=== PATIENT | female | born 1960 | race African-American/Black ===

== ENCOUNTER 2016-04-27 21:01 | Emergency (ER) | payer OTHER ==
--- NOTE | 2016-04-27 21:10 | PDOC ---
History of Present Illness - General History Source: Patient Exam Limitations: No Limitations - History of Present Illness Initial Comments: 04/27/16 21:41 The patient is a 55 year old female, with a significant past medical history of asthma and acid reflux, who presents to the emergency department with abdominal pain and nausea since yesterday. She describes her abdominal pain as moderate, localized in the epigastric region, without radiation or modifying factors. She reports that she has been taking Advil with minimal relief of her symptoms. She notes that she had these same symptoms on 10/2015, was diagnosed with gastritis and discharged after a 3 day stay. She also notes that she had multiple endoscopies at the time. The patient denies chest pain, shortness of breath, headache and dizziness. Denies fever, chills, vomit, diarrhea and constipation. Denies dysuria, frequency, urgency and hematuria. Allergies: Past surgical history: Gastric Sleeve and cholecystectomy Social history: No alcohol, tobacco or drug use reported <Richi Paredes - Last Filed: 04/28/16 00:02> <Marion Esparza - Last Filed: 04/28/16 02:40> - General Chief Complaint: Pain, Acute Stated Complaint: ABDOMINAL PAIN Time Seen by Provider: 04/27/16 21:04 Past History <Richi Paredes - Last Filed: 04/28/16 00:02> - Past Medical History Anemia: No Asthma: Yes Cancer: No Cardiac Disorders: No CVA: No COPD: No CHF: No Dementia: No Diabetes: No GI Disorders: Yes (gerd) Disorders: No HTN: Yes Hypercholesterolemia: No Liver Disease: No Suicide Attempt (Hx): No Seizures: No Thyroid Disease: No - Surgical History Abdominal Surgery: Yes (LAP BANDING IN 2003 & REMOVED,hernia, gastric sleeve 2014) Appendectomy: No Cardiac Surgery: No Cholecystectomy: Yes (04/2010) Lung Surgery: No Neurologic Surgery: No Orthopedic Surgery: No - Psycho/Social/Smoking Cessation Hx Anxiety: No Suicidal Ideation: No Smoking Status: No Smoking History: Former smoker Have you smoked in the past 12 months: No Number of Cigarettes Smoked Daily: 0 If you are a former smoker, when did you quit?: 1991 Hx Alcohol Use: No Drug/Substance Use Hx: No Substance Use Type: None Hx Substance Use Treatment: No <Marion Esparza - Last Filed: 04/28/16 02:40> - Past Medical History Allergies/Adverse Reactions: Allergies Allergy/AdvReac Type Severity Reaction Status Date / Time spironolactone Allergy Mild Rash Verified 04/27/16 21:09 [From Aldactone] Home Medications: Ambulatory Orders Albuterol 0.083% Nebulizer Mary [Ventolin 0.083% Nebulizer Soln -] 1 neb NEB Q6H 09/01/14 Albuterol Sulfate Inhaler - [Ventolin Hfa Inhaler -] 1 - 2 inh PO QID 10/16/15 Fluticasone Propionate [Flovent Diskus] 100 mcg IH DAILY 10/16/15 Esomeprazole Magnesium [Nexium 24Hr] 20 mg PO DAILY #14 capsule. 04/28/16 Abd/GI Specific PMHX - Complaint Specific PMHX GERD: Yes <Marion Esparza - Last Filed: 04/28/16 02:40> Review of Systems - Review of Systems Able to Perform ROS?: Yes Comments:: 04/27/16 21:41 GENERAL/CONSTITUTIONAL: No fever or chills. No weakness. HEAD, EYES, EARS, NOSE AND THROAT: No change in vision. No ear pain or discharge. No sore throat. CARDIOVASCULAR: No chest pain or shortness of breath RESPIRATORY: No cough, wheezing, or hemoptysis. GASTROINTESTINAL: +Epigastric pain and nausea. No vomiting, diarrhea or constipation. GENITOURINARY: No dysuria, frequency, or change in urination. MUSCULOSKELETAL: No joint or muscle swelling or pain. No neck or back pain. SKIN: No rash NEUROLOGIC: No headache, vertigo, loss of consciousness, or change in strength/ sensation. ENDOCRINE: No increased thirst. No abnormal weight change HEMATOLOGIC/LYMPHATIC: No anemia, easy bleeding, or history of blood clots. ALLERGIC/IMMUNOLOGIC: No hives or skin allergy. <Richi Paredes - Last Filed: 04/28/16 00:02> *Physical Exam - Vital Signs Last Vital Signs Temp Pulse Resp BP Pulse Ox 97.5 F L 96 H 18 172/113 100 04/27/16 21:09 04/27/16 21:09 04/27/16 21:09 04/27/16 21:09 04/27/16 21:09 - Physical Exam Comments: 04/27/16 21:41 GENERAL: Awake, alert, and fully oriented, in no acute distress HEAD: No signs of trauma, normocephalic, atraumatic EYES: PERRLA, EOMI, sclera anicteric, conjunctiva clear ENT: Auricles normal inspection, hearing grossly normal, nares patent, oropharynx clear without exudates. Moist mucosa NECK: Normal ROM, supple, no lymphadenopathy, JVD, or masses LUNGS: No distress, speaks full sentences, clear to auscultation bilaterally HEART: Regular rate and rhythm, normal S1 and S2, no murmurs, rubs or gallops, peripheral pulses normal and equal bilaterally. ABDOMEN: +Epigastric tenderness and rebound. Soft, normoactive bowel sounds. No guarding, No masses EXTREMITIES: Normal inspection, Normal range of motion, no edema. No clubbing or cyanosis. NEUROLOGICAL: Cranial nerves II through XII grossly intact. Normal speech, normal gait, no focal sensorimotor deficits SKIN: Warm, Dry, normal turgor, no rashes or lesions noted. <Richi Paredes - Last Filed: 04/28/16 00:02> ED Treatment Course - LABORATORY CBC & Chemistry Diagram: 04/27/16 21:30 04/27/16 21:30 <Richi Paredes - Last Filed: 04/28/16 00:02> - LABORATORY CBC & Chemistry Diagram: 04/27/16 21:30 04/27/16 21:30 <Marion Esparza - Last Filed: 04/28/16 02:40> Medical Decision Making - Medical Decision Making 04/27/16 23:19 Dr. Maya was called regarding the patient at 11:17pm Dr. Maya was consulted regarding the patient at 11:18pm [phone] Dr. Marques was called regarding the patient at 11:23pm. Dr. Patel covering. Dr. Patel was consulted regarding the patient at 11:40pm [phone] <Richi Paredes - Last Filed: 04/28/16 00:02> - Medical Decision Making 04/28/16 02:39 ekg is NSR with no signs of ischemia <Marion Esparza - Last Filed: 04/28/16 02:40> *DC/Admit/Observation/Transfer - Attestations Scribe Attestion: 04/27/16 21:42 Documentation prepared by Richi Paredes, acting as medical dir for Marion Esparza MD <Richi Paredes - Last Filed: 04/28/16 00:02> <Marion Esparza - Last Filed: 04/28/16 02:40> Diagnosis at time of Disposition: Abdominal pain Qualifiers: Abdominal location: epigastric Qualified Code(s): R10.13 - Epigastric pain - Prescriptions Prescriptions: Esomeprazole Magnesium [Nexium 24Hr] 20 mg PO DAILY #14 capsule.dr - Referrals Referrals: Mansoor Marques MD [Primary Care Provider] -
[2016-04-27 21:11] VITALS: TEMP 97.5; BMI 40.7
[2016-04-27] MEDS ORDERED: ONDANSETRON 4 MG/2 ML VIAL IVPB ONE (21:11)
[2016-04-27] MEDS ORDERED: PANTOPRAZOLE SODIUM 40 MG in SODIUM CHLORIDE 100 ML IVPB ONE (21:11)
[2016-04-27] MEDS ORDERED: HYDROmorphone HCL CARPU-JECT 1 MG/1 ML DISP.SYRIN IVPUSH ONE ×2 (21:11→22:54)
[2016-04-27] MEDS ORDERED: SODIUM CHLORIDE 1,000 ML IV SCH (21:15)
[2016-04-27] MEDS ORDERED: ONDANSETRON 4 MG/2 ML VIAL ONE (21:22)
[2016-04-27] MEDS ORDERED: HYDROmorphone HCL CARPU-JECT 1 MG/1 ML DISP.SYRIN ONE ×2 (21:22→23:02)
[2016-04-27] MEDS ORDERED: PANTOPRAZOLE SODIUM 100 ML IVPB ONE (21:22)
[2016-04-27 21:58] LABS: BASOPHIL 0.7 % (0-2.0); EOSINOPHIL 2.5 % (0-4.5); MCH 25.7 pg (25.7-33.7); MCHC 32.4 g/dl (32.0-36.0); MEAN CELL VOLUME 79.2 fl (80-96); MEAN PLT VOLUME 9.7 fl (7.5-11.1); PLATELET COUNT 282 K/MM3 (134-434); RDW 15.1 % (11.6-15.6); WHITE BLOOD COUNT 8.8 K/mm3 (4.0-10.0)
[2016-04-27 22:24] LABS: ALBUMIN 3.4 g/dl (3.4-5.0); ANION GAP 7 (8-16); CALCIUM 8.9 mg/dL (8.5-10.1); CO2 30 mmol/L (21-32); CREATININE 0.8 mg/dL (0.55-1.02); GLUCOSE,RANDOM 92 mg/dL (74-106); SGOT/AST 9 U/L (15-37); SGPT/ALT 13 U/L (12-78)
[2016-04-27 22:26] LABS: ALK PHOS 101 U/L (45-117); BILIRUBIN,TOTAL 0.4 mg/dL (0.2-1.0); TOT PROT 7.4 g/dl (6.4-8.2)
[2016-04-27] MEDS ORDERED: MAG HYDROX/AL HYDROX/SIMETH 30 ML UNIT-DOSE CUP PO ONE (23:23)
[2016-04-27] MEDS ORDERED: OXYCODONE/APAP 5/325MG COMBO TABLET PO ONE (23:34)
[2016-04-28] MEDS ORDERED: OXYCODONE/APAP 5/325MG COMBO TABLET ONE (00:52)
[2016-04-28] MEDS ORDERED: MAG HYDROX/AL HYDROX/SIMETH 30 ML UNIT-DOSE CUP ONE (00:52)
[2016-04-28 07:27] VITALS: BP 144/85; PULSE 67
[2016-04-28] MEDS ORDERED: ACETAMINOPHEN 500 MG TABLET (FP) PO ONE (07:31)
[2016-04-28] MEDS ORDERED: ACETAMINOPHEN 325 MG TABLET (FP) ONE (07:35)
--- NOTE | 2016-04-28 09:17 | PDOC ---
*Physical Exam - Vital Signs Last Vital Signs Temp Pulse Resp BP Pulse Ox 97.5 F L 67 18 144/85 98 04/27/16 21:09 04/28/16 07:27 04/28/16 05:55 04/28/16 07:27 04/28/16 05:55 ED Treatment Course - LABORATORY CBC & Chemistry Diagram: 04/27/16 21:30 04/27/16 21:30 - ADDITIONAL ORDERS Additional order review: Laboratory Results 04/27/16 21:30 Sodium 141 Potassium 3.9 Chloride 104 Carbon Dioxide 30 Anion Gap 7 L BUN 9 D Creatinine 0.8 D Creat Clearance w eGFR > 60 Random Glucose 92 Calcium 8.9 Total Bilirubin 0.4 AST 9 L D ALT 13 Alkaline Phosphatase 101 Total Protein 7.4 Albumin 3.4 Lipase 137 04/27/16 21:30 RBC 5.23 H MCV 79.2 L MCHC 32.4 RDW 15.1 MPV 9.7 Neutrophils % 64.0 D Lymphocytes % 23.6 D Monocytes % 9.2 Eosinophils % 2.5 Basophils % 0.7 - Medications Given in the ED: ED Medications Discontinued Medications Generic Name Dose Route Start Last Admin Trade Name Markq PRN Reason Stop Dose Admin Acetaminophen 1,000 mg 04/28/16 07:31 04/28/16 07:39 Tylenol - PO 04/28/16 07:32 1,000 mg ONCE ONE Administration Al Hydroxide/Mg Hydroxide 30 ml 04/27/16 23:23 04/28/16 00:54 Mylanta Oral Suspension - PO 04/27/16 23:24 30 ml ONCE ONE Administration Hydromorphone HCl 1 mg 04/27/16 21:11 04/27/16 21:43 Dilaudid Injection - IVPUSH 04/27/16 21:12 1 mg ONCE ONE Administration Hydromorphone HCl 1 mg 04/27/16 22:54 04/27/16 23:06 Dilaudid Injection - IVPUSH 04/27/16 22:55 1 mg ONCE ONE Administration Pantoprazole Sodium 40 mg/ 100 mls @ 200 mls/hr 04/27/16 21:11 04/27/16 21:43 Sodium Chloride IVPB 04/27/16 21:40 200 mls/hr ONCE ONE Administration Sodium Chloride 1,000 mls @ 125 mls/hr 04/27/16 21:15 04/27/16 21:43 Normal Saline - IV 125 mls/hr ASDIR NANCY Administration Ondansetron HCl 4 mg 04/27/16 21:11 04/27/16 21:43 Zofran Injection IVPB 04/27/16 21:12 4 mg ONCE ONE Administration Oxycodone/Acetaminophen 1 combo 04/27/16 23:34 04/28/16 00:54 Percocet 5/325 - PO 04/27/16 23:35 1 combo ONCE ONE Administration Progress Note - Progress Note Progress Note: This patient was endorsed to me at [address] Henry. The patient initially presented with abdominal pain and was discharged but later returned stating that she had a headache and felt lightheaded. Her abdominal pain is completely resolved and she received Tylenol for the headache which has also resolved. We' ll discharge home, follow-up with primary care physician within one week, return to the emergency department if symptoms persist, worsen, or new symptoms arise. *DC/Admit/Observation/Transfer Diagnosis at time of Disposition: Abdominal pain Qualifiers: Abdominal location: epigastric Qualified Code(s): R10.13 - Epigastric pain - Discharge Dispostion Disposition: HOME Condition at time of disposition: Stable Admit: No - Prescriptions Prescriptions: Esomeprazole Magnesium [Nexium 24Hr] 20 mg PO DAILY #14 capsule. Oxycodone HCl/Acetaminophen [Percocet 5-325 mg Tablet] 1 tab PO Q6H PRN #4 tablet MDD 4 PRN Reason: Severe Pain - Referrals Referrals: Mansoor Marques MD [Primary Care Provider] - - Patient Instructions Printed Discharge Instructions: DI for Abdominal Pain-Adult - Post Discharge Activity Work/School Note: Back to Work
--- NOTE | 2016-04-29 17:11 | EKG ---
Test Reason : Blood Pressure : / mmHG Vent. Rate : 071 BPM Atrial Rate : 071 BPM P-R Int : 138 ms QRS Dur : 082 ms QT Int : 404 ms P-R-T Axes : 045 042 050 degrees QTc Int : 439 ms NORMAL SINUS RHYTHM POSSIBLE LEFT ATRIAL ENLARGEMENT BORDERLINE ECG WHEN COMPARED WITH ECG OF 16-OCT-2015 15:05, NO SIGNIFICANT CHANGE WAS FOUND Confirmed by DONG KELLOGG MD ([id number]) on 04/29/2016 5:10:55 PM Referred By: Confirmed By:DONG KELLOGG MD
== END 2016-04-28 05:56 | disposition home or self-care (01) ==
LOC: JER 21:01
PROC: 3E033GC Introduction of Other Therapeutic Substance into Peripheral Vein, Percutaneous Approach (ICD-10-PCS; principal; 2016-04-27)
PROC: 3E033NZ Introduction of Analgesics, Hypnotics, Sedatives into Peripheral Vein, Percutaneous Approach (ICD-10-PCS; 2016-04-27)
DX: R10.13 Epigastric pain (principal); K21.9 Gastro-esophageal reflux disease without esophagitis
CPT/HCPCS: 36415; 80053; 83690; 85025; 93005; 93010; 99283-25

== ENCOUNTER 2016-05-01 08:21 | Emergency (ER) | payer OTHER ==
[2016-05-01 08:34] VITALS: BP 164/100; PULSE 87; TEMP 98.6; BMI 38.9
--- NOTE | 2016-05-01 08:47 | PDOC ---
History of Present Illness - General Chief Complaint: Sore Throat Stated Complaint: SORE THROAT/UNABLE TO SPEAK Time Seen by Provider: 05/01/16 08:41 History Source: Patient - History of Present Illness Timing/Duration: reports: other Severity: reports: mild Associated Symptoms: reports: sore throat. denies: cough, earache, facial pain , fever/chills, nasal congestion, nasal drainage, wheezing Past History - Past Medical History Allergies/Adverse Reactions: Allergies Allergy/AdvReac Type Severity Reaction Status Date / Time spironolactone Allergy Mild Rash Verified 05/01/16 08:34 [From Aldactone] Home Medications: Ambulatory Orders Albuterol 0.083% Nebulizer Mary [Ventolin 0.083% Nebulizer Soln -] 1 neb NEB Q6H 09/01/14 Albuterol Sulfate Inhaler - [Ventolin Hfa Inhaler -] 1 - 2 inh PO QID 10/16/15 Fluticasone Propionate [Flovent Diskus] 100 mcg IH DAILY 10/16/15 Esomeprazole Magnesium [Nexium 24Hr] 20 mg PO DAILY #14 capsule. 04/28/16 Esomeprazole Magnesium [Nexium] 5 mg PO DAILY 04/28/16 Oxycodone HCl/Acetaminophen [Percocet 5-325 mg Tablet] 1 tab PO Q6H PRN #4 tablet MDD 4 04/28/16 Anemia: No Asthma: Yes Cancer: No Cardiac Disorders: No CVA: No COPD: No CHF: No Dementia: No Diabetes: No GI Disorders: Yes (gerd) Disorders: No HTN: Yes Hypercholesterolemia: No Liver Disease: No Suicide Attempt (Hx): No Seizures: No Thyroid Disease: No - Surgical History Abdominal Surgery: Yes (LAP BANDING IN 2003 & REMOVED,hernia, gastric sleeve 2014) Appendectomy: No Cardiac Surgery: No Cholecystectomy: Yes (04/2010) Lung Surgery: No Neurologic Surgery: No Orthopedic Surgery: No - Psycho/Social/Smoking Cessation Hx Anxiety: No Suicidal Ideation: No Smoking Status: No Smoking History: Never smoked Have you smoked in the past 12 months: No Number of Cigarettes Smoked Daily: 0 If you are a former smoker, when did you quit?: 1991 Information on smoking cessation initiated: No Hx Alcohol Use: No Drug/Substance Use Hx: No Substance Use Type: None Hx Substance Use Treatment: No Review of Systems - Review of Systems Constitutional: No: Chills, Fever HEENTM: Yes: Throat Pain. No: Ear Pain, Nose Congestion Respiratory: No: Cough, Shortness of Breath, Wheezing *Physical Exam - Vital Signs Last Vital Signs Temp Pulse Resp BP Pulse Ox 98.6 F 87 18 164/100 98 05/01/16 08:27 05/01/16 08:27 05/01/16 08:27 05/01/16 08:27 05/01/16 08:27 - Physical Exam General Appearance: Yes: Appropriately Dressed. No: Apparent Distress HEENT: positive: Normal Voice, TMs Normal, Pharynx Normal, Muffled/Hoarse voice. negative: Scleral Icterus (R), Scleral Icterus (L) Neck: positive: Supple Integumentary: positive: Dry, Warm Neurologic: positive: Fully Oriented, Alert, Normal Mood/Affect Medical Decision Making - Medical Decision Making 05/01/16 08:47 55-year-old female history of asthma presents with hoarseness 3 days with mild sore throat this a.m. Denies any ear pain, cough, fever or chills. Non- smoker. Patient well-appearing and stable with hoarse voice in ED, otherwise unremarkable exam. Most likely acute laryngitis 2/2 URI. DC with supportive treatment including adequate hydration and voice rest. *DC/Admit/Observation/Transfer Diagnosis at time of Disposition: Hoarseness URI (upper respiratory infection) Qualifiers: URI type: unspecified viral URI Qualified Code(s): J06.9 - Acute upper respiratory infection, unspecified; B97.89 - Other viral agents as the cause of diseases classified elsewhere - Discharge Dispostion Disposition: HOME Condition at time of disposition: Stable - Patient Instructions Printed Discharge Instructions: DI for Laryngitis Additional Instructions: Rest your voice and maintain adequate hydration - Post Discharge Activity Work/School Note: Back to Work
== END 2016-05-01 09:03 | disposition home or self-care (01) ==
LOC: JERFT 08:21
DX: J06.9 Acute upper respiratory infection, unspecified (principal); B97.89 Other viral agents as the cause of diseases classified elsewhere; I10 Essential (primary) hypertension; J45.909 Unspecified asthma, uncomplicated; K21.9 Gastro-esophageal reflux disease without esophagitis
CPT/HCPCS: 99281-25

== ENCOUNTER 2016-06-05 18:35 | Inpatient (IN) | payer OTHER ==
--- NOTE | 2016-06-05 18:57 | PDOC ---
History of Present Illness - General History Source: Patient Exam Limitations: No Limitations - History of Present Illness Initial Comments: 06/06/16 01:24 55-year-old female with history of asthma, GERD, status post gastric sleeve complains of severe epigastric and periumbilical pain that is increased in severity over the past several days. Pain is constant, radiating posteriorly, associated with nausea and anorexia, 9 of 10 in severity, without alleviating or exacerbating factors. Pain is worse postprandially. Patient was seen and evaluated by her primary care physician and referred to the ER further evaluation and treatment. REVIEW OF SYSTEMS CONSTITUTIONAL: No fever, no chills, no fatigue EYES: No visual changes ENT: No ear pain, no sore throat CARDIOVASCULAR: No chest pain, no palpitations RESPIRATORY: No cough, no SOB GI:+ abdominal pain, no nausea, + vomiting, no constipation, no diarrhea GENITOURINARY: No dysuria, no frequency, no hematuria MUSKULOSKELETAL: No backpain, no joint pain, no myalgias SKIN: No rash NEURO: No headache EXAMINATION CONSTITUTIONAL:awake and alert; well nourished; in no apparent distress HEAD: Normocephalic; atraumatic EYES: PERRL; EOM intact, no scleral icterus ENMT: External appears normal; mm-dry NECK: Supple; non-tender; CARD: Normal S1, S2; no murmurs, rubs, or gallops RESP: Normal chest excursion with respiration; breath sounds clear and equal bilaterally; no wheezes, rhonchi, or rales ABD: Soft, +distended; tympanitic; significant epigastric and periumbilical ttp ; no palpable organomegaly, no palpable hernias EXT: Normal ROM in all four extremities; non-tender to palpation; distal pulses intact SKIN: Warm, dry, no rash NEURO: No focal neurological deficiencies. <Xu Santizo - Last Filed: 06/06/16 01:24> <Margaux Suh - Last Filed: 06/06/16 02:01> - General Chief Complaint: Pain Stated Complaint: ABD PAIN Past History - Past Medical History Anemia: No Asthma: Yes Cancer: No Cardiac Disorders: No CVA: No COPD: No CHF: No Dementia: No Diabetes: No GI Disorders: Yes (gerd) Disorders: No HTN: Yes (hx) Hypercholesterolemia: No Liver Disease: No Suicide Attempt (Hx): No Seizures: No Thyroid Disease: No - Surgical History Abdominal Surgery: Yes (sleeve 10/2014) Appendectomy: No Cardiac Surgery: No Cholecystectomy: Yes (04/2010) Lung Surgery: No Neurologic Surgery: No Orthopedic Surgery: No - Psycho/Social/Smoking Cessation Hx Anxiety: No Suicidal Ideation: No Smoking Status: No Smoking History: Never smoked Have you smoked in the past 12 months: No Number of Cigarettes Smoked Daily: 0 If you are a former smoker, when did you quit?: 1991 Information on smoking cessation initiated: No Hx Alcohol Use: No Drug/Substance Use Hx: No Substance Use Type: None Hx Substance Use Treatment: No <Xu Santizo - Last Filed: 06/06/16 01:24> <Margaux Suh - Last Filed: 06/06/16 02:01> - Past Medical History Allergies/Adverse Reactions: Allergies Allergy/AdvReac Type Severity Reaction Status Date / Time spironolactone Allergy Mild Rash Verified 06/05/16 18:39 [From Aldactone] Home Medications: Ambulatory Orders Albuterol Sulfate Inhaler - [Ventolin Hfa Inhaler -] 1 - 2 inh PO QID PRN Esomeprazole Magnesium [Nexium 24Hr] 20 mg PO DAILY #14 capsule. 04/28/16 Abd/GI Specific PMHX - Complaint Specific PMHX GERD: Yes <Xu Santizo - Last Filed: 06/06/16 01:24> *Physical Exam - Vital Signs Last Vital Signs Temp Pulse Resp BP Pulse Ox 97.6 F 85 18 189/91 97 06/05/16 18:39 06/05/16 18:39 06/05/16 18:39 06/05/16 18:39 06/05/16 18:39 <Xu Santizo - Last Filed: 06/06/16 01:24> - Vital Signs Last Vital Signs Temp Pulse Resp BP Pulse Ox 97.6 F 83 18 136/92 100 06/05/16 18:39 06/06/16 01:58 06/06/16 01:58 06/06/16 01:58 06/06/16 01:58 <Margaux Suh - Last Filed: 06/06/16 02:01> Heart Score/ECG Review #1 ECG reviewed & interpreted by me at: 01:48 (Vent Rate: 68 bpm. Normal sinus rhythm.) <Margaux Suh - Last Filed: 06/06/16 02:01> ED Treatment Course - LABORATORY CBC & Chemistry Diagram: 06/05/16 19:50 06/05/16 19:50 <Xu Santizo - Last Filed: 06/06/16 01:24> - LABORATORY CBC & Chemistry Diagram: 06/05/16 19:50 06/05/16 19:50 - ADDITIONAL ORDERS Additional order review: Laboratory Results 06/05/16 06/05/16 19:50 19:50 Sodium 142 Potassium 3.8 Chloride 102 Carbon Dioxide 30 Anion Gap 10 BUN 7 D Creatinine 0.6 D Creat Clearance w eGFR > 60 Random Glucose 79 Calcium 8.7 Magnesium 1.9 Total Bilirubin 0.5 D AST 25 D ALT 15 Alkaline Phosphatase 94 Total Protein 7.2 Albumin 3.4 Lipase 162 Urine Color Yellow Urine Appearance Clear Urine pH 6.0 D Ur Specific [place] 1.021 Urine Protein Negative Urine Glucose (UA) Negative Urine Ketones Negative Urine Blood Negative Urine Nitrite Negative Urine Bilirubin Negative Urine Urobilinogen 2.0 e.u/dl H Ur Leukocyte Esterase 2+ H Urine RBC 1 Urine WBC 2 Ur Epithelial Cells Rare Urine Bacteria Rare Urine Mucus Many 06/05/16 19:50 RBC 4.78 MCV 78.8 L MCHC 31.5 L RDW 15.0 MPV 9.6 Neutrophils % 59.7 Lymphocytes % 29.2 D Monocytes % 9.0 Eosinophils % 1.5 Basophils % 0.6 - Medications Given in the ED: ED Medications Discontinued Medications Generic Name Dose Route Start Last Admin Trade Name Freq PRN Reason Stop Dose Admin Hydromorphone HCl 2 mg 06/05/16 21:41 06/05/16 21:50 Dilaudid Injection - IVPB 06/05/16 21:42 2 mg ONCE ONE Administration Sodium Chloride 500 mls @ 500 mls/hr 06/05/16 19:13 06/05/16 19:40 Normal Saline - IV 06/05/16 20:12 500 mls/hr ASDIR STA Administration Sodium Chloride 500 mls @ 500 mls/hr 06/06/16 00:50 06/06/16 01:20 Normal Saline - IV 06/06/16 01:49 500 mls/hr ASDIR STA Administration Morphine Sulfate 4 mg 06/05/16 19:13 06/05/16 19:40 Morphine Injection - IVPUSH 06/05/16 19:14 4 mg ONCE ONE Administration Morphine Sulfate 2 mg 06/05/16 21:01 06/05/16 21:34 Morphine Injection - IVPUSH 06/05/16 21:02 2 mg ONCE ONE Administration Ondansetron HCl 4 mg 06/06/16 00:50 06/06/16 01:20 Zofran Injection IVPUSH 06/06/16 00:51 4 mg ONCE ONE Administration <Margaux Suh - Last Filed: 06/06/16 02:01> Medical Decision Making - Medical Decision Making 06/06/16 01:30 Patient is a 55-year-old female with history of asthma, GERD and gastric sleeve who presents with worsening epigastric and periumbilical pain. In the ER, patient is requiring narcotic parenteral pain medication for pain control. Patient is afebrile and hemodynamically stable. Serial exams reveal persistent epigastric and supraumbilical tenderness to palpation. There is no right lower quadrant tenderness. CBC/CMP/lipase/UA within normal limit. CT that and pelvis reveals no evidence of pancreatitis, small and large bowel within normal limit. Questionable dilated appendix is noted. I do not suspect acute appendicitis in this case. Patient has had several episodes of bilious vomiting in the ED. She will require admission for continuous IV hydration, antiemetic therapy and parenteral pain control with GI evaluation. <Xu Santizo - Last Filed: 06/06/16 01:24> *DC/Admit/Observation/Transfer - Discharge Dispostion Admit: Yes <Xu Santizo - Last Filed: 06/06/16 01:24> - Attestations Scribe Attestion: 06/06/16 02:01 Documentation prepared by Margaux Suh, acting as biomedical field service engineer for Xu Santizo MD. <Margaux Suh - Last Filed: 06/06/16 02:01> Diagnosis at time of Disposition: Intractable epigastric abdominal pain Vomiting bile Qualifiers: Nausea presence: with nausea Qualified Code(s): R11.14 - Bilious vomiting
[2016-06-05] MEDS ORDERED: morphine CARPU-JECT 4 MG/1 ML DISP.SYRIN IVPUSH ONE (19:13)
[2016-06-05] MEDS ORDERED: SODIUM CHLORIDE 500 ML IV STA (19:13)
[2016-06-05] MEDS ORDERED: morphine CARPU-JECT 4 MG/1 ML DISP.SYRIN ONE (19:27)
[2016-06-05 20:06] LABS: BASOPHIL 0.6 % (0-2.0); EOSINOPHIL 1.5 % (0-4.5); MCH 24.8 pg (25.7-33.7); MCHC 31.5 g/dl (32.0-36.0); MEAN CELL VOLUME 78.8 fl (80-96); MEAN PLT VOLUME 9.6 fl (7.5-11.1); NEUTROPHILS 59.7 % (42.8-82.8); PLATELET COUNT 265 K/MM3 (134-434); WHITE BLOOD COUNT 6.9 K/mm3 (4.0-10.0)
[2016-06-05 20:25] LABS: URINE APPEARANCE CLEAR; URINE BILIRUBIN NEGATIVE (NEGATIVE); URINE BLOOD NEGATIVE (NEGATIVE); URINE COLOR YELLOW; URINE GLUCOSE (UA) NEGATIVE (NEGATIVE); URINE KETONE NEGATIVE (NEGATIVE); URINE NITRITE NEGATIVE (NEGATIVE); URINE PROTEIN NEGATIVE (NEGATIVE); URINE UROBILINOGEN 2.0 E.U/dl E.U./dl (0.2-1.0)
[2016-06-05 20:32] LABS: ALBUMIN 3.4 g/dl (3.4-5.0); ALK PHOS 94 U/L (45-117); ANION GAP 10 (8-16); BILIRUBIN,TOTAL 0.5 mg/dL (0.2-1.0); CALCIUM 8.7 mg/dL (8.5-10.1); CO2 30 mmol/L (21-32); COCKROFT - GAULT 162.945; CREATININE 0.6 mg/dL (0.55-1.02); GLUCOSE,RANDOM 79 mg/dL (74-106); SGPT/ALT 15 U/L (12-78); TOT PROT 7.2 g/dl (6.4-8.2)
[2016-06-05 20:37] LABS: MAGNESIUM 1.9 mg/dL (1.8-2.4)
[2016-06-05 20:38] LABS: SGOT/AST 25 U/L (15-37)
[2016-06-05] MEDS ORDERED: morphine CARPU-JECT 2 MG/1 ML DISP.SYRIN IVPUSH ONE (21:01)
[2016-06-05 21:19] LABS: URINE LEUK ESTERASE 2+ (NEGATIVE)
[2016-06-05] MEDS ORDERED: morphine CARPU-JECT 2 MG/1 ML DISP.SYRIN ONE (21:25)
[2016-06-05] MEDS ORDERED: HYDROmorphone HCL CARPU-JECT 2 MG/1 ML DISP.SYRIN IVPB ONE (21:41)
[2016-06-05] MEDS ORDERED: HYDROmorphone HCL CARPU-JECT 2 MG/1 ML DISP.SYRIN ONE (21:43)
[2016-06-05 22:50] LABS: URINE BACTERIA RARE /hpf (NONE SEEN); URINE MUCUS MANY; URINE RBC 1 /hpf (0-3); URINE WBC 2 /hpf (3-5)
[2016-06-06] MEDS ORDERED: ONDANSETRON 4 MG/2 ML VIAL ONE (00:49)
[2016-06-06] MEDS ORDERED: SODIUM CHLORIDE 500 ML IV STA (00:50)
[2016-06-06] MEDS ORDERED: ONDANSETRON 4 MG/2 ML VIAL IVPUSH ONE (00:50)
[2016-06-06] MEDS ORDERED: HYDROmorphone HCL CARPU-JECT 1 MG/1 ML DISP.SYRIN IVPUSH PRN (01:39)
[2016-06-06] MEDS ORDERED: ONDANSETRON 4 MG/2 ML VIAL IVPB PRN (01:44)
[2016-06-06 02:55] VITALS: BMI 41.5
[2016-06-06] MEDS: D5-1/2NS+20 MEQ KCL - 1,000 ML IV SCH ×2 (03:11→03:27)
[2016-06-06] MEDS: PANTOPRAZOLE SODIUM 100 ML IVPB SCH ×4 (03:17→21:46)
--- NOTE | 2016-06-06 07:42 | CONSULT ---
Addendum entered and electronically signed by Kofi Gant PA 06/06/16 09:16: CT Scan: Slightly thickened & hyperemic appendix. Possibility of early appendicitis can't be excluded. No incisional hernias identified. Dr. Napier made aware Original Note: - Consultation REQUESTING PROVIDER: Prieto Napier MD CONSULT REQUEST: We have been asked to surgically evaluate this patient for abdominal pain, n/v. PCP: Mitchel Patel HPI: Called to eval 55 yo female with PMHx noted below. Significant h/o obesity with multiple bariatric surgeries (lap band 2010, removed due to continuous electrolyte abnormalities. lap sleeve 2014 Dr. Enrique). C/o severe abd pain to her epigastric & periumbilical regions with increasing intensity over the past few days. According to patient this has been an on going issue since having the surgeries listed above. Pain is constant, radiates posteriorly, associated with nausea, 1 episode of bilious vomiting. Admits to loss of appetite. She rates the pain as 9/10 in severity. Pain is prevalent postprandial. Patient is followed by Dr. Maya (GI) as out-patient. She is passing flatus. Her last bm was yesterday (formed, non-bloody). Denies cough, CP, palpitations, SOB, hematuria, melena, hematochazia PMHx: Morbid Obesity, Asthma, GERD PSHx: Lap band 2010 (Dr. Acevedo @ [facility]), Cholecystectomy 04/2010, Lap sleeve gastrectomy 10/16/14 (Dr. Enrique) Home Meds Albuterol Sulfate Inhaler 1 - 2 inh PO QID PRN Esomeprazole Magnesium 20 mg PO DAILY #14 capsule. Allergies: Spiraonalactone --> causes rash ROS: All systems reviewed and are unremarkable except for what's contained in HPI. PE: GENERAL: Awake, alert, oriented, nad HEAD: NC. AT. EYES: PERRL, sclera anicteric, conjunctiva clear. NECK: Normal ROM, supple without lymphadenopathy, JVD, or masses. LUNGS: CTA b/l anteriorly HEART: RRR ABDOMEN: Obese body habitus. Multiple scars from previous bariatric surgical ports. Normoactive bowel sounds in all quads. Epigastric & umbilical ttp (over surgical scars). No erythema or warmth around each of the port scars. Unable to assess for incisional hernia due to pain. Negative McBurney point tenderness. Negative Psoas or obturator signs. MUSCULOSKEL: Neg CVAT UE: 2+ pulses, warm, well-perfused. No cyanosis. Cap refill <2 seconds. No peripheral edema. LE: 2+ pulses, warm, well-perfused. No calf tenderness. No peripheral edema. Last Vital Signs Temp Pulse Resp BP Pulse Ox 98.2 F 63 20 115/77 97 06/06/16 02:48 06/06/16 02:48 06/06/16 02:48 06/06/16 02:48 06/06/16 02:58 CBC, BMP 06/06/16 06:20 06/06/16 06:20 Hepatic Panel Total Bilirubin 0.5 mg/dL (0.2-1.0) D 06/05/16 19:50 AST 25 U/L (15-37) D 06/05/16 19:50 ALT 15 U/L (12-78) 06/05/16 19:50 Alkaline Phosphatase 94 U/L (45-117) 06/05/16 19:50 Albumin 3.4 g/dl (3.4-5.0) 06/05/16 19:50 Problem List - Problems (1) Epigastric abdominal pain Assessment/Plan: NPO/IVF GI Consult f/u CT abd/pelvis (r/o incisional hernia vs. appendicitis given location however low probability) Pain management PRN Antiemetics OOB and ambulate Above plan discussed with Dr. Napier and agrees Code(s): R10.13 - EPIGASTRIC PAIN (2) GERD (gastroesophageal reflux disease) Code(s): K21.9 - GASTRO-ESOPHAGEAL REFLUX DISEASE WITHOUT ESOPHAGITIS Visit type - Case Type Case Type: ED Admission - Emergency Emergency Visit: Yes ED Registration Date: 06/06/16 Care time: The patient presented to the Emergency Department on the above date and was hospitalized for further evaluation of their emergent condition. - New patient This patient is new to me today: Yes Date on this admission: 06/06/16
[2016-06-06 07:52] LABS: ALBUMIN 3.1 g/dl (3.4-5.0); ANION GAP 7 (8-16); BASOPHIL 0.3 % (0-2.0); CALCIUM 8.8 mg/dL (8.5-10.1); CO2 33 mmol/L (21-32); CREATININE 0.5 mg/dL (0.55-1.02); EOSINOPHIL 0.2 % (0-4.5); GLUCOSE,RANDOM 91 mg/dL (74-106); MCH 25.6 pg (25.7-33.7); MCHC 32.1 g/dl (32.0-36.0); MEAN CELL VOLUME 79.6 fl (80-96); MEAN PLT VOLUME 9.5 fl (7.5-11.1); NEUTROPHILS 77.4 % (42.8-82.8); PLATELET COUNT 233 K/MM3 (134-434); RDW 15.6 % (11.6-15.6); SGOT/AST 168 U/L (15-37); SGPT/ALT 97 U/L (12-78); WHITE BLOOD COUNT 6.3 K/mm3 (4.0-10.0)
[2016-06-06 07:56] LABS: ALK PHOS 130 U/L (45-117); BILIRUBIN,TOTAL 0.7 mg/dL (0.2-1.0); TOT PROT 6.6 g/dl (6.4-8.2); TROPONIN I < 0.02 ng/ml (0.00-0.05)
[2016-06-06] MEDS: METOCLOPRAMIDE HCL INJECTION 10 MG/2 ML VIAL IVPB SCH ×2 (09:05→17:12)
--- NOTE | 2016-06-06 10:12 | HP ---
Admitting History and Physical - Primary Care Physician PCP: Mansoor Marques - Admission Chief Complaint: ACUTE ABD PAIN/NAUSEA AND VOMITING History of Present Illness: SENT FROM MY OFFICE FOR ACUTE GENERALIZED ABD PAIN WITH NAUSEA AND VOMITING. HISTORY OF GERD, S/P GASTRIC SLEEVE, AND OBESITY. 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 History SYSTEMS REQUIREMENTS PLANNER: No: Alzheimer's, CVA, Dementia, Migraine, Multiple Sclerosis, Parkinson's, Seizure, Syncope, TIA, Vertigo Cardiovascular: Yes: HTN Pulmonary: Yes: Asthma, Pneumonia Gastrointestinal: Yes: Gastritis, GERD, Hiatal Hernia Hepatobiliary: Yes: Cholelithiasis (post cholecystectomy) ...LMP: 07/27/99 Musculoskeletal: Yes: Other (fx ankle june 2012- fell in ditch) Endocrine: Yes: Other (had dexa in past and told ok) - Past Surgical History Past Surgical History: Yes: Cholecystectomy (,s/p lap band) - Smoking History Smoking history: Never smoked Have you smoked in the past 12 months: No Aproximately how many cigarettes per day: 0 If you are a former smoker, when did you quit?: 30 yrs ago - Alcohol/Substance Use Hx Alcohol Use: No Number of Drinks Daily: 0 (had 2 vodkas on 01/06/13) History of Substance Use: reports: None - Social History ADL: Independent 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 04/28/16 Family Disease History - Family Disease History Family Disease History: Diabetes: Mother (Hypertension), CA: Father (), Mother, Other: Mother, Sister (Hypertension) Review of Systems - Review of Systems Constitutional: reports: Loss of Appetite, Weakness Eyes: reports: No Symptoms HENT: reports: No Symptoms Neck: reports: No Symptoms Cardiovascular: reports: No Symptoms Respiratory: reports: No Symptoms Gastrointestinal: reports: Abdominal Pain, Dysphagia, Nausea, Vomiting Genitourinary: reports: Frequency Musculoskeletal: reports: Muscle Weakness Integumentary: reports: No Symptoms Neurological: reports: No Symptoms Endocrine: reports: No Symptoms Hematology/Lymphatic: reports: No Symptoms Psychiatric: reports: No Symptoms Physical Examination Vital Signs: Vital Signs Temperature 97.6 F 06/06/16 06:00 Pulse Rate 66 06/06/16 06:00 Respiratory Rate 12 06/06/16 06:00 Blood Pressure 125/79 06/06/16 06:00 O2 Sat by Pulse Oximetry (%) 97 06/06/16 02:58 Constitutional: Yes: Moderate Distress Eyes: Yes: WNL HENT: Yes: WNL Neck: Yes: WNL Cardiovascular: Yes: WNL Respiratory: Yes: WNL Gastrointestinal: Yes: Tenderness Musculoskeletal: Yes: WNL Extremities: Yes: WNL Edema: No Peripheral Pulses WNL: Yes Integumentary: Yes: WNL Wound/Incision: Yes: Clean/Dry Neurological: Yes: WNL ...Motor Strength: WNL Psychiatric: Yes: WNL Labs: CBC, BMP 06/06/16 06:20 06/06/16 06:20 Imaging - Results Cat Scan: Report Reviewed Problem List - Problems (1) Epigastric abdominal pain Code(s): R10.13 - EPIGASTRIC PAIN (2) Intractable epigastric abdominal pain Code(s): R10.13 - EPIGASTRIC PAIN (3) Vomiting bile Code(s): R11.14 - BILIOUS VOMITING Qualifiers: Nausea presence: with nausea Qualified Code(s): R11.14 - Bilious vomiting (4) Abdominal pain Code(s): R10.9 - UNSPECIFIED ABDOMINAL PAIN Qualifiers: Abdominal location: epigastric Qualified Code(s): R10.13 - Epigastric pain (5) Abnormal liver enzymes Code(s): R74.8 - ABNORMAL LEVELS OF OTHER SERUM ENZYMES Assessment/Plan SURGERY AND GI EVAL LFT ELEVATION IVF ANTIEMETICS HIDA SCAN? OR MRCP? WILL DISCUSS WITH GI
[2016-06-06] MEDS: HEPARIN NA (PORCINE) 5,000 UNITS/ML 1ML VIAL SQ SCH ×2 (10:27→21:46)
--- NOTE | 2016-06-06 11:22 | EKG ---
Test Reason : Blood Pressure : / mmHG Vent. Rate : 068 BPM Atrial Rate : 068 BPM P-R Int : 142 ms QRS Dur : 084 ms QT Int : 436 ms P-R-T Axes : 043 056 056 degrees QTc Int : 463 ms POOR DATA QUALITY, INTERPRETATION MAY BE ADVERSELY AFFECTED NORMAL SINUS RHYTHM WHEN COMPARED WITH ECG OF 28-APR-2016 02:11, NO SIGNIFICANT CHANGE WAS FOUND Confirmed by MERCEDES MIRAMONTES MD ([id number]) on 06/06/2016 11:22:26 AM Referred By: Confirmed By:MERCEDES MIRAMONTES MD
--- NOTE | 2016-06-06 15:26 | CONSULT ---
Consult - text type - Consultation Consultation Note: 55 y.o woman admitted 06/05/16 with 12 hour history of severe epigastric abdominal pain. Pt is 18 months S/P Laparoscopic Sleeve Gastrectomy. Pt had previous Lap-Band , which was removed prior to the sleeve gastrectomy Pt states pain less severe now, but still persists. No N/V, c/o being hungry PMHx- Hypertension, asthma, gastritis, Ge Reflux Disease PSHx- Lap-cholecystectomy, Lap-Band, Sleeve Gastrectomy Meds- Metformin, Albuterol inhaler P/E- General- awake, alert, NAD but c/o epigastric discomfort Abd- well- healed incisions, non-distended, tender on palpation in epigastrium near xiphoid no rebound tenderness no hernias palpated Ext- lower extremities: non-edematous, non-tender on palpation, - Collin's sign WBC_ 6.3 H/H- 11.6/36.1 Na-142 Ast-168 (increased) k-3.8 ALT- 97 (increased) Cl-102 AP-130 (increased) CO2-33 Lipase- 85 (decreased) BUN-5 GLU-91 Cr- 0.5 CT Scan- no hernias, no abscess noted CBD, intra-hepatic ducts not dilated Portal Vein patent Stool throughout colon appendix mildly thickened and hyperemic I- Epigastric Pain of unknown etiology Elevated LFT (in last 24 hours) Stool throughout colon R/O Gastritis, Gastric ulcer, GERD R/O Pancreatitis ( not present on labs, but epigastic tenderness mimics pancreatitis) Rec- GI consult Stop Suxendra (weight-loss medication with slight incidence of pancreatitis) PO clear liquids when ok with GI ( See how patient tolerates)
--- NOTE | 2016-06-06 17:17 | CON.GI ---
Consult Consult Specialty:: GI Referred by:: Dr Patel Reason for Consultation:: abdominal pain - History of Present Illness Chief Complaint: Abdominal pain History of Present Illness: 55 F well known to myself, s/p lap band removed by Dr Moreland, with subsequent gastric sleeve done by Dr Enrique, s/p cholecystectomy, now with epigastric/RUQ pain for the past few days. She has been having pain issues for some time and I have done EGD which was negative for pathology but revealed a surprising amount of retained stomach. She is now admitted with recurrent abdominal pain with initially normal LFTs which have now gone up to [address] shows normal ducts. 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 mild L ear pain with chewing. h/o hosp with low K+ and MG++ o diuretic at that time. 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 04/28/16 Family Disease History - Family Disease History Family Disease History: Diabetes: Mother (Hypertension), CA: Father (), Mother, Other: Mother, Sister (Hypertension) Physical Exam-GI Vital Signs: Vital Signs Temperature 97.9 F 06/06/16 14:00 Pulse Rate 78 06/06/16 16:28 Respiratory Rate 20 06/06/16 16:28 Blood Pressure 141/70 06/06/16 16:28 O2 Sat by Pulse Oximetry (%) 97 06/06/16 09:00 Constitutional: Yes: Obese Neck: Yes: Supple Cardiovascular: Yes: Regular Rate and Rhythm Respiratory: Yes: CTA Bilaterally Gastrointestinal Inspection: Yes: WNL ...Auscultate: Yes: Normoactive Bowel Sounds ...Palpate: Yes: Tenderness (epigastric and RUQ) Labs: CBC, BMP 06/06/16 06:20 06/06/16 06:20 Imaging - Results Cat Scan: Report Reviewed Assessment/Plan Elevated LFT's with abdominal pain suggest biliary pathology. Will get MRCP to better evaluate Follow LFTs May require HIDA scan to better assess for biliary patency Clear liquids only for now
[2016-06-06] MEDS: HYDROmorphone HCL CARPU-JECT 1 MG/1 ML DISP.SYRIN IVPB PRN (23:56)
[2016-06-07] MEDS: METOCLOPRAMIDE HCL INJECTION 10 MG/2 ML VIAL IVPB SCH ×3 (00:41→22:56)
[2016-06-07] MEDS: HYDROmorphone HCL CARPU-JECT 1 MG/1 ML DISP.SYRIN IVPB PRN (06:05)
[2016-06-07] MEDS: D5-1/2NS+20 MEQ KCL - 1,000 ML IV SCH (08:14)
[2016-06-07 08:59] LABS: ALBUMIN 2.7 g/dl (3.4-5.0); ANION GAP 9 (8-16); CALCIUM 8.7 mg/dL (8.5-10.1); CO2 30 mmol/L (21-32); CREATININE 0.5 mg/dL (0.55-1.02); GLUCOSE,RANDOM 82 mg/dL (74-106); SGOT/AST 44 U/L (15-37); SGPT/ALT 56 U/L (12-78)
[2016-06-07 09:00] LABS: ALK PHOS 112 U/L (45-117); BILIRUBIN,TOTAL 0.5 mg/dL (0.2-1.0); TOT PROT 6.1 g/dl (6.4-8.2)
[2016-06-07] MEDS: PANTOPRAZOLE SODIUM 100 ML IVPB SCH (10:37)
[2016-06-07] MEDS: HEPARIN NA (PORCINE) 5,000 UNITS/ML 1ML VIAL SQ SCH ×2 (10:37→22:56)
--- NOTE | 2016-06-07 14:00 | PN ---
Progress Note (short form) - Note Progress Note: Afebrile, VSS Patient states abdominal pain imroving No nausea/vomiting Hungry and would like to eat Presently on clear liquids and tolerating well P/E- Abd- non-distended soft, tender on palpation in epigastric area (unchanged) non-tender in other areas of abdomen no rebound tenderness, slight guarding upon palpation LFT's all improving: AST-44 (was 168) ALT-56 (was 97) AP-112 (was 130) Lipase-68 (was 85) I- Patient improving from previously, both physically and lab values Rec- Agree with MRCP per GI. Patient can be advanced slowly to soft, bland diet ( spoke to patient about avoiding fried, fatty foods, dairy, etc)
--- NOTE | 2016-06-07 14:31 | DS ---
Physical Examination Vital Signs: Vital Signs Temperature 97.4 F L 06/07/16 09:00 Pulse Rate 67 06/07/16 09:00 Respiratory Rate 20 06/07/16 09:00 Blood Pressure 141/86 06/07/16 09:00 O2 Sat by Pulse Oximetry (%) 96 06/06/16 21:00 Constitutional: Yes: No Distress Eyes: Yes: WNL HENT: Yes: WNL Neck: Yes: WNL Cardiovascular: Yes: WNL Respiratory: Yes: WNL Gastrointestinal: Yes: WNL Renal/: Yes: WNL Musculoskeletal: Yes: WNL Extremities: Yes: WNL Edema: No Peripheral Pulses WNL: Yes Integumentary: Yes: WNL Wound/Incision: Yes: Clean/Dry Neurological: Yes: WNL ...Motor Strength: WNL Psychiatric: Yes: WNL Labs: CBC, BMP 06/06/16 06:20 06/07/16 08:15 Discharge Summary Reason For Visit: INTRACTABLE EPIGASTRIC ABDOMINAL PAIN Current Active Problems Abnormal liver enzymes (Acute) Epigastric abdominal pain (Acute) Intractable epigastric abdominal pain (Acute) Vomiting bile (Acute) Procedures: Principal: ct scan abd Other Procedures: labs/xrays Hospital Course: acute transaminitis, with acute abd pain, vomiting, treated with pain meds, antiemetics, ivf, will need outpatient mrcp and hida scan, f/u gi in 1 week liquid diet Condition: Improved - Instructions Diet, Activity, Other Instructions: liquid Referrals: Mansoor Marques MD [Primary Care Provider] - Disposition: HOME - Home Medications Comprehensive Discharge Medication List: Ambulatory Orders Albuterol Sulfate Inhaler - [Ventolin HFA Inhaler -] 1 - 2 inh PO QID PRN Esomeprazole Magnesium [Nexium 24Hr] 20 mg PO DAILY #14 capsule. 04/28/16
[2016-06-07] MEDS ORDERED: ALPRAZolam 2 MG TABLET PO ONE (19:30)
[2016-06-07] MEDS: D5-NS + 20 MEQ KCL - 1,000 ML IV SCH (22:56)
[2016-06-07] MEDS: PANTOPRAZOLE SODIUM 40 MG/100 ML PRE-DOCKED IVPB SCH (22:56)
[2016-06-08] MEDS: HYDROmorphone HCL CARPU-JECT 1 MG/1 ML DISP.SYRIN IVPB PRN ×3 (00:29→22:04)
[2016-06-08] MEDS: D5-NS + 20 MEQ KCL - 1,000 ML IV SCH ×2 (05:26→22:08)
[2016-06-08] MEDS: METOCLOPRAMIDE HCL INJECTION 10 MG/2 ML VIAL IVPB SCH ×3 (05:49→22:01)
[2016-06-08] MEDS: HEPARIN NA (PORCINE) 5,000 UNITS/ML 1ML VIAL SQ SCH ×2 (09:47→22:00)
[2016-06-08] MEDS: PANTOPRAZOLE SODIUM 40 MG/100 ML PRE-DOCKED IVPB SCH ×2 (09:47→22:01)
[2016-06-08 09:56] LABS: ALBUMIN 2.7 g/dl (3.4-5.0); ANION GAP 8 (8-16); CALCIUM 8.4 mg/dL (8.5-10.1); CO2 30 mmol/L (21-32); GLUCOSE,RANDOM 92 mg/dL (74-106)
[2016-06-08 09:58] LABS: ALK PHOS 114 U/L (45-117); BILIRUBIN,TOTAL 0.3 mg/dL (0.2-1.0); CREATININE 0.7 mg/dL (0.55-1.02); SGOT/AST 20 U/L (15-37); SGPT/ALT 39 U/L (12-78); TOT PROT 6.1 g/dl (6.4-8.2)
--- NOTE | 2016-06-08 15:42 | PN ---
GI Progress Note Subjective: Patient still c/o intermittent abd pain - Objective Vital Signs: Vital Signs Temperature 97.5 F L 06/08/16 09:41 Pulse Rate 76 06/08/16 09:41 Respiratory Rate 20 06/08/16 09:41 Blood Pressure 146/90 06/08/16 09:41 O2 Sat by Pulse Oximetry (%) 96 06/06/16 21:00 Constitutional: Well Nourished, Obese HENT: Yes: Normocephalic Cardiovascular: Yes: Regular Rate and Rhythm Respiratory: Yes: CTA Bilaterally Gastrointestinal Inspection: Yes: WNL ...Auscultate: Yes: Normoactive Bowel Sounds ...Palpate: Yes: Soft, Tenderness, Epigastium Labs: CBC, BMP 06/06/16 06:20 06/08/16 09:10 Hepatic Panel Total Bilirubin 0.3 mg/dL (0.2-1.0) D 06/08/16 09:10 AST 20 U/L (15-37) D 06/08/16 09:10 ALT 39 U/L (12-78) D 06/08/16 09:10 Alkaline Phosphatase 114 U/L (45-117) 06/08/16 09:10 Albumin 2.7 g/dl (3.4-5.0) L 06/08/16 09:10 Assessment/Plan Patient discharged-however still having some degree of pain and MR reading is pending Await reading. Once reviewed can d/c
--- NOTE | 2016-06-08 19:03 | PN ---
Progress Note, Physician History of Present Illness: abd pain but better - Current Medication List Current Medications: Active Medications Heparin Sodium (Porcine) (Heparin -) 5,000 unit SQ BID [facility] Last Admin: 06/08/16 09:47 Dose: 5,000 unit Hydromorphone HCl (Dilaudid Injection -) 1 mg IVPB Q4H PRN Last Admin: 06/08/16 09:46 Dose: 1 mg Dextrose/Sodium Chloride (Dextrose 5%-Normal Saline+20 Meq Kcl -) 1,000 mls @ 100 mls/hr IV ASDIR [facility] Last Admin: 06/08/16 05:26 Dose: 100 mls/hr Metoclopramide HCl (Reglan Injection -) 10 mg IVPB TID [facility] Last Admin: 06/08/16 13:45 Dose: 10 mg Pantoprazole Sodium (Protonix 40mg Ivpb (Pre-Docked)) 40 mg IVPB BID [facility] Last Admin: 06/08/16 09:47 Dose: 40 mg - Objective Vital Signs: Vital Signs Temperature 97.7 F 06/08/16 15:47 Pulse Rate 71 06/08/16 15:47 Respiratory Rate 20 06/08/16 15:47 Blood Pressure 130/79 06/08/16 15:47 O2 Sat by Pulse Oximetry (%) 99 06/08/16 09:00 Constitutional: Yes: No Distress HENT: Yes: Atraumatic Neck: Yes: Supple Cardiovascular: Yes: Regular Rate and Rhythm Respiratory: Yes: CTA Bilaterally Gastrointestinal: Yes: Normal Bowel Sounds Extremities: Yes: WNL Neurological: Yes: Alert, Oriented Labs: CBC, BMP 06/06/16 06:20 06/08/16 09:10 Problem List - Problems (1) Abdominal pain Assessment/Plan: awaiting mri results Code(s): R10.9 - UNSPECIFIED ABDOMINAL PAIN Qualifiers: Abdominal location: epigastric Qualified Code(s): R10.13 - Epigastric pain (2) Asthma Assessment/Plan: stable Code(s): J45.909 - UNSPECIFIED ASTHMA, UNCOMPLICATED (3) GERD (gastroesophageal reflux disease) Assessment/Plan: on protonix Code(s): K21.9 - GASTRO-ESOPHAGEAL REFLUX DISEASE WITHOUT ESOPHAGITIS (4) History of cholecystectomy Code(s): Z90.49 - ACQUIRED ABSENCE OF OTHER SPECIFIED PARTS OF DIGESTIVE TRACT Assessment/Plan covering dr gentile
[2016-06-09] MEDS: METOCLOPRAMIDE HCL INJECTION 10 MG/2 ML VIAL IVPB SCH (05:47)
[2016-06-09] MEDS: PANTOPRAZOLE SODIUM 40 MG/100 ML PRE-DOCKED IVPB SCH (11:49)
[2016-06-09] MEDS: HEPARIN NA (PORCINE) 5,000 UNITS/ML 1ML VIAL SQ SCH (11:49)
[2016-06-09 15:29] VITALS: BP 155/98; PULSE 78; TEMP 97.9
== END 2016-06-09 16:42 | disposition home or self-care (01) | DRG 392 ==
LOC: JER 18:35 → JERBED 06-06 01:33 → J6S 06-06 02:41
PROVIDERS: ADMIT Family Medicine; ATTEND Family Medicine
DX: R10.13 Epigastric pain (principal); Z68.41 Body mass index [BMI] 40.0-44.9, adult; K21.9 Gastro-esophageal reflux disease without esophagitis; R11.14 Bilious vomiting; J45.909 Unspecified asthma, uncomplicated; Z98.84 Bariatric surgery status; I10 Essential (primary) hypertension; E66.9 Obesity, unspecified; Z71.3 Dietary counseling and surveillance; R74.0 Nonspecific elevation of levels of transaminase and lactic acid dehydrogenase [LDH]
CPT/HCPCS: 36415; 71010-TC; 74177-TC; 74181-TC; 80053; 81003; 81015; 83690; 83735; 84484; 85025; 87086; 93005; 93010; 99284-25; J1644; Q9967

== ENCOUNTER 2016-10-09 05:12 | Inpatient (IN) | payer OTHER ==
[2016-10-08 13:11] VITALS: BMI 37.2
[~2016-10-09 05:12] MED LIST: BUPIVACAINE HCL/PF 0.5% (5MG/ML) 10 ML VIAL IJ ONE
[2016-10-09] MEDS ORDERED: methylPREDNISolone NA SUCC 40 MG/1 ML VIAL ONE (12:25)
[2016-10-09] MEDS ORDERED: methylPREDNISolone NA SUCC 40 MG/1 ML VIAL IVPB ONE (13:00)
[2016-10-09] MEDS ORDERED: ALBUTEROL SO4 0.5 % INH SOLN 2.5 MG/0.5 ML VIAL.NEB. NEB PRN ×2 (13:02→20:16)
[2016-10-09] MEDS ORDERED: ALBUTEROL SO4 0.5 % INH SOLN 2.5 MG/0.5 ML VIAL.NEB. NEB ONE (13:15)
[2016-10-09] MEDS ORDERED: BUPIVACAINE HCL/PF 0.5% (5MG/ML) 10 ML VIAL ONE (16:55)
[2016-10-09] MEDS ORDERED: ROCURONIUM BROMIDE 50 MG/5 ML VIAL ONE ×2 (17:25→18:52)
[2016-10-09] MEDS ORDERED: MIDAZOLAM HCL 2 MG/2 ML SINGLE DOSE VIAL ONE (17:25)
[2016-10-09] MEDS ORDERED: PROPOFOL 20 ML ONE ×2 (17:25→17:40)
[2016-10-09] MEDS ORDERED: ALBUTEROL SO4 18 GM HFA INHALER IH ONE (17:30)
[2016-10-09] MEDS ORDERED: LIDOCAINE HCL 2% 100 MG/5 ML DISP.SYRIN ONE ×3 (17:35→18:27)
[2016-10-09] MEDS ORDERED: ceFAZolin SODIUM 1 GM VIAL IVPB ONE (17:45)
[2016-10-09] MEDS ORDERED: DEXAMETHASONE SOD PHOSPHATE 4 MG/1 ML VIAL ONE (17:55)
[2016-10-09] MEDS ORDERED: CLINDAMYCIN PHOSPHATE 600 MG/4 ML VIAL ONE (17:55)
[2016-10-09] MEDS ORDERED: GLYCOPYRROLATE 0.2 MG/1 ML VIAL ONE (18:28)
[2016-10-09] MEDS ORDERED: LIDOCAINE HCL/PF 2% SDV 5ML VIAL ONE (18:28)
[2016-10-09] MEDS ORDERED: NEOSTIGMINE METHYLSULFATE 0.5 MG/ML - 10 ML MDV ONE (19:57)
[2016-10-09] MEDS ORDERED: PHENYLEPHRINE HCL 10 MG/1 ML SINGLE DOSE VIAL ONE (19:57)
[2016-10-09] MEDS ORDERED: ONDANSETRON 4 MG/2 ML VIAL IVPB PRN (20:12)
[2016-10-09] MEDS ORDERED: SODIUM CHLORIDE 1,000 ML IV SCH (20:15)
[2016-10-09] MEDS ORDERED: PROMETHAZINE HCL 25 MG/1 ML VIAL ONE (20:29)
--- NOTE | 2016-10-09 20:29 | OP ---
Operative Note - Note: Operative Date: 10/09/16 Pre-Operative Diagnosis: Morbid obesity Operation: Laparoscopic revision of vertical sleeve gastrectomy, lysis of adhesions Post-Operative Diagnosis: Same as Pre-op Surgeon: Chepe Enrique Marine Resource Economist: Kofi Gant Anesthesiologist/SLASHER TENDER: Danny Locke Anesthesia: General Specimens Removed: greater curvature of stomach (revision) Estimated Blood Loss (mls): 30 Fluid Volume Replaced (mls): 1,000 Operative Report Dictated: Yes
[2016-10-09] MEDS ORDERED: HYDROmorphone HCL CARPU-JECT 2 MG/1 ML DISP.SYRIN ONE (20:30)
--- NOTE | 2016-10-09 20:30 | SURG ---
Surgery Clock Repairer Note Clock Repairer: Kofi Gant PA-C Date of Service: 10/09/16 Diagnosis: Morbid obesity Procedure: Laparoscopic revision of vertical sleeve agastrectomy, lysis of adhesions I was present for the entirety of the operative procedure. For further detail, please refer to operative report. Visit type - Case Type Case Type: Scheduled Admission - New patient This patient is new to me today: Yes Date on this admission: 10/09/16
[2016-10-09] MEDS ORDERED: HYDROmorphone HCL CARPU-JECT 1 MG/1 ML DISP.SYRIN IVPUSH PRN (20:35)
[2016-10-09] MEDS ORDERED: ONDANSETRON 4 MG/2 ML VIAL IVPUSH PRN (20:35)
[2016-10-09] MEDS ORDERED: PROMETHAZINE HCL 25 MG/1 ML VIAL IVPUSH PRN (20:35)
[2016-10-09] MEDS ORDERED: METOCLOPRAMIDE HCL INJECTION 10 MG/2 ML VIAL ONE (20:51)
[2016-10-09] MEDS ORDERED: FAMOTIDINE 20 MG/50 ML IVPB 50 ML IVPB ONE (20:52)
[2016-10-09] MEDS: METOCLOPRAMIDE HCL INJECTION 10 MG/2 ML VIAL IVPB SCH (21:15)
[2016-10-09 21:30] LABS: MCH 25.5 pg (25.7-33.7); MCHC 31.9 g/dl (32.0-36.0); MEAN PLT VOLUME 9.9 fl (7.5-11.1); PLATELET COUNT 266 K/MM3 (134-434); RDW 17.4 % (11.6-15.6); WHITE BLOOD COUNT 15.3 K/mm3 (4.0-10.0)
[2016-10-09] MEDS ORDERED: FAMOTIDINE 20 MG PREMIXED IVPB IVPB ONE (21:45)
[2016-10-09 21:59] LABS: ALBUMIN 3.7 g/dl (3.4-5.0); ANION GAP 10 (8-16); BILIRUBIN,TOTAL 0.3 mg/dL (0.2-1.0); CALCIUM 9.3 mg/dL (8.5-10.1); CO2 27 mmol/L (21-32); CREATININE 0.8 mg/dL (0.55-1.02); GLUCOSE,RANDOM 127 mg/dL (74-106); SGPT/ALT 27 U/L (12-78); TOT PROT 8.2 g/dl (6.4-8.2)
[2016-10-09 22:00] LABS: ALK PHOS 108 U/L (45-117); SGOT/AST 32 U/L (15-37)
[2016-10-09 22:07] LABS: PLATELET ESTIMATE ADEQUATE (NORMAL)
[2016-10-09] MEDS: HYDROmorphone HCL CARPU-JECT 1 MG/1 ML DISP.SYRIN IVPB PRN (22:10)
[2016-10-10] MEDS: METOCLOPRAMIDE HCL INJECTION 10 MG/2 ML VIAL IVPB SCH ×5 (00:01→20:58)
[2016-10-10] MEDS: FAMOTIDINE 20 MG/50 ML IVPB 50 ML IVPB SCH ×3 (00:01→22:15)
[2016-10-10] MEDS: ENOXAPARIN NA (PORCINE) 40 MG/0.4 ML DISP.SYRIN SQ SCH ×3 (00:11→22:15)
--- NOTE | 2016-10-10 01:01 | HOSP ---
Subjective - Review of Symptoms Events since last encounter: MD was called to evaluate the patient for chest pain. Chart Reviewed. Patient has hx of asthma, GERD, obesity, POD#0 from laparoscopic revision of vertical sleeve gastrectomy, and lysis of adhesions. RN states that patient was recently brought up from PACU, and has been complaining of chest pain even in the PACU. Patient was seen and examined. She states that she has had left sided chest/ epigastric/LUQ pain, mildly pleuritic, elicited w/ palpation of L chest. She has never felt this type of pain before, even after her previous bariatric procedures. No assoc SOB, no palpitations. Home Medication List Medication Instructions Recorded Confirmed Type Albuterol Sulfate Inhaler - 1 - 2 inh PO QID PRN 10/16/15 10/08/16 History [Ventolin HFA Inhaler -] Fluticasone Propionate [Flovent 250 mcg IH PRN 10/08/16 10/08/16 History Diskus] Active Medications Generic Name Dose Route Start Last Admin Trade Name Freq PRN Reason Stop Dose Admin Albuterol Sulfate 1 amp 10/09/16 20:16 Ventolin 0.5% - NEB Q4H PRN SHORT OF BREATH/WHEEZING Enoxaparin Sodium 40 mg 10/09/16 22:00 10/10/16 00:11 Lovenox - SQ 40 mg BID NANCY Administration Hydromorphone HCl 0.5 mg 10/09/16 20:14 10/09/16 22:10 Dilaudid Injection - IVPB 0.5 mg Q4H PRN Administration PAIN Hydromorphone HCl 0.5 mg 10/09/16 20:35 10/09/16 21:00 Dilaudid Injection - IVPUSH 10/12/16 20:36 0.5 mg [id number] PRN Administration PAIN Famotidine/Sodium Chloride 50 mls @ 100 mls/hr 10/09/16 22:00 10/10/16 00:01 Pepcid 20 Mg Premixed Ivpb - IVPB Not Given BID NANCY Sodium Chloride 1,000 mls @ 150 mls/hr 10/09/16 20:15 10/09/16 21:45 Normal Saline - IV 150 mls/hr ASDIR NANCY Administration Metoclopramide HCl 10 mg 10/09/16 21:00 10/10/16 00:01 Reglan Injection - IVPB Not Given Q6H-IV NANCY Ondansetron HCl 4 mg 10/09/16 20:12 Zofran Injection IVPB Q4H PRN NAUSEA AND/OR VOMITING Ondansetron HCl 4 mg 10/09/16 20:35 Zofran Injection IVPUSH 10/10/16 02:36 Q6H PRN NAUSEA AND/OR VOMITING Promethazine HCl 12.5 mg 10/09/16 20:35 10/09/16 20:40 Phenergan Injection - IVPUSH 10/10/16 02:36 6.25 mg Q6H PRN Administration NAUSEA-FOR RESCUE AFTER 15 MIN Physical Examination Vital Signs: Vital Signs Temperature 98.7 F 10/09/16 23:50 Pulse Rate 106 H 10/09/16 23:50 Respiratory Rate 18 10/09/16 23:50 Blood Pressure 155/89 10/09/16 23:50 O2 Sat by Pulse Oximetry (%) 100 10/09/16 23:30 GEN: Awake, alert, generally NAD HEENT: PERRLA, EOMi CV: S1, S2, RRR, no murmurs, TTP over L chest eliciting same subjective CP LUNG: mild bibasilar crackles ABD: Soft, TTP in epigastric and LUQ MSK: No edema, no erythema Labs: CBC, BMP 10/09/16 20:55 10/09/16 20:55 Hospitalist Encounter Assessment: Patient's L sided Chest pain is atypical, likely noncardiac in nature. RN placed call to Dr. Enrique, who ordered stat EKG and troponin. EKG reviewed shows normal sinus rhythm w/ tachycardic rate in 100s. No T wave inversions, no ST changes. Stat troponins were drawn, sent to lab. Stat portable CXR ordered to r/o lung pathology or free air or bony abnormalities. Update: Trops negative x2. CXR stat reads early congestion, subcutaneous emphysema, possibly small pneumothorax and would need follow up imagine. RN called Dr. Enrique and notified. Visit type - Emergency Visit Emergency Visit: No - New Patient This patient is new to me today: Yes Date on this admission: 10/10/16 - Critical Care Critical Care patient: No
--- NOTE | 2016-10-10 06:49 | OP ---
DATE OF OPERATION: 10/09/2016 PREOPERATIVE DIAGNOSIS: 1. Morbid obesity. 2. Gastroesophageal reflux disease. 3. Asthma. POSTOPERATIVE DIAGNOSIS: 1. Morbid obesity. 2. Gastroesophageal reflux disease. 3. Asthma. 4. Abdominal adhesions. PROCEDURE PERFORMED: 1. Laparoscopic vertical sleeve gastrectomy. 2. Laparoscopic lysis of adhesions. 3. Diagnostic laparoscopy. OPERATING SURGEON: Coleman Enrique MD SEWER PIPE PRESS OPERATOR: KATH Kowalski ANESTHESIA: General. ESTIMATED BLOOD LOSS: 50 mL. DESCRIPTION OF PROCEDURE: The patient was brought into the operating room and placed on the OR table in the supine position. All precautions were taken initially, including padding for the back and the feet, and Venodyne boots were placed on both lower extremities. At that point the abdomen was prepped and draped in the usual manner. A Veress needle was placed in the left upper quadrant and a pneumoperitoneum was established. First a number 5 bladeless trocar was placed in the left upper quadrant. Through that trocar, the laparoscopic camera was placed. Immediately upon placing the trocar, there was noted to be a massive amount of adhesions in the upper abdomen, both right and left sides. It was difficult on the right side to find an opening to place another port, so an area was found in the left upper quadrant below the costal margin, where a number 5 trocar was placed. The camera was now placed through this trocar. Also, there was difficulty in seeing where to place further trocars. A number 5 trocar was then placed in the right upper quadrant laterally, below the right costal margin. This was followed by a number 15 bladeless trocar in the midline above the umbilicus. Using that as the camera port and the other ports as working ports, the adhesions were lysed, which were mainly in the right upper quadrant laterally, and also in the left upper quadrant. Once all of these adhesions were lysed, there was now clearing. Attention was directed now to the stomach and liver. There was a mass of adhesions between the omentum, the liver and the stomach wall. These were lysed with a combination of blunt dissection and also sharp dissection with a laparoscopic scissor and also the LigaSure device. The dissection was begun on the lower portion of the stomach, about 6 cm from the pylorus, and continued all the way up to the final adhesions that were lysed between the omentum and the greater curvature of the stomach by the superior pole of the spleen. There were also adhesions between the anterior stomach wall and the undersurface of the left lobe of the liver from previous surgeries. These were lysed also with a combination of sharp dissection with the laparoscopic scissor and also blunt dissection. Once this was done, the anterior stomach wall was now in view. Anesthesia then passed a number 36 bougie. The bougie was then held along the lesser curvature, as it went easily into the stomach lesser curvature. With the bougie held along the lesser curve, a series of jose was performed, with the first two being black jose, 6 cm in length, along the nu 36 bougie. This was followed by a series of purple load jose, which were also 6 cm in length, and continued until the final staple was fired in the left upper quadrant and the greater curve was now completely detached from the lesser curve. It should be noted that prior to firing each staple, both the anterior and posterior jordan of the remaining lesser curvature were checked that they were equal, and in the area of the esophagogastric junction, approximately 1 to 1.5 cm of serosa remained on the anterior and posterior surfaces. At this point saline was placed around the staple line. Anesthesia inserted air into the bougie, which showed the entire stomach distended down to the pylorus. No obstruction and no leaks were noted. At this point the resected greater curve was removed through the number 15 trocar site under direct vision. Under direct vision, all trocars were removed. Anesthesia removed from the bougie from the stomach easily, and the pneumoperitoneum was released. The number 15 trocar site in the midline was closed with the Endo closure device for an internal hernia to prevent bleeding. All trocar sites then received 0.25% Marcaine and were closed with 4-0 Biosyn in subcuticular fashion, except for the number 12 and 15 trocar sites, which were first closed with 3-0 Vicryl in the subcutaneous tissue, followed by 4-0 Vicryl and 4-0 Biosyn in subcuticular fashion. Dressings were applied. The patient was awoken from anesthesia and transferred out of the operating room to the recovery room in stable condition. Nimco [id number]
[2016-10-10 07:17] LABS: MCHC 31.6 g/dl (32.0-36.0); MEAN CELL VOLUME 78.9 fl (80-96); PLATELET COUNT 226 K/MM3 (134-434); RDW 17.3 % (11.6-15.6); WHITE BLOOD COUNT 11.9 K/mm3 (4.0-10.0)
[2016-10-10 07:41] LABS: ALBUMIN 2.9 g/dl (3.4-5.0); ANION GAP 7 (8-16); BILIRUBIN,TOTAL 0.4 mg/dL (0.2-1.0); CALCIUM 8.2 mg/dL (8.5-10.1); CO2 28 mmol/L (21-32); CREATININE 0.5 mg/dL (0.55-1.02); GLUCOSE,RANDOM 106 mg/dL (74-106); SGOT/AST 17 U/L (15-37); SGPT/ALT 22 U/L (12-78); TOT PROT 6.4 g/dl (6.4-8.2)
[2016-10-10 07:42] LABS: ALK PHOS 84 U/L (45-117)
[2016-10-10 09:18] LABS: TROPONIN I < 0.02 ng/ml (0.00-0.05)
[2016-10-10] MEDS: HYDROmorphone HCL CARPU-JECT 1 MG/1 ML DISP.SYRIN IVPB PRN (10:19)
--- NOTE | 2016-10-10 12:44 | PN ---
Progress Note (short form) - Note Progress Note: POD#1 Afebrile, VSS P-77-90 (100-106 when ambulating) BP-118/66 Pt ambulating, doing well Nausea from last night much improved Tolerating PO clear liquids-3 oz po tid Had chest pain last evening, now resolved Troponin levels- WNL P/E- all trocar sites clean,dry no sub-Q air clinically on palpation of Left side Ext- no swelling, no edema UGI- no leak, no obstruction CXR- + sub-Q air on left side no pneumothorax WBC-11.9 (decreased from 15.3 post-surgery) H/H- 11.2/35.4 P- PO clear liquids- 3 oz po tid D/C baron Encourage OOB- ambulate(discussed with patient) Continue Incentive Spirometer (discussed with patient) Continue SCD, DVT prophylaxis
[2016-10-10] MEDS ORDERED: SODIUM CHLORIDE 1,000 ML IV SCH (12:45)
[2016-10-10] MEDS: oxyCODONE HCL 5 MG TABLET PO PRN ×2 (15:11→22:16)
[2016-10-10] MEDS: ACETAMINOPHEN 325 MG TABLET (FP) PO PRN ×2 (15:12→22:19)
--- NOTE | 2016-10-10 17:32 | PN ---
Progress Note (short form) - Note Progress Note: Anesthesia postop note 56 y/o F s/p GA for redo gastric sleeve POD#1, vss, aaox3, pain well controlled, no complaints No anesthesia complications.
[2016-10-11] MEDS: METOCLOPRAMIDE HCL INJECTION 10 MG/2 ML VIAL IVPB SCH ×2 (02:46→08:58)
[2016-10-11] MEDS: oxyCODONE HCL 5 MG TABLET PO PRN ×2 (04:33→09:17)
[2016-10-11] MEDS: ACETAMINOPHEN 325 MG TABLET (FP) PO PRN ×2 (04:40→09:17)
[2016-10-11] MEDS: ENOXAPARIN NA (PORCINE) 40 MG/0.4 ML DISP.SYRIN SQ SCH (09:01)
[2016-10-11] MEDS: FAMOTIDINE 20 MG/50 ML IVPB 50 ML IVPB SCH (10:33)
--- NOTE | 2016-10-11 13:59 | EKG ---
Test Reason : Blood Pressure : / mmHG Vent. Rate : 100 BPM Atrial Rate : 100 BPM P-R Int : 144 ms QRS Dur : 076 ms QT Int : 338 ms P-R-T Axes : 038 035 052 degrees QTc Int : 436 ms NORMAL SINUS RHYTHM ATRIAL ABNORMALITY WHEN COMPARED WITH ECG OF 19-JUN-2016 09:45, NO SIGNIFICANT CHANGE WAS FOUND Confirmed by STORM RODRIGUEZ MD ([id number]) on 10/11/2016 1:59:11 PM Referred By: MD KERNS Confirmed By:STORM RODRIGUEZ MD
[2016-10-11 14:48] VITALS: BP 148/92; PULSE 86; TEMP 98
--- NOTE | 2016-10-14 12:45 | PATH ---
Surgical Pathology Report Patient Name: ANALILIA VENEGAS [facility]. Rec. #: [id number] /Age/Gender: 1960 (Age: 56) / F Account: [id number] Location: 4 PEDS/ADOL Taken: 10/09/2016 Received: 10/10/2016 Reported: 10/14/2016 Physicians: Chepe Enrique M.D. Specimen(s) Received GREATER CURVATURE OF STOMACH Clinical History Morbid obesity Final Diagnosis STOMACH, GREATER CURVATURE, LAPAROSCOPIC VERTICAL SLEEVE GASTRECTOMY: PORTION OF STOMACH WITH PATCHY MINIMAL CHRONIC GASTRITIS. IMMUNOSTAIN FOR H. PYLORI IS NEGATIVE FOR ORGANISMS. Electronically Signed Osiel Pearl M.D. Gross Description Received in formalin, labeled "greater curvature of stomach" is a 38 gram, 13.5 x 4.0 x 2.0 cm portion of stomach with a stapled margin of resection. The serosa is slater-mcgraw with minimal attached fat. The mucosa is slater-pink with flattened folds. No mucosal masses are identified. Drapery Rod Assembler sections are submitted in one cassette. /10/10/2016 saudi10/10/2016
== END 2016-10-11 16:00 | disposition home or self-care (01) | DRG 621 ==
LOC: JSAMEDAYSX 05:12 → EDSTATUS 12:30 → J4S 10-10 00:03
PROVIDERS: ADMIT Surgery; ATTEND Surgery
PROC: 0DNW4ZZ Release Peritoneum, Percutaneous Endoscopic Approach (ICD-10-PCS; 2016-10-09)
PROC: 0DB64Z3 Excision of Stomach, Percutaneous Endoscopic Approach, Vertical (ICD-10-PCS; principal; 2016-10-09 13:30)
DX: E66.01 Morbid (severe) obesity due to excess calories (principal); Z68.41 Body mass index [BMI] 40.0-44.9, adult; Z71.3 Dietary counseling and surveillance; K21.9 Gastro-esophageal reflux disease without esophagitis; I10 Essential (primary) hypertension; J45.909 Unspecified asthma, uncomplicated; K66.0 Peritoneal adhesions (postprocedural) (postinfection)
CPT/HCPCS: 36415; 71010-TC; 71020-TC; 74241-TC; 80053; 84484; 85027; 88305-TC; 93005; 93010; 94640; 94760

== ENCOUNTER 2017-01-21 08:05 | Inpatient (IN) | payer OTHER ==
[2017-01-21 08:24] VITALS: BMI 35.4
[2017-01-21] MEDS ORDERED: ALBUTEROL SO4 2.5/IPRATROPIUM 0.5 INH SOL 3 ML VIAL.NEB. NEB ONE ×5 (08:31→20:23)
[2017-01-21] MEDS ORDERED: methylPREDNISolone NA SUCC 125 MG/2 ML VIAL IVPB ONE (08:48)
[2017-01-21] MEDS: ALBUTEROL SO4 2.5/IPRATROPIUM 0.5 INH SOL 3 ML VIAL.NEB. NEB SCH ×4 (09:00→10:00)
[2017-01-21] MEDS ORDERED: methylPREDNISolone NA SUCC 125 MG/2 ML VIAL ONE (09:26)
--- NOTE | 2017-01-21 09:39 | PDOC ---
*Physical Exam - Vital Signs Last Vital Signs Temp Pulse Resp BP Pulse Ox 98.2 F 93 H 18 177/111 100 01/21/17 08:12 01/21/17 08:12 01/21/17 08:12 01/21/17 08:12 01/21/17 08:12 ED Treatment Course - LABORATORY CBC & Chemistry Diagram: 01/21/17 13:45 01/21/17 13:45 - Medications Given in the ED: ED Medications Discontinued Medications Generic Name Dose Route Start Last Admin Trade Name Gurmeet PRN Reason Stop Dose Admin Methylprednisolone Sodium Succinate 125 mg 01/21/17 08:48 01/21/17 09:38 Solu-Medrol - IVPB 01/21/17 08:49 125 mg ONCE ONE Administration Medical Decision Making - Medical Decision Making 01/21/17 19:17 Pt seen by the Advanced Practice Provider under my direct supervision Ancillary studies reviewed I agree with plan as outlined by the Advanced Practice Provider *DC/Admit/Observation/Transfer Diagnosis at time of Disposition: Asthma - Referrals - Patient Instructions - Post Discharge Activity
--- NOTE | 2017-01-21 09:54 | PDOC ---
History of Present Illness - General Chief Complaint: Asthma Stated Complaint: ASTHMA Time Seen by Provider: 01/21/17 08:15 History Source: Patient Exam Limitations: No Limitations - History of Present Illness Initial Comments: 01/21/17 10:07 56-year-old female with history of asthma followed by Dr. Logan and Dr. Cantrell presents with worsening asthma despite being on prednisone for the past 2 days. Patient states was seen by her PCP who recommended the above medication and patient states he still continued with wheezing, shortness of breath and coughing. Patient denies chest pain, fever, chills, vomiting, lower extremity edema, or back pain. Timing/Duration: reports: getting worse, week Severity: reports: moderate, severe Possible Cause: Yes: occasional episodes Modifying Factors: improves with: activity, albuterol inhaler, albuterol nebulizer, coughing Associated Symptoms: reports: cough, shortness of breath, wheezing Past History - Past Medical History Allergies/Adverse Reactions: Allergies Allergy/AdvReac Type Severity Reaction Status Date / Time spironolactone Allergy Mild Rash Verified 01/21/17 08:24 [From Aldactone] Home Medications: Ambulatory Orders Albuterol Sulfate Inhaler - [Ventolin Hfa Inhaler -] 1 puff IH PRN PRN 01/21/17 Famotidine [Pepcid -] 40 mg PO DAILY 01/21/17 Fluticasone Propionate [Flovent Diskus] 250 mcg IH DAILY 01/21/17 Prednisone [Deltasone -] 0 mg PO DAILY 01/21/17 Anemia: No Asthma: Yes Cancer: No Cardiac Disorders: No CVA: No COPD: No CHF: No Dementia: No Diabetes: No GI Disorders: Yes (gerd) Disorders: No HTN: Yes (hx (resolved post gastric bypass sx)) Hypercholesterolemia: No Liver Disease: No Seizures: No Thyroid Disease: No - Surgical History Abdominal Surgery: Yes (sleeve 10/2014;hernia sx) Appendectomy: No Cardiac Surgery: No Cholecystectomy: Yes (04/2010) Lung Surgery: No Neurologic Surgery: No Orthopedic Surgery: No - Suicide/Smoking/Psychosocial Hx Smoking Status: No Smoking History: Never smoked Have you smoked in the past 12 months: No Number of Cigarettes Smoked Daily: 0 If you are a former smoker, when did you quit?: 30 yrs ago Information on smoking cessation initiated: No Hx Alcohol Use: No Drug/Substance Use Hx: No Substance Use Type: None Hx Substance Use Treatment: No Patient Lives Alone: Yes Lives with/in: lives alone Review of Systems - Review of Systems Able to Perform ROS?: Yes Constitutional: No: Symptoms Reported HEENTM: No: Symptoms Reported Respiratory: Yes: Cough, Shortness of Breath, Wheezing Cardiac (ROS): No: Symptoms Reported ABD/GI: No: Symptoms Reported Musculoskeletal: No: Symptoms Reported Integumentary: No: Symptoms Reported Neurological: No: Symptoms reported *Physical Exam - Vital Signs Last Vital Signs Temp Pulse Resp BP Pulse Ox 98.2 F 93 H 18 177/111 100 01/21/17 08:12 01/21/17 08:12 01/21/17 08:12 01/21/17 08:12 01/21/17 08:12 - Physical Exam General Appearance: Yes: Nourished, Appropriately Dressed. No: Apparent Distress HEENT: positive: Pharynx Normal Neck: positive: Supple. negative: Normal Thyroid, Lymphadenopathy (R), Lymphadenopathy (L) Respiratory/Chest: positive: Accessory Muscle Use (intracostal), Decreased Breath Sounds (at bases), Wheezing (expiratory inspiratory and expiratory bilateral). negative: Rhonchi ED Treatment Course - Medications Given in the ED: ED Medications Discontinued Medications Generic Name Dose Route Start Last Admin Trade Name Freq PRN Reason Stop Dose Admin Albuterol/Ipratropium 1 amp 01/21/17 09:00 01/21/17 09:36 Duoneb - NEB 01/21/17 09:46 1 amp Q15M NANCY Administration Methylprednisolone Sodium Succinate 125 mg 01/21/17 08:48 01/21/17 09:38 Solu-Medrol - IVPB 01/21/17 08:49 125 mg ONCE ONE Administration Medical Decision Making - Critical Care Time Total Critical Care Time (minutes): 45 Critical Care Statement: The care of this patient involved high complexity decision making to prevent further life threatening deterioration of the patient 's condition and/or to evaluate & treat vital organ system(s) failure or risk of failure. - Medical Decision Making 01/21/17 08:56 Pt here for asthma exacerbation unresolved with nebs, inhalers, and prednisone which was prescribed by her PMD , Dr. Cantrell on Thursday. Pt arrives in mild respiratory distress with accessory muscle usage. Pt immediately given duoneb and ordered x 4 along with iv solumedrol. Pt will remain on pulse oximetry and will reevaluate shortly 01/21/17 09:58 pt completed 4 nebulizer treatment. Breath auscultated at bases but wth noted expiratory wheezing bilateral. Pt able to speak more than 7 words without a pause which is an improvement from arrival (< 5 words). pt ordered for repeat bp, continous pulse oximetry and 2 additional dounebs Pt would benefit from admission and will consult her computer science intern, Dr. Logan. Gil placed to Dr. cantrell. 01/21/17 12:00 Patient with continual coughing. Patient ordered for Robitussin-AC. Patient's breath sounds improved with scattered expiratory wheeze with minimal accessory muscle usage. 01/21/17 13:[address] Chau and will consult on patient. Case also discussed with Dr. Cantrell who states admitted to [facility] inpatient. He also recommended to order chest x-ray and influenza swab. *DC/Admit/Observation/Transfer Diagnosis at time of Disposition: Asthma Qualifiers: Asthma severity: moderate Asthma persistence: persistent Asthma complication type: with acute exacerbation Qualified Code(s): J45.41 - Moderate persistent asthma with (acute) exacerbation - Discharge Dispostion Admit: Yes - Referrals Referrals: Mansoor Cantrell MD [Primary Care Provider] - - Patient Instructions - Post Discharge Activity
[2017-01-21] MEDS ORDERED: guaiFENesin/CODEINE 10 ML UNIT-DOSE CUPS PO ONE (12:57)
[2017-01-21] MEDS ORDERED: guaiFENesin/CODEINE 5 ML UNIT-DOSE CUPS PO ONE ×2 (12:59→18:55)
[2017-01-21 14:17] LABS: BASO % 0.4 % (0-2.0); MCH 25.5 pg (25.7-33.7); MCHC 31.7 g/dl (32.0-36.0); MEAN CELL VOLUME 80.4 fl (80-96); MEAN PLT VOLUME 9.6 fl (7.5-11.1); NEUT % 86.5 % (42.8-82.8); PLATELET COUNT 229 K/MM3 (134-434); RDW 15.5 % (11.6-15.6); WHITE BLOOD COUNT 4.2 K/mm3 (4.0-10.0)
[2017-01-21 14:45] LABS: ALBUMIN 3.7 g/dl (3.4-5.0); ANION GAP 11 (8-16); CALCIUM 9.4 mg/dL (8.5-10.1); CO2 25 mmol/L (21-32); GLUCOSE,RANDOM 99 mg/dL (74-106); SGPT/ALT 14 U/L (12-78)
[2017-01-21 14:48] LABS: ALK PHOS 85 U/L (45-117); BILIRUBIN,TOTAL 0.2 mg/dL (0.2-1.0); CREATININE 0.6 mg/dL (0.55-1.02); TOT PROT 8.2 g/dl (6.4-8.2)
[2017-01-21 14:50] LABS: SGOT/AST 11 U/L (15-37)
[2017-01-21] MEDS ORDERED: ALBUTEROL SO4 2.5/IPRATROPIUM 0.5 INH SOL 3 ML VIAL.NEB. NEB PRN (15:47)
[2017-01-21] MEDS ORDERED: methylPREDNISolone NA SUCC 40 MG/1 ML VIAL IVPUSH SCH (16:00)
--- NOTE | 2017-01-21 16:34 | PN ---
Progress Note (short form) - Note Progress Note: PULMONARY CONSULTATION DICTATED 01/21/17 IMP ACUTE ASTHMA EXACERBATION S/P LAP SLEEVE TEOFILO ON CPAP 10 PLAN IV STEROIDS INHALED BRONCHODILATORS O2 MONITOR PEAK FLOW CPAP 19inH67 AT NIGHT YESSY FARAH Problem List - Problems (1) Sleep apnea Code(s): G47.30 - SLEEP APNEA, UNSPECIFIED (2) Asthma Code(s): J45.909 - UNSPECIFIED ASTHMA, UNCOMPLICATED Qualifiers: Asthma severity: moderate Asthma persistence: persistent Asthma complication type: with acute exacerbation Qualified Code(s): J45.41 - Moderate persistent asthma with (acute) exacerbation (3) Asthma exacerbation Code(s): J45.901 - UNSPECIFIED ASTHMA WITH (ACUTE) EXACERBATION (4) GERD (gastroesophageal reflux disease) Code(s): K21.9 - GASTRO-ESOPHAGEAL REFLUX DISEASE WITHOUT ESOPHAGITIS (5) H/O bariatric surgery Code(s): Z98.84 - BARIATRIC SURGERY STATUS
[2017-01-21] MEDS ORDERED: CEFTRIAXONE 1 GM/50 ML BAG ONE (16:54)
[2017-01-21] MEDS ORDERED: methylPREDNISolone NA SUCC 40 MG/1 ML VIAL ONE ×2 (16:54→20:56)
[2017-01-21] MEDS ORDERED: AZITHROMYCIN 250 MG TABLET ONE (16:54)
[2017-01-21] MEDS ORDERED: PANTOPRAZOLE SODIUM 40 MG/100 ML BAG IVPB ONE (16:54)
[2017-01-21] MEDS ORDERED: amLODIPine BESYLATE 5 MG TABLET (FP) ONE (16:54)
[2017-01-21] MEDS: AZITHROMYCIN 500 MG TABLET PO SCH (16:55)
[2017-01-21] MEDS: amLODIPine BESYLATE 5 MG TABLET (FP) PO SCH (16:55)
[2017-01-21] MEDS: CEFTRIAXONE 1 GM/50 ML BAG IVPB SCH (16:56)
[2017-01-21] MEDS: ALBUTEROL SO4 0.5 % INH SOLN 2.5 MG/0.5 ML VIAL.NEB. NEB PRN ×2 (17:00→23:57)
[2017-01-21] MEDS: TIOTROPIUM BROMIDE 18 MCG/INH (DEVICE W/ 5 CAPSULES) IH SCH (17:04)
[2017-01-21] MEDS ORDERED: PANTOPRAZOLE 40 MG TABLET (FP) ONE (17:38)
[2017-01-21] MEDS: PANTOPRAZOLE 40 MG TABLET (FP) PO SCH (17:44)
[2017-01-21] MEDS: guaiFENesin/CODEINE 10 ML UNIT-DOSE CUPS PO PRN (18:59)
[2017-01-21] MEDS ORDERED: MAGNESIUM SULF 50% (8.12 MEQ/2 ML-1 GM VIAL) IVPB ONE (20:18)
[2017-01-21] MEDS ORDERED: MAGNESIUM SULF 50% (8.12 MEQ/2 ML-1 GM VIAL) ONE (20:23)
--- NOTE | 2017-01-21 20:53 | CONS ---
DATE OF CONSULTATION: 01/21/2017 REFERRING PHYSICIAN: Mansoor Marques MD This is a 56-year-old Black female, known to me from previous hospitalizations, with a past medical history of chronic asthma, recent laparoscopic sleeve, obstructive sleep apnea, nonsmoker, admitted to [facility] with complaints of increase in shortness of breath, cough, and bronchospasm. The patient states that she started developing the above symptoms on , prior to this admission. At the time, she started using an inhaler without any improvement. She went to the ER and was treated with steroids and discharged home. She went to Dr. Marques 2 days ago and was started on prednisone 50 mg. Despite these measures, she has had increasing shortness of breath, cough, and wheezing, at which time she presented back to the emergency room. In the ER, she was noted to have moderate respiratory distress. She was started on IV steroids and inhaled bronchodilators with good clinical response. She denies any fevers, chills, nausea, vomiting, diaphoresis. Denies any recent URI symptoms. There is no history of recent travel. She denies a history of DVT or PE in the past. PAST MEDICAL HISTORY: Again includes chronic asthma, status post laparoscopic sleeve as well as obstructive sleep apnea. SOCIAL HISTORY: Smoker, but quit greater than 30 years ago. No occupational exposures. REVIEW OF SYSTEMS: Positive orthopnea, positive dyspnea, positive cough, positive wheezing. No chest pain, no palpitations. No abdominal pain. No lower extremity edema. CURRENT MEDICATIONS: Zithromax, Solu-Medrol, Rocephin, heparin, DuoNeb, Pneumovax. PHYSICAL EXAMINATION: General: The patient is a well-developed, well-nourished female, awake, and alert, dyspneic. Vital signs: She is currently afebrile. Respiratory rate is 20, O2 saturation is 98% on room air. HEENT: Normocephalic, atraumatic. Neck: Supple. Heart: Regular S1, S2. Chest: Diffuse bilateral expiratory and inspiratory wheezes. Abdomen: Soft. Bowel sounds are positive. Extremities: No cyanosis or edema. LABORATORY: BUN 10, creatinine 0.6, WBC is 4.2, hemoglobin 13.2, hematocrit 41.7, platelet count of 229,000. Chest x-ray reveals no infiltrates and no effusions. IMPRESSION: 1. Acute asthma exacerbation. 2. Status post recent laparoscopic gastric sleeve. 3. Obstructive sleep apnea, on CPAP. 4. Gastroesophageal reflux disease. PLAN: IV steroids, inhaled bronchodilators, supplemental O2. Monitor peak flow. Inhaled steroids. RIVER FARAH M.D. [id number] MTDD
[2017-01-21] MEDS ORDERED: HEPARIN NA (PORCINE) 5,000 UNITS/ML 1ML VIAL ONE (20:56)
[2017-01-21] MEDS: methylPREDNISolone NA SUCC 125 MG/2 ML VIAL IVPUSH SCH (21:04)
[2017-01-21] MEDS: HEPARIN NA (PORCINE) 5,000 UNITS/ML 1ML VIAL SQ SCH (21:04)
[2017-01-22] MEDS: guaiFENesin/CODEINE 10 ML UNIT-DOSE CUPS PO PRN ×3 (01:34→23:08)
[2017-01-22] MEDS: methylPREDNISolone NA SUCC 125 MG/2 ML VIAL IVPUSH SCH ×4 (02:30→23:26)
[2017-01-22] MEDS ORDERED: PT OWN MED DRAWER 7, Y5N ONE (09:07)
[2017-01-22] MEDS: amLODIPine BESYLATE 5 MG TABLET (FP) PO SCH (09:16)
[2017-01-22] MEDS: TIOTROPIUM BROMIDE 18 MCG/INH (DEVICE W/ 5 CAPSULES) IH SCH (09:16)
[2017-01-22] MEDS: HEPARIN NA (PORCINE) 5,000 UNITS/ML 1ML VIAL SQ SCH ×2 (09:16→23:08)
[2017-01-22] MEDS: PANTOPRAZOLE 40 MG TABLET (FP) PO SCH (09:16)
[2017-01-22] MEDS: ALBUTEROL SO4 0.5 % INH SOLN 2.5 MG/0.5 ML VIAL.NEB. NEB PRN (09:35)
--- NOTE | 2017-01-22 09:39 | PN ---
Progress Note (short form) - Note Progress Note: PULMONARY Breathing slightly improved but still significant shortness of breath, nonproductive cough and wheezing. Last Vital Signs Temp Pulse Resp BP Pulse Ox 97.6 F 81 20 149/86 97 01/22/17 06:00 01/22/17 06:00 01/22/17 06:00 01/22/17 06:00 01/21/17 21:00 Gen: tachypneic at rest Heart: RRR Lung: diffuse wheezing, rhonchi Abd: soft, nontender Ext: no edema CBC, BMP 01/21/17 13:45 01/21/17 13:45 Active Medications Albuterol Sulfate (Ventolin 0.5% -) 1 amp NEB Q4H PRN PRN Reason: SHORT OF BREATH/WHEEZING Last Admin: 01/22/17 09:35 Dose: 1 amp Amlodipine Besylate (Norvasc -) 5 mg PO DAILY [facility] Last Admin: 01/22/17 09:16 Dose: 5 mg Azithromycin (Azithromycin) 500 mg PO DAILY [facility] Stop: 01/23/17 10:01 Last Admin: 01/21/17 16:55 Dose: 500 mg Guaifenesin/Codeine Phosphate (Robitussin Ac -) 10 ml PO Q6H PRN PRN Reason: COUGH Last Admin: 01/22/17 01:34 Dose: 10 ml Heparin Sodium (Porcine) (Heparin -) 5,000 unit SQ BID [facility] Last Admin: 01/22/17 09:16 Dose: 5,000 unit Ceftriaxone Sodium (Rocephin 1gm Ivpb (Pre-Docked)) 1 gm in 50 mls @ 100 mls/ hr IVPB DAILY [facility] Last Admin: 01/21/17 16:56 Dose: 100 mls/hr Methylprednisolone Sodium Succinate (Solu-Medrol -) 80 mg IVPUSH Q6H-IV NANCY Last Admin: 01/22/17 09:14 Dose: 80 mg Pantoprazole Sodium (Protonix -) 40 mg PO DAILY [facility] Last Admin: 01/22/17 09:16 Dose: 40 mg Tiotropium Cherry (Spiriva -) 1 puff IH DAILY [facility] Last Admin: 01/22/17 09:16 Dose: 1 puff A/P Acute Asthma Exacerbation s/p Gastric Sleeve Obstructive Sleep Apnea - continue medrol at current dose - inhaled bronchodilators standing and PRN - monitor peak flow - singulair - instructed her to bring CPAP from home or can order here too - DVT prophylaxis
--- NOTE | 2017-01-22 10:16 | PN ---
Progress Note, Physician - Current Medication List Current Medications: Active Medications Albuterol Sulfate (Ventolin 0.5% -) 1 amp NEB Q4H PRN PRN Reason: SHORT OF BREATH/WHEEZING Last Admin: 01/22/17 09:35 Dose: 1 amp Albuterol Sulfate (Ventolin 0.083% Nebulizer Soln -) 1 amp NEB QIDR NANCY Amlodipine Besylate (Norvasc -) 5 mg PO DAILY [facility] Last Admin: 01/22/17 09:16 Dose: 5 mg Azithromycin (Azithromycin) 500 mg PO DAILY NANCY Stop: 01/23/17 10:01 Last Admin: 01/21/17 16:55 Dose: 500 mg Guaifenesin/Codeine Phosphate (Robitussin Ac -) 10 ml PO Q6H PRN PRN Reason: COUGH Last Admin: 01/22/17 01:34 Dose: 10 ml Heparin Sodium (Porcine) (Heparin -) 5,000 unit SQ BID [facility] Last Admin: 01/22/17 09:16 Dose: 5,000 unit Ceftriaxone Sodium (Rocephin 1gm Ivpb (Pre-Docked)) 1 gm in 50 mls @ 100 mls/ hr IVPB DAILY [facility] Last Admin: 01/21/17 16:56 Dose: 100 mls/hr Methylprednisolone Sodium Succinate (Solu-Medrol -) 80 mg IVPUSH Q6H-IV NANCY Last Admin: 01/22/17 09:14 Dose: 80 mg Montelukast Sodium (Singulair -) 10 mg PO HS NANCY Pantoprazole Sodium (Protonix -) 40 mg PO DAILY [facility] Last Admin: 01/22/17 09:16 Dose: 40 mg Tiotropium Trevett (Spiriva -) 1 puff IH DAILY [facility] Last Admin: 01/22/17 09:16 Dose: 1 puff - Objective Vital Signs: Vital Signs Temperature 97.6 F 01/22/17 06:00 Pulse Rate 81 01/22/17 06:00 Respiratory Rate 20 01/22/17 06:00 Blood Pressure 149/86 01/22/17 06:00 O2 Sat by Pulse Oximetry (%) 97 01/21/17 21:00 Labs: CBC, BMP 01/21/17 13:45 01/21/17 13:45
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
[2017-01-22] MEDS: AZITHROMYCIN 500 MG TABLET PO SCH (11:01)
[2017-01-22 11:05] LABS: URINE APPEARANCE SLCLOUDY; URINE BILIRUBIN NEGATIVE (NEGATIVE); URINE BLOOD NEGATIVE (NEGATIVE); URINE COLOR YELLOW; URINE GLUCOSE (UA) NEGATIVE (NEGATIVE); URINE KETONE NEGATIVE (NEGATIVE); URINE NITRITE NEGATIVE (NEGATIVE); URINE PROTEIN NEGATIVE (NEGATIVE); URINE UROBILINOGEN NEGATIVE mg/dL (0.2-1.0)
[2017-01-22 11:13] LABS: URINE LEUK ESTERASE 2+ (NEGATIVE)
[2017-01-22 11:16] LABS: URINE MUCUS RARE; URINE RBC 4 /hpf (0-3); URINE WBC 19 /hpf (3-5)
[2017-01-22] MEDS: CEFTRIAXONE 1 G/50 ML PREMIX 50 ML IVPB SCH (13:18)
[2017-01-22 14:03] LABS: URINE LEUK ESTERASE 1+ (NEGATIVE)
[2017-01-22] MEDS: ALBUTEROL SO4 0.083% IH SOL 2.5 MG/3 ML VIAL.NEB. NEB SCH ×2 (17:03→23:38)
[2017-01-22] MEDS ORDERED: ACETAMINOPHEN 325 MG TABLET (FP) ONE (18:48)
[2017-01-22] MEDS ORDERED: ACETAMINOPHEN 325 MG TABLET (FP) PO PRN (18:49)
[2017-01-22] MEDS: MONTELUKAST NA 10 MG TABLET PO SCH (23:08)
[2017-01-23] MEDS: methylPREDNISolone NA SUCC 40 MG/1 ML VIAL IVPUSH SCH ×4 (03:52→22:56)
[2017-01-23] MEDS: ALBUTEROL SO4 0.083% IH SOL 2.5 MG/3 ML VIAL.NEB. NEB SCH ×4 (06:26→22:00)
[2017-01-23] MEDS ORDERED: PT OWN MED DRAWER 7, Y5N ONE (09:28)
[2017-01-23] MEDS: AZITHROMYCIN 500 MG TABLET PO SCH (09:30)
[2017-01-23] MEDS: CEFTRIAXONE 1 G/50 ML PREMIX 50 ML IVPB SCH (09:32)
[2017-01-23] MEDS: TIOTROPIUM BROMIDE 18 MCG/INH (DEVICE W/ 5 CAPSULES) IH SCH (09:32)
[2017-01-23] MEDS: amLODIPine BESYLATE 5 MG TABLET (FP) PO SCH (09:32)
[2017-01-23] MEDS: HEPARIN NA (PORCINE) 5,000 UNITS/ML 1ML VIAL SQ SCH ×2 (09:32→22:57)
[2017-01-23] MEDS: PANTOPRAZOLE 40 MG TABLET (FP) PO SCH (09:32)
--- NOTE | 2017-01-23 11:34 | PN ---
Progress Note, Physician Chief Complaint: AWAKE ALERT IN DISTRESS WITH SOB - Current Medication List Current Medications: Active Medications Acetaminophen (Tylenol -) 650 mg PO Q6H PRN PRN Reason: FEVER OR PAIN Last Admin: 01/22/17 18:51 Dose: 650 mg Albuterol Sulfate (Ventolin 0.5% -) 1 amp NEB Q4H PRN PRN Reason: SHORT OF BREATH/WHEEZING Last Admin: 01/22/17 09:35 Dose: 1 amp Albuterol Sulfate (Ventolin 0.083% Nebulizer Soln -) 1 amp NEB QIDR NANCY Last Admin: 01/23/17 10:45 Dose: 1 amp Amlodipine Besylate (Norvasc -) 5 mg PO DAILY [facility] Last Admin: 01/23/17 09:32 Dose: 5 mg Guaifenesin/Codeine Phosphate (Robitussin Ac -) 10 ml PO Q6H PRN PRN Reason: COUGH Last Admin: 01/22/17 23:08 Dose: 10 ml Heparin Sodium (Porcine) (Heparin -) 5,000 unit SQ BID [facility] Last Admin: 01/23/17 09:32 Dose: 5,000 unit Methylprednisolone Sodium Succinate (Solu-Medrol -) 80 mg IVPUSH Q6H-IV [facility] Last Admin: 01/23/17 09:30 Dose: 80 mg Montelukast Sodium (Singulair -) 10 mg PO HS [facility] Last Admin: 01/22/17 23:08 Dose: 10 mg Pantoprazole Sodium (Protonix -) 40 mg PO DAILY [facility] Last Admin: 01/23/17 09:32 Dose: 40 mg Tiotropium [place] (Spiriva -) 1 puff IH DAILY [facility] Last Admin: 01/23/17 09:32 Dose: 1 puff - Objective Vital Signs: Vital Signs Temperature 97.4 F L 01/23/17 08:20 Pulse Rate 91 H 01/23/17 08:20 Respiratory Rate 18 01/23/17 08:20 Blood Pressure 145/63 01/23/17 08:20 O2 Sat by Pulse Oximetry (%) 98 01/23/17 09:00 Constitutional: Yes: Mild Distress, Moderate Distress Eyes: Yes: WNL HENT: Yes: WNL Neck: Yes: WNL Cardiovascular: Yes: WNL Respiratory: Yes: On Nasal O2, Rhonchi, SOB, Wheezes Gastrointestinal: Yes: WNL Genitourinary: Yes: WNL Musculoskeletal: Yes: WNL Extremities: Yes: WNL Edema: No Peripheral Pulses WNL: Yes Integumentary: Yes: WNL Wound/Incision: Yes: Clean/Dry Neurological: Yes: WNL ...Motor Strength: WNL Psychiatric: Yes: WNL Labs: CBC, BMP 01/21/17 13:45 01/21/17 13:45 Problem List - Problems (1) Asthma Code(s): J45.909 - UNSPECIFIED ASTHMA, UNCOMPLICATED Qualifiers: Asthma severity: moderate Asthma persistence: persistent Asthma complication type: with acute exacerbation Qualified Code(s): J45.41 - Moderate persistent asthma with (acute) exacerbation (2) Sleep apnea Code(s): G47.30 - SLEEP APNEA, UNSPECIFIED (3) Asthma exacerbation Code(s): J45.901 - UNSPECIFIED ASTHMA WITH (ACUTE) EXACERBATION (4) GERD (gastroesophageal reflux disease) Code(s): K21.9 - GASTRO-ESOPHAGEAL REFLUX DISEASE WITHOUT ESOPHAGITIS (5) H/O bariatric surgery Code(s): Z98.84 - BARIATRIC SURGERY STATUS (6) Acute bronchitis Code(s): J20.9 - ACUTE BRONCHITIS, UNSPECIFIED Qualifiers: Bronchitis organism: unspecified organism Qualified Code(s): J20.9 - Acute bronchitis, unspecified Assessment/Plan IV STEROIDS IV ABX AZITHRO/CEFTRIAXONE NEBS RESP SUPPORT 02 SUPPORT PULM ABY KRISHNAMURTHY
--- NOTE | 2017-01-23 14:00 | PN ---
Physical Exam: SUBJECTIVE: Patient seen and examined. No acute events overnight. Pt reports that SOB, cough, and wheezing are similar to yesterday, if not worse. She states that her symptoms are worst in the morning, but improve throughout the day with treatments. She states that she feels like she isn't able to cough up the sputum that is deep in her lungs. OBJECTIVE: Vital Signs Period Temp Pulse Resp BP Sys/Patel Pulse Ox Last 24 Hr 97.2 F-97.9 F 74-91 18-20 137-150/63-90 97-98 GENERAL: The patient is awake, alert, and fully oriented, in no acute distress. HEENT: NC, AT, EOMI NECK: Trachea midline, full range of motion, supple. LUNGS: audible wheezing w/o stethescope, increased work of breathing HEART: Regular rate and rhythm, S1, S2 without murmur, rub or gallop. ABDOMEN: Soft, nontender, nondistended, normoactive bowel sounds, no guarding, no rebound, no hepatosplenomegaly, no masses. EXTREMITIES: 2+ pulses, warm, well-perfused, no edema. NEUROLOGICAL: Cranial nerves II through XII grossly intact. Normal speech, gait not observed. PSYCH: Normal mood, normal affect. SKIN: Warm, dry, normal turgor, no rashes or lesions noted Laboratory Results - last 24 hr 01/22/17 10:27 Ur Leukocyte Esterase 1+ H Active Medications Generic Name Dose Route Start Last Admin Trade Name Freq PRN Reason Stop Dose Admin Acetaminophen 650 mg 01/22/17 18:49 01/22/17 18:51 Tylenol - PO 650 mg Q6H PRN Administration FEVER OR PAIN Albuterol Sulfate 1 amp 01/21/17 16:40 01/22/17 09:35 Ventolin 0.5% - NEB 1 amp Q4H PRN Administration SHORT OF BREATH/WHEEZING Albuterol Sulfate 1 amp 01/22/17 12:00 01/23/17 10:45 Ventolin 0.083% Nebulizer Soln - NEB 1 amp QIDR NANCY Administration Amlodipine Besylate 5 mg 01/21/17 16:00 01/23/17 09:32 Norvasc - PO 5 mg DAILY NANCY Administration Guaifenesin/Codeine Phosphate 10 ml 01/21/17 16:42 01/22/17 23:08 Robitussin Ac - PO 10 ml Q6H PRN Administration COUGH Heparin Sodium (Porcine) 5,000 unit 01/21/17 22:00 01/23/17 09:32 Heparin - SQ 5,000 unit BID NANCY Administration Methylprednisolone Sodium Succinate 80 mg 01/23/17 03:00 01/23/17 09:30 Solu-Medrol - IVPUSH 80 mg Q6H-IV NANCY Administration Montelukast Sodium 10 mg 01/22/17 22:00 01/22/17 23:08 Singulair - PO 10 mg HS NANCY Administration Pantoprazole Sodium 40 mg 01/21/17 16:00 01/23/17 09:32 Protonix - PO 40 mg DAILY NANCY Administration Tiotropium [place] 1 puff 01/21/17 16:45 01/23/17 09:32 Spiriva - IH 1 puff DAILY NANCY Administration ASSESSMENT/PLAN: 56F here for acute asthma exacerbation. #asthma exacerbation- same as yesterday -continue solumedrol -BD, standing q4h while awake, PRN q1h -CPAP at night -serial peak flows -O2 via NC -abx Rest of care per medical team. Plan to be discussed with attending, Dr. Oliva. -Kofi Kurtz MD PGY1 Pulmonology Team Visit type - Emergency Visit Emergency Visit: Yes ED Registration Date: 01/21/17 Care time: The patient presented to the Emergency Department on the above date and was hospitalized for further evaluation of their emergent condition. - New Patient This patient is new to me today: Yes Date on this admission: 01/23/17 - Critical Care Critical Care patient: No
[2017-01-23] MEDS ORDERED: methylPREDNISolone NA SUCC 40 MG/1 ML VIAL IVPUSH SCH (15:11)
[2017-01-23] MEDS ORDERED: ALBUTEROL SO4 0.083% IH SOL 2.5 MG/3 ML VIAL.NEB. NEB SCH (15:15)
[2017-01-23] MEDS ORDERED: ALBUTEROL SO4 0.5 % INH SOLN 2.5 MG/0.5 ML VIAL.NEB. NEB SCH (15:15)
--- NOTE | 2017-01-23 15:17 | PN ---
Teaching Attending Note Name of Resident: Kofi Kurtz ATTENDING PHYSICIAN STATEMENT I saw and evaluated the patient. I reviewed the resident's note and discussed the case with the resident. I agree with the resident's findings and plan as documented. SUBJECTIVE:cough/wheeze/sob OBJECTIVE:diffuse b/l wheeze anterior/posterior ASSESSMENT AND PLAN: amanda/laba/ics/systemic steroids/singulair/abs/daily peak flow will follow Aidan HERNANDEZ MD
[2017-01-23] MEDS: guaiFENesin/CODEINE 10 ML UNIT-DOSE CUPS PO PRN (15:19)
[2017-01-23] MEDS: MONTELUKAST NA 10 MG TABLET PO SCH (22:57)
[2017-01-24] MEDS: ONDANSETRON *ODT* 4 MG TABLET SL PRN ×2 (00:06→21:10)
[2017-01-24] MEDS: guaiFENesin/CODEINE 10 ML UNIT-DOSE CUPS PO PRN ×3 (01:19→15:06)
[2017-01-24] MEDS: ALBUTEROL SO4 0.5 % INH SOLN 2.5 MG/0.5 ML VIAL.NEB. NEB PRN ×2 (02:14→03:54)
[2017-01-24] MEDS: methylPREDNISolone NA SUCC 40 MG/1 ML VIAL IVPUSH SCH ×4 (03:22→21:15)
[2017-01-24] MEDS: amLODIPine BESYLATE 5 MG TABLET (FP) PO SCH (09:50)
[2017-01-24] MEDS: PANTOPRAZOLE 40 MG TABLET (FP) PO SCH (09:50)
[2017-01-24] MEDS: HEPARIN NA (PORCINE) 5,000 UNITS/ML 1ML VIAL SQ SCH ×2 (09:51→21:15)
[2017-01-24] MEDS: ALBUTEROL SO4 0.083% IH SOL 2.5 MG/3 ML VIAL.NEB. NEB SCH ×4 (11:19→21:45)
--- NOTE | 2017-01-24 12:35 | PN ---
Progress Note (short form) - Note Progress Note: PULMONARY CONGESTED COUGH WITH DIFFUSE WHEEZE PERSISTS VSS/AFEBRILE ANICTERIC B/L EXP WHEEZE ANTERIOR/POSTERIOR S1S2 BS+ NO EDEMA LABS/MEDS/NOTES/IMAGES REVIEWED PEAK FLOW 270 L/M ACUTE BRONCHOSPASM LIKELY DUE TO ACUTE BRONCHITIS CONTINUE CURRENT DOSE STEROIDS REST OF MEDS ORDERED WILL FOLLOW Aidan HERNANDEZ MD
--- NOTE | 2017-01-24 14:07 | PN ---
Progress Note, Physician - Current Medication List Current Medications: Active Medications Acetaminophen (Tylenol -) 650 mg PO Q6H PRN PRN Reason: FEVER OR PAIN Last Admin: 01/22/17 18:51 Dose: 650 mg Albuterol Sulfate (Ventolin 0.083% Nebulizer Soln -) 1 amp NEB Q4HWA NANCY Last Admin: 01/24/17 11:19 Dose: 1 amp Albuterol Sulfate (Ventolin 0.5% -) 1 amp NEB Q1H PRN Last Admin: 01/24/17 03:54 Dose: 1 amp Amlodipine Besylate (Norvasc -) 5 mg PO DAILY [facility] Last Admin: 01/24/17 09:50 Dose: 5 mg Guaifenesin/Codeine Phosphate (Robitussin Ac -) 10 ml PO Q6H PRN PRN Reason: COUGH Last Admin: 01/24/17 08:51 Dose: 10 ml Heparin Sodium (Porcine) (Heparin -) 5,000 unit SQ BID [facility] Last Admin: 01/24/17 09:51 Dose: 5,000 unit Methylprednisolone Sodium Succinate (Solu-Medrol -) 60 mg IVPUSH Q6H-IV NANCY Last Admin: 01/24/17 08:51 Dose: 60 mg Montelukast Sodium (Singulair -) 10 mg PO HS [facility] Last Admin: 01/23/17 22:57 Dose: 10 mg Ondansetron HCl (Zofran Odt -) 8 mg SL Q6H PRN Last Admin: 01/24/17 00:06 Dose: 8 mg Pantoprazole Sodium (Protonix -) 40 mg PO DAILY [facility] Last Admin: 01/24/17 09:50 Dose: 40 mg Tiotropium [place] (Spiriva -) 1 puff IH DAILY [facility] Last Admin: 01/23/17 09:32 Dose: 1 puff - Objective Vital Signs: Vital Signs Temperature 97.6 F 01/24/17 06:00 Pulse Rate 85 01/24/17 06:00 Respiratory Rate 22 01/24/17 09:00 Blood Pressure 135/72 01/24/17 06:00 O2 Sat by Pulse Oximetry (%) 99 01/24/17 09:00 Cardiovascular: Yes: S1, S2 Respiratory: Yes: Diminished, Wheezes Gastrointestinal: Yes: Normal Bowel Sounds, Soft Labs: CBC, BMP 01/21/17 13:45 01/21/17 13:45 Problem List - Problems (1) Asthma Assessment/Plan: ON IV STEROIDS ON NEBS MONITOR Code(s): J45.909 - UNSPECIFIED ASTHMA, UNCOMPLICATED Qualifiers: Asthma severity: moderate Asthma persistence: persistent Asthma complication type: with acute exacerbation Qualified Code(s): J45.41 - Moderate persistent asthma with (acute) exacerbation
[2017-01-24] MEDS: TIOTROPIUM BROMIDE 18 MCG/INH (DEVICE W/ 5 CAPSULES) IH SCH (14:56)
[2017-01-24] MEDS ORDERED: PT OWN MED DRAWER 7, Y5N ONE (15:05)
[2017-01-24] MEDS: MONTELUKAST NA 10 MG TABLET PO SCH (21:10)
[2017-01-25] MEDS: ALBUTEROL SO4 0.5 % INH SOLN 2.5 MG/0.5 ML VIAL.NEB. NEB PRN ×2 (01:31→12:22)
[2017-01-25] MEDS: methylPREDNISolone NA SUCC 40 MG/1 ML VIAL IVPUSH SCH ×4 (02:28→20:58)
[2017-01-25] MEDS: ALBUTEROL SO4 0.083% IH SOL 2.5 MG/3 ML VIAL.NEB. NEB SCH ×5 (06:41→22:12)
[2017-01-25] MEDS: CEFTRIAXONE 1 GM/50 ML BAG IVPB SCH (08:02)
[2017-01-25] MEDS ORDERED: PT OWN MED DRAWER 7, Y5N ONE (09:04)
[2017-01-25] MEDS: HEPARIN NA (PORCINE) 5,000 UNITS/ML 1ML VIAL SQ SCH ×2 (09:14→21:25)
[2017-01-25] MEDS: PANTOPRAZOLE 40 MG TABLET (FP) PO SCH (09:14)
[2017-01-25] MEDS: amLODIPine BESYLATE 5 MG TABLET (FP) PO SCH (09:14)
[2017-01-25] MEDS: TIOTROPIUM BROMIDE 18 MCG/INH (DEVICE W/ 5 CAPSULES) IH SCH (09:16)
--- NOTE | 2017-01-25 11:10 | PN ---
Progress Note, Physician - Current Medication List Current Medications: Active Medications Acetaminophen (Tylenol -) 650 mg PO Q6H PRN PRN Reason: FEVER OR PAIN Last Admin: 01/22/17 18:51 Dose: 650 mg Albuterol Sulfate (Ventolin 0.083% Nebulizer Soln -) 1 amp NEB Q4HWA NANCY Last Admin: 01/25/17 10:37 Dose: Not Given Albuterol Sulfate (Ventolin 0.5% -) 1 amp NEB Q1H PRN Last Admin: 01/25/17 01:31 Dose: 1 amp Amlodipine Besylate (Norvasc -) 5 mg PO DAILY [facility] Last Admin: 01/25/17 09:14 Dose: 5 mg Guaifenesin/Codeine Phosphate (Robitussin Ac -) 10 ml PO Q4H PRN PRN Reason: COUGH Heparin Sodium (Porcine) (Heparin -) 5,000 unit SQ BID [facility] Last Admin: 01/25/17 09:14 Dose: 5,000 unit Methylprednisolone Sodium Succinate (Solu-Medrol -) 60 mg IVPUSH Q6H-IV [facility] Last Admin: 01/25/17 09:15 Dose: 60 mg Montelukast Sodium (Singulair -) 10 mg PO HS [facility] Last Admin: 01/24/17 21:10 Dose: 10 mg Ondansetron HCl (Zofran Odt -) 8 mg SL Q6H PRN Last Admin: 01/24/17 21:10 Dose: 8 mg Pantoprazole Sodium (Protonix -) 40 mg PO DAILY [facility] Last Admin: 01/25/17 09:14 Dose: 40 mg Tiotropium [place] (Spiriva -) 1 puff IH DAILY [facility] Last Admin: 01/25/17 09:16 Dose: 1 puff - Objective Vital Signs: Vital Signs Temperature 97.9 F 01/25/17 06:55 Pulse Rate 78 01/25/17 06:55 Respiratory Rate 18 01/25/17 06:55 Blood Pressure 132/96 01/25/17 06:55 O2 Sat by Pulse Oximetry (%) 99 01/24/17 21:00 Cardiovascular: Yes: Regular Rate and Rhythm Respiratory: Yes: Rhonchi, Wheezes Gastrointestinal: Yes: Normal Bowel Sounds, Soft Labs: CBC, BMP 01/21/17 13:45 01/21/17 13:45 Problem List - Problems (1) Asthma Assessment/Plan: ON IV STEROIDS ON NEBS MONITOR Orders 01/21/17 16:45 Tiotropium [place] [Spiriva -] 1 puff IH DAILY 01/22/17 22:00 Montelukast Na [Singulair -] 10 mg PO HS 01/23/17 15:15 Methylprednisolone Na Succ [Solu-Medrol -] 60 mg IVPUSH Q6H-IV 01/23/17 18:00 Albuterol 0.083% Nebulizer Mary [Ventolin 0.083% Nebulizer Soln -] 1 amp NEB Q4HWA 01/25/17 11:08 Guaifenesin AC [Robitussin AC -] 10 ml PO Q4H PRN CXR Code(s): J45.909 - UNSPECIFIED ASTHMA, UNCOMPLICATED Qualifiers: Asthma severity: moderate Asthma persistence: persistent Asthma complication type: with acute exacerbation Qualified Code(s): J45.41 - Moderate persistent asthma with (acute) exacerbation
--- NOTE | 2017-01-25 11:45 | PN ---
Progress Note (short form) - Note Progress Note: PULMONARY OFF THE FLOOR IN THE [employer] HAVING LUNCH PER NURSE. Aidan HERNANDEZ MD
[2017-01-25] MEDS: ONDANSETRON *ODT* 4 MG TABLET SL PRN (12:09)
[2017-01-25] MEDS: guaiFENesin/CODEINE 10 ML UNIT-DOSE CUPS PO PRN ×2 (12:09→17:37)
[2017-01-25] MEDS: MONTELUKAST NA 10 MG TABLET PO SCH (21:25)
[2017-01-26] MEDS: guaiFENesin/CODEINE 10 ML UNIT-DOSE CUPS PO PRN ×4 (01:23→22:35)
[2017-01-26] MEDS: ALBUTEROL SO4 0.5 % INH SOLN 2.5 MG/0.5 ML VIAL.NEB. NEB PRN (01:45)
[2017-01-26] MEDS: methylPREDNISolone NA SUCC 40 MG/1 ML VIAL IVPUSH SCH ×4 (02:55→21:32)
[2017-01-26] MEDS: ALBUTEROL SO4 0.083% IH SOL 2.5 MG/3 ML VIAL.NEB. NEB SCH ×5 (05:20→22:00)
[2017-01-26] MEDS: PANTOPRAZOLE 40 MG TABLET (FP) PO SCH (09:55)
[2017-01-26] MEDS: amLODIPine BESYLATE 5 MG TABLET (FP) PO SCH (09:55)
[2017-01-26] MEDS: HEPARIN NA (PORCINE) 5,000 UNITS/ML 1ML VIAL SQ SCH ×2 (09:55→21:33)
[2017-01-26] MEDS: TIOTROPIUM BROMIDE 18 MCG/INH (DEVICE W/ 5 CAPSULES) IH SCH (09:56)
--- NOTE | 2017-01-26 11:03 | PN ---
Progress Note (short form) - Note Progress Note: Still with wheezing and SOB. Wheezing seems worse in the evening and early AM. Still with some STAPLETON. Not using CPAP. Dry cough. Intake & Output 01/23/17 01/24/17 01/25/17 01/26/17 23:59 23:59 23:59 23:59 Intake Total 450 1100 1910 200 Balance 450 1100 1910 200 Last Vital Signs Temp Pulse Resp BP Pulse Ox 97.4 F L 91 H 20 134/85 97 01/26/17 06:00 01/26/17 06:00 01/26/17 06:00 01/26/17 06:00 01/25/17 21:00 Active Medications Acetaminophen (Tylenol -) 650 mg PO Q6H PRN PRN Reason: FEVER OR PAIN Last Admin: 01/22/17 18:51 Dose: 650 mg Albuterol Sulfate (Ventolin 0.083% Nebulizer Soln -) 1 amp NEB Q4HWA NANCY Last Admin: 01/26/17 05:20 Dose: 1 amp Albuterol Sulfate (Ventolin 0.5% -) 1 amp NEB Q1H PRN Last Admin: 01/26/17 01:45 Dose: 1 amp Amlodipine Besylate (Norvasc -) 5 mg PO DAILY [facility] Last Admin: 01/26/17 09:55 Dose: 5 mg Benzocaine/Menthol (Cepacol Lozenge -) 1 each MM PRN PRN PRN Reason: SORE THROAT Guaifenesin/Codeine Phosphate (Robitussin Ac -) 10 ml PO Q4H PRN PRN Reason: COUGH Last Admin: 01/26/17 05:39 Dose: 10 ml Heparin Sodium (Porcine) (Heparin -) 5,000 unit SQ BID [facility] Last Admin: 01/26/17 09:55 Dose: 5,000 unit Methylprednisolone Sodium Succinate (Solu-Medrol -) 60 mg IVPUSH Q6H-IV [facility] Last Admin: 01/26/17 09:55 Dose: 60 mg Montelukast Sodium (Singulair -) 10 mg PO HS [facility] Last Admin: 01/25/17 21:25 Dose: 10 mg Ondansetron HCl (Zofran Odt -) 8 mg SL Q6H PRN Last Admin: 01/25/17 12:09 Dose: 8 mg Ranitidine HCl (Zantac -) 150 mg PO BID [facility] Tiotropium [place] (Spiriva -) 1 puff IH DAILY [facility] Last Admin: 01/26/17 09:56 Dose: 1 puff Gen: Mildly tachypneic at rest Heart: RRR Lung: Mild but Bilateral expiratory wheezing Abd: soft, nontender Ext: no edema A/P Acute Asthma Exacerbation s/p Gastric Sleeve Obstructive Sleep Apnea (?) Reflux - continue medrol at current dose - inhaled bronchodilators standing and PRN - monitor peak flow - meir - instructed her to bring CPAP from home - Zantac BID - Cepacol lozenge - DVT prophylaxis - Ambulate as tolerated Dr Logan
[2017-01-26] MEDS: BENZOCAINE/MENTH/CETYLPYRD CL 1 EACH LOZENGE MM PRN ×2 (15:06→22:36)
--- NOTE | 2017-01-26 15:25 | PN ---
Progress Note, Physician Chief Complaint: STILL WHEEZING COUGHING MOD DISTRESS - Current Medication List Current Medications: Active Medications Acetaminophen (Tylenol -) 650 mg PO Q6H PRN PRN Reason: FEVER OR PAIN Last Admin: 01/22/17 18:51 Dose: 650 mg Albuterol Sulfate (Ventolin 0.083% Nebulizer Soln -) 1 amp NEB Q4HWA NANCY Last Admin: 01/26/17 14:14 Dose: 1 amp Albuterol Sulfate (Ventolin 0.5% -) 1 amp NEB Q1H PRN Last Admin: 01/26/17 01:45 Dose: 1 amp Amlodipine Besylate (Norvasc -) 5 mg PO DAILY [facility] Last Admin: 01/26/17 09:55 Dose: 5 mg Benzocaine/Menthol (Cepacol Lozenge -) 1 each MM PRN PRN PRN Reason: SORE THROAT Last Admin: 01/26/17 15:06 Dose: 1 each Guaifenesin/Codeine Phosphate (Robitussin Ac -) 10 ml PO Q4H PRN PRN Reason: COUGH Last Admin: 01/26/17 15:03 Dose: 10 ml Heparin Sodium (Porcine) (Heparin -) 5,000 unit SQ BID [facility] Last Admin: 01/26/17 09:55 Dose: 5,000 unit Methylprednisolone Sodium Succinate (Solu-Medrol -) 60 mg IVPUSH Q6H-IV [facility] Last Admin: 01/26/17 15:02 Dose: 60 mg Montelukast Sodium (Singulair -) 10 mg PO HS [facility] Last Admin: 01/25/17 21:25 Dose: 10 mg Ondansetron HCl (Zofran Odt -) 8 mg SL Q6H PRN Last Admin: 01/25/17 12:09 Dose: 8 mg Ranitidine HCl (Zantac -) 150 mg PO BID [facility] Tiotropium [place] (Spiriva -) 1 puff IH DAILY [facility] Last Admin: 01/26/17 09:56 Dose: 1 puff - Objective Vital Signs: Vital Signs Temperature 98.2 F 01/26/17 13:52 Pulse Rate 98 H 01/26/17 13:52 Respiratory Rate 20 01/26/17 13:52 Blood Pressure 151/90 01/26/17 13:52 O2 Sat by Pulse Oximetry (%) 97 01/25/17 21:00 Constitutional: Yes: Moderate Distress Eyes: Yes: WNL HENT: Yes: WNL Neck: Yes: WNL Cardiovascular: Yes: WNL Respiratory: Yes: Cough, SOB, SOB on Exertion, Wheezes Gastrointestinal: Yes: WNL Genitourinary: Yes: WNL Musculoskeletal: Yes: WNL Extremities: Yes: WNL Edema: Yes Peripheral Pulses WNL: Yes Integumentary: Yes: WNL Wound/Incision: Yes: Clean/Dry Neurological: Yes: WNL ...Motor Strength: WNL Psychiatric: Yes: WNL Labs: CBC, BMP 01/21/17 13:45 01/21/17 13:45 Problem List - Problems (1) Asthma Code(s): J45.909 - UNSPECIFIED ASTHMA, UNCOMPLICATED Qualifiers: Asthma severity: moderate Asthma persistence: persistent Asthma complication type: with acute exacerbation Qualified Code(s): J45.41 - Moderate persistent asthma with (acute) exacerbation (2) Sleep apnea Code(s): G47.30 - SLEEP APNEA, UNSPECIFIED (3) Asthma exacerbation Code(s): J45.901 - UNSPECIFIED ASTHMA WITH (ACUTE) EXACERBATION (4) GERD (gastroesophageal reflux disease) Code(s): K21.9 - GASTRO-ESOPHAGEAL REFLUX DISEASE WITHOUT ESOPHAGITIS (5) H/O bariatric surgery Code(s): Z98.84 - BARIATRIC SURGERY STATUS (6) Acute bronchitis Code(s): J20.9 - ACUTE BRONCHITIS, UNSPECIFIED Qualifiers: Bronchitis organism: unspecified organism Qualified Code(s): J20.9 - Acute bronchitis, unspecified Assessment/Plan IV STEROIDS IV ABX AZITHRO/CEFTRIAXONE NEBS RESP SUPPORT 02 SUPPORT PULM EVAL APPRECIATED ROBITUSSIN PRN CPAP H2 BLOCKERS
[2017-01-26] MEDS: MONTELUKAST NA 10 MG TABLET PO SCH (21:32)
[2017-01-26] MEDS: RANITIDINE HCL 150 MG TABLET (FP) PO SCH (21:32)
[2017-01-26] MEDS: ONDANSETRON *ODT* 4 MG TABLET SL PRN (22:35)
[2017-01-27] MEDS: methylPREDNISolone NA SUCC 40 MG/1 ML VIAL IVPUSH SCH ×4 (03:02→20:54)
[2017-01-27] MEDS: ALBUTEROL SO4 0.5 % INH SOLN 2.5 MG/0.5 ML VIAL.NEB. NEB PRN (03:25)
[2017-01-27] MEDS: ALBUTEROL SO4 0.083% IH SOL 2.5 MG/3 ML VIAL.NEB. NEB SCH ×5 (06:27→23:00)
[2017-01-27] MEDS ORDERED: PT OWN MED DRAWER 7, Y5N ONE (08:04)
[2017-01-27] MEDS: guaiFENesin/CODEINE 10 ML UNIT-DOSE CUPS PO PRN ×3 (08:07→20:03)
[2017-01-27] MEDS: BENZOCAINE/MENTH/CETYLPYRD CL 1 EACH LOZENGE MM PRN ×2 (08:07→20:47)
[2017-01-27] MEDS: RANITIDINE HCL 150 MG TABLET (FP) PO SCH ×2 (09:27→22:42)
[2017-01-27] MEDS: amLODIPine BESYLATE 5 MG TABLET (FP) PO SCH (09:27)
[2017-01-27] MEDS: HEPARIN NA (PORCINE) 5,000 UNITS/ML 1ML VIAL SQ SCH ×2 (09:28→22:40)
[2017-01-27] MEDS ORDERED: PANTOPRAZOLE 40 MG TABLET (FP) PO SCH (10:00)
--- NOTE | 2017-01-27 11:13 | PN ---
Progress Note (short form) - Note Progress Note: Appears clinically improved today. Less SOB and wheezing. STAPLETON a little better. Used CPAP overnight and feels more rested today. Gen: More comfortable, NAD Heart: RRR Lung: Improving mild Bilateral expiratory wheezing Abd: soft, nontender Ext: no edema A/P Acute Asthma Exacerbation s/p Gastric Sleeve Obstructive Sleep Apnea (?) Reflux - continue medrol at current dose, can likely rapidly taper starting tomorrow - inhaled bronchodilators standing and PRN - monitor peak flow - singulair - CPAP QHS - Zantac BID - Cepacol lozenge - DVT prophylaxis - Ambulate as tolerated Dr Logan
[2017-01-27] MEDS: TIOTROPIUM BROMIDE 18 MCG/INH (DEVICE W/ 5 CAPSULES) IH SCH (11:34)
--- NOTE | 2017-01-27 14:03 | PN ---
Progress Note, Physician Chief Complaint: still coughing and sob feels better with cpap - Current Medication List Current Medications: Active Medications Acetaminophen (Tylenol -) 650 mg PO Q6H PRN PRN Reason: FEVER OR PAIN Last Admin: 01/22/17 18:51 Dose: 650 mg Albuterol Sulfate (Ventolin 0.083% Nebulizer Soln -) 1 amp NEB Q4HWA NANCY Last Admin: 01/27/17 09:46 Dose: 1 amp Albuterol Sulfate (Ventolin 0.5% -) 1 amp NEB Q1H PRN Last Admin: 01/27/17 03:25 Dose: 1 amp Amlodipine Besylate (Norvasc -) 5 mg PO DAILY [facility] Last Admin: 01/27/17 09:27 Dose: 5 mg Benzocaine/Menthol (Cepacol Lozenge -) 1 each MM PRN PRN PRN Reason: SORE THROAT Last Admin: 01/27/17 08:07 Dose: 1 each Guaifenesin/Codeine Phosphate (Robitussin Ac -) 10 ml PO Q4H PRN PRN Reason: COUGH Last Admin: 01/27/17 12:10 Dose: 10 ml Heparin Sodium (Porcine) (Heparin -) 5,000 unit SQ BID NANCY Last Admin: 01/27/17 09:28 Dose: 5,000 unit Methylprednisolone Sodium Succinate (Solu-Medrol -) 60 mg IVPUSH Q6H-IV NANCY Last Admin: 01/27/17 09:27 Dose: 60 mg Montelukast Sodium (Singulair -) 10 mg PO HS [facility] Last Admin: 01/26/17 21:32 Dose: 10 mg Ondansetron HCl (Zofran Odt -) 8 mg SL Q6H PRN Last Admin: 01/26/17 22:35 Dose: 8 mg Ranitidine HCl (Zantac -) 150 mg PO BID [facility] Last Admin: 01/27/17 09:27 Dose: 150 mg Tiotropium [place] (Spiriva -) 1 puff IH DAILY [facility] Last Admin: 01/27/17 11:34 Dose: 1 puff - Objective Vital Signs: Vital Signs Temperature 97.3 F L 01/27/17 10:00 Pulse Rate 99 H 01/27/17 10:00 Respiratory Rate 18 01/27/17 10:00 Blood Pressure 113/85 01/27/17 10:00 O2 Sat by Pulse Oximetry (%) 99 01/27/17 00:03 Constitutional: Yes: Mild Distress Eyes: Yes: WNL HENT: Yes: WNL Neck: Yes: WNL Cardiovascular: Yes: WNL Respiratory: Yes: On Nasal O2, Poor Air Entry, SOB, Wheezes Gastrointestinal: Yes: WNL Genitourinary: Yes: WNL Musculoskeletal: Yes: WNL Extremities: Yes: WNL Peripheral Pulses WNL: Yes Integumentary: Yes: WNL Wound/Incision: Yes: Clean/Dry ...Motor Strength: WNL Psychiatric: Yes: WNL Labs: CBC, BMP 01/21/17 13:45 01/21/17 13:45 Problem List - Problems (1) Asthma Code(s): J45.909 - UNSPECIFIED ASTHMA, UNCOMPLICATED Qualifiers: Asthma severity: moderate Asthma persistence: persistent Asthma complication type: with acute exacerbation Qualified Code(s): J45.41 - Moderate persistent asthma with (acute) exacerbation (2) Sleep apnea Code(s): G47.30 - SLEEP APNEA, UNSPECIFIED (3) Asthma exacerbation Code(s): J45.901 - UNSPECIFIED ASTHMA WITH (ACUTE) EXACERBATION (4) GERD (gastroesophageal reflux disease) Code(s): K21.9 - GASTRO-ESOPHAGEAL REFLUX DISEASE WITHOUT ESOPHAGITIS (5) H/O bariatric surgery Code(s): Z98.84 - BARIATRIC SURGERY STATUS (6) Acute bronchitis Code(s): J20.9 - ACUTE BRONCHITIS, UNSPECIFIED Qualifiers: Bronchitis organism: unspecified organism Qualified Code(s): J20.9 - Acute bronchitis, unspecified Assessment/Plan hyperactive airway with bronchospasm steroids iv nebs cpap at night pulm eval dvt prophylaxis oob to chair
[2017-01-27] MEDS: MONTELUKAST NA 10 MG TABLET PO SCH (22:40)
[2017-01-27] MEDS: ONDANSETRON *ODT* 4 MG TABLET SL PRN (22:42)
[2017-01-28] MEDS: guaiFENesin/CODEINE 10 ML UNIT-DOSE CUPS PO PRN ×5 (02:48→23:52)
[2017-01-28] MEDS: methylPREDNISolone NA SUCC 40 MG/1 ML VIAL IVPUSH SCH ×4 (02:48→20:58)
[2017-01-28] MEDS: BENZOCAINE/MENTH/CETYLPYRD CL 1 EACH LOZENGE MM PRN ×5 (02:52→23:56)
[2017-01-28] MEDS: ALBUTEROL SO4 0.083% IH SOL 2.5 MG/3 ML VIAL.NEB. NEB SCH ×4 (05:45→23:00)
[2017-01-28] MEDS: ALBUTEROL SO4 0.5 % INH SOLN 2.5 MG/0.5 ML VIAL.NEB. NEB PRN (06:07)
[2017-01-28 08:13] LABS: MCHC 30.9 g/dl (32.0-36.0); MEAN PLT VOLUME 10.1 fl (7.5-11.1); PLATELET COUNT 232 K/MM3 (134-434); RDW 15.6 % (11.6-15.6); WHITE BLOOD COUNT 11.7 K/mm3 (4.0-10.0)
[2017-01-28 08:37] LABS: ALBUMIN 2.9 g/dl (3.4-5.0); ANION GAP 9 (8-16); BILIRUBIN,TOTAL 0.3 mg/dL (0.2-1.0); CALCIUM 8.4 mg/dL (8.5-10.1); CO2 33 mmol/L (21-32); CREATININE 0.7 mg/dL (0.55-1.02); GLUCOSE,RANDOM 123 mg/dL (74-106); SGOT/AST 6 U/L (15-37); SGPT/ALT 27 U/L (12-78); TOT PROT 6.4 g/dl (6.4-8.2)
[2017-01-28 08:38] LABS: ALK PHOS 63 U/L (45-117)
[2017-01-28] MEDS: amLODIPine BESYLATE 5 MG TABLET (FP) PO SCH (09:19)
[2017-01-28] MEDS: RANITIDINE HCL 150 MG TABLET (FP) PO SCH ×2 (09:19→21:54)
[2017-01-28] MEDS: TIOTROPIUM BROMIDE 18 MCG/INH (DEVICE W/ 5 CAPSULES) IH SCH (09:20)
[2017-01-28] MEDS: HEPARIN NA (PORCINE) 5,000 UNITS/ML 1ML VIAL SQ SCH ×2 (09:30→21:54)
[2017-01-28] MEDS ORDERED: POTASSIUM CHLORIDE TABS 20 MEQ TABLET.ER (FP) PO ONE (10:56)
--- NOTE | 2017-01-28 10:56 | PN ---
Progress Note, Physician Chief Complaint: AWAEK ALERT COUGHING STILL SOB+ - Current Medication List Current Medications: Active Medications Acetaminophen (Tylenol -) 650 mg PO Q6H PRN PRN Reason: FEVER OR PAIN Last Admin: 01/22/17 18:51 Dose: 650 mg Albuterol Sulfate (Ventolin 0.083% Nebulizer Soln -) 1 amp NEB Q4HWA NANCY Last Admin: 01/28/17 05:45 Dose: 1 amp Albuterol Sulfate (Ventolin 0.5% -) 1 amp NEB Q1H PRN Last Admin: 01/28/17 06:07 Dose: 1 amp Amlodipine Besylate (Norvasc -) 5 mg PO DAILY [facility] Last Admin: 01/28/17 09:19 Dose: 5 mg Benzocaine/Menthol (Cepacol Lozenge -) 1 each MM PRN PRN PRN Reason: SORE THROAT Last Admin: 01/28/17 09:20 Dose: 1 each Guaifenesin/Codeine Phosphate (Robitussin Ac -) 10 ml PO Q4H PRN PRN Reason: COUGH Last Admin: 01/28/17 07:07 Dose: 10 ml Heparin Sodium (Porcine) (Heparin -) 5,000 unit SQ BID [facility] Last Admin: 01/28/17 09:30 Dose: 5,000 unit Methylprednisolone Sodium Succinate (Solu-Medrol -) 60 mg IVPUSH Q6H-IV NANCY Last Admin: 01/28/17 09:19 Dose: 60 mg Montelukast Sodium (Singulair -) 10 mg PO HS [facility] Last Admin: 01/27/17 22:40 Dose: 10 mg Ondansetron HCl (Zofran Odt -) 8 mg SL Q6H PRN Last Admin: 01/27/17 22:42 Dose: 8 mg Ranitidine HCl (Zantac -) 150 mg PO BID [facility] Last Admin: 01/28/17 09:19 Dose: 150 mg Tiotropium [place] (Spiriva -) 1 puff IH DAILY [facility] Last Admin: 01/28/17 09:20 Dose: 1 puff - Objective Vital Signs: Vital Signs Temperature 97.7 F 01/28/17 06:38 Pulse Rate 73 01/28/17 06:38 Respiratory Rate 20 01/28/17 06:38 Blood Pressure 134/74 01/28/17 06:38 O2 Sat by Pulse Oximetry (%) 99 01/27/17 09:00 Constitutional: Yes: Mild Distress Eyes: Yes: WNL HENT: Yes: WNL Neck: Yes: WNL Cardiovascular: Yes: WNL Respiratory: Yes: Cough, Wheezes Gastrointestinal: Yes: WNL Genitourinary: Yes: WNL Musculoskeletal: Yes: WNL Extremities: Yes: WNL Edema: No Peripheral Pulses WNL: Yes Integumentary: Yes: WNL Wound/Incision: Yes: Clean/Dry Neurological: Yes: WNL ...Motor Strength: WNL Psychiatric: Yes: WNL Labs: CBC, BMP 01/28/17 06:30 01/28/17 06:30 Problem List - Problems (1) Asthma Code(s): J45.909 - UNSPECIFIED ASTHMA, UNCOMPLICATED Qualifiers: Asthma severity: moderate Asthma persistence: persistent Asthma complication type: with acute exacerbation Qualified Code(s): J45.41 - Moderate persistent asthma with (acute) exacerbation (2) Sleep apnea Code(s): G47.30 - SLEEP APNEA, UNSPECIFIED (3) Asthma exacerbation Code(s): J45.901 - UNSPECIFIED ASTHMA WITH (ACUTE) EXACERBATION (4) GERD (gastroesophageal reflux disease) Code(s): K21.9 - GASTRO-ESOPHAGEAL REFLUX DISEASE WITHOUT ESOPHAGITIS (5) H/O bariatric surgery Code(s): Z98.84 - BARIATRIC SURGERY STATUS (6) Acute bronchitis Code(s): J20.9 - ACUTE BRONCHITIS, UNSPECIFIED Qualifiers: Bronchitis organism: unspecified organism Qualified Code(s): J20.9 - Acute bronchitis, unspecified Assessment/Plan SLEEVE GASTRECTOMY X 2 POSSIBLE PATIENT HAS LARYNGEAL/TRACHEAL REFLUX POST-OP?? ORDERING SWALLOW EVAL, MODIFIED BARIUM, ENT CONSULT FOR LARYNGOSCOPE BEDSIDE CONTINUE IV STEROIDS, NEBS CPAP OOB TO CHAIR
--- NOTE | 2017-01-28 11:12 | PN ---
Progress Note (short form) - Note Progress Note: PULMONARY CONGESTED COUGH WITH DIFFUSE WHEEZE PERSISTS BUT IMPROVED VSS/AFEBRILE ANICTERIC B/L EXP WHEEZE ANTERIOR/POSTERIOR SCATTERED S1S2 BS+ NO EDEMA LABS/MEDS/NOTES/IMAGES REVIEWED PEAK FLOW 320 L/M ACUTE BRONCHOSPASM LIKELY DUE TO ACUTE BRONCHITIS/RULE OUT LERD CONTINUE CURRENT DOSE STEROIDS REST OF MEDS ORDERED SWALLOW EVAL/ENT EVAL WILL FOLLOW Aidan HERNANDEZ MD
[2017-01-28] MEDS: LORATADINE 10 MG TABLET PO SCH (12:14)
--- NOTE | 2017-01-28 12:25 | CONSULT ---
Admitting History and Physical - Primary Care Physician PCP: Mansoor Marques - Admission History of Present Illness: Per PMD: SLEEVE GASTRECTOMY X 2 POSSIBLE PATIENT HAS LARYNGEAL/TRACHEAL REFLUX POST-OP?? Pt denies reverse flow of food or vomiting. She had her Gastrectomy tightened in September. Her cough started a week ago.She "stops eating when the food stops going down and she is full." She denies reclining after she eats, "working 3 jobs, no time to lay down." She does report drinking all the time because she is thirsty, including in the middle of the night when she wakes up. She could not tell me what time her last meal is before going to sleep. She denies lifting heavy items or bending over after eating or while workin. She drinks tea , water with lemon. She reports getting asthma twice a year, but this has "lasted longer than usual ". 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: No: Alzheimer's, CVA, Dementia, Migraine, Multiple Sclerosis, Parkinson's, Seizure, Syncope, TIA, Vertigo Cardiovascular: Yes: HTN Pulmonary: Yes: Asthma, Pneumonia Gastrointestinal: Yes: Gastritis, GERD, Hiatal Hernia Hepatobiliary: Yes: Cholelithiasis (post cholecystectomy) ...LMP: 07/27/99 Musculoskeletal: Yes: Other (fx ankle june 2012- fell in ditch) Endocrine: Yes: Other (had dexa in past and told ok) - Past Surgical History Past Surgical History: Yes: Cholecystectomy (,s/p lap band) - Smoking History Smoking history: Never smoked Have you smoked in the past 12 months: No Aproximately how many cigarettes per day: 0 If you are a former smoker, when did you quit?: 30 yrs ago - Alcohol/Substance Use Hx Alcohol Use: No Number of Drinks Daily: 0 (had 2 vodkas on 01/06/13) History of Substance Use: reports: None - Social History ADL: Independent 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 History of Recent Travel: No History - Admission Reason For Visit: ASTHMA - Diagnostics X-ray: Report Reviewed - General Mental Status: Alert and Oriented Attention: Intact Ability to Follow Directions: Good Head/Neck Control: WFL - Hearing Hearing: Normal Speech Evaluation - Communication Primary Language: GUATEMALAN Communication: Yes: Within Normal Limits Oral Expression Ability: Yes: No Impairment - Speech Characteristics Voice Loudness: Normal Voice Pitch: Yes: Normal Voice Phonatory-based Quality: Yes: Normal Speech Pattern: Normal Speech Clarity: < 100% Nasal Resonance: Normal Articulation: Yes: Precise - Language/Auditory Comprehension Follows: Yes: 1 Stage Simple Commands - Swallow Evaluation/Bedside Assessment Current Nutritional Intake: Regular, Thin Liquids Oral Secretions: Yes: WFL Dentition: Yes: Adequate Facial Symmetry at Rest: Symmetrical Facial Symmetry on Retraction: Symmetrical Against Resistance Opening: Normal Against Resistance Closing: Normal Pucker Lips: Normal Smile: Normal Lingual Movement: Normal Lingual Speed of Movement: Normal Lingual Movement Strgth Against Opposition: Normal Lingual Movement Characteristics: Normal Velopharyngeal Movement: Normal Laryngeal Elevation: WFL Laryngeal Movement: Able to Palpate Rate of Intake: WFL Bolus Size: WFL Labial Seal: WFL Chewing: WFL Oral Prep Time: WFL A-P Transit: WFL Pocketing: None Timing of Swallow: WFL Coughing/Throat Clear: No Change in Voice: No Recommendations - Speech Evaluation, Impression/Plan Impression: r/o LPR with reverse flow of bolus. Possibly related to eating late at night, drinking during the night. - Dysphagia Impressions/Plan Dysphagia Impressions: Ongoing Evaluation *Silent aspiration: cannot be R/O at bedside Recommendations: MBS w Esophagus (ordered)
[2017-01-28] MEDS: FLUTICASONE PROP 0.05% 16 GM NASAL SPRAY NS SCH (12:38)
[2017-01-28] MEDS: SODIUM CHLORIDE NASAL SPRAY 44 ML BOTTLE NS PRN (12:38)
[2017-01-28] MEDS ORDERED: ALBUTEROL SO4 0.083% IH SOL 2.5 MG/3 ML VIAL.NEB. NEB PRN (18:07)
[2017-01-28] MEDS: MONTELUKAST NA 10 MG TABLET PO SCH (21:54)
[2017-01-29] MEDS: ALBUTEROL SO4 0.083% IH SOL 2.5 MG/3 ML VIAL.NEB. NEB SCH ×6 (02:00→22:08)
[2017-01-29] MEDS: methylPREDNISolone NA SUCC 40 MG/1 ML VIAL IVPUSH SCH ×2 (03:05→10:16)
--- NOTE | 2017-01-29 09:51 | PN ---
Progress Note (short form) - Note Progress Note: Continues to slowly improve. Reports that she did not use CPAP last night and breathing was OK unyil 5AM when she developed a coughing fit. Overall less SOB and wheezing. STAPLETON better. Intake & Output 01/26/17 01/27/17 01/28/17 01/29/17 23:59 23:59 23:59 23:59 Intake Total 4612 879 4227 200 Balance 8278 395 7761 200 Last Vital Signs Temp Pulse Resp BP Pulse Ox 97.5 F L 72 20 139/76 96 01/29/17 06:34 01/29/17 06:34 01/29/17 06:34 01/29/17 06:34 01/28/17 21:00 Active Medications Acetaminophen (Tylenol -) 650 mg PO Q6H PRN PRN Reason: FEVER OR PAIN Last Admin: 01/22/17 18:51 Dose: 650 mg Albuterol Sulfate (Ventolin 0.5% -) 1 amp NEB Q1H PRN Last Admin: 01/28/17 06:07 Dose: 1 amp Albuterol Sulfate (Ventolin 0.083% Nebulizer Soln -) 1 amp NEB Q4HPO NANCY Last Admin: 01/29/17 06:52 Dose: 1 amp Amlodipine Besylate (Norvasc -) 5 mg PO DAILY [facility] Last Admin: 01/28/17 09:19 Dose: 5 mg Benzocaine/Menthol (Cepacol Lozenge -) 1 each MM PRN PRN PRN Reason: SORE THROAT Last Admin: 01/28/17 23:56 Dose: 1 each Fluticasone Propionate (Flonase -) 2 spray NS DAILY NANCY Last Admin: 01/28/17 12:38 Dose: 2 spray Guaifenesin/Codeine Phosphate (Robitussin Ac -) 10 ml PO Q4H PRN PRN Reason: COUGH Last Admin: 01/28/17 23:52 Dose: 10 ml Heparin Sodium (Porcine) (Heparin -) 5,000 unit SQ BID NANCY Last Admin: 01/28/17 21:54 Dose: 5,000 unit Loratadine (Claritin -) 10 mg PO DAILY [facility] Last Admin: 01/28/17 12:14 Dose: 10 mg Methylprednisolone Sodium Succinate (Solu-Medrol -) 60 mg IVPUSH Q6H-IV NANCY Last Admin: 01/29/17 03:05 Dose: 60 mg Montelukast Sodium (Singulair -) 10 mg PO HS [facility] Last Admin: 01/28/17 21:54 Dose: 10 mg Ondansetron HCl (Zofran Odt -) 8 mg SL Q6H PRN Last Admin: 01/27/17 22:42 Dose: 8 mg Ranitidine HCl (Zantac -) 150 mg PO BID [facility] Last Admin: 01/28/17 21:54 Dose: 150 mg Sodium Chloride ([place] Nasal [place] -) 2 spray NS TID PRN PRN Reason: NASAL CONGESTION Last Admin: 01/28/17 12:38 Dose: 2 spray Tiotropium [place] (Spiriva -) 1 puff IH DAILY [facility] Last Admin: 01/28/17 09:20 Dose: 1 puff Gen: More comfortable, NAD Heart: RRR Lung: Improving mild Bilateral expiratory wheezing Abd: soft, nontender Ext: no edema A/P Acute Asthma Exacerbation s/p Gastric Sleeve Obstructive Sleep Apnea (?) Reflux - decrease medrol, possibly can change to Prednisone - inhaled bronchodilators standing and PRN - monitor peak flow - singulair - CPAP QHS - Zantac BID - Cepacol lozenge - DVT prophylaxis - Ambulate as tolerated Dr Logan
[2017-01-29] MEDS ORDERED: methylPREDNISolone NA SUCC 125 MG/2 ML VIAL IVPUSH SCH (10:00)
[2017-01-29] MEDS: amLODIPine BESYLATE 5 MG TABLET (FP) PO SCH (10:14)
[2017-01-29] MEDS: HEPARIN NA (PORCINE) 5,000 UNITS/ML 1ML VIAL SQ SCH ×2 (10:14→22:27)
[2017-01-29] MEDS: guaiFENesin/CODEINE 10 ML UNIT-DOSE CUPS PO PRN ×3 (10:14→22:31)
[2017-01-29] MEDS: LORATADINE 10 MG TABLET PO SCH (10:14)
[2017-01-29] MEDS: RANITIDINE HCL 150 MG TABLET (FP) PO SCH ×2 (10:14→22:26)
[2017-01-29] MEDS: SODIUM CHLORIDE NASAL SPRAY 44 ML BOTTLE NS PRN (10:15)
[2017-01-29] MEDS: BENZOCAINE/MENTH/CETYLPYRD CL 1 EACH LOZENGE MM PRN ×3 (10:15→22:31)
[2017-01-29] MEDS: FLUTICASONE PROP 0.05% 16 GM NASAL SPRAY NS SCH (10:15)
[2017-01-29] MEDS: TIOTROPIUM BROMIDE 18 MCG/INH (DEVICE W/ 5 CAPSULES) IH SCH (10:28)
--- NOTE | 2017-01-29 11:09 | PN ---
Progress Note, Physician Chief Complaint: AWAKE STILL COUGHING WHEEZING - Current Medication List Current Medications: Active Medications Acetaminophen (Tylenol -) 650 mg PO Q6H PRN PRN Reason: FEVER OR PAIN Last Admin: 01/22/17 18:51 Dose: 650 mg Albuterol Sulfate (Ventolin 0.5% -) 1 amp NEB Q1H PRN Last Admin: 01/28/17 06:07 Dose: 1 amp Albuterol Sulfate (Ventolin 0.083% Nebulizer Soln -) 1 amp NEB Q4HPO NANCY Last Admin: 01/29/17 06:52 Dose: 1 amp Amlodipine Besylate (Norvasc -) 5 mg PO DAILY [facility] Last Admin: 01/29/17 10:14 Dose: 5 mg Benzocaine/Menthol (Cepacol Lozenge -) 1 each MM PRN PRN PRN Reason: SORE THROAT Last Admin: 01/29/17 10:15 Dose: 1 each Fluticasone Propionate (Flonase -) 2 spray NS DAILY [facility] Last Admin: 01/29/17 10:15 Dose: 2 spray Guaifenesin/Codeine Phosphate (Robitussin Ac -) 10 ml PO Q4H PRN PRN Reason: COUGH Last Admin: 01/29/17 10:14 Dose: 10 ml Heparin Sodium (Porcine) (Heparin -) 5,000 unit SQ BID [facility] Last Admin: 01/29/17 10:14 Dose: 5,000 unit Loratadine (Claritin -) 10 mg PO DAILY [facility] Last Admin: 01/29/17 10:14 Dose: 10 mg Methylprednisolone Sodium Succinate (Solu-Medrol -) 60 mg IVPUSH BID [facility] Last Admin: 01/29/17 10:15 Dose: 60 mg Montelukast Sodium (Singulair -) 10 mg PO HS [facility] Last Admin: 01/28/17 21:54 Dose: 10 mg Ondansetron HCl (Zofran Odt -) 8 mg SL Q6H PRN Last Admin: 01/27/17 22:42 Dose: 8 mg Ranitidine HCl (Zantac -) 150 mg PO BID [facility] Last Admin: 01/29/17 10:14 Dose: 150 mg Sodium Chloride ([place] Nasal [place] -) 2 spray NS TID PRN PRN Reason: NASAL CONGESTION Last Admin: 01/29/17 10:15 Dose: 2 spray Tiotropium [place] (Spiriva -) 1 puff IH DAILY [facility] Last Admin: 01/29/17 10:28 Dose: Not Given - Objective Vital Signs: Vital Signs Temperature 97.5 F L 01/29/17 06:34 Pulse Rate 72 01/29/17 06:34 Respiratory Rate 20 01/29/17 06:34 Blood Pressure 139/76 01/29/17 06:34 O2 Sat by Pulse Oximetry (%) 96 01/28/17 21:00 Constitutional: Yes: Mild Distress Eyes: Yes: WNL HENT: Yes: WNL Neck: Yes: WNL Cardiovascular: Yes: WNL Respiratory: Yes: Cough, On Nasal O2, SOB, Wheezes Gastrointestinal: Yes: WNL Genitourinary: Yes: WNL Musculoskeletal: Yes: WNL Extremities: Yes: WNL Edema: No Peripheral Pulses WNL: Yes Integumentary: Yes: WNL Wound/Incision: Yes: Clean/Dry Neurological: Yes: WNL ...Motor Strength: WNL Psychiatric: Yes: WNL Labs: CBC, BMP 01/28/17 06:30 01/28/17 06:30 Problem List - Problems (1) Asthma Code(s): J45.909 - UNSPECIFIED ASTHMA, UNCOMPLICATED Qualifiers: Asthma severity: moderate Asthma persistence: persistent Asthma complication type: with acute exacerbation Qualified Code(s): J45.41 - Moderate persistent asthma with (acute) exacerbation (2) Sleep apnea Code(s): G47.30 - SLEEP APNEA, UNSPECIFIED (3) Asthma exacerbation Code(s): J45.901 - UNSPECIFIED ASTHMA WITH (ACUTE) EXACERBATION (4) GERD (gastroesophageal reflux disease) Code(s): K21.9 - GASTRO-ESOPHAGEAL REFLUX DISEASE WITHOUT ESOPHAGITIS (5) H/O bariatric surgery Code(s): Z98.84 - BARIATRIC SURGERY STATUS (6) Acute bronchitis Code(s): J20.9 - ACUTE BRONCHITIS, UNSPECIFIED Qualifiers: Bronchitis organism: unspecified organism Qualified Code(s): J20.9 - Acute bronchitis, unspecified Assessment/Plan SLEEVE GASTRECTOMY X 2 POSSIBLE PATIENT HAS LARYNGEAL/TRACHEAL REFLUX POST-OP?? ORDERING SWALLOW EVAL, MODIFIED BARIUM, ENT CONSULT FOR LARYNGOSCOPE BEDSIDE CONTINUE IV STEROIDS, NEBS CPAP OOB TO CHAIR DC PLANNING
[2017-01-29] MEDS: ONDANSETRON *ODT* 4 MG TABLET SL PRN ×2 (11:19→22:31)
--- NOTE | 2017-01-29 19:50 | CON.ENT ---
Consult Consult Specialty:: ENT Referred by:: Dr. 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 Rachelle Jacobsen. has improvement in acute symptoms after IV steroids and antibiotics, treatments c/o nasal congestion and postnasal drainage no hoarseness, no throat pain, cough improving, no reflux - History Source History Provided By: Patient, Medical Record Limitations to Obtaining History: No Limitations - Past Medical History SHOWER MAID: No: Alzheimer's, CVA, Dementia, Migraine, Multiple Sclerosis, Parkinson's, Seizure, Syncope, TIA, Vertigo Cardio/Vascular: Yes: HTN Pulmonary: Yes: Asthma, Pneumonia Gastrointestinal: Yes: Gastritis, GERD, Hiatal Hernia Hepatobiliary: Yes: Cholelithiasis (post cholecystectomy) ...LMP: 07/27/99 Musculoskeletal: Yes: Other (fx ankle june 2012- fell in ditch) ENT: Yes: Allergic Rhinitis Endocrine: Yes: Other (had dexa in past and told ok) Additional Medical History: 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 mild L ear pain with chewing. h/o hosp with low K+ and MG++ o diuretic at that time. 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 History of Recent Travel: No Home Medications - Allergies Allergies/Adverse Reactions: Allergies Allergy/AdvReac Type Severity Reaction Status Date / Time spironolactone Allergy Mild Rash Verified 01/21/17 08:24 [From Aldactone] - Home Medications Home Medications: Ambulatory Orders Albuterol 0.083% Nebulizer Mary [Ventolin 0.083%] 1 neb NEB Q4H PRN 01/21/17 Albuterol Sulfate Inhaler - [Ventolin Hfa Inhaler -] 1 puff IH PRN PRN 01/21/17 Famotidine [Pepcid -] 40 mg PO DAILY 01/21/17 Fluticasone Propionate [Flovent Diskus] 250 mcg IH DAILY 01/21/17 Prednisone [Deltasone -] 50 mg PO DAILY 01/21/17 Family Disease History - Family Disease History Family Disease History: Diabetes: Mother (Hypertension), CA: Father (), Mother, Other: Mother, Sister (Hypertension) Review of Systems - Review of Systems HENT: reports: Nasal Congestion Respiratory: reports: Cough Physical Exam-ENT Vital Signs: Vital Signs Temperature 98.0 F 01/29/17 17:49 Pulse Rate 81 01/29/17 17:49 Respiratory Rate 20 01/29/17 17:49 Blood Pressure 120/65 01/29/17 17:49 O2 Sat by Pulse Oximetry (%) 97 01/29/17 18:00 Constitutional: Yes: Well Nourished, No Distress, Obese Head: Yes: WNL Face: Yes: WNL Eyes: Yes: Normal Gaze Alignment Nose: Yes: Edema, Septum Deviated, Other (nasal endoscopy: deviated septum, left middle turbinate and inferior turbinate edema, left superior turbinate and meatus not visible, middle meatus clear mucus and edema, sphenoethmoid recess not visualized. RIGHT inferior turbinate hypertrophy, crusting and thick mucus from middle meatus, superior turbinate and meatus not visualized, no polyp visualized, sphenoethmoid recess not visualized) Nasal Passage: Yes: Other (edema) Oral/Pharynx: Yes: Other (tongue position 3, crowded oropharyngeal apeture, flexible laryngoscopy: nasopharynx thick mucus, no obstruction, base of tongue retro 2+, sl enlargement lingual tonsils, epiglottis normal, endolarynx WNL except arytenoid and postcricoid mild edema, vocal cords mobile and symmetric) Outer Ear: Yes: WNL Neck: Yes: WNL Neurological: Yes: Alert, Oriented Psychiatric: Yes: Alert, Oriented Imaging - Results Chest X-ray: Report Reviewed, Image Reviewed Problem List - Problems (1) Rhinosinusitis Assessment/Plan: known allergic rhinitis active postnasal drainage and thick discolored mucus, sharon right nasal cavity Code(s): J32.9 - CHRONIC SINUSITIS, UNSPECIFIED (2) Sleep apnea Assessment/Plan: longstanding TEOFILO rec continue CPAP Code(s): G47.30 - SLEEP APNEA, UNSPECIFIED (3) GERD (gastroesophageal reflux disease) Assessment/Plan: modified barium swallow did not show actdive reflux continue medications and reflux precautions Code(s): K21.9 - GASTRO-ESOPHAGEAL REFLUX DISEASE WITHOUT ESOPHAGITIS (4) Hoarseness Assessment/Plan: exacerbated by coughing, postnasal drip and GERD no lesions of larynx or vocal cords recommend: continue treatment for rhinosinusitis and reflux outpatient follow-up in office Thank you for consultation, Merritt Whalen MD FACS Code(s): R49.0 - DYSPHONIA
[2017-01-29] MEDS ORDERED: methylPREDNISolone NA SUCC 40 MG/1 ML VIAL IVPUSH SCH (21:39)
[2017-01-29] MEDS: MONTELUKAST NA 10 MG TABLET PO SCH (22:26)
[2017-01-30] MEDS: ALBUTEROL SO4 0.083% IH SOL 2.5 MG/3 ML VIAL.NEB. NEB SCH ×3 (02:18→10:45)
[2017-01-30 07:48] VITALS: BP 147/83; PULSE 78; TEMP 97.9
--- NOTE | 2017-01-30 09:19 | DS ---
Physical Examination Vital Signs: Vital Signs Temperature 97.9 F 01/30/17 07:45 Pulse Rate 78 01/30/17 07:45 Respiratory Rate 18 01/30/17 07:45 Blood Pressure 147/83 01/30/17 07:45 O2 Sat by Pulse Oximetry (%) 94 L 01/29/17 21:00 Findings/Remarks: feels better wants to go home Constitutional: Yes: Mild Distress Eyes: Yes: WNL HENT: Yes: WNL Neck: Yes: WNL Cardiovascular: Yes: WNL Respiratory: Yes: Wheezes Gastrointestinal: Yes: WNL Renal/: Yes: WNL Musculoskeletal: Yes: WNL Extremities: Yes: WNL Edema: Yes Peripheral Pulses WNL: Yes Integumentary: Yes: WNL Wound/Incision: Yes: Clean/Dry Neurological: Yes: WNL ...Motor Strength: WNL Psychiatric: Yes: WNL Labs: CBC, BMP 01/28/17 06:30 01/28/17 06:30 Discharge Summary Reason For Visit: ASTHMA Current Active Problems Acute bronchitis (Acute) Asthma (Acute) Rhinosinusitis (Acute) Sleep apnea (Acute) Procedures: Principal: CXR Hospital Course: ADMITTED FOR ACUTE ASTHMA EXACERBATION WITH RHINOSINUSITIS,, TREATED WITH IV ABX , STEROIDS, PULMONARY AND ENT WORKUP IMPROVED Condition: Improved - Instructions Diet, Activity, Other Instructions: SEE DR MARQUES ThursdayJan 12PM AT [address] [facility] OFFICE Referrals: Mansoor Marques MD [Primary Care Provider] - Disposition: HOME - Home Medications Comprehensive Discharge Medication List: Ambulatory Orders Albuterol 0.083% Nebulizer Mary [Ventolin 0.083%] 1 neb NEB Q4H PRN 01/21/17 Albuterol Sulfate Inhaler - [Ventolin Hfa Inhaler -] 1 puff IH PRN PRN 01/21/17 Famotidine [Pepcid -] 40 mg PO DAILY 01/21/17 Fluticasone Propionate [Flovent Diskus] 250 mcg IH DAILY 01/21/17 Prednisone [Deltasone -] 50 mg PO DAILY 01/21/17
[2017-01-30] MEDS ORDERED: PT OWN MED DRAWER 7, Y5N ONE (09:38)
[2017-01-30] MEDS: HEPARIN NA (PORCINE) 5,000 UNITS/ML 1ML VIAL SQ SCH (09:44)
[2017-01-30] MEDS: LORATADINE 10 MG TABLET PO SCH (09:45)
[2017-01-30] MEDS: FLUTICASONE PROP 0.05% 16 GM NASAL SPRAY NS SCH (09:45)
[2017-01-30] MEDS: amLODIPine BESYLATE 5 MG TABLET (FP) PO SCH (09:45)
[2017-01-30] MEDS: RANITIDINE HCL 150 MG TABLET (FP) PO SCH (09:45)
[2017-01-30] MEDS: guaiFENesin/CODEINE 10 ML UNIT-DOSE CUPS PO PRN (09:46)
[2017-01-30] MEDS: TIOTROPIUM BROMIDE 18 MCG/INH (DEVICE W/ 5 CAPSULES) IH SCH (09:46)
[2017-01-30] MEDS: ONDANSETRON *ODT* 4 MG TABLET SL PRN (09:55)
[2017-01-30] MEDS ORDERED: predniSONE 20 MG TABLET (UD) PO SCH (10:00)
[2017-01-30] MEDS: BENZOCAINE/MENTH/CETYLPYRD CL 1 EACH LOZENGE MM PRN (10:02)
--- NOTE | 2017-01-30 10:10 | PN ---
Progress Note (short form) - Note Progress Note: PULMONARY IMPROVED VSS/AFEBRILE ANICTERIC B/L EXP WHEEZE ANTERIOR/POSTERIOR SCATTERED S1S2 BS+ NO EDEMA LABS/MEDS/NOTES/IMAGES REVIEWED PEAK FLOW 330 L/M ACUTE BRONCHOSPASM LIKELY DUE TO ACUTE BRONCHITIS/ TAPER DOSE STEROIDS OUTPATIENT REST OF MEDS ORDERED ENT EVAL NOTED MBS NOTED WILL FOLLOW OUTPATIENT Aidan HERNANDEZ MD
== END 2017-01-30 13:23 | disposition home or self-care (01) | DRG 203 ==
LOC: JER 08:05 → JERBED 13:17 → J8W 21:58
PROVIDERS: ADMIT Family Medicine; ATTEND Family Medicine
DX: J45.41 Moderate persistent asthma with (acute) exacerbation (principal); J20.9 Acute bronchitis, unspecified; G47.33 Obstructive sleep apnea (adult) (pediatric); K21.9 Gastro-esophageal reflux disease without esophagitis; Z98.84 Bariatric surgery status
CPT/HCPCS: 36415; 71010-TC; 71020-TC; 74230-TC; 80053; 81003; 81015; 85025; 85027; 87804; 92611-GN; 93306-TC; 94150; 94640; 94660; 99283-25; J1644

== ENCOUNTER 2018-02-12 20:19 | Inpatient (IN) | payer OTHER ==
--- NOTE | 2018-02-12 20:23 | PDOC ---
History of Present Illness - General Chief Complaint: Pain, Acute Stated Complaint: ABDOMINAL PAIN Time Seen by Provider: 02/12/18 20:22 - History of Present Illness Initial Comments: 02/12/18 20:55 Ms. Masterson is a 57 yo female w/ pmh of asthma, GERD, s/p gastric sleeve in 2014 who presents for evaluation of several hour history of intense epigastric pain. Patient reports symptoms started at approximately noon today and that she self treated with 400mg motrin. Patient has been admitted in the past for similar presentation and is currently followed by GI. Ms. Masterson takes nexium daily and endorses taking it this morning. Also complaining of slight nausea now. Last BM today was normal. No other symptoms at this time. The patient denies chest pain, shortness of breath, headache and dizziness. Denies fever, chills, vomit, diarrhea and constipation. Denies dysuria, frequency, urgency and hematuria. Past History - Past Medical History Allergies/Adverse Reactions: Allergies Allergy/AdvReac Type Severity Reaction Status Date / Time spironolactone Allergy Mild Rash Verified 01/21/17 08:24 [From Aldactone] Home Medications: Ambulatory Orders Albuterol 0.083% Nebulizer Mary [Ventolin 0.083% Nebulizer Soln -] 1 neb NEB Q4H PRN 01/21/17 Albuterol Sulfate Inhaler - [Ventolin HFA Inhaler -] 1 puff IH PRN PRN 01/21/17 Famotidine [Pepcid -] 40 mg PO DAILY 01/21/17 Fluticasone Propionate [Flovent Diskus] 250 mcg IH DAILY 01/21/17 Acetaminophen [Tylenol .Regular Strength -] 650 mg PO Q6H PRN tablet 01/30/17 Fluticasone Prop 0.05% Nasal [Flonase -] 2 spray NS DAILY #1 spray 01/30/17 Guaifenesin AC [Robitussin AC -] 10 ml PO Q4H PRN ud MDD 4 01/30/17 Loratadine [Claritin -] 10 mg PO DAILY #30 tablet 01/30/17 Montelukast Na [Singulair -] 10 mg PO HS #30 tablet 01/30/17 Ondansetron [Zofran Odt -] 8 mg SL Q6H PRN #30 tab.rapdis MDD 4 01/30/17 Sodium Chloride Nasal [place] [[place] Nasal [place] -] 2 spray NS TID PRN #1 spray 01/30/17 Tiotropium [place] [Spiriva] 1 puff IH DAILY #1 inh 01/30/17 Anemia: No Asthma: Yes GI Disorders: Yes (gerd) HTN: Yes (hx (resolved post gastric bypass sx)) - Surgical History Abdominal Surgery: Yes (sleeve 10/2014;hernia sx) Cholecystectomy: Yes (04/2010) - Suicide/Smoking/Psychosocial Hx Smoking Status: No Smoking History: Never smoked Have you smoked in the past 12 months: No Number of Cigarettes Smoked Daily: 0 If you are a former smoker, when did you quit?: 30 yrs ago Hx Alcohol Use: No Drug/Substance Use Hx: No Substance Use Type: None Hx Substance Use Treatment: No Review of Systems - Review of Systems Comments:: 02/12/18 20:59 GENERAL/CONSTITUTIONAL: No fever or chills. No weakness. HEAD, EYES, EARS, NOSE AND THROAT: No change in vision. No ear pain or discharge. No sore throat. CARDIOVASCULAR: No chest pain or shortness of breath RESPIRATORY: No cough, wheezing, or hemoptysis. GASTROINTESTINAL: +Midline epigastric pain with mild nausea as described. No vomiting, diarrhea or constipation. GENITOURINARY: No dysuria, frequency, or change in urination. MUSCULOSKELETAL: No joint or muscle swelling or pain. No neck or back pain. SKIN: No rash NEUROLOGIC: No headache, vertigo, loss of consciousness, or change in strength/ sensation. ENDOCRINE: No increased thirst. No abnormal weight change HEMATOLOGIC/LYMPHATIC: No anemia, easy bleeding, or history of blood clots. ALLERGIC/IMMUNOLOGIC: No hives or skin allergy. *Physical Exam - Physical Exam Comments: 02/12/18 20:59 GENERAL: Awake, alert, and fully oriented, in no acute distress HEAD: No signs of trauma, normocephalic, atraumatic EYES: PERRLA, EOMI, sclera anicteric, conjunctiva clear ENT: Auricles normal inspection, hearing grossly normal, nares patent, oropharynx clear without exudates. Moist mucosa NECK: Normal ROM, supple, no lymphadenopathy, JVD, or masses LUNGS: No distress, speaks full sentences, clear to auscultation bilaterally HEART: Regular rate and rhythm, normal S1 and S2, no murmurs, rubs or gallops, peripheral pulses normal and equal bilaterally. ABDOMEN: +Midline epigastric tenderness. Soft, normoactive bowel sounds. No guarding, no rebound. No masses EXTREMITIES: Normal inspection, Normal range of motion, no edema. No clubbing or cyanosis. NEUROLOGICAL: Cranial nerves II through XII grossly intact. Normal speech, normal gait, no focal sensorimotor deficits SKIN: Warm, Dry, normal turgor, no rashes or lesions noted. ED Treatment Course - LABORATORY CBC & Chemistry Diagram: 02/12/18 20:45 02/12/18 20:45 Medical Decision Making - Medical Decision Making 02/12/18 21:00 Ms. Masterson is a 57 yo female w/ pmh as described who presents for evaluation of midline epigastric pain similar in character to previous requiring admission for gastritis. Patient workup started with CBC/CMP/type and screen with symptomatic relief with pepcid/maalox/zofran/NS/morphine. 02/12/18 22:34 Upright CXR negative for free air under diaphram. Labs grossly wnl however patient requiring multiple doses of IV pain medication for relief. Labs noncontributory. Will admit for pain control and GI f/u. 02/13/18 00:09 Patient signed out to Dr. Adkins for further evaluation. *DC/Admit/Observation/Transfer Diagnosis at time of Disposition: Abdominal pain Qualifiers: Abdominal location: epigastric Qualified Code(s): R10.13 - Epigastric pain - Discharge Dispostion Condition at time of disposition: Fair Decision to Admit order: Yes - Referrals Referrals: Mansoor Marques MD [Primary Care Provider] - - Patient Instructions - Post Discharge Activity
[2018-02-12] MEDS ORDERED: SODIUM CHLORIDE 1,000 ML IV STA (20:25)
[2018-02-12] MEDS ORDERED: ONDANSETRON 4 MG/2 ML VIAL IVPUSH ONE (20:25)
[2018-02-12] MEDS ORDERED: morphine CARPU-JECT 4 MG/1 ML DISP.SYRIN IVPUSH ONE ×3 (20:25→23:43)
[2018-02-12] MEDS ORDERED: FAMOTIDINE 20 MG/50 ML IVPB 20 MG/50 ML MG IVPB ONE ×2 (20:26→20:53)
[2018-02-12] MEDS ORDERED: morphine SULFATE 4 MG/ML VIAL ONE ×3 (20:33→23:59)
[2018-02-12] MEDS ORDERED: ONDANSETRON 4 MG/2 ML VIAL ONE (20:33)
[2018-02-12 21:01] LABS: BASO % 0.7 % (0-2.0); EOS % 1.2 % (0-4.5); HEMATOCRIT 41.3 % (32.4-45.2); HEMOGLOBIN 13.7 GM/dL (10.7-15.3); LYMPH % 33.6 % (8-40); MCH 26.4 pg (25.7-33.7); MCHC 33.3 g/dl (32.0-36.0); MEAN CELL VOLUME 79.3 fl (80-96); MEAN PLT VOLUME 9.9 fl (7.5-11.1); MONO % 11.6 % (3.8-10.2); NEUT % 52.9 % (42.8-82.8); RDW 16.1 % (11.6-15.6)
--- NOTE | 2018-02-12 21:07 | PDOC ---
Attending Attestation - HPI HPI: 02/12/18 21:50 The patient is a 57 year old female, with a significant past medical history of asthma, HTN, gastritis, s/p gastric sleeve, pancreatitis and GERD, who presents to the emergency department with complaint of epigastric pain starting around 12PM today which has been gradually increasing in severity over the course of 1- 2 hours prior to ED arrival. 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 She reportedly took Motrin around 3PM which did not offer pain relief. She states she has been fasting for about 3 days for pentecostalism purpose. She denies chest pain and shortness of breath.She denies fever, chills, headache and dizziness.She denies diarrhea and constipation.She denies dysuria, frequency, urgency and hematuria. Surgical history:gastric sleeve, cholecystectomy PCP: Documentation prepared by Margaux Durán, acting as medical legal investigator for Xu Santizo MD <Margaux Durán - Last Filed: 02/12/18 21:53> - Resident Resident Name: Danial Lozano - ED Attending Attestation I have performed the following: I have examined & evaluated the patient, The case was reviewed & discussed with the resident, I agree w/resident's findings & plan, Exceptions are as noted - Physicial Exam PE: 02/13/18 00:29 Patient is awake and alert, in moderate to severe distress Normocephalic, atraumatic PERRLA, EOMI No scleral icterus CTA RRR Abdomen soft, moderate to severe epigastric tenderness to palpation without guarding or rebound, Dickerson's and McBurney's and negative no CVA tenderness bilaterally - Medical Decision Making 02/13/18 00:28 Patient is a 57-year-old female with history of GERD, status post sleeve gastrectomy, hypertension, asthma presents to the ER with severe epigastric abdominal pain, sharp, not effectively controlled by [id number] Maalox. Patient reports that should been fasting and developed mild epigastric pain which he attempted to treat with ibuprofen which exacerbated the pain. In the ER , patient is in moderate distress, requiring repeated doses of IV morphine for pain control. Patient is afebrile, hypertensive on initial evaluation. Serial exams reveal moderate epigastric tenderness to palpation without guarding or rebound. I suspect gastritis versus esophagitis but will rule out perforated viscus. We'll obtain CBC/CMP/CT that and pelvis with by mouth contrast. We'll continue to hydrate. Likely admission. <Xu Santizo - Last Filed: 02/13/18 00:30>
[2018-02-12 21:24] LABS: PLATELET COUNT 282 K/MM3 (134-434); PLATELET ESTIMATE ADEQUATE
[2018-02-12 21:38] LABS: ALBUMIN 3.8 g/dl (3.4-5.0); ALK PHOS 115 U/L (45-117); ANION GAP 8 MMOL/L (8-16); BILIRUBIN,TOTAL 0.6 mg/dL (0.2-1); BLOOD UREA NITROGEN 10 mg/dL (7-18); CALCIUM 9.2 mg/dL (8.5-10.1); CHLORIDE 104 mmol/L (98-107); CO2 27 mmol/L (21-32); CREATININE 0.6 mg/dL (0.55-1.3); GLUCOSE,RANDOM 87 mg/dL (74-106); LIPASE 99 U/L (73-393); POTASSIUM 4.6 mmol/L (3.5-5.1); SGOT/AST 36 U/L (15-37); SGPT/ALT 17 U/L (13-61); SODIUM 139 mmol/L (136-145); TOT PROT 8.1 g/dl (6.4-8.2)
[2018-02-12] MEDS ORDERED: ACETAMINOPHEN 1000 MG/100 ML VIAL (NON FORMULARY) IVPB ONE (22:13)
[2018-02-12] MEDS ORDERED: SUCRALFATE 1 GM TABLET (FP) PO ONE (22:14)
[2018-02-12] MEDS ORDERED: ACETAMINOPHEN INJECTION 100 ML IVPB ONE (22:47)
[2018-02-12] MEDS ORDERED: SUCRALFATE 1 GM TABLET (FP) ONE (22:47)
[2018-02-12 23:33] LABS: URINE APPEARANCE CLEAR; URINE BILIRUBIN NEGATIVE (<2.0 mg/dL); URINE COLOR YELLOW; URINE GLUCOSE (UA) NEGATIVE (NEGATIVE); URINE KETONE NEGATIVE (NEGATIVE); URINE LEUK ESTERASE NEGATIVE (NEGATIVE); URINE NITRITE NEGATIVE (NEGATIVE); URINE PROTEIN NEGATIVE (NEGATIVE); URINE UROBILINOGEN NEGATIVE mg/dL (0.2-1.0)
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
[2018-02-13] MEDS ORDERED: ONDANSETRON 4 MG/2 ML VIAL IVPUSH PRN (01:03)
[2018-02-13] MEDS: DEXTROSE 5%-0.45% SALINE 1,000 ML IV SCH (01:23)
--- NOTE | 2018-02-13 03:29 | PDOC ---
*Physical Exam - Vital Signs Last Vital Signs Temp Pulse Resp BP Pulse Ox 98.8 F 92 H 18 181/92 H 98 02/12/18 20:21 02/12/18 20:21 02/12/18 20:21 02/12/18 20:21 02/12/18 20:21 ED Treatment Course - LABORATORY CBC & Chemistry Diagram: 02/12/18 20:45 02/12/18 20:45 - ADDITIONAL ORDERS Additional order review: Laboratory Results 02/12/18 02/12/18 20:45 20:45 Sodium 139 Potassium 4.6 Chloride 104 Carbon Dioxide 27 Anion Gap 8 BUN 10 Creatinine 0.6 Creat Clearance w eGFR > 60 Random Glucose 87 Calcium 9.2 Total Bilirubin 0.6 AST 36 ALT 17 Alkaline Phosphatase 115 Total Protein 8.1 Albumin 3.8 Lipase 99 Blood Type Cancelled Antibody Screen Cancelled 02/12/18 20:45 RBC 5.20 MCV 79.3 L MCHC 33.3 RDW 16.1 H MPV 9.9 Neutrophils % 52.9 D Lymphocytes % 33.6 D Monocytes % 11.6 H D Eosinophils % 1.2 D Basophils % 0.7 - Medications Given in the ED: ED Medications Discontinued Medications Generic Name Dose Route Start Last Admin Trade Name Freq PRN Reason Stop Dose Admin Acetaminophen 1,000 mg 02/12/18 22:13 02/12/18 22:44 Ofirmev Injection - IVPB 02/12/18 22:14 1,000 mg ONCE ONE Administration Sodium Chloride 1,000 mls @ 1,000 mls/hr 02/12/18 20:25 02/12/18 20:53 Normal Saline - IV 02/12/18 21:24 1,000 mls/hr ASDIR STA Administration Famotidine/Sodium Chloride 20 mg in 50 mls @ 100 mls/hr 02/12/18 20:26 21:23 Pepcid 20 Mg Premixed Ivpb - IVPB 02/12/18 20:55 100 mls/hr ONCE ONE Administration Morphine Sulfate 4 mg 02/12/18 20:25 02/12/18 20:53 Morphine Injection - IVPUSH 02/12/18 20:26 4 mg ONCE ONE Administration Morphine Sulfate 4 mg 02/12/18 22:15 02/12/18 22:44 Morphine Injection - IVPUSH 02/12/18 22:16 4 mg ONCE ONE Administration Morphine Sulfate 4 mg 02/12/18 23:43 02/13/18 00:17 Morphine Injection - IVPUSH 02/12/18 23:44 4 mg ONCE ONE Administration Ondansetron HCl 4 mg 02/12/18 20:25 02/12/18 20:53 Zofran Injection IVPUSH 02/12/18 20:26 4 mg ONCE ONE Administration Sucralfate 1 gm 02/12/18 22:14 02/12/18 22:44 Carafate - PO 02/12/18 22:15 1 gm ONCE ONE Administration Medical Decision Making - Medical Decision Making 02/13/18 03:[address] scan has SBO. Patient currently not requiring ng tube. Admitted to med/surg. *DC/Admit/Observation/Transfer Diagnosis at time of Disposition: Abdominal pain Qualifiers: Abdominal location: epigastric Qualified Code(s): R10.13 - Epigastric pain - Discharge Dispostion Condition at time of disposition: Fair - Referrals - Patient Instructions - Post Discharge Activity
[2018-02-13 04:37] VITALS: BMI 41.4
[2018-02-13] MEDS ORDERED: MORPHINE SULFATE 2 MG/ML VIAL IVPUSH ONE (06:13)
[2018-02-13] MEDS ORDERED: ACETAMINOPHEN 1000 MG/100 ML VIAL (NON FORMULARY) IVPB PRN (06:14)
[2018-02-13] MEDS ORDERED: ALBUTEROL SO4 0.083% IH SOL 2.5 MG/3 ML VIAL.NEB. NEB PRN (08:18)
[2018-02-13] MEDS: TIOTROPIUM BROMIDE 2.5 MCG (SPIRIVA) RESPIMAT INHALER IH SCH (10:00)
[2018-02-13] MEDS ORDERED: PT OWN MED DRAWER 7, Y5N ONE (10:03)
[2018-02-13] MEDS: FAMOTIDINE 20 MG/50 ML IVPB 20 MG/50 ML MG IVPB SCH ×2 (10:09→21:34)
--- NOTE | 2018-02-13 10:50 | CON.GI ---
Consult Consult Specialty:: Gastroenterology Reason for Consultation:: SBO - History of Present Illness Chief Complaint: 57 y.o. woman with PMH of gastric sleeve surgery, cholecystectomy, hernia repair admitted with epigastric pain, vomiting. Has been evaluated with EGD in the past by Dr Maya, current GI is Dr Aviles. Gastric sleeve was performed by Dr Enrique. Denies fever, chills. Last BM was yesterday, last episode of vomiting was after CT scan. No pain at present. History of Present Illness: see chief complaint Also current labs: CBCD WBC 8.0 K/mm3 (4.0-10.0) 02/12/18 20:45 RBC 5.20 M/mm3 (3.60-5.2) 02/12/18 20:45 Hgb 13.7 GM/dL (10.7-15.3) 02/12/18 20:45 Hct 41.3 % (32.4-45.2) 02/12/18 20:45 MCV 79.3 fl (80-96) L 02/12/18 20:45 MCHC 33.3 g/dl (32.0-36.0) 02/12/18 20:45 RDW 16.1 % (11.6-15.6) H 02/12/18 20:45 Plt Count 282 K/MM3 (134-434) D 02/12/18 20:45 MPV 9.9 fl (7.5-11.1) 02/12/18 20:45 CMP Sodium 139 mmol/L (136-145) 02/12/18 20:45 Potassium 4.6 mmol/L (3.5-5.1) 02/12/18 20:45 Chloride 104 mmol/L (98-107) 02/12/18 20:45 Carbon Dioxide 27 mmol/L (21-32) 02/12/18 20:45 Anion Gap 8 MMOL/L (8-16) 02/12/18 20:45 BUN 10 mg/dL (7-18) 02/12/18 20:45 Creatinine 0.6 mg/dL (0.55-1.3) 02/12/18 20:45 Creat Clearance w eGFR > 60 (>60) 02/12/18 20:45 Calcium 9.2 mg/dL (8.5-10.1) 02/12/18 20:45 Total Bilirubin 0.6 mg/dL (0.2-1) 02/12/18 20:45 AST 36 U/L (15-37) 02/12/18 20:45 ALT 17 U/L (13-61) 02/12/18 20:45 Alkaline Phosphatase 115 U/L (45-117) 02/12/18 20:45 Total Protein 8.1 g/dl (6.4-8.2) 02/12/18 20:45 Albumin 3.8 g/dl (3.4-5.0) 02/12/18 20:45 - History Source History Provided By: Patient, Medical Record Limitations to Obtaining History: No Limitations - Past Medical History 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 mild L ear pain with chewing. h/o hosp with low K+ and MG++ o diuretic at that time. 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 History of Recent Travel: No Home Medications - Allergies Allergies/Adverse Reactions: Allergies Allergy/AdvReac Type Severity Reaction Status Date / Time spironolactone Allergy Mild Rash Verified 01/21/17 08:24 [From Aldactone] - Home Medications Home Medications: Ambulatory Orders Albuterol 0.083% Nebulizer Mary [Ventolin 0.083% Nebulizer Soln -] 1 neb NEB Q4H PRN 01/21/17 Albuterol Sulfate Inhaler - [Ventolin HFA Inhaler -] 1 puff IH PRN PRN 01/21/17 Famotidine [Pepcid -] 40 mg PO DAILY 01/21/17 Fluticasone Propionate [Flovent Diskus] 250 mcg IH DAILY 01/21/17 Acetaminophen [Tylenol .Regular Strength -] 650 mg PO Q6H PRN tablet 01/30/17 Fluticasone Prop 0.05% Nasal [Flonase -] 2 spray NS DAILY #1 spray 01/30/17 Guaifenesin AC [Robitussin AC -] 10 ml PO Q4H PRN ud MDD 4 01/30/17 Loratadine [Claritin -] 10 mg PO DAILY #30 tablet 01/30/17 Montelukast Na [Singulair -] 10 mg PO HS #30 tablet 01/30/17 Ondansetron [Zofran Odt -] 8 mg SL Q6H PRN #30 tab.rapdis MDD 4 01/30/17 Sodium Chloride Nasal [place] [[place] Nasal [place] -] 2 spray NS TID PRN #1 spray 01/30/17 Tiotropium [place] [Spiriva] 1 puff IH DAILY #1 inh 01/30/17 Family Disease History - Family Disease History Family Disease History: Diabetes: Mother (Hypertension), CA: Father (), Mother, Other: Mother, Sister (Hypertension) Physical Exam-GI Vital Signs: Vital Signs Temperature 98.0 F 02/13/18 04:20 Pulse Rate 77 02/13/18 04:20 Respiratory Rate 18 02/13/18 04:20 Blood Pressure 136/72 02/13/18 04:20 O2 Sat by Pulse Oximetry (%) 94 L 02/13/18 04:20 Constitutional: Yes: Obese Gastrointestinal Inspection: Yes: WNL (Bowel sounds slightly hypoactive but present. Not tender even to deep palpation. No rebound tenderness.) Labs: CBC, BMP 02/12/18 20:45 02/12/18 20:45 Imaging - Results Cat Scan: Report Reviewed (Not only is there evidence of distal small bowel obstruction but the stomach appears very distended. Gastric distention was not present on her CT scan from 2017.), Image Reviewed Problem List - Problems (1) SBO (small bowel obstruction) Code(s): K56.609 - UNSP INTESTNL OBST, UNSP TO PARTIAL VERSUS COMPLETE OBST Assessment/Plan Small bowel obstruction, probably partial. Patient appears comfortable now. Will order FUA today. Avoid narcotic analgesics. If patient starts passing stool and gas can reintroduce oral intake.
--- NOTE | 2018-02-13 11:48 | PN ---
Progress Note, Physician Chief Complaint: CHART AND RECORDS REVIEWED C/O ABD PAIN NO N/V NOW DENIES FEVERS - Current Medication List Current Medications: Active Medications Acetaminophen (Ofirmev Injection -) 1,000 mg IVPB Q6H PRN PRN Reason: PAIN OR FEVER Albuterol Sulfate (Ventolin 0.083% Nebulizer Soln -) 1 amp NEB Q6H PRN PRN Reason: SHORT OF BREATH/WHEEZING Dextrose/Sodium Chloride (D5-1/2ns -) 1,000 mls @ 75 mls/hr IV ASDIR [facility] Last Admin: 02/13/18 01:23 Dose: 75 mls/hr Famotidine/Sodium Chloride (Pepcid 20 Mg Premixed Ivpb -) 20 mg in 50 mls @ 100 mls/hr IVPB BID [facility] Last Admin: 02/13/18 10:09 Dose: 100 mls/hr Ondansetron HCl (Zofran Injection) 4 mg IVPUSH Q6H PRN PRN Reason: NAUSEA AND/OR VOMITING Last Admin: 02/13/18 04:49 Dose: 4 mg Tiotropium [place] (Spiriva Respimat) 2 puff IH DAILY [facility] - Objective Vital Signs: Vital Signs Temperature 98.0 F 02/13/18 04:20 Pulse Rate 77 02/13/18 04:20 Respiratory Rate 18 02/13/18 04:20 Blood Pressure 136/72 02/13/18 04:20 O2 Sat by Pulse Oximetry (%) 94 L 02/13/18 04:20 Constitutional: Yes: Mild Distress Eyes: Yes: WNL HENT: Yes: WNL Neck: Yes: WNL Cardiovascular: Yes: WNL Respiratory: Yes: WNL Gastrointestinal: Yes: Soft, Abdomen, Obese Genitourinary: Yes: WNL Musculoskeletal: Yes: WNL Extremities: Yes: WNL Edema: No Peripheral Pulses WNL: Yes Integumentary: Yes: WNL Wound/Incision: Yes: Clean/Dry Neurological: Yes: WNL ...Motor Strength: WNL Psychiatric: Yes: WNL Labs: CBC, BMP 02/12/18 20:45 02/12/18 20:45 Problem List - Problems (1) Abdominal pain Code(s): R10.9 - UNSPECIFIED ABDOMINAL PAIN Qualifiers: Abdominal location: epigastric Qualified Code(s): R10.13 - Epigastric pain (2) SBO (small bowel obstruction) Code(s): K56.609 - UNSP INTESTNL OBST, UNSP TO PARTIAL VERSUS COMPLETE OBST (3) Abnormal liver enzymes Code(s): R74.8 - ABNORMAL LEVELS OF OTHER SERUM ENZYMES (4) Asthma Code(s): J45.909 - UNSPECIFIED ASTHMA, UNCOMPLICATED Qualifiers: Asthma severity: moderate Asthma persistence: persistent Asthma complication type: with acute exacerbation Qualified Code(s): J45.41 - Moderate persistent asthma with (acute) exacerbation (5) Dehydration Code(s): E86.0 - DEHYDRATION (6) GERD (gastroesophageal reflux disease) Code(s): K21.9 - GASTRO-ESOPHAGEAL REFLUX DISEASE WITHOUT ESOPHAGITIS (7) H/O bariatric surgery Code(s): Z98.84 - BARIATRIC SURGERY STATUS Assessment/Plan NPO IVF SURGERY/GI EVAL APPRECIATED WILL NEED TO BE NPO TODAY ON IVF START LIQUID DIET TOMORROW IF BETTER CAN ADVANCE DIET AND F/U OUTPATIENT AVOID CONSTIPATION HIGH FIBERS DIET OUTPATIENT D/W PATIENT
--- NOTE | 2018-02-13 12:45 | EKG ---
Test Reason : Blood Pressure : / mmHG Vent. Rate : 076 BPM Atrial Rate : 076 BPM P-R Int : 142 ms QRS Dur : 080 ms QT Int : 396 ms P-R-T Axes : 048 024 045 degrees QTc Int : 445 ms NORMAL SINUS RHYTHM NONSPECIFIC T WAVE ABNORMALITY ABNORMAL ECG WHEN COMPARED WITH ECG OF 10-OCT-2016 00:57, NONSPECIFIC T WAVE ABNORMALITY, WORSE IN LATERAL LEADS Confirmed by MD PIA, SILVIO ([id number]) on 02/13/2018 12:45:33 PM Referred By: Confirmed By:SILVIO PALACIO MD
--- NOTE | 2018-02-13 21:57 | CONSULT ---
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 mild L ear pain with chewing. h/o hosp with low K+ and MG++ o diuretic at that time. 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 History of Recent Travel: No Home Medications - Allergies Allergies/Adverse Reactions: Allergies Allergy/AdvReac Type Severity Reaction Status Date / Time spironolactone Allergy Mild Rash Verified 01/21/17 08:24 [From Aldactone] - Home Medications Home Medications: Ambulatory Orders Albuterol 0.083% Nebulizer Mary [Ventolin 0.083% Nebulizer Soln -] 1 neb NEB Q4H PRN 01/21/17 Albuterol Sulfate Inhaler - [Ventolin HFA Inhaler -] 1 puff IH PRN PRN 01/21/17 Famotidine [Pepcid -] 40 mg PO DAILY 01/21/17 Fluticasone Propionate [Flovent Diskus] 250 mcg IH DAILY 01/21/17 Acetaminophen [Tylenol .Regular Strength -] 650 mg PO Q6H PRN tablet 01/30/17 Fluticasone Prop 0.05% Nasal [Flonase -] 2 spray NS DAILY #1 spray 01/30/17 Guaifenesin AC [Robitussin AC -] 10 ml PO Q4H PRN ud MDD 4 01/30/17 Loratadine [Claritin -] 10 mg PO DAILY #30 tablet 01/30/17 Montelukast Na [Singulair -] 10 mg PO HS #30 tablet 01/30/17 Ondansetron [Zofran Odt -] 8 mg SL Q6H PRN #30 tab.rapdis MDD 4 01/30/17 Sodium Chloride Nasal [place] [[place] Nasal [place] -] 2 spray NS TID PRN #1 spray 01/30/17 Tiotropium [place] [Spiriva] 1 puff IH DAILY #1 inh 01/30/17 Family Disease History - Family Disease History Family Disease History: Diabetes: Mother (Hypertension), CA: Father (), Mother, Other: Mother, Sister (Hypertension) Physical Exam Vital Signs: Vital Signs Temperature 98.1 F 02/13/18 18:00 Pulse Rate 80 02/13/18 18:00 Respiratory Rate 16 02/13/18 18:00 Blood Pressure 145/83 02/13/18 18:00 O2 Sat by Pulse Oximetry (%) 94 L 02/13/18 09:00 Labs: CBC, BMP 02/12/18 20:45 02/12/18 20:45
[2018-02-14] MEDS: DEXTROSE 5%-0.45% SALINE 1,000 ML IV SCH (02:22)
[2018-02-14] MEDS: FAMOTIDINE 20 MG/50 ML IVPB 20 MG/50 ML MG IVPB SCH ×2 (09:39→23:27)
[2018-02-14] MEDS: TIOTROPIUM BROMIDE 2.5 MCG (SPIRIVA) RESPIMAT INHALER IH SCH (09:40)
--- NOTE | 2018-02-14 09:47 | PN ---
Progress Note (short form) - Note Progress Note: Pt feeling better, passing flatus spontaneously. Abdomen soft, nontender. To go for FUA today. If Xrays support resolution of SBO would begin with full liquid diet for lunch, regular diet for dinner, and if no symptoms can be discharged tonight or tomorrow a.m. Problem List - Problems (1) SBO (small bowel obstruction) Code(s): K56.609 - UNSP INTESTNL OBST, UNSP TO PARTIAL VERSUS COMPLETE OBST
--- NOTE | 2018-02-14 12:26 | PN ---
Progress Note, Physician Chief Complaint: awake alert feeling better still has pain - Current Medication List Current Medications: Active Medications Acetaminophen (Ofirmev Injection -) 1,000 mg IVPB Q6H PRN PRN Reason: PAIN OR FEVER Last Admin: 02/13/18 21:34 Dose: 1,000 mg Albuterol Sulfate (Ventolin 0.083% Nebulizer Soln -) 1 amp NEB Q6H PRN PRN Reason: SHORT OF BREATH/WHEEZING Dextrose/Sodium Chloride (D5-1/2ns -) 1,000 mls @ 75 mls/hr IV ASDIR [facility] Last Admin: 02/14/18 02:22 Dose: Not Given Famotidine/Sodium Chloride (Pepcid 20 Mg Premixed Ivpb -) 20 mg in 50 mls @ 100 mls/hr IVPB BID [facility] Last Admin: 02/14/18 09:39 Dose: 100 mls/hr Ondansetron HCl (Zofran Injection) 4 mg IVPUSH Q6H PRN PRN Reason: NAUSEA AND/OR VOMITING Last Admin: 02/13/18 04:49 Dose: 4 mg Tiotropium [place] (Spiriva Respimat) 2 puff IH DAILY [facility] Last Admin: 02/14/18 09:40 Dose: Not Given - Objective Vital Signs: Vital Signs Temperature 97.9 F 02/14/18 01:44 Pulse Rate 71 02/14/18 01:44 Respiratory Rate 18 02/14/18 01:44 Blood Pressure 117/75 02/14/18 01:44 O2 Sat by Pulse Oximetry (%) 96 02/13/18 21:00 Constitutional: Yes: Mild Distress Eyes: Yes: WNL HENT: Yes: WNL Neck: Yes: WNL Cardiovascular: Yes: WNL Respiratory: Yes: WNL Gastrointestinal: Yes: Tenderness, Other Genitourinary: Yes: WNL Musculoskeletal: Yes: WNL Extremities: Yes: WNL Edema: No Peripheral Pulses WNL: Yes Integumentary: Yes: WNL Wound/Incision: Yes: Clean/Dry Neurological: Yes: WNL ...Motor Strength: WNL Psychiatric: Yes: WNL Labs: CBC, BMP 02/12/18 20:45 02/12/18 20:45 Problem List - Problems (1) Abdominal pain Code(s): R10.9 - UNSPECIFIED ABDOMINAL PAIN Qualifiers: Abdominal location: epigastric Qualified Code(s): R10.13 - Epigastric pain (2) SBO (small bowel obstruction) Code(s): K56.609 - UNSP INTESTNL OBST, UNSP TO PARTIAL VERSUS COMPLETE OBST (3) Abnormal liver enzymes Code(s): R74.8 - ABNORMAL LEVELS OF OTHER SERUM ENZYMES (4) Asthma Code(s): J45.909 - UNSPECIFIED ASTHMA, UNCOMPLICATED Qualifiers: Asthma severity: moderate Asthma persistence: persistent Asthma complication type: with acute exacerbation Qualified Code(s): J45.41 - Moderate persistent asthma with (acute) exacerbation (5) Dehydration Code(s): E86.0 - DEHYDRATION (6) GERD (gastroesophageal reflux disease) Code(s): K21.9 - GASTRO-ESOPHAGEAL REFLUX DISEASE WITHOUT ESOPHAGITIS (7) H/O bariatric surgery Code(s): Z98.84 - BARIATRIC SURGERY STATUS Assessment/Plan START DINNER TONGIHT MONITOR LABS OOB TO CHAIR MONITOR LABS START DINNER TONIGHT IF TOLERATING WELL CAN DC IN AM
--- NOTE | 2018-02-14 14:13 | CONSULT ---
Consult - text type - Consultation Consultation Note: 02/14/2018 Asked to see this 57 y.o. female admitted 02/12/18 with complaint of epigastric pain. Pt states pain was severe causing her to be bowled over at times. Pt with recent constipation after taking meds given by GI for diarrhea Past medical history signifiicant for Lap-Band, Lap Sleeve Gastrectomy, Left inguinal hernia and Lap cholecystectomy Pt had admission over 1 year ago for similar epigastric pain that resolved without intervention CT scan on admission showed distal SB obstruction. Abdominal x-ray today shows resolving SB obstruction. P/E- General- 57 y.o. female awake, malert, NAD Abd- well-healed trocar incisions No tympany, slight voluntary guarding in epigastrium Soft, mild epigastric tenderness on palpation No rebound, no referred pain WBC-8.0 Amylase-99 I- Improved epigastric pain Improved Abd x-ray showing resolved SB obstruction Patient on liquid diet, advance to soft diet as tolerated
[2018-02-14] MEDS ORDERED: ACETAMINOPHEN 325 MG TABLET (FP) PO ONE (23:43)
[2018-02-15] MEDS ORDERED: PT OWN MED DRAWER 7, Y5N ONE (09:29)
[2018-02-15] MEDS: PANTOPRAZOLE 40 MG TABLET (FP) PO SCH (09:40)
[2018-02-15] MEDS: TIOTROPIUM BROMIDE 2.5 MCG (SPIRIVA) RESPIMAT INHALER IH SCH (09:40)
--- NOTE | 2018-02-15 19:35 | PN ---
Progress Note (short form) - Note Progress Note: advancing diet to low fat feeling better has loose stool PE: abd- soft nontender +bs chest [id number] Plan: advance diet monitor if diarrhea vs IBS surgery f/u appreciated Problem List - Problems (1) Abdominal pain Code(s): R10.9 - UNSPECIFIED ABDOMINAL PAIN Qualifiers: Abdominal location: epigastric Qualified Code(s): R10.13 - Epigastric pain (2) SBO (small bowel obstruction) Code(s): K56.609 - UNSP INTESTNL OBST, UNSP TO PARTIAL VERSUS COMPLETE OBST (3) Abnormal liver enzymes Code(s): R74.8 - ABNORMAL LEVELS OF OTHER SERUM ENZYMES (4) Asthma Code(s): J45.909 - UNSPECIFIED ASTHMA, UNCOMPLICATED Qualifiers: Asthma severity: moderate Asthma persistence: persistent Asthma complication type: with acute exacerbation Qualified Code(s): J45.41 - Moderate persistent asthma with (acute) exacerbation (5) Dehydration Code(s): E86.0 - DEHYDRATION (6) GERD (gastroesophageal reflux disease) Code(s): K21.9 - GASTRO-ESOPHAGEAL REFLUX DISEASE WITHOUT ESOPHAGITIS (7) H/O bariatric surgery Code(s): Z98.84 - BARIATRIC SURGERY STATUS
--- NOTE | 2018-02-16 07:17 | DS ---
Physical Examination Vital Signs: Vital Signs Temperature 97.7 F 02/16/18 06:00 Pulse Rate 68 02/16/18 06:00 Respiratory Rate 20 02/16/18 06:00 Blood Pressure 138/84 02/16/18 06:00 O2 Sat by Pulse Oximetry (%) 97 02/15/18 20:26 Constitutional: Yes: No Distress Eyes: Yes: WNL HENT: Yes: WNL Neck: Yes: WNL Cardiovascular: Yes: WNL Respiratory: Yes: WNL Gastrointestinal: Yes: WNL Renal/: Yes: WNL Musculoskeletal: Yes: WNL Edema: No Peripheral Pulses WNL: Yes Integumentary: Yes: WNL Wound/Incision: Yes: Clean/Dry Neurological: Yes: WNL ...Motor Strength: WNL Psychiatric: Yes: WNL Labs: CBC, BMP 02/12/18 20:45 02/12/18 20:45 Discharge Summary Reason For Visit: INTRACTABLE EPIGASTRIC ABDOMINAL PAIN Current Active Problems Abdominal pain (Acute) SBO (small bowel obstruction) (Acute) Procedures: Principal: CT SCAN Hospital Course: ADMITTED FOR SBO, ON IVF, PAIN MEDS, SLOWLY WAS ABLE TO TOLERATE MEALS. Condition: Fair - Instructions Diet, Activity, Other Instructions: SEE DR MARQUES IN 1-2 WEEKS LOW FAT DIET Referrals: Mansoor Marques MD [Primary Care Provider] - Disposition: HOME - Home Medications Comprehensive Discharge Medication List: Ambulatory Orders Albuterol 0.083% Nebulizer Mary [Ventolin 0.083% Nebulizer Soln -] 1 neb NEB Q4H PRN 01/21/17 Albuterol Sulfate Inhaler - [Ventolin HFA Inhaler -] 1 puff IH PRN PRN 01/21/17 Famotidine [Pepcid -] 40 mg PO DAILY 01/21/17 Fluticasone Propionate [Flovent Diskus] 250 mcg IH DAILY 01/21/17 Acetaminophen [Tylenol .Regular Strength -] 650 mg PO Q6H PRN tablet 01/30/17 Fluticasone Prop 0.05% Nasal [Flonase -] 2 spray NS DAILY #1 spray 01/30/17 Guaifenesin AC [Robitussin AC -] 10 ml PO Q4H PRN ud MDD 4 01/30/17 Loratadine [Claritin -] 10 mg PO DAILY #30 tablet 01/30/17 Montelukast Na [Singulair -] 10 mg PO HS #30 tablet 01/30/17 Ondansetron [Zofran Odt -] 8 mg SL Q6H PRN #30 tab.rapdis MDD 4 01/30/17 Sodium Chloride Nasal [place] [[place] Nasal [place] -] 2 spray NS TID PRN #1 spray 01/30/17 Tiotropium [place] [Spiriva] 1 puff IH DAILY #1 inh 01/30/17
[2018-02-16] MEDS ORDERED: PT OWN MED DRAWER 7, Y5N ONE (09:11)
[2018-02-16] MEDS: TIOTROPIUM BROMIDE 2.5 MCG (SPIRIVA) RESPIMAT INHALER IH SCH (09:22)
[2018-02-16] MEDS: PANTOPRAZOLE 40 MG TABLET (FP) PO SCH (09:22)
[2018-02-16 10:26] VITALS: BP 116/67; PULSE 74; TEMP 98
--- NOTE | 2018-02-16 11:37 | PN ---
Progress Note, Physician Chief Complaint: patient all dressed today ate had BM doing well ready to go home - Objective Vital Signs: Vital Signs Temperature 98.0 F 02/16/18 09:20 Pulse Rate 74 02/16/18 09:20 Respiratory Rate 17 02/16/18 09:20 Blood Pressure 116/67 02/16/18 09:20 O2 Sat by Pulse Oximetry (%) 98 02/16/18 09:20 Constitutional: Yes: Calm Cardiovascular: Yes: Regular Rate and Rhythm, S1, S2 Respiratory: Yes: CTA Bilaterally Gastrointestinal: Yes: Normal Bowel Sounds, Soft Edema: No Labs: CBC, BMP 02/12/18 20:45 02/12/18 20:45 Problem List - Problems (1) Abdominal pain Assessment/Plan: much improved dc home today Code(s): R10.9 - UNSPECIFIED ABDOMINAL PAIN Qualifiers: Abdominal location: epigastric Qualified Code(s): R10.13 - Epigastric pain
== END 2018-02-16 11:33 | disposition home or self-care (01) | DRG 390 ==
LOC: JER 20:19 → JERBED 22:36 → J7W 02-13 04:15
PROVIDERS: ADMIT Family Medicine; ATTEND Family Medicine
DX: K56.609 Unspecified intestinal obstruction, unspecified as to partial versus complete obstruction (principal); R10.13 Epigastric pain; R74.8 Abnormal levels of other serum enzymes; J45.909 Unspecified asthma, uncomplicated; E86.0 Dehydration; K21.9 Gastro-esophageal reflux disease without esophagitis; I10 Essential (primary) hypertension; E78.5 Hyperlipidemia, unspecified
CPT/HCPCS: 36415; 71045-TC-FY; 74018-TC-FY; 74019-TC-FY; 74177-TC; 80053; 81003; 83690; 85025; 87086; 93005; 93010; 99281-25; J0131; J7030

== ENCOUNTER 2018-07-12 08:19 | Emergency (ER) | payer OTHER | END 2018-07-12 09:08 | disposition home or self-care (01) | LOC: JER 08:19 ==

== ENCOUNTER 2019-01-27 10:23 | Emergency (ER) | payer OTHER ==
[2019-01-27 10:29] VITALS: BP 135/66; PULSE 93; TEMP 98.2; BMI 299.3
--- NOTE | 2019-01-27 11:47 | PDOC ---
History of Present Illness - General Chief Complaint: Pain, Acute Stated Complaint: LT KNEE PAIN Time Seen by Provider: 01/27/19 11:45 Past History - Past Medical History Allergies/Adverse Reactions: Allergies Allergy/AdvReac Type Severity Reaction Status Date / Time spironolactone Allergy Mild Rash Verified 01/27/19 10:29 [From Aldactone] Home Medications: Ambulatory Orders Albuterol 0.083% Nebulizer Mary [Ventolin 0.083% Nebulizer Soln -] 1 neb NEB Q4H PRN 01/21/17 Albuterol Sulfate Inhaler - [Ventolin HFA Inhaler -] 1 puff IH PRN PRN 01/21/17 Famotidine [Pepcid -] 40 mg PO DAILY 01/21/17 Fluticasone Propionate [Flovent Diskus] 250 mcg IH DAILY 01/21/17 Acetaminophen [Tylenol .Regular Strength -] 650 mg PO Q6H PRN tablet 01/30/17 Fluticasone Prop 0.05% Nasal [Flonase -] 2 spray NS DAILY #1 spray 01/30/17 Guaifenesin AC [Robitussin AC -] 10 ml PO Q4H PRN ud MDD 4 01/30/17 Loratadine [Claritin -] 10 mg PO DAILY #30 tablet 01/30/17 Montelukast Na [Singulair -] 10 mg PO HS #30 tablet 01/30/17 Ondansetron [Zofran *Odt*] 8 mg SL Q6H PRN #30 tab.rapdis MDD 4 01/30/17 Sodium Chloride Nasal [place] [[place] Nasal [place] -] 2 spray NS TID PRN #1 spray 01/30/17 Tiotropium [place] [Spiriva] 1 puff IH DAILY #1 inh 01/30/17 Methylprednisolone [Medrol Dose [place]] 4 mg PO ASDIR #21 tablet 07/12/18 Methylprednisolone [Medrol Dose [place]] 4 mg PO ASDIR #21 tablet 07/12/18 Anemia: No Asthma: Yes Cancer: No Cardiac Disorders: No CVA: No COPD: Yes CHF: No Dementia: No Diabetes: No GI Disorders: Yes (gerd) Disorders: No HTN: Yes (hx (resolved post gastric bypass sx)) Hypercholesterolemia: No Liver Disease: No Seizures: No Thyroid Disease: No - Surgical History Abdominal Surgery: Yes (sleeve 10/2014;hernia sx) Appendectomy: No Cardiac Surgery: No Cholecystectomy: Yes (04/2010) Lung Surgery: No Neurologic Surgery: No Orthopedic Surgery: No - Psycho Social/Smoking Cessation Hx Smoking Status: No Smoking History: Never smoked Have you smoked in the past 12 months: No Number of Cigarettes Smoked Daily: 0 If you are a former smoker, when did you quit?: 30 yrs ago Hx Alcohol Use: No Drug/Substance Use Hx: No Substance Use Type: None Hx Substance Use Treatment: No *Physical Exam - Vital Signs Last Vital Signs Temp Pulse Resp BP Pulse Ox 98.2 F 93 H 19 135/66 99 01/27/19 10:27 01/27/19 10:27 01/27/19 10:27 01/27/19 10:27 01/27/19 10:27 Discharge - Follow up/Referral Referrals: Mansoor Marques MD [Primary Care Provider] - - Patient Discharge Instructions - Post Discharge Activity
[2019-01-27] MEDS ORDERED: KETOROLAC TROMETHAMINE 60 MG/2 ML VIAL IM ONE (12:18)
--- NOTE | 2019-01-27 12:19 | PDOC ---
History of Present Illness - General Chief Complaint: Pain, Acute Stated Complaint: LT KNEE PAIN Time Seen by Provider: 01/27/19 11:45 History Source: Patient Exam Limitations: No Limitations - History of Present Illness Initial Comments: 01/27/19 12:14 Pt here with left knee pain and swelling./ Has long Hx of Osteoarthritis and had recent bilateral knee injections - uncertain but for meniscus repair and pain management. States right knee much improved. Left knee remains painful. Unable to see Ortho for another 3 months. Denies fevers/ worsen swelling - BUT was dancing at [employer] 6 days ago. Occurred: reports: last week Severity: reports: mild, moderate Pain Location: reports: lower extremity Method of Injury: Yes: unknown Modifying Factors: improves with: None Past History - Travel Traveled outside of the country in the last 30 days: No Close contact w/someone who was outside of country & ill: No - Past Medical History Allergies/Adverse Reactions: Allergies Allergy/AdvReac Type Severity Reaction Status Date / Time spironolactone Allergy Mild Rash Verified 01/27/19 10:29 [From Aldactone] Home Medications: Ambulatory Orders Albuterol 0.083% Nebulizer Mary [Ventolin 0.083% Nebulizer Soln -] 1 neb NEB Q4H PRN 01/21/17 Albuterol Sulfate Inhaler - [Ventolin HFA Inhaler -] 1 puff IH PRN PRN 01/21/17 Famotidine [Pepcid -] 40 mg PO DAILY 01/21/17 Fluticasone Propionate [Flovent Diskus] 250 mcg IH DAILY 01/21/17 Acetaminophen [Tylenol .Regular Strength -] 650 mg PO Q6H PRN tablet 01/30/17 Fluticasone Prop 0.05% Nasal [Flonase -] 2 spray NS DAILY #1 spray 01/30/17 Guaifenesin AC [Robitussin AC -] 10 ml PO Q4H PRN ud MDD 4 01/30/17 Loratadine [Claritin -] 10 mg PO DAILY #30 tablet 01/30/17 Montelukast Na [Singulair -] 10 mg PO HS #30 tablet 01/30/17 Ondansetron [Zofran *Odt*] 8 mg SL Q6H PRN #30 tab.rapdis MDD 4 01/30/17 Sodium Chloride Nasal [place] [[place] Nasal [place] -] 2 spray NS TID PRN #1 spray 01/30/17 Tiotropium [place] [Spiriva] 1 puff IH DAILY #1 inh 01/30/17 Methylprednisolone [Medrol Dose Yaya] 4 mg PO ASDIR #21 tablet 07/12/18 Methylprednisolone [Medrol Dose Yaya] 4 mg PO ASDIR #21 tablet 07/12/18 Anemia: No Asthma: Yes Cancer: No Cardiac Disorders: No CVA: No COPD: Yes CHF: No Dementia: No Diabetes: No GI Disorders: Yes (gerd) Disorders: No HTN: Yes (hx (resolved post gastric bypass sx)) Hypercholesterolemia: No Liver Disease: No Seizures: No Thyroid Disease: No - Surgical History Abdominal Surgery: Yes (sleeve 10/2014;hernia sx) Appendectomy: No Cardiac Surgery: No Cholecystectomy: Yes (04/2010) Lung Surgery: No Neurologic Surgery: No Orthopedic Surgery: No - Psycho Social/Smoking Cessation Hx Smoking Status: No Smoking History: Never smoked Have you smoked in the past 12 months: No Number of Cigarettes Smoked Daily: 0 If you are a former smoker, when did you quit?: 30 yrs ago Hx Alcohol Use: No Drug/Substance Use Hx: No Substance Use Type: None Hx Substance Use Treatment: No Review of Systems - Review of Systems Able to Perform ROS?: Yes Is the patient limited Maori proficient: Yes Constitutional: Yes: See HPI. No: Symptoms Reported, Fever, Malaise, Weakness HEENTM: No: Symptoms Reported Respiratory: No: Symptoms reported Musculoskeletal: Yes: Symptoms Reported, See HPI, Back Pain, Joint Pain, Joint Swelling (knees ) Integumentary: No: Symptoms Reported All Other Systems: Reviewed and Negative *Physical Exam - Vital Signs Last Vital Signs Temp Pulse Resp BP Pulse Ox 98.2 F 93 H 19 135/66 99 01/27/19 10:27 01/27/19 10:27 01/27/19 10:27 01/27/19 10:27 01/27/19 10:27 - Physical Exam General Appearance: Yes: Nourished, Appropriately Dressed, Apparent Distress HEENT: positive: TANVI, Normal ENT Inspection, TMs Normal, Pharynx Normal Neck: negative: Tender, Supple Respiratory/Chest: negative: Lungs Clear Gastrointestinal/Abdominal: positive: Soft Musculoskeletal: negative: Normal Inspection, Decreased Range of Motion (due to pain , tender to post fossa/ difficult to examine due to guarding, ), Vertebral Tenderness Extremity: positive: Normal Capillary Refill, Tender Integumentary: positive: Normal Color, Dry, Warm 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 Discharge - Discharge Information Problems reviewed: Yes Clinical Impression/Diagnosis: Strain of knee and leg, left Qualifiers: Encounter type: initial encounter Qualified Code(s): S86.912A - Strain of unspecified muscle(s) and tendon(s) at lower leg level, left leg, initial encounter Condition: Stable Disposition: HOME - Admission No - Follow up/Referral Referrals: Mansoor Marques MD [Primary Care Provider] - - Patient Discharge Instructions Additional Instructions: Rest, Ice, Elevate, Use splints/ wraps See ORTHO for followup - Post Discharge Activity Work/Back to School Note: Back to Work
[2019-01-27] MEDS ORDERED: KETOROLAC TROMETHAMINE 60 MG/2 ML VIAL ONE (13:58)
== END 2019-01-27 14:23 | disposition home or self-care (01) ==
LOC: JERFT 10:23
PROC: 3E0233Z Introduction of Anti-inflammatory into Muscle, Percutaneous Approach (ICD-10-PCS; principal; 2019-01-27)
DX: S86.812A Strain of other muscle(s) and tendon(s) at lower leg level, left leg, initial encounter (principal); X50.9XXA Other and unspecified overexertion or strenuous movements or postures, initial encounter; Y93.41 Activity, dancing; Y92.89 Other specified places as the place of occurrence of the external cause; Y99.8 Other external cause status; M17.0 Bilateral primary osteoarthritis of knee; J45.909 Unspecified asthma, uncomplicated; J44.9 Chronic obstructive pulmonary disease, unspecified; Z88.8 Allergy status to other drugs, medicaments and biological substances
CPT/HCPCS: 99281-25

== ENCOUNTER 2019-03-07 09:31 | Emergency (ER) | payer OTHER ==
[2019-03-07 09:39] VITALS: TEMP 98; BMI 32.8
--- NOTE | 2019-03-07 10:00 | PDOC ---
History of Present Illness - General Chief Complaint: Diarrhea Stated Complaint: WEAKNESS Time Seen by Provider: 03/07/19 10:00 Past History - Past Medical History Allergies/Adverse Reactions: Allergies Allergy/AdvReac Type Severity Reaction Status Date / Time spironolactone Allergy Mild Rash Verified 01/27/19 10:29 [From Aldactone] Home Medications: Ambulatory Orders Albuterol 0.083% Nebulizer Mary [Ventolin 0.083% Nebulizer Soln -] 1 neb NEB Q4H PRN 01/21/17 Albuterol Sulfate Inhaler - [Ventolin HFA Inhaler -] 1 puff IH PRN PRN 01/21/17 Famotidine [Pepcid -] 40 mg PO DAILY 01/21/17 Fluticasone Propionate [Flovent Diskus] 250 mcg IH DAILY 01/21/17 Acetaminophen [Tylenol .Regular Strength -] 650 mg PO Q6H PRN tablet 01/30/17 Fluticasone Prop 0.05% Nasal [Flonase -] 2 spray NS DAILY #1 spray 01/30/17 Guaifenesin AC [Robitussin AC -] 10 ml PO Q4H PRN ud MDD 4 01/30/17 Loratadine [Claritin -] 10 mg PO DAILY #30 tablet 01/30/17 Montelukast Na [Singulair -] 10 mg PO HS #30 tablet 01/30/17 Ondansetron [Zofran *Odt*] 8 mg SL Q6H PRN #30 tab.rapdis MDD 4 01/30/17 Sodium Chloride Nasal [place] [[place] Nasal [place] -] 2 spray NS TID PRN #1 spray 01/30/17 Tiotropium [place] [Spiriva] 1 puff IH DAILY #1 inh 01/30/17 Methylprednisolone [Medrol Dose Yaya] 4 mg PO ASDIR #21 tablet 07/12/18 Methylprednisolone [Medrol Dose Yaya] 4 mg PO ASDIR #21 tablet 07/12/18 Anemia: No Asthma: Yes Cancer: No Cardiac Disorders: No CVA: No COPD: Yes CHF: No Dementia: No Diabetes: No GI Disorders: Yes (gerd) Disorders: No HTN: Yes (hx (resolved post gastric bypass sx)) Hypercholesterolemia: No Liver Disease: No Seizures: No Thyroid Disease: No - Surgical History Abdominal Surgery: Yes (sleeve 10/2014;hernia sx) Appendectomy: No Cardiac Surgery: No Cholecystectomy: Yes (04/2010) Lung Surgery: No Neurologic Surgery: No Orthopedic Surgery: No - Immunization History Immunization Up to Date: No - Psycho Social/Smoking Cessation Hx Smoking Status: No Smoking History: Never smoked Have you smoked in the past 12 months: No Number of Cigarettes Smoked Daily: 0 If you are a former smoker, when did you quit?: 30 yrs ago Information on smoking cessation initiated: No Hx Alcohol Use: No Drug/Substance Use Hx: No Substance Use Type: None Hx Substance Use Treatment: No *Physical Exam - Vital Signs Last Vital Signs Temp Pulse Resp BP Pulse Ox 98.0 F 87 16 123/82 100 03/07/19 09:37 03/07/19 09:37 03/07/19 09:37 03/07/19 09:37 03/07/19 09:37 Discharge - Discharge Information Condition: Stable - Follow up/Referral Referrals: Mansoor Marques MD [Primary Care Provider] - - Patient Discharge Instructions - Post Discharge Activity
[2019-03-07] MEDS ORDERED: SODIUM CHLORIDE 0.9% 500 ML INFUS.BAG IV ONE ×3 (10:11→14:24)
--- NOTE | 2019-03-07 10:38 | PDOC ---
Attending Attestation - Resident Resident Name: Carli Reeves - HPI HPI: 03/07/19 12:05 Pt presents to the ED complaining of profuse watery diarrhea and nausea for the last two days. Patient states that she has been having a bowel movement after every time he eats. Denies fever or vomiting. Reports that she has a long standing history of chronic epigastric pain, for which she is in the process of a work up by Dr. Aviles. Negative CT in January. 03/07/19 12:22 - Physicial Exam PE: 03/07/19 12:23 Agree with resident exam. patient is alert and oriented and in no acute distress. Lungs are clear. HEart has regular rate and rhythm. Abdomen is soft , non distended. + tenderness in the epigastrium and RUQ that is unchanged from chronic as per patient. - Medical Decision Making 03/07/19 12:36 Pt presents to the ED complaining of profuse watery diarrhea. Denies new abdominal pain or fever. Will check labs and treat with IV hydration and reassess. Will discharge home if labs are negative and patient feels improved.
--- NOTE | 2019-03-07 10:45 | PDOC ---
History of Present Illness - General Chief Complaint: Diarrhea Stated Complaint: WEAKNESS Time Seen by Provider: 03/07/19 10:00 - History of Present Illness Initial Comments: 58 year old female with PMH of asthma, HTN, sleeve gastrectomy (2014), cholecystectomy, and hernia repair presenting with diarrhea for the past two days. Describes the diarrhea as watery, brown, and fowl smelling. She was fasting with one meal per day prior to the onset of symptoms and then attempted to eat but was unable to tolerate much PO. Took imodium at midnight so that she could come to work today. Denies chest pain, nausea, vomiting, or other symptoms. 03/07/19 10:40 Past History - Past Medical History Allergies/Adverse Reactions: Allergies Allergy/AdvReac Type Severity Reaction Status Date / Time spironolactone Allergy Mild Rash Verified 01/27/19 10:29 [From Aldactone] Home Medications: Ambulatory Orders Albuterol 0.083% Nebulizer Mary [Ventolin 0.083% Nebulizer Soln -] 1 neb NEB Q4H PRN 01/21/17 Albuterol Sulfate Inhaler - [Ventolin HFA Inhaler -] 1 puff IH PRN PRN 01/21/17 Famotidine [Pepcid -] 40 mg PO DAILY 01/21/17 Fluticasone Propionate [Flovent Diskus] 250 mcg IH DAILY 01/21/17 Acetaminophen [Tylenol .Regular Strength -] 650 mg PO Q6H PRN tablet 01/30/17 Fluticasone Prop 0.05% Nasal [Flonase -] 2 spray NS DAILY #1 spray 01/30/17 Guaifenesin AC [Robitussin AC -] 10 ml PO Q4H PRN ud MDD 4 01/30/17 Loratadine [Claritin -] 10 mg PO DAILY #30 tablet 01/30/17 Montelukast Na [Singulair -] 10 mg PO HS #30 tablet 01/30/17 Ondansetron [Zofran *Odt*] 8 mg SL Q6H PRN #30 tab.rapdis MDD 4 01/30/17 Sodium Chloride Nasal [place] [[place] Nasal [place] -] 2 spray NS TID PRN #1 spray 01/30/17 Tiotropium [place] [Spiriva] 1 puff IH DAILY #1 inh 01/30/17 Methylprednisolone [Medrol Dose Yaya] 4 mg PO ASDIR #21 tablet 07/12/18 Methylprednisolone [Medrol Dose Yaya] 4 mg PO ASDIR #21 tablet 07/12/18 Anemia: No Asthma: Yes Cancer: No Cardiac Disorders: No CVA: No COPD: Yes CHF: No Dementia: No Diabetes: No GI Disorders: Yes (gerd) Disorders: No HTN: Yes (hx (resolved post gastric bypass sx)) Hypercholesterolemia: No Liver Disease: No Seizures: No Thyroid Disease: No - Surgical History Abdominal Surgery: Yes (sleeve 10/2014;hernia sx) Appendectomy: No Cardiac Surgery: No Cholecystectomy: Yes (04/2010) Lung Surgery: No Neurologic Surgery: No Orthopedic Surgery: No - Immunization History Immunization Up to Date: No - Psycho Social/Smoking Cessation Hx Smoking Status: No Smoking History: Never smoked Have you smoked in the past 12 months: No Number of Cigarettes Smoked Daily: 0 If you are a former smoker, when did you quit?: 30 yrs ago Information on smoking cessation initiated: No Hx Alcohol Use: No Drug/Substance Use Hx: No Substance Use Type: None Hx Substance Use Treatment: No Review of Systems - Review of Systems Constitutional: No: Chills, Diaphoresis, Fever, Loss of Appetite HEENTM: No: Eye Pain, Blurred Vision Respiratory: No: Cough, Orthopnea, Shortness of Breath Cardiac (ROS): No: Chest Pain, Irregular Heart Rate, Lightheadedness, Palpitations ABD/GI: Yes: Diarrhea, Nausea. No: Vomiting : No: Dysuria, Discharge Integumentary: No: Flushing, Lesions, Lumps Neurological: No: Headache, Numbness, Paresthesia Psychiatric: No: Anxiety, Depression Hematologic/Lymphatic: No: Anemia, Easy Bleeding *Physical Exam - Vital Signs Last Vital Signs Temp Pulse Resp BP Pulse Ox 98.0 F 87 16 123/82 100 03/07/19 09:37 03/07/19 09:37 03/07/19 09:37 03/07/19 09:37 03/07/19 09:37 - Physical Exam General Appearance: Yes: Nourished, Appropriately Dressed. No: Apparent Distress HEENT: positive: EOMI, TANVI, Normal ENT Inspection, Normal Voice Neck: positive: Trachea midline, Normal Thyroid, Supple. negative: Tender, Rigid Respiratory/Chest: positive: Lungs Clear, Normal Breath Sounds. negative: Chest Tender, Respiratory Distress, Accessory Muscle Use Cardiovascular: positive: Regular Rhythm, Regular Rate Gastrointestinal/Abdominal: positive: Tender (right upper quadrant moreso but diffusely tender), Flat, Soft, Increased Bowel Sounds. negative: Normal Bowel Sounds (hyperactive) Musculoskeletal: positive: Normal Inspection. negative: Decreased Range of Motion Extremity: positive: Normal Capillary Refill, Normal Inspection, Normal Range of Motion. negative: Tender Integumentary: positive: Dry, Warm, Pale. negative: Normal Color Neurologic: positive: Fully Oriented, Alert, Normal Mood/Affect, Normal Response , Motor Strength 06/13 ED Treatment Course - LABORATORY CBC & Chemistry Diagram: 03/07/19 11:00 03/07/19 11:00 Medical Decision Making - Medical Decision Making 58 year old female with PMH of gastric sleeve and cholecystectomy presenting with diffuse crampy abdominal pain worse in the RUQ and diarrhea for two days. Labs all WNL including UA pain improved, and weakness improved after 3L NS. 2 L NS were originally given but patient felt lightheaded which improved after 3rd L. EKG demonstrated rate 78, CO 142, QRS 80, QTc 456, with normal axis and no sign of dysrythmia or ST/T wave changes. Will DC with GI follow up and return precautions. 03/07/19 15:37 Discharge - Discharge Information Problems reviewed: Yes Clinical Impression/Diagnosis: Diarrhea with dehydration Condition: Improved Disposition: HOME - Admission No - Follow up/Referral Referrals: Mansoor Marques MD [Primary Care Provider] - - Patient Discharge Instructions Patient Printed Discharge Instructions: Diarrhea Additional Instructions: Please stay well hydrated at home and try to eat any foods that you are able to tolerate. This will probably continue for another day or so. Please see your primary care physician in one week. Please return to the ED if you have new or worsening symptoms. - Post Discharge Activity
[2019-03-07] MEDS ORDERED: ONDANSETRON *ODT* 4 MG TABLET SL ONE (10:49)
[2019-03-07 12:04] LABS: BASO % 0.4 % (0-2.0); EOS % 0.7 % (0-4.5); HEMATOCRIT 45.7 % (32.4-45.2); HEMOGLOBIN 14.9 GM/dL (10.7-15.3); LYMPH % 22.6 % (8-40); MCH 26.5 pg (25.7-33.7); MCHC 32.5 g/dl (32.0-36.0); MEAN CELL VOLUME 81.4 fl (80-96); MEAN PLT VOLUME 9.9 fl (7.5-11.1); MONO % 14.9 % (3.8-10.2); NEUT % 61.4 % (42.8-82.8); PLATELET COUNT 226 K/MM3 (134-434); RBC 5.61 M/mm3 (3.60-5.2); RDW 15.2 % (11.6-15.6); WHITE BLOOD COUNT 5.9 K/mm3 (4.0-10.0)
[2019-03-07 12:17] LABS: ALBUMIN 3.5 g/dl (3.4-5.0); BILIRUBIN,TOTAL 0.2 mg/dL (0.2-1); BLOOD UREA NITROGEN 9.2 mg/dL (7-18); CALCIUM 9.5 mg/dL (8.5-10.1); CREATININE 0.8 mg/dL (0.55-1.3); POTASSIUM 3.6 mmol/L (3.5-5.1); TOT PROT 7.8 g/dl (6.4-8.2)
[2019-03-07] MEDS ORDERED: ONDANSETRON *ODT* 4 MG TABLET ONE (13:06)
[2019-03-07 14:55] VITALS: PULSE 78
[2019-03-07 15:14] LABS: PH,URINE 5.5 (5.0-8.0); URINE APPEARANCE CLEAR; URINE BILIRUBIN NEGATIVE (NEGATIVE); URINE COLOR DK YELLOW; URINE GLUCOSE (UA) NEGATIVE (NEGATIVE); URINE KETONE TRACE (NEGATIVE); URINE LEUK ESTERASE NEGATIVE (NEGATIVE); URINE NITRITE NEGATIVE (NEGATIVE); URINE PROTEIN TRACE (NEGATIVE)
--- NOTE | 2019-03-07 15:47 | EKG ---
Test Reason : Blood Pressure : / mmHG Vent. Rate : 078 BPM Atrial Rate : 078 BPM P-R Int : 142 ms QRS Dur : 080 ms QT Int : 400 ms P-R-T Axes : 071 054 053 degrees QTc Int : 456 ms NORMAL SINUS RHYTHM NORMAL ECG WHEN COMPARED WITH ECG OF 12-FEB-2018 23:03, NONSPECIFIC T WAVE ABNORMALITY NO LONGER EVIDENT IN ANTEROLATERAL LEADS Confirmed by Ashly Cantor ([id number]) on 03/07/2019 3:46:33 PM Referred By: Confirmed By:Ashly Cantor
[2019-03-07 16:28] VITALS: BP 123/66
== END 2019-03-07 16:29 | disposition home or self-care (01) ==
LOC: JER 09:31
DX: E86.0 Dehydration (principal); R19.7 Diarrhea, unspecified; J45.909 Unspecified asthma, uncomplicated; J44.9 Chronic obstructive pulmonary disease, unspecified; K21.9 Gastro-esophageal reflux disease without esophagitis; Z98.84 Bariatric surgery status; Z90.49 Acquired absence of other specified parts of digestive tract
CPT/HCPCS: 36415; 80053; 81003; 82150; 83690; 85025; 93005; 93010; 99284-25; Q0162

== ENCOUNTER 2019-03-13 18:30 | Inpatient (IN) | payer OTHER ==
--- NOTE | 2019-03-13 18:51 | PDOC ---
History of Present Illness - General Chief Complaint: Pain Stated Complaint: ABD PAIN/NAUSEA Time Seen by Provider: 03/13/19 18:40 History Source: Patient Exam Limitations: No Limitations - History of Present Illness Initial Comments: 03/13/19 18:42 PCP: Dr. Marques HPI: 58 year old female with PMH of asthma, HTN, sleeve gastrectomy (2014), cholecystectomy, and hernia repair recently diagnosed with SBO last month presenting with acute on chronic epigastric abdominal pain. Patient reports intermittent similar pains ever since her sleeve gastrectomy in 2014. Says these pains have been worsening. This episode started last night at 8PM, has been constant but waxing and waning, located in the epigastrium and back, not relieved by Tylenol, improves when leaning forward. Last CT was in January, c/ w SBO. Started on Flagyl by PCP on 03/08 after a 03/07 ED visit without significant findings - no imaging at this time. Endorses associated nausea, no vomiting, poor PO food intake, good water intake. Denies fevers, chills, nausea , vomiting, diarrhea. Last BM - 2x today, regular formed BMs with colestipol RX from GI. All: Spironolactone Meds: Per chart, +Flagyl since 03/08 PMH: As above PSH: As above SHx: Denies Toxic Habits Past History - Travel Traveled outside of the country in the last 30 days: No Close contact w/someone who was outside of country & ill: No - Past Medical History Allergies/Adverse Reactions: Allergies Allergy/AdvReac Type Severity Reaction Status Date / Time spironolactone Allergy Mild Rash Verified 03/13/19 18:34 [From Aldactone] Home Medications: Ambulatory Orders Albuterol 0.083% Nebulizer Mary [Ventolin 0.083% Nebulizer Soln -] 1 neb NEB Q4H PRN 01/21/17 Albuterol Sulfate Inhaler - [Ventolin HFA Inhaler -] 1 puff IH PRN PRN 01/21/17 Famotidine [Pepcid -] 40 mg PO DAILY 01/21/17 Fluticasone Propionate [Flovent Diskus] 250 mcg IH DAILY 01/21/17 Acetaminophen [Tylenol .Regular Strength -] 650 mg PO Q6H PRN tablet 12/22/17 Fluticasone Prop 0.05% Nasal [Flonase -] 2 spray NS DAILY #1 spray 01/30/17 Guaifenesin AC [Robitussin AC -] 10 ml PO Q4H PRN ud MDD 4 01/30/17 Loratadine [Claritin -] 10 mg PO DAILY #30 tablet 01/30/17 Montelukast Na [Singulair -] 10 mg PO HS #30 tablet 01/30/17 Ondansetron [Zofran *Odt*] 8 mg SL Q6H PRN #30 tab.rapdis MDD 4 01/30/17 Sodium Chloride Nasal [place] [[place] Nasal [place] -] 2 spray NS TID PRN #1 spray 01/30/17 Tiotropium [place] [Spiriva] 1 puff IH DAILY #1 inh 01/30/17 Methylprednisolone [Medrol Dose Yaya] 4 mg PO ASDIR #21 tablet 07/12/18 Methylprednisolone [Medrol Dose Yaya] 4 mg PO ASDIR #21 tablet 07/12/18 Anemia: No Asthma: Yes Cancer: No Cardiac Disorders: No CVA: No COPD: Yes CHF: No Dementia: No Diabetes: No GI Disorders: Yes (gerd) Disorders: No HTN: Yes (hx (resolved post gastric bypass sx)) Hypercholesterolemia: No Liver Disease: No Seizures: No Thyroid Disease: No - Surgical History Abdominal Surgery: Yes (sleeve 10/2014;hernia sx) Appendectomy: No Cardiac Surgery: No Cholecystectomy: Yes (04/2010) Lung Surgery: No Neurologic Surgery: No Orthopedic Surgery: No - Immunization History Immunization Up to Date: No - Psycho Social/Smoking Cessation Hx Smoking Status: No Smoking History: Never smoked Have you smoked in the past 12 months: No Number of Cigarettes Smoked Daily: 0 If you are a former smoker, when did you quit?: 30 yrs ago Hx Alcohol Use: No Drug/Substance Use Hx: No Substance Use Type: None Hx Substance Use Treatment: No Review of Systems - Review of Systems Able to Perform ROS?: Yes Is the patient limited Cymro proficient: Yes Constitutional: No: Chills, Fever, Weakness HEENTM: No: Nose Congestion, Throat Pain Respiratory: No: Cough, Shortness of Breath Cardiac (ROS): No: Chest Pain, Irregular Heart Rate, Chest Tightness ABD/GI: Yes: Nausea. No: Constipated, Diarrhea, Poor Appetite, Poor Fluid Intake, Vomiting : No: Burning, Dysuria, Frequency Musculoskeletal: Yes: Back Pain (mid back, associated with epigastric pain). No : Muscle Pain, Muscle Weakness Integumentary: No: Dryness, Erythema, Pruritus, Rash Neurological: No: Headache, Numbness, Tingling, Weakness Psychiatric: No: Stressors, Change in Appetite Endocrine: No: Increased Thirst, Increased Urine Hematologic/Lymphatic: No: Anemia, Blood Clots, Easy Bleeding All Other Systems: Reviewed and Negative *Physical Exam - Vital Signs Last Vital Signs Temp Pulse Resp BP Pulse Ox 97.6 F 96 H 18 181/104 H 99 03/13/19 18:32 03/13/19 18:32 03/13/19 18:32 03/13/19 18:32 03/13/19 18:32 - Physical Exam 03/13/19 19:32 AF, hypertensive, borderline tachycardic GEN: Well appearing, appears stated age, NAD, comfortable. AAOx3. HEENT: NCAT, EOMI, PERRL. Sclera anicteric, noninjected. No facial asymmetry. Moist mucous membranes. Normal voice. Trachea midline. CV: RRR, S1/S2, no murmurs / rubs / gallops appreciated. LUNG: CTAB, normal work of breathing. No wheezes, rales, rhonchi. No cough. Speaking full sentences. GI: Soft, tender to palpation in epigastrium, non-peritoneal, +BS, +guarding, no rebound. No masses. Neg CVAT b/l. EXTREMITIES: 2+ distal pulses. No LE edema. No obvious deformities of all extremities. SKIN: Warm, dry, no rashes appreciated, non-jaundiced. PSYCH: Normal mood and affect. Cooperative and appropriate. NEURO: CN grossly intact. Moving all extremities well. Normal strength and sensation grossly. ED Treatment Course - LABORATORY CBC & Chemistry Diagram: 03/13/19 19:40 03/13/19 19:25 Medical Decision Making - Medical Decision Making 03/13/19 19:30 58 year old female with PMH of asthma, HTN, sleeve gastrectomy (2014), cholecystectomy, and hernia repair recently diagnosed with SBO last month presenting with acute on chronic epigastric abdominal pain. Concerning for SBO, Pancreatitis, PUD, GERD, medication side-effect (Flagyl), unlikely cardiac etiology. - CBC, CMP, UA, Lipase, Lactate - EKG, Abdominal CT with IV and Oral Contrast - Almas Ankushirmev, 1L IVF 03/13/19 20:07 - US guided PIV placed by myself, 20G left AC - Patient drinking oral contrast 03/13/19 20:13 - EKG: Normal rate, NSR, normal axis, normal intervals, QTC 457, no ischemic morphologies 03/13/19 20:35 - Pepcid running - Pain remaining, 4mg Morphine ordered 03/13/19 23:45 - CT without acute intra-abdominal pathology - Labs unremarkable - Patient still in pain / nauseous, requesting admission for further evaluation - Reglan ordered - Toradol ordered Dispo: Med/Surg 03/14/19 00:08 - Sign out given, patient admitted under Dr. Evangelista, change to Dr. Marques in the AM Discharge - Discharge Information Problems reviewed: Yes Clinical Impression/Diagnosis: Abdominal pain Qualifiers: Abdominal location: epigastric Qualified Code(s): R10.13 - Epigastric pain Condition: Guarded - Follow up/Referral Referrals: Mansoor Marques MD [Primary Care Provider] - - Patient Discharge Instructions - Post Discharge Activity
--- NOTE | 2019-03-13 19:08 | PDOC ---
Documentation entered by Yamel Landa SCRIBE, acting as scribe for Marion Esparza MD. Marion Esparza MD: This documentation has been prepared by the abhinavibe, Yamel Landa SCRIBE, under my direction and personally reviewed by me in its entirety. I confirm that the documentation accurately reflects all work, treatment, procedures, and medical decision making performed by me. Attending Attestation - Resident Resident Name: Cricket Cutler - ED Attending Attestation I have performed the following: I have examined & evaluated the patient, The case was reviewed & discussed with the resident, I agree w/resident's findings & plan, Exceptions are as noted - HPI HPI: 03/13/19 19:19 The patient is a 58-year-old female with a past medical history significant for GERD, s/p sleeve gastrectomy, hypertension, asthma who presents to the emergency department with abdominal pain and nausea. The patient presents with intermittent episodes of epigastric pain that radiate to the back, associated with nausea. The patient reports the pain is worsened with standing up straight , denies relief with Advil. Last dose at 8:00 pm. Denies vomiting. The patient states she recently started Metronidazole on Thursday by Dr. Marques (PCP). - Physicial Exam PE: 03/13/19 19:46 58-year-old female is present presents with severe epigastric pain that radiates to her back, she is rocking back and forth on the gurney Head normocephalic atraumatic Neck is supple Lungs are clear to auscultation bilaterally CVS regular rate and rhythm S1-S2 Abdomen severe epigastric pain Skin warm and dry Neuro alert and oriented x3, ambulatory - Medical Decision Making 03/13/19 21:46 pt received IV offirmiv ,morphine,IVF,pepcid and will receive ct scan to r/o sbo 03/13/19 23:30 Scan of the abdomen and pelvis with contrast findings Atelectasis and scarring in the lung bases. No pleural effusions. Prior gastric sleeve and cholecystectomy. Liver, pancreas, adrenals and spleen are unremarkable No renal urinary calculi No AAA No evidence for diverticulitis, appendicitis, small bowel obstruction or free air Mild free pelvic fluid 03/13/19 23:49 Patient is still complaining of nausea and abdominal pain will be admitted for intractable abdominal pain
[2019-03-13] MEDS ORDERED: SODIUM CHLORIDE 0.9% 500 ML INFUS.BAG IV ONE (19:10)
[2019-03-13] MEDS ORDERED: ONDANSETRON 4 MG/2 ML VIAL IVPUSH ONE (19:10)
[2019-03-13] MEDS ORDERED: ACETAMINOPHEN 1000 MG/100 ML VIAL (NON FORMULARY) IVPB ONE (19:11)
[2019-03-13] MEDS ORDERED: ONDANSETRON 4 MG/2 ML VIAL ONE (19:41)
[2019-03-13] MEDS ORDERED: ACETAMINOPHEN INJECTION 100 ML IVPB ONE (19:41)
[2019-03-13] MEDS ORDERED: FAMOTIDINE 20 MG/50 ML IVPB 20 MG/50 ML MG IVPB ONE ×2 (19:52→20:26)
[2019-03-13 20:04] LABS: EPI CELLS 10.2 /HPF (0-5/HPF); HYALINE CASTS 7 /lpf (0-8); PH,URINE 6.5 (5.0-8.0); URINE APPEARANCE CLEAR; URINE BACTERIA 173.1 /hpf (NEGATIVE); URINE BILIRUBIN NEGATIVE (NEGATIVE); URINE COLOR YELLOW; URINE GLUCOSE (UA) NEGATIVE (NEGATIVE); URINE KETONE NEGATIVE (NEGATIVE); URINE LEUK ESTERASE TRACE (NEGATIVE); URINE NITRITE NEGATIVE (NEGATIVE); URINE PROTEIN NEGATIVE (NEGATIVE); URINE UROBILINOGEN 0.2 mg/dL (0.2-1.0); URINE WBC 3 /hpf (0-5)
[2019-03-13 20:17] LABS: BASO % 0.8 % (0-2.0); EOS % 2.5 % (0-4.5); HEMATOCRIT 39.3 % (32.4-45.2); HEMOGLOBIN 12.8 GM/dL (10.7-15.3); LYMPH % 28.7 % (8-40); MCH 26.4 pg (25.7-33.7); MCHC 32.5 g/dl (32.0-36.0); MEAN CELL VOLUME 81.3 fl (80-96); MEAN PLT VOLUME 9.8 fl (7.5-11.1); MONO % 8.2 % (3.8-10.2); NEUT % 59.8 % (42.8-82.8); PLATELET COUNT 245 K/MM3 (134-434); RBC 4.83 M/mm3 (3.60-5.2); URINE RBC 5.3 /hpf (0-4); WHITE BLOOD COUNT 5.9 K/mm3 (4.0-10.0)
[2019-03-13] MEDS ORDERED: morphine CARPU-JECT 4 MG/1 ML DISP.SYRIN IVPUSH ONE (20:34)
[2019-03-13] MEDS ORDERED: morphine SULFATE 4 MG/ML VIAL ONE (20:40)
[2019-03-13 20:49] LABS: ALBUMIN 3.2 g/dl (3.4-5.0); BILIRUBIN,TOTAL 0.4 mg/dL (0.2-1); BLOOD UREA NITROGEN 7.7 mg/dL (7-18); CALCIUM 8.8 mg/dL (8.5-10.1); CREATININE 0.6 mg/dL (0.55-1.3); POTASSIUM 3.1 mmol/L (3.5-5.1); TOT PROT 6.7 g/dl (6.4-8.2)
[2019-03-13] MEDS ORDERED: METOCLOPRAMIDE HCL INJECTION 10 MG/2 ML VIAL IVPB ONE (23:45)
[2019-03-13] MEDS ORDERED: KETOROLAC TROMETHAMINE 15 MG/ML VIAL IVPUSH ONE (23:45)
[2019-03-13] MEDS ORDERED: METOCLOPRAMIDE HCL INJECTION 10 MG/2 ML VIAL ONE (23:59)
[2019-03-13] MEDS ORDERED: KETOROLAC TROMETHAMINE 15 MG/ML VIAL ONE (23:59)
[2019-03-14] MEDS ORDERED: DEXTROSE 5%-0.45% SALINE 1,000 ML IV SCH (00:15)
--- NOTE | 2019-03-14 00:30 | HP ---
Admitting History and Physical - Primary Care Physician PCP: Mansoor Marques - Admission Chief Complaint: Abdominal Pain, Nausea History of Present Illness: This is a 58 y/o woman with a PMHx of HTN, Asthma, GERD, s/p Sleeve Gastrectomy 10/2014, Hernia Repair with SBO. Who presents to the ED with sharp epigastric pain with nausea x 2 days. Patient reports having loose diarrhea last Thursday, taking immodium-resolved. She reports having sharp intermittent pain to the epigastrium and RUQ with nausea. Patient reports seeing her PCP last Thursday and being started on Flagyl. Patient denies eating spicy, greasy or fatty foods. She reports having a decreased appetite due to the abdominal pain. Patient denies fever, chills, cough, CHO, SOB, CP, palpitations, vomiting, hematochezia, melena, hematuria, dysuria. Patient reports her last colonoscopy last year- +hemorrhoids, no polyps. 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: Alzheimer's, CVA, Dementia, Migraine, Multiple Sclerosis, Parkinson's, Seizure, Syncope, TIA, Vertigo Cardiovascular: Yes: HTN Pulmonary: Yes: Asthma, Pneumonia Gastrointestinal: Yes: Gastritis, GERD, Hiatal Hernia Hepatobiliary: Yes: Cholelithiasis (post cholecystectomy) ...LMP: 07/27/99 Musculoskeletal: Yes: Other (fx ankle june 2012- fell in ditch) ENT: Yes: Allergic Rhinitis Endocrine: Yes: Other (had dexa in past and told ok) - Past Surgical History Past Surgical History: Yes: Bariatric Surgery (s/p Lap Band, Removal Gastric Sleeve), Cholecystectomy (,s/p lap band), Hernia Repair - Smoking History Smoking history: Former smoker Have you smoked in the past 12 months: No Aproximately how many cigarettes per day: 0 If you are a former smoker, when did you quit?: 30 yrs ago - Alcohol/Substance Use Hx Alcohol Use: No Number of Drinks Daily: 0 (had 2 vodkas on 01/06/13) History of Substance Use: reports: None - Social History Usual Living Arrangement: Yes: Alone ADL: Independent 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 [employer] History of Recent Travel: No Home Medications - Allergies Allergies/Adverse Reactions: Allergies Allergy/AdvReac Type Severity Reaction Status Date / Time spironolactone Allergy Mild Rash Verified 03/13/19 18:34 [From Aldactone] - Home Medications Home Medications: Ambulatory Orders Albuterol 0.083% Nebulizer Mary [Ventolin 0.083% Nebulizer Soln -] 1 neb NEB Q4H PRN 01/21/17 Albuterol Sulfate Inhaler - [Ventolin HFA Inhaler -] 1 puff IH PRN PRN 01/21/17 Famotidine [Pepcid -] 40 mg PO DAILY 01/21/17 Fluticasone Propionate [Flovent Diskus] 250 mcg IH DAILY 01/21/17 Acetaminophen [Tylenol .Regular Strength -] 650 mg PO Q6H PRN tablet 01/30/17 Fluticasone Prop 0.05% Nasal [Flonase -] 2 spray NS DAILY #1 spray 01/30/17 Guaifenesin AC [Robitussin AC -] 10 ml PO Q4H PRN ud MDD 4 01/30/17 Loratadine [Claritin -] 10 mg PO DAILY #30 tablet 01/30/17 Montelukast Na [Singulair -] 10 mg PO HS #30 tablet 01/30/17 Ondansetron [Zofran *Odt*] 8 mg SL Q6H PRN #30 tab.rapdis MDD 4 01/30/17 Sodium Chloride Nasal [place] [[place] Nasal [place] -] 2 spray NS TID PRN #1 spray 01/30/17 Tiotropium [place] [Spiriva] 1 puff IH DAILY #1 inh 01/30/17 Methylprednisolone [Medrol Dose Yaya] 4 mg PO ASDIR #21 tablet 07/12/18 Methylprednisolone [Medrol Dose Yaya] 4 mg PO ASDIR #21 tablet 07/12/18 Home Medications (free text): Colestipol 1g po QD. Cozaar 25mg po QS. Metronidazole 500mg po BID Family Medical History Family Hx Cancer: Father (Brain age 47) Family Hx Coronary Artery Disease: Mother (HTN), Father (HTN age 47), Sister (HTN) Family Hx Diabetes: Mother Family Hx Nuerologic Problems: Father (CVA- age 47) Review of Systems - Review of Systems Constitutional: reports: Loss of Appetite Eyes: reports: No Symptoms HENT: reports: No Symptoms Neck: reports: No Symptoms Cardiovascular: reports: No Symptoms Respiratory: reports: No Symptoms Gastrointestinal: reports: Abdominal Pain, Diarrhea, Nausea Genitourinary: reports: No Symptoms Breasts: reports: No Symptoms Reported Musculoskeletal: reports: No Symptoms Integumentary: reports: No Symptoms Neurological: reports: Dizziness Endocrine: reports: No Symptoms Hematology/Lymphatic: reports: No Symptoms Psychiatric: reports: No Symptoms Pain Intensity: 6 Physical Examination Vital Signs: Vital Signs Temperature 97.5 F L 03/13/19 21:40 Pulse Rate 78 03/13/19 21:40 Respiratory Rate 16 03/13/19 21:40 Blood Pressure 147/93 03/13/19 21:40 O2 Sat by Pulse Oximetry (%) 98 03/13/19 21:40 Constitutional: Yes: Well Nourished, No Distress, Calm, Obese Eyes: Yes: WNL, Conjunctiva Clear, EOM Intact, PERRL HENT: Yes: Atraumatic, Normocephalic, Other (dry mucous membranes) Neck: Yes: WNL, Supple, Trachea Midline Cardiovascular: Yes: WNL, Regular Rate and Rhythm, S1, S2 Respiratory: Yes: WNL, Regular, CTA Bilaterally Gastrointestinal: Yes: Soft, Abdomen, Obese, Hyperactive Bowel Sounds, Tenderness (RUQ), Tenderness, Epigastrium ...Rectal Exam: Yes: WNL Renal/: Yes: WNL Breast(s): Yes: WNL Musculoskeletal: Yes: WNL Extremities: Yes: WNL Edema: No Peripheral Pulses WNL: Yes Neurological: Yes: WNL, Alert, Oriented, Cran Nerves II-XII Intact ...Motor Strength: WNL Psychiatric: Yes: WNL, Alert, Oriented Labs: CBC, BMP 03/13/19 19:40 03/13/19 19:25 Laboratory Results - last 24 hr 03/13/19 03/13/19 03/13/19 19:25 19:25 19:25 WBC RBC Hgb Hct MCV MCH MCHC RDW Plt Count MPV Absolute Neuts (auto) Neutrophils % Lymphocytes % Monocytes % Eosinophils % Basophils % Nucleated RBC % Sodium 143 Potassium 3.1 L Chloride 106 Carbon Dioxide 30 Anion Gap 6 L BUN 7.7 Creatinine 0.6 Est GFR (CKD-EPI)AfAm 114.82 Est GFR (CKD-EPI)NonAf 99.07 Random Glucose 101 Lactic Acid 1.3 Calcium 8.8 Total Bilirubin 0.4 AST 24 ALT 20 Alkaline Phosphatase 77 Total Protein 6.7 Albumin 3.2 L Lipase 58 L Urine Color Urine Appearance Urine pH Ur Specific [place] Urine Protein Urine Glucose (UA) Urine Ketones Urine Blood Urine Nitrite Urine Bilirubin Urine Urobilinogen Ur Leukocyte Esterase Urine WBC (Auto) Urine RBC (Auto) Urine Casts (Auto) U Epithel Cells (Auto) Urine Bacteria (Auto) 03/13/19 03/13/19 19:40 19:40 WBC 5.9 RBC 4.83 Hgb 12.8 Hct 39.3 MCV 81.3 MCH 26.4 MCHC 32.5 RDW 15.0 Plt Count 245 MPV 9.8 Absolute Neuts (auto) 3.5 Neutrophils % 59.8 Lymphocytes % 28.7 D Monocytes % 8.2 Eosinophils % 2.5 D Basophils % 0.8 Nucleated RBC % 0 Sodium Potassium Chloride Carbon Dioxide Anion Gap BUN Creatinine Est GFR (CKD-EPI)AfAm Est GFR (CKD-EPI)NonAf Random Glucose Lactic Acid Calcium Total Bilirubin AST ALT Alkaline Phosphatase Total Protein Albumin Lipase Urine Color Yellow Urine Appearance Clear Urine pH 6.5 Ur Specific [place] 1.015 Urine Protein Negative Urine Glucose (UA) Negative Urine Ketones Negative Urine Blood Negative Urine Nitrite Negative Urine Bilirubin Negative Urine Urobilinogen 0.2 Ur Leukocyte Esterase Trace Urine WBC (Auto) 3 Urine RBC (Auto) 5.3 Urine Casts (Auto) 7 U Epithel Cells (Auto) 10.2 Urine Bacteria (Auto) 173.1 Imaging - Results Cat Scan: Report Reviewed, Image Reviewed EKG: Image Reviewed Problem List - Problems (1) Intractable epigastric abdominal pain Assessment/Plan: Likely secondary to Gastritis CTAP- reviewed no acute abdominal pathology Appreciate GI consult NPO Continue IVF PPI Morphine Sulfate prn use judiciously Monitor CBC, BMP Monitor vitals Code(s): R10.13 - EPIGASTRIC PAIN (2) Hypokalemia Assessment/Plan: Likely secondary to dehydration Ordered IV K riders x2 Repeat BMP in am Code(s): E87.6 - HYPOKALEMIA (3) GERD (gastroesophageal reflux disease) Assessment/Plan: Continue PPI Code(s): K21.9 - GASTRO-ESOPHAGEAL REFLUX DISEASE WITHOUT ESOPHAGITIS (4) HTN (hypertension) Assessment/Plan: sub optimal Likely secondary to abdominal pain Monitor BP Continue Cozaar Monitor renal function Code(s): I10 - ESSENTIAL (PRIMARY) HYPERTENSION (5) Asthma Assessment/Plan: stable No acute flare Albuterol nebs prn Monitor vitals O2 prn Code(s): J45.909 - UNSPECIFIED ASTHMA, UNCOMPLICATED Qualifiers: Asthma severity: moderate Asthma persistence: persistent Asthma complication type: with acute exacerbation Qualified Code(s): J45.41 - Moderate persistent asthma with (acute) exacerbation Assessment/Plan This is a 58 y/o woman with a PMHx of HTN, Asthma, GERD, s/p Sleeve Gastrectomy 10/2014, Hernia Repair with SBO. Admitted to [facility] for Intractable Abdominal Pain, Hypokalemia for further evaluation of their emergent condition. Plan: See Problem List FEN D51/2nS@60ml/hr Replete lytes prn NPO DVT ppx OOB SCDs Heparin SQ Dispo: Requires Inpatient Care Visit type - Emergency Visit Emergency Visit: Yes ED Registration Date: 03/13/19 Care time: The patient presented to the Emergency Department on the above date and was hospitalized for further evaluation of their emergent condition. - New Patient This patient is new to me today: Yes Date on this admission: 03/14/19 - Critical Care Critical Care patient: No
[2019-03-14] MEDS ORDERED: KCL 10 MEQ IVPB 20 MEQ/200 ML INFUS.BAG IVPB ONE (01:04)
[2019-03-14] MEDS: KCL 10 MEQ IVPB 10 MEQ/100 ML INFUS.BAG IVPB SCH ×2 (01:25→04:00)
[2019-03-14] MEDS ORDERED: ALBUTEROL SO4 0.083% IH SOL 2.5 MG/3 ML VIAL.NEB. NEB PRN (05:15)
[2019-03-14] MEDS ORDERED: ONDANSETRON 4 MG/2 ML VIAL IVPUSH PRN (05:16)
[2019-03-14 06:24] LABS: BASO % 0.4 % (0-2.0); EOS % 3.7 % (0-4.5); HEMATOCRIT 38.3 % (32.4-45.2); HEMOGLOBIN 12.2 GM/dL (10.7-15.3); LYMPH % 37.2 % (8-40); MCHC 31.9 g/dl (32.0-36.0); MEAN CELL VOLUME 81.5 fl (80-96); MEAN PLT VOLUME 9.7 fl (7.5-11.1); MONO % 10.7 % (3.8-10.2); PLATELET COUNT 235 K/MM3 (134-434); RDW 15.1 % (11.6-15.6); WHITE BLOOD COUNT 4.7 K/mm3 (4.0-10.0)
[2019-03-14 06:40] LABS: BLOOD UREA NITROGEN 5.2 mg/dL (7-18); CALCIUM 8.3 mg/dL (8.5-10.1); CREATININE 0.6 mg/dL (0.55-1.3); POTASSIUM 3.5 mmol/L (3.5-5.1)
--- NOTE | 2019-03-14 09:00 | CON.GI ---
Consult Consult Specialty:: GI Referred by:: Marion Bernal NP Reason for Consultation:: Epigastric Pain - History of Present Illness History of Present Illness: Patient is a 58 y/o female with past medical history of HTN, Asthma, GERD s/p gastric sleeve 09/2016, Hernia repair with SBO. Consult was placed for epigastric pain accompanied with nausea which began 2 days ago. Epigastric pain is described as sharp, continuous and non-radiating. She also states having 2 episodes of non-bloody diarrhea which began this morning at 5am. She was seen in ER on 03/07/29 for diarrhea and was discharged home with Metronidazole 500mg. She denies recent travel, fevers or chills. She states that for the month of February she has been "fasting" only taking in clear liquids and one small meal a day. Denies dysphagia, vomiting, constipation, rectal bleeding, and melena. Abdominal CT scan don, official read pending. 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 mild L ear pain with chewing. h/o hosp with low K+ and MG++ o diuretic at that time. 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 Home Medications - Allergies Allergies/Adverse Reactions: Allergies Allergy/AdvReac Type Severity Reaction Status Date / Time spironolactone Allergy Mild Rash Verified 03/13/19 18:34 [From Aldactone] - Home Medications Home Medications: Ambulatory Orders Albuterol 0.083% Nebulizer Mary [Ventolin 0.083% Nebulizer Soln -] 1 neb NEB Q4H PRN 01/21/17 Albuterol Sulfate Inhaler - [Ventolin HFA Inhaler -] 1 puff IH PRN PRN 01/21/17 Fluticasone Propionate [Flovent Diskus] 250 mcg IH DAILY 01/21/17 Acetaminophen [Tylenol .Regular Strength -] 650 mg PO Q6H PRN tablet 01/30/17 Fluticasone Prop 0.05% Nasal [Flonase -] 2 spray NS DAILY #1 spray 01/30/17 Loratadine [Claritin -] 10 mg PO DAILY #30 tablet 01/30/17 Montelukast Na [Singulair -] 10 mg PO HS #30 tablet 01/30/17 Ondansetron [Zofran *Odt*] 8 mg SL Q6H PRN #30 tab.rapdis MDD 4 01/30/17 Sodium Chloride Nasal [place] [[place] Nasal [place] -] 2 spray NS TID PRN #1 spray 01/30/17 Tiotropium [place] [Spiriva] 1 puff IH DAILY #1 inh 01/30/17 Methylprednisolone [Medrol Dose Yaya] 4 mg PO ASDIR #21 tablet 07/12/18 Methylprednisolone [Medrol Dose Yaya] 4 mg PO ASDIR #21 tablet 07/12/18 Losartan Potassium [Cozaar -] 25 mg PO DAILY 03/14/19 Review of Systems - Review of Systems Constitutional: reports: No Symptoms Eyes: reports: No Symptoms HENT: reports: No Symptoms Neck: reports: No Symptoms Cardiovascular: reports: No Symptoms Respiratory: reports: No Symptoms Gastrointestinal: reports: Abdominal Pain, Diarrhea, Nausea Genitourinary: reports: No Symptoms Breasts: reports: No Symptoms Reported Musculoskeletal: reports: No Symptoms Integumentary: reports: No Symptoms Neurological: reports: No Symptoms Endocrine: reports: No Symptoms Hematology/Lymphatic: reports: No Symptoms Psychiatric: reports: No Symptoms Physical Exam-GI Vital Signs: Vital Signs Temperature 98.4 F 03/14/19 02:44 Pulse Rate 93 H 03/14/19 07:05 Respiratory Rate 18 03/14/19 07:05 Blood Pressure 149/95 03/14/19 07:05 O2 Sat by Pulse Oximetry (%) 99 03/14/19 07:05 Constitutional: Yes: Well Nourished, No Distress, Calm Eyes: Yes: Conjunctiva Clear HENT: Yes: Atraumatic Cardiovascular: Yes: Regular Rate and Rhythm Respiratory: Yes: Regular, CTA Bilaterally Gastrointestinal Inspection: Yes: WNL. No: Ascites, Distention, Hernia, Scars, Other ...Auscultate: Yes: Normoactive Bowel Sounds. No: Hyperactive Bowel Sounds, Hypoactive Bowel Sounds, No Bowel Sounds, Other ...Palpate: Yes: Soft, Tenderness, Epigastium. No: Firm/Rigid, Guarding, Hepatomegaly, Mass, Pulsatile Mass, Splenomegaly, Tenderness, Tenderness, Rebound, Other ...Percussion: Yes: Tympanitic. No: Dullness, Fluid Wave, Other Neurological: Yes: Alert, Oriented Psychiatric: Yes: Alert, Oriented Labs: CBC, BMP 03/14/19 05:40 03/14/19 05:40 Problem List - Problems (1) Abdominal pain Code(s): R10.9 - UNSPECIFIED ABDOMINAL PAIN Qualifiers: Abdominal location: epigastric Qualified Code(s): R10.13 - Epigastric pain (2) Partial small bowel obstruction Assessment/Plan: r/o secodary to adhesions R> surgical consultation repeat FUA serial abdominal examination Code(s): K56.600 - PARTIAL INTESTINAL OBSTRUCTION, UNSPECIFIED TO CAUSE
--- NOTE | 2019-03-14 09:13 | EKG ---
Test Reason : Blood Pressure : / mmHG Vent. Rate : 075 BPM Atrial Rate : 075 BPM P-R Int : 132 ms QRS Dur : 082 ms QT Int : 410 ms P-R-T Axes : 047 043 053 degrees QTc Int : 457 ms POOR DATA QUALITY, INTERPRETATION MAY BE ADVERSELY AFFECTED NORMAL SINUS RHYTHM NORMAL ECG WHEN COMPARED WITH ECG OF 07-MAR-2019 14:45, NO SIGNIFICANT CHANGE WAS FOUND Confirmed by Ashly Cantor ([id number]) on 03/14/2019 9:13:11 AM Referred By: Confirmed By:Ashly Cnator
[2019-03-14] MEDS ORDERED: PANTOPRAZOLE SODIUM 40 MG VIAL IVPUSH SCH (10:00)
--- NOTE | 2019-03-14 10:15 | PN ---
Progress Note, Physician - Current Medication List Current Medications: Active Medications Albuterol Sulfate (Ventolin 0.083% Nebulizer Soln -) 1 amp NEB Q6H PRN PRN Reason: SHORT OF BREATH/WHEEZING Heparin Sodium (Porcine) (Heparin -) 5,000 unit SQ BID NANCY Dextrose/Sodium Chloride (D5-1/2ns -) 1,000 mls @ 60 mls/hr IV ASDIR NANCY Last Admin: 03/14/19 01:15 Dose: 60 mls/hr Losartan Potassium (Cozaar -) 25 mg PO DAILY NANCY Ondansetron HCl (Zofran Injection) 4 mg IVPUSH Q6H PRN PRN Reason: NAUSEA AND/OR VOMITING Pantoprazole Sodium (Protonix Iv) 40 mg IVPUSH DAILY [facility] - Objective Vital Signs: Vital Signs Temperature 98.4 F 03/14/19 02:44 Pulse Rate 93 H 03/14/19 07:05 Respiratory Rate 18 03/14/19 07:05 Blood Pressure 149/95 03/14/19 07:05 O2 Sat by Pulse Oximetry (%) 99 03/14/19 07:05 Labs: CBC, BMP 03/14/19 05:40 03/14/19 05:40 Problem List - Problems (1) Abdominal pain Assessment/Plan: Likely secondary to Gastritis CTAP- reviewed no acute abdominal pathology Appreciate GI consult NPO Continue IVF PPI Code(s): R10.9 - UNSPECIFIED ABDOMINAL PAIN Qualifiers: Abdominal location: epigastric Qualified Code(s): R10.13 - Epigastric pain (2) HTN (hypertension) Assessment/Plan: sub optimal add norvasc ekg and ce Likely secondary to abdominal pain Monitor BP Continue Cozaar Monitor renal function Code(s): I10 - ESSENTIAL (PRIMARY) HYPERTENSION (3) H/O bariatric surgery Code(s): Z98.84 - BARIATRIC SURGERY STATUS (4) Asthma Assessment/Plan: stable No acute flare Albuterol nebs prn Monitor vitals Code(s): J45.909 - UNSPECIFIED ASTHMA, UNCOMPLICATED Qualifiers: Asthma severity: moderate Asthma persistence: persistent Asthma complication type: with acute exacerbation Qualified Code(s): J45.41 - Moderate persistent asthma with (acute) exacerbation (5) Hypokalemia Assessment/Plan: Likely secondary to dehydration ivf with k Repeat BMP in am Code(s): E87.6 - HYPOKALEMIA
[2019-03-14] MEDS ORDERED: PANTOPRAZOLE SODIUM 40 MG/100 ML BAG IVPB ONE (10:20)
[2019-03-14] MEDS: amLODIPine BESYLATE 5 MG TABLET (FP) PO SCH (11:00)
[2019-03-14] MEDS: HEPARIN NA (PORCINE) 5,000 UNITS/ML 1ML VIAL SQ SCH ×2 (11:19→23:17)
[2019-03-14] MEDS: LOSARTAN POTASSIUM 25 MG TABLET PO SCH (11:19)
[2019-03-14] MEDS ORDERED: HYDROmorphone HCl 2 MG/ML VIAL IM PRN (11:40)
[2019-03-14] MEDS ORDERED: HYDROmorphone HCl 2 MG/ML VIAL ONE (11:56)
[2019-03-14] MEDS ORDERED: amLODIPine BESYLATE 5 MG TABLET (FP) ONE (12:13)
[2019-03-14] MEDS: D5-1/2NS+30 MEQ KCL - 30 MEQ/1,000 ML INFUS.BAG IV SCH ×2 (12:25→18:33)
--- NOTE | 2019-03-14 14:51 | EKG ---
Test Reason : Blood Pressure : / mmHG Vent. Rate : 071 BPM Atrial Rate : 071 BPM P-R Int : 146 ms QRS Dur : 084 ms QT Int : 422 ms P-R-T Axes : 061 048 037 degrees QTc Int : 458 ms NORMAL SINUS RHYTHM WITH SINUS ARRHYTHMIA NONSPECIFIC T WAVE ABNORMALITY ABNORMAL ECG WHEN COMPARED WITH ECG OF 13-MAR-2019 20:11, NO SIGNIFICANT CHANGE WAS FOUND Confirmed by Ashly Cantor ([id number]) on 03/14/2019 2:50:51 PM Referred By: Confirmed By:Ashly Cantor
[2019-03-14 16:37] VITALS: BMI 37.0
--- NOTE | 2019-03-14 17:08 | CONSULT ---
Consult - text type - Consultation Consultation Note: Bariatric Surgery Asked to see this 58 y.o. female with 36 hour history of abdominal pain. Pt arrived in ER 03/13/2019 c/o abdominal pain. Pt denies nausea, c/o mild nausea. Pt with Sleeve Gastrectomy in 2014, lap choleycystectomy in 2010, and abdominal hernia repain in 2011. Pt had CT of abd/pelvis in ER which showed partial SB obstruction (similar to CT scan in February, which showed similar results). Pt states today c/o diarrhea, probably secondary to ingestion of PO CT contrast. PMH- Asthma, HTN, Gerd, Obesity PSH- Lap-cholecystectomy, Lap Sleeve, Abdominal hernia repair P/E- General- awake , alert, excellent historian, ambulating with no pain, in NAD Abd- + lower panniculus; soft, tender on palpation in epigastrium -guarding, - rebound tenderness Ext- no swelling, no edema noted WBC-4.7 H/H-12.2/38.3 K+- 3.5 (increased from 3.1) I- Partial SB obstruction Pt clinically stable R- NPO Serial abdominal x-rays Follow labs closely Will follow
[2019-03-14] MEDS: PANTOPRAZOLE SODIUM 40 MG VIAL IVPUSH SCH (23:17)
[2019-03-14] MEDS ORDERED: ACETAMINOPHEN 1000 MG/100 ML VIAL (NON FORMULARY) IVPB PRN (23:54)
--- NOTE | 2019-03-15 09:03 | PN.GI ---
GI Progress Note Subjective: Patient continues with epigastric pain accompanied with nausea, denies vomiting. CTAP from 03/14/19 shows partial SBO. She complains of non-bloody diarrhea x 3 episodes last night with night awakening. Patient says she feels like she is loosing control of stool. Denies rectal bleeding, melena. - Objective Vital Signs: Vital Signs Temperature 98.1 F 03/15/19 08:00 Pulse Rate 71 03/15/19 08:00 Respiratory Rate 03/15/19 08:00 Blood Pressure 149/84 03/15/19 08:00 O2 Sat by Pulse Oximetry (%) 100 03/14/19 21:00 Constitutional: No Distress, Calm Eyes: Yes: Conjunctiva Clear HENT: Yes: Atraumatic Cardiovascular: Yes: Regular Rate and Rhythm Respiratory: Yes: Regular, CTA Bilaterally Gastrointestinal Inspection: Yes: WNL. No: Ascites, Distention, Hernia, Scars, Other ...Auscultate: Yes: Normoactive Bowel Sounds. No: Hyperactive Bowel Sounds, Hypoactive Bowel Sounds, No Bowel Sounds, Other ...Palpate: Yes: Soft, Tenderness, Epigastium. No: Firm/Rigid, Guarding, Hepatomegaly, Mass, Pulsatile Mass, Splenomegaly, Tenderness, Tenderness, Rebound, Other ...Percussion: Yes: Tympanitic. No: Dullness, Fluid Wave, Other Neurological: Yes: Alert, Oriented Psychiatric: Yes: Alert, Oriented Labs: CBC, BMP 03/14/19 05:40 03/14/19 05:40 Home Medication List Medication Instructions Recorded Confirmed Type Albuterol 0.083% Nebulizer Mary 1 neb NEB Q4H PRN 01/21/17 03/14/19 History [Ventolin 0.083% Nebulizer Soln -] Albuterol Sulfate Inhaler - 1 puff IH PRN PRN 01/21/17 03/14/19 History [Ventolin HFA Inhaler -] Fluticasone Propionate [Flovent 250 mcg IH DAILY 01/21/17 03/14/19 History Diskus] Losartan Potassium [Cozaar -] 25 mg PO DAILY 03/14/19 03/14/19 History Active Medications Generic Name Dose Route Start Last Admin Trade Name Freq PRN Reason Stop Dose Admin Acetaminophen 1,000 mg 03/14/19 23:54 03/15/19 03:42 Ofirmev Injection - IVPB 03/15/19 23:54 1,000 mg Q6H PRN Administration PAIN LEVEL 7 - 10 Albuterol Sulfate 1 amp 03/14/19 05:15 Ventolin 0.083% Nebulizer Soln - NEB Q6H PRN SHORT OF BREATH/WHEEZING Amlodipine Besylate 5 mg 03/14/19 10:30 03/14/19 11:00 Norvasc - PO 5 mg DAILY NANCY Administration Heparin Sodium (Porcine) 5,000 unit 03/14/19 10:00 03/14/19 23:17 Heparin - SQ 5,000 unit BID NANCY Administration Hydromorphone HCl 2 mg 03/14/19 11:40 Dilaudid Vial - IM Q6H PRN PAIN LEVEL 6-10 Potassium Chloride/Dextrose/Sod Cl 30 meq in 1,000 mls @ 75 mls/hr 03/14/19 10 :30 03/14/19 18:33 D5-1/2ns+30 Meq Kcl - IV 75 mls/hr ASDIR NANCY Administration Losartan Potassium 25 mg 03/14/19 10:00 03/14/19 11:19 Cozaar - PO 25 mg DAILY NANCY Administration Ondansetron HCl 4 mg 03/14/19 05:16 Zofran Injection IVPUSH Q6H PRN NAUSEA AND/OR VOMITING Pantoprazole Sodium 40 mg 03/14/19 22:00 03/14/19 23:17 Protonix Iv IVPUSH 40 mg BID NANCY Administration Problem List - Problems (1) Abdominal pain Code(s): R10.9 - UNSPECIFIED ABDOMINAL PAIN Qualifiers: Abdominal location: epigastric Qualified Code(s): R10.13 - Epigastric pain (2) Partial small bowel obstruction Assessment/Plan: r/o secodary to adhesions R> surgical consultation placed, recommendation appreciated NPO serial FUA ordered serial abdominal examination Code(s): K56.600 - PARTIAL INTESTINAL OBSTRUCTION, UNSPECIFIED TO CAUSE (3) Diarrhea Code(s): R19.7 - DIARRHEA, UNSPECIFIED
[2019-03-15] MEDS: amLODIPine BESYLATE 5 MG TABLET (FP) PO SCH (09:41)
[2019-03-15] MEDS: LOSARTAN POTASSIUM 25 MG TABLET PO SCH (09:41)
[2019-03-15] MEDS: HEPARIN NA (PORCINE) 5,000 UNITS/ML 1ML VIAL SQ SCH ×2 (09:42→22:42)
[2019-03-15] MEDS: PANTOPRAZOLE SODIUM 40 MG VIAL IVPUSH SCH ×2 (09:42→22:42)
--- NOTE | 2019-03-15 10:28 | CONSULT ---
Consult - text type - Consultation Consultation Note: Bariatric Surgery Pt mostly unchanged C/O intermittent epigastric pain Decreased diarrhea + flatus C/O nausea, no vomiting Tolerating ice chips States thirsty, not hungry P/E- General- sitting OOB, awake, alert Abd- non-distended soft, tender on palpation in epigastric area no referred pain CT scan (addendum)- multiple enlarged lymph nodes possible entiritis Rec- Abdominal flat/upright today continue NPO serial abdominal exams Will follow
--- NOTE | 2019-03-15 10:54 | PN ---
Progress Note, Physician Chief Complaint: Nausea vomiting abdominal pain Partial SBO History of Present Illness: NAD No vomiting, + nausea NPO - Current Medication List Current Medications: Active Medications Acetaminophen (Ofirmev Injection -) 1,000 mg IVPB Q6H PRN PRN Reason: PAIN LEVEL 7 - 10 Stop: 03/15/19 23:54 Last Admin: 03/15/19 03:42 Dose: 1,000 mg Albuterol Sulfate (Ventolin 0.083% Nebulizer Soln -) 1 amp NEB Q6H PRN PRN Reason: SHORT OF BREATH/WHEEZING Amlodipine Besylate (Norvasc -) 5 mg PO DAILY [facility] Last Admin: 03/15/19 09:41 Dose: 5 mg Heparin Sodium (Porcine) (Heparin -) 5,000 unit SQ BID [facility] Last Admin: 03/15/19 09:42 Dose: 5,000 unit Hydromorphone HCl (Dilaudid Vial -) 2 mg IM Q6H PRN PRN Reason: PAIN LEVEL 6-10 Potassium Chloride/Dextrose/Sod Cl (D5-1/2ns+30 Meq Kcl -) 30 meq in 1,000 mls @ 75 mls/hr IV ASDIR [facility] Last Admin: 03/14/19 18:33 Dose: 75 mls/hr Losartan Potassium (Cozaar -) 25 mg PO DAILY [facility] Last Admin: 03/15/19 09:41 Dose: 25 mg Ondansetron HCl (Zofran Injection) 4 mg IVPUSH Q6H PRN PRN Reason: NAUSEA AND/OR VOMITING Pantoprazole Sodium (Protonix Iv) 40 mg IVPUSH BID [facility] Last Admin: 03/15/19 09:42 Dose: 40 mg - Objective Vital Signs: Vital Signs Temperature 98.1 F 03/15/19 08:00 Pulse Rate 83 03/15/19 09:39 Respiratory Rate 20 03/15/19 09:39 Blood Pressure 129/81 03/15/19 09:39 O2 Sat by Pulse Oximetry (%) 100 03/14/19 21:00 Constitutional: Yes: Well Nourished, No Distress, Calm Cardiovascular: Yes: Regular Rate and Rhythm Respiratory: Yes: Regular Gastrointestinal: Yes: Normal Bowel Sounds, Soft, Tenderness (LUQ, RUQ), Tenderness, Epigastrium Genitourinary: Yes: WNL Musculoskeletal: Yes: WNL Extremities: Yes: WNL Edema: No Peripheral Pulses WNL: Yes Neurological: Yes: Alert, Oriented Psychiatric: Yes: Alert, Oriented Labs: CBC, BMP 03/14/19 05:40 03/14/19 05:40 Problem List - Problems (1) Abdominal pain Assessment/Plan: -GI consult on board -CT abd 2/3= partial SBO -AXR F&UR pending today -Repeat serial AXR's -NPO as long as pt has abd pain Code(s): R10.9 - UNSPECIFIED ABDOMINAL PAIN Qualifiers: Abdominal location: epigastric Qualified Code(s): R10.13 - Epigastric pain (2) Diarrhea Assessment/Plan: -Likely 2/2 to PO contrast -Would check Cdiff PCR if continues Problems reviewed: Yes Code(s): R19.7 - DIARRHEA, UNSPECIFIED (3) HTN (hypertension) Assessment/Plan: -Continue amlodipine+ Losartan Problems reviewed: Yes Code(s): I10 - ESSENTIAL (PRIMARY) HYPERTENSION (4) Partial small bowel obstruction Assessment/Plan: -GI consult on board -CT abd 2/3= partial SBO -AXR F&UR pending today -Repeat serial AXR's -Surgery consult pending Problems reviewed: Yes Code(s): K56.600 - PARTIAL INTESTINAL OBSTRUCTION, UNSPECIFIED TO CAUSE (5) Hypokalemia Assessment/Plan: -resolved -Continue IVF with K+ Problems reviewed: Yes Code(s): E87.6 - HYPOKALEMIA Assessment/Plan see problem list
[2019-03-15] MEDS: D5-1/2NS+30 MEQ KCL - 30 MEQ/1,000 ML INFUS.BAG IV SCH (12:24)
[2019-03-15] MEDS ORDERED: HYDROmorphone HCl 2 MG/ML VIAL IVPB PRN (14:55)
[2019-03-15] MEDS: HYDROmorphone HCl 2 MG/ML VIAL IVPB PRN (15:27)
[2019-03-16] MEDS: D5-1/2NS+30 MEQ KCL - 30 MEQ/1,000 ML INFUS.BAG IV SCH (01:49)
[2019-03-16] MEDS: HYDROmorphone HCl 2 MG/ML VIAL IVPB PRN (04:12)
[2019-03-16] MEDS: HEPARIN NA (PORCINE) 5,000 UNITS/ML 1ML VIAL SQ SCH ×2 (10:19→22:21)
[2019-03-16] MEDS: LOSARTAN POTASSIUM 25 MG TABLET PO SCH (10:19)
[2019-03-16] MEDS: amLODIPine BESYLATE 5 MG TABLET (FP) PO SCH (10:19)
[2019-03-16] MEDS: PANTOPRAZOLE SODIUM 40 MG VIAL IVPUSH SCH ×2 (10:20→22:21)
--- NOTE | 2019-03-16 11:35 | PN ---
Progress Note, Physician Chief Complaint: Nausea vomiting abdominal pain Partial SBO History of Present Illness: NAD, sitting in a chair No vomiting, + nausea Still with intermittent epigastric pain, last dose Dilaudid early AM NPO + flatus - Current Medication List Current Medications: Active Medications Albuterol Sulfate (Ventolin 0.083% Nebulizer Soln -) 1 amp NEB Q6H PRN PRN Reason: SHORT OF BREATH/WHEEZING Amlodipine Besylate (Norvasc -) 5 mg PO DAILY [facility] Last Admin: 03/16/19 10:19 Dose: 5 mg Heparin Sodium (Porcine) (Heparin -) 5,000 unit SQ BID [facility] Last Admin: 03/16/19 10:19 Dose: 5,000 unit Hydromorphone HCl (Dilaudid Vial -) 2 mg IVPB Q6H PRN PRN Reason: PAIN LEVEL 6-10 Last Admin: 03/16/19 04:12 Dose: 2 mg Potassium Chloride/Dextrose/Sod Cl (D5-1/2ns+30 Meq Kcl -) 30 meq in 1,000 mls @ 75 mls/hr IV ASDIR [facility] Last Admin: 03/16/19 01:49 Dose: 75 mls/hr Losartan Potassium (Cozaar -) 25 mg PO DAILY [facility] Last Admin: 03/16/19 10:19 Dose: 25 mg Ondansetron HCl (Zofran Injection) 4 mg IVPUSH Q6H PRN PRN Reason: NAUSEA AND/OR VOMITING Pantoprazole Sodium (Protonix Iv) 40 mg IVPUSH BID [facility] Last Admin: 03/16/19 10:20 Dose: 40 mg - Objective Vital Signs: Vital Signs Temperature 97.5 F L 03/16/19 10:09 Pulse Rate 76 03/16/19 10:09 Respiratory Rate 20 03/16/19 10:09 Blood Pressure 133/85 03/16/19 10:09 O2 Sat by Pulse Oximetry (%) 97 03/15/19 21:00 Constitutional: Yes: Well Nourished, No Distress, Calm Cardiovascular: Yes: Regular Rate and Rhythm Respiratory: Yes: Regular, CTA Bilaterally Gastrointestinal: Yes: Soft, Hypoactive Bowel Sounds, Tenderness, Epigastrium Genitourinary: Yes: WNL Musculoskeletal: Yes: WNL Extremities: Yes: WNL Edema: No Peripheral Pulses WNL: Yes Neurological: Yes: Alert, Oriented Psychiatric: Yes: Alert, Oriented Labs: CBC, BMP 03/14/19 05:40 03/14/19 05:40 Problem List - Problems (1) Abdominal pain Assessment/Plan: -GI consult on board -CT abd 2/3= partial SBO -AXR F&UR= ileus vs Partial SBO -Repeat serial AXR's -NPO as long as pt has abd pain -Spoke to Dr Enrique about the plan -Will start clinimix Problems reviewed: Yes Code(s): R10.9 - UNSPECIFIED ABDOMINAL PAIN Qualifiers: Abdominal location: epigastric Qualified Code(s): R10.13 - Epigastric pain (2) Diarrhea Assessment/Plan: -Likely 2/2 to PO contrast -resolved Problems reviewed: Yes Code(s): R19.7 - DIARRHEA, UNSPECIFIED (3) HTN (hypertension) Assessment/Plan: -Continue amlodipine+ Losartan Problems reviewed: Yes Code(s): I10 - ESSENTIAL (PRIMARY) HYPERTENSION (4) Partial small bowel obstruction Assessment/Plan: -GI consult on board -CT abd 2/3= partial SBO -AXR F&UR=ileus vs SBO -Repeat serial AXR's Problems reviewed: Yes Code(s): K56.600 - PARTIAL INTESTINAL OBSTRUCTION, UNSPECIFIED TO CAUSE (5) Hypokalemia Assessment/Plan: -resolved -Switch to clinimix Problems reviewed: Yes Code(s): E87.6 - HYPOKALEMIA Assessment/Plan see problem list Encouraged ambulation
[2019-03-16 13:14] LABS: BASO % 0.5 % (0-2.0); EOS % 1.4 % (0-4.5); HEMATOCRIT 40.9 % (32.4-45.2); LYMPH % 21.3 % (8-40); MCH 26.2 pg (25.7-33.7); MCHC 31.9 g/dl (32.0-36.0); MEAN CELL VOLUME 82.2 fl (80-96); MEAN PLT VOLUME 9.8 fl (7.5-11.1); NEUT % 68.8 % (42.8-82.8); PLATELET COUNT 247 K/MM3 (134-434); RBC 4.97 M/mm3 (3.60-5.2); RDW 15.3 % (11.6-15.6); WHITE BLOOD COUNT 5.6 K/mm3 (4.0-10.0)
[2019-03-16 14:07] LABS: ALBUMIN 3.4 g/dl (3.4-5.0); BILIRUBIN,TOTAL 0.6 mg/dL (0.2-1); CALCIUM 9.3 mg/dL (8.5-10.1); CREATININE 0.6 mg/dL (0.55-1.3); POTASSIUM 3.9 mmol/L (3.5-5.1); TOT PROT 7.5 g/dl (6.4-8.2)
[2019-03-16 15:15] LABS: BLOOD UREA NITROGEN 2.8 mg/dL (7-18)
[2019-03-16] MEDS: AMINO ACIDS 4.25%/D5W 1,000 ML IV SCH (18:11)
--- NOTE | 2019-03-16 21:59 | PN ---
Progress Note (short form) - Note Progress Note: Bariatric Surgery Afebrile; VSS Pt doing well On PO liquids- tolerating with no pain Had BM today No vomiting P/E- Abd- non-distended mild tympany in LUQ soft, non-teder on palpation except in epigastric area WBC-5.6 H/H-13/40.9 Abd x-ray- ileus vs partial SBO cotrast in distal colon/rectum Rec- PO liquids as tolerated Contiue ambulation Continue serial abd x-rays Will follow
[2019-03-17] MEDS: AMINO ACIDS 4.25%/D5W 1,000 ML IV SCH ×5 (02:52→19:55)
[2019-03-17 08:52] LABS: ALBUMIN 3.1 g/dl (3.4-5.0); BILIRUBIN,TOTAL 0.4 mg/dL (0.2-1); BLOOD UREA NITROGEN 8.2 mg/dL (7-18); CALCIUM 8.9 mg/dL (8.5-10.1); CREATININE 0.6 mg/dL (0.55-1.3); POTASSIUM 3.8 mmol/L (3.5-5.1); TOT PROT 6.8 g/dl (6.4-8.2)
--- NOTE | 2019-03-17 09:14 | PN ---
Progress Note (short form) - Note Progress Note: SURGERY 58yo F h/o sbo, pt seen and examined at bedside. Pt was started on clears yesterday and states that she has been tolerating them well. Pt states abd pain is much improved. Pt denies fever, chills, n/v. Last Vital Signs Temp Pulse Resp BP Pulse Ox 99.5 F 76 20 140/88 98 03/17/19 05:00 03/17/19 05:00 03/17/19 05:00 03/17/19 05:00 03/16/19 21:00 CBC, BMP 03/16/19 12:30 PE: Gen: A&O x 3 Resp: breathing comfortably Abd: soft, nondistended, mild epigastric tenderness Problem List - Problems (1) Partial small bowel obstruction Assessment/Plan: Plan -pt appears to be doing well, will adv diet to soft -follow up abd x-ray -OOB/ambulate Pt discussed with Dr. Enrique who agrees with plan Code(s): K56.600 - PARTIAL INTESTINAL OBSTRUCTION, UNSPECIFIED TO CAUSE
--- NOTE | 2019-03-17 09:33 | PN ---
Progress Note, Physician - Current Medication List Current Medications: Active Medications Albuterol Sulfate (Ventolin 0.083% Nebulizer Soln -) 1 amp NEB Q6H PRN PRN Reason: SHORT OF BREATH/WHEEZING Amlodipine Besylate (Norvasc -) 5 mg PO DAILY [facility] Last Admin: 03/16/19 10:19 Dose: 5 mg Heparin Sodium (Porcine) (Heparin -) 5,000 unit SQ BID [facility] Last Admin: 03/16/19 22:21 Dose: Not Given Hydromorphone HCl (Dilaudid Vial -) 2 mg IVPB Q6H PRN PRN Reason: PAIN LEVEL 6-10 Last Admin: 03/16/19 04:12 Dose: 2 mg Amino Acids (Clinimix -) 1,000 mls @ 84 mls/hr IV Q12H [facility] Last Admin: 03/17/19 05:24 Dose: 84 mls/hr Losartan Potassium (Cozaar -) 25 mg PO DAILY [facility] Last Admin: 03/16/19 10:19 Dose: 25 mg Ondansetron HCl (Zofran Injection) 4 mg IVPUSH Q6H PRN PRN Reason: NAUSEA AND/OR VOMITING Pantoprazole Sodium (Protonix Iv) 40 mg IVPUSH BID [facility] Last Admin: 03/16/19 22:21 Dose: 40 mg - Objective Vital Signs: Vital Signs Temperature 99.5 F 03/17/19 05:00 Pulse Rate 76 03/17/19 05:00 Respiratory Rate 20 03/17/19 05:00 Blood Pressure 140/88 03/17/19 05:00 O2 Sat by Pulse Oximetry (%) 98 03/16/19 21:00 Cardiovascular: Yes: Regular Rate and Rhythm Respiratory: Yes: Regular, CTA Bilaterally Gastrointestinal: Yes: Normal Bowel Sounds, Soft, Tenderness, Epigastrium Labs: CBC, BMP 03/16/19 12:30 03/17/19 08:05 Problem List - Problems (1) Abdominal pain Code(s): R10.9 - UNSPECIFIED ABDOMINAL PAIN Qualifiers: Abdominal location: epigastric Qualified Code(s): R10.13 - Epigastric pain (2) HTN (hypertension) Code(s): I10 - ESSENTIAL (PRIMARY) HYPERTENSION (3) H/O bariatric surgery Code(s): Z98.84 - BARIATRIC SURGERY STATUS (4) Asthma Code(s): J45.909 - UNSPECIFIED ASTHMA, UNCOMPLICATED Qualifiers: Asthma severity: moderate Asthma persistence: persistent Asthma complication type: with acute exacerbation Qualified Code(s): J45.41 - Moderate persistent asthma with (acute) exacerbation (5) Hypokalemia Code(s): E87.6 - HYPOKALEMIA Assessment/Plan - Problems (1) Abdominal pain Assessment/Plan: -GI consult on board -CT abd 2/3= partial SBO -AXR F&UR= ileus vs Partial SBO -Repeat serial AXR's -Diet advanced per Surg Problems reviewed: Yes Code(s): R10.9 - UNSPECIFIED ABDOMINAL PAIN Qualifiers: Abdominal location: epigastric Qualified Code(s): R10.13 - Epigastric pain (2) Diarrhea Assessment/Plan: -Likely 2/2 to PO contrast -resolved Problems reviewed: Yes Code(s): R19.7 - DIARRHEA, UNSPECIFIED (3) HTN (hypertension) Assessment/Plan: -Continue amlodipine+ Losartan Problems reviewed: Yes Code(s): I10 - ESSENTIAL (PRIMARY) HYPERTENSION (4) Partial small bowel obstruction Assessment/Plan: -GI consult on board -CT abd 2/3= partial SBO -AXR F&UR=ileus vs SBO -Repeat serial AXR's Problems reviewed: Yes Code(s): K56.600 - PARTIAL INTESTINAL OBSTRUCTION, UNSPECIFIED TO CAUSE (5) Hypokalemia Assessment/Plan: -resolved -Switch to clinimix Problems reviewed: Yes Code(s): E87.6 - HYPOKALEMIA
[2019-03-17] MEDS: LOSARTAN POTASSIUM 25 MG TABLET PO SCH (09:36)
[2019-03-17] MEDS: amLODIPine BESYLATE 5 MG TABLET (FP) PO SCH (09:36)
[2019-03-17] MEDS: HEPARIN NA (PORCINE) 5,000 UNITS/ML 1ML VIAL SQ SCH ×2 (09:36→22:54)
[2019-03-17] MEDS: PANTOPRAZOLE SODIUM 40 MG VIAL IVPUSH SCH ×2 (09:36→22:54)
[2019-03-17] MEDS: D5-1/2NS+30 MEQ KCL - 30 MEQ/1,000 ML INFUS.BAG IV SCH (17:44)
--- NOTE | 2019-03-17 18:32 | CONSULT ---
Consult - text type - Consultation Consultation Note: Bariatric Surgery Afebrile; P-76-98 BP-133/76- 140/100 Pt feels better No C/O epigastric pain Tolerating PO regular diet No N/V No BM today + flatus P/E- Abd- non-distended, + tympany (more in LUQ) soft, tender on palpation in epigastrium (unchanged) non-tender in all other areas Abd x-ray- + air in small bowel, colon (no change) Rec- PO as tolerated Continue ambulation Pr clinically improving- continue serial x-rays, examinations
--- NOTE | 2019-03-17 20:17 | PN.GI ---
GI Progress Note Subjective: tolerated soft diet, mild abdominal pain - Objective Vital Signs: Vital Signs Temperature 98.9 F 03/17/19 18:19 Pulse Rate 84 03/17/19 18:21 Respiratory Rate 20 03/17/19 18:19 Blood Pressure 132/86 03/17/19 18:21 O2 Sat by Pulse Oximetry (%) 97 03/17/19 09:00 Constitutional: Well Nourished Eyes: Yes: Conjunctiva Clear HENT: Yes: Atraumatic Neck: Yes: Supple Cardiovascular: Yes: Regular Rate and Rhythm Respiratory: Yes: CTA Bilaterally ...Palpate: Yes: Soft, Tenderness, Tenderness, Epigastium. No: Firm/Rigid, Guarding, Hepatomegaly, Mass, Pulsatile Mass, Splenomegaly Labs: CBC, BMP 03/16/19 12:30 03/17/19 08:05 Problem List - Problems (1) Abdominal pain Assessment/Plan: resolving Code(s): R10.9 - UNSPECIFIED ABDOMINAL PAIN Qualifiers: Abdominal location: epigastric Qualified Code(s): R10.13 - Epigastric pain (2) Partial small bowel obstruction Assessment/Plan: secondary to adhesions R>continue low resideu lactose free diet Code(s): K56.600 - PARTIAL INTESTINAL OBSTRUCTION, UNSPECIFIED TO CAUSE (3) Diarrhea Code(s): R19.7 - DIARRHEA, UNSPECIFIED
[2019-03-18] MEDS ORDERED: ONDANSETRON *ODT* 4 MG TABLET SL PRN (08:40)
--- NOTE | 2019-03-18 08:42 | PN ---
Progress Note, Physician Chief Complaint: awake alert feeling better still with diarrhea - Current Medication List Current Medications: Active Medications Albuterol Sulfate (Ventolin 0.083% Nebulizer Soln -) 1 amp NEB Q6H PRN PRN Reason: SHORT OF BREATH/WHEEZING Amlodipine Besylate (Norvasc -) 5 mg PO DAILY [facility] Last Admin: 03/17/19 09:36 Dose: 5 mg Heparin Sodium (Porcine) (Heparin -) 5,000 unit SQ BID [facility] Last Admin: 03/17/19 22:54 Dose: Not Given Losartan Potassium (Cozaar -) 25 mg PO DAILY [facility] Last Admin: 03/17/19 09:36 Dose: 25 mg - Objective Vital Signs: Vital Signs Temperature 98.1 F 03/18/19 06:00 Pulse Rate 89 03/18/19 06:00 Respiratory Rate 18 03/18/19 06:00 Blood Pressure 128/59 L 03/18/19 06:00 O2 Sat by Pulse Oximetry (%) 97 03/17/19 21:00 Constitutional: Yes: Mild Distress Cardiovascular: Yes: Regular Rate and Rhythm Respiratory: Yes: WNL Gastrointestinal: Yes: Soft, Tenderness Musculoskeletal: Yes: WNL Extremities: Yes: WNL Edema: No Neurological: Yes: WNL Labs: CBC, BMP 03/16/19 12:30 03/17/19 08:05 Assessment/Plan SBO ABDOMINAL OBSTRUCTION ADVANCE DIET DIARRHEA CONTINUES WILL MONITOR LABS AND DC IN MORNING
--- NOTE | 2019-03-18 08:44 | PN.GI ---
GI Progress Note Subjective: Patient denies abdominal pain, nausea, vomiting. States having 1 episode of diarrhea during the night. Tolerating diet. - Objective Vital Signs: Vital Signs Temperature 98.1 F 03/18/19 06:00 Pulse Rate 89 03/18/19 06:00 Respiratory Rate 18 03/18/19 06:00 Blood Pressure 128/59 L 03/18/19 06:00 O2 Sat by Pulse Oximetry (%) 97 03/17/19 21:00 Constitutional: No Distress, Calm Eyes: Yes: Conjunctiva Clear HENT: Yes: Atraumatic Cardiovascular: Yes: Regular Rate and Rhythm Respiratory: Yes: Regular, CTA Bilaterally Gastrointestinal Inspection: Yes: WNL. No: Ascites, Distention, Hernia, Scars, Other ...Auscultate: Yes: Normoactive Bowel Sounds. No: Hyperactive Bowel Sounds, Hypoactive Bowel Sounds, No Bowel Sounds, Other ...Palpate: Yes: Tenderness, Epigastium. No: Firm/Rigid, Guarding, Hepatomegaly , Mass, Pulsatile Mass, Soft, Splenomegaly, Tenderness, Tenderness, Rebound, Other ...Percussion: Yes: Tympanitic. No: Dullness, Fluid Wave, Other Neurological: Yes: Alert, Oriented Psychiatric: Yes: Alert, Oriented Labs: CBC, BMP 03/16/19 12:30 03/17/19 08:05 Problem List - Problems (1) Abdominal pain Assessment/Plan: resolving Code(s): R10.9 - UNSPECIFIED ABDOMINAL PAIN Qualifiers: Abdominal location: epigastric Qualified Code(s): R10.13 - Epigastric pain (2) Partial small bowel obstruction Assessment/Plan: secondary to adhesions R>continue low residue lactose free diet will need to follow up as outpatient in 2 weeks Code(s): K56.600 - PARTIAL INTESTINAL OBSTRUCTION, UNSPECIFIED TO CAUSE (3) Diarrhea Code(s): R19.7 - DIARRHEA, UNSPECIFIED
[2019-03-18] MEDS: amLODIPine BESYLATE 5 MG TABLET (FP) PO SCH (09:23)
[2019-03-18] MEDS: HEPARIN NA (PORCINE) 5,000 UNITS/ML 1ML VIAL SQ SCH ×3 (09:23→22:05)
[2019-03-18] MEDS: PANTOPRAZOLE 40 MG TABLET PO SCH (09:23)
[2019-03-18] MEDS: LOSARTAN POTASSIUM 25 MG TABLET PO SCH (09:23)
--- NOTE | 2019-03-18 14:03 | PN ---
Progress Note (short form) - Note Progress Note: Batiatric surgery Pt OOB in chair Tolerating PO diet No nausea or vomiting +BM-loose P/E- Abd- non-distended soft, non-tender on palpation in epigastrium and non-tender in all quadrants Rec- Pt doing much better clinically. If no pain and continues to tolerate PO diet agree with D/C home tomorrow
[2019-03-19 09:41] LABS: HEMATOCRIT 40.1 % (32.4-45.2); HEMOGLOBIN 13.3 GM/dL (10.7-15.3); MCH 26.7 pg (25.7-33.7); MCHC 33.3 g/dl (32.0-36.0); MEAN CELL VOLUME 80.4 fl (80-96); MEAN PLT VOLUME 9.5 fl (7.5-11.1); PLATELET COUNT 298 K/MM3 (134-434); RBC 4.99 M/mm3 (3.60-5.2); RDW 15.1 % (11.6-15.6); WHITE BLOOD COUNT 6.4 K/mm3 (4.0-10.0)
[2019-03-19 10:22] LABS: BLOOD UREA NITROGEN 11.3 mg/dL (7-18); CREATININE 0.6 mg/dL (0.55-1.3); MAGNESIUM 1.8 mg/dL (1.8-2.4); POTASSIUM 3.4 mmol/L (3.5-5.1)
[2019-03-19] MEDS: PANTOPRAZOLE 40 MG TABLET PO SCH (10:48)
[2019-03-19] MEDS: HEPARIN NA (PORCINE) 5,000 UNITS/ML 1ML VIAL SQ SCH ×2 (10:48→10:58)
[2019-03-19] MEDS: LOSARTAN POTASSIUM 25 MG TABLET PO SCH (10:48)
[2019-03-19] MEDS: amLODIPine BESYLATE 5 MG TABLET (FP) PO SCH (10:48)
[2019-03-19] MEDS ORDERED: POTASSIUM CHLORIDE TABS 10 MEQ TABLET.ER (FP) PO ONE (13:20)
[2019-03-19 13:46] VITALS: BP 119/80; PULSE 87; TEMP 98.6
--- NOTE | 2019-03-19 13:59 | PN ---
GI Progress Note Subjective: toleratig diet abdoinal pain improved, diarrhea resolved - Objective Vital Signs: Vital Signs Temperature 98.6 F 03/19/19 10:00 Pulse Rate 87 03/19/19 10:00 Respiratory Rate 18 03/19/19 10:00 Blood Pressure 119/80 03/19/19 10:00 O2 Sat by Pulse Oximetry (%) 98 03/19/19 10:00 Constitutional: Well Nourished, Poor Hygeine HENT: Yes: Atraumatic Neck: Yes: Supple Cardiovascular: Yes: Regular Rate and Rhythm Respiratory: Yes: CTA Bilaterally ...Palpate: Yes: Soft, Tenderness, Epigastium. No: Firm/Rigid, Guarding, Hepatomegaly, Pulsatile Mass, Splenomegaly Labs: CBC, BMP 03/19/19 08:40 03/19/19 08:40 Problem List - Problems (1) Abdominal pain Assessment/Plan: --resolved Code(s): R10.9 - UNSPECIFIED ABDOMINAL PAIN Qualifiers: Abdominal location: epigastric Qualified Code(s): R10.13 - Epigastric pain (2) Partial small bowel obstruction Assessment/Plan: imrpoved R> low residue soft food made aware to follow up Code(s): K56.600 - PARTIAL INTESTINAL OBSTRUCTION, UNSPECIFIED TO CAUSE (3) Diarrhea Code(s): R19.7 - DIARRHEA, UNSPECIFIED
--- NOTE | 2019-03-19 14:35 | DS ---
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 Who presents to the ED with sharp epigastric pain with nausea x 2 days. Patient reports having loose diarrhea last Thursday, taking immodium-resolved. She reports having sharp intermittent pain to the epigastrium and RUQ with nausea. Patient reports seeing her PCP last Thursday and being started on Flagyl. Patient denies eating spicy, greasy or fatty foods. She reports having a decreased appetite due to the abdominal pain. Patient denies fever, chills, cough, CHO, SOB, CP, palpitations, vomiting, hematochezia, melena, hematuria, dysuria. Patient reports her last colonoscopy last year- +hemorrhoids, no polyps. EGD- 2017 no ulcer Constitutional: Yes: Well Nourished, No Distress, Calm Cardiovascular: Yes: Regular Rate and Rhythm Respiratory: Yes: Regular Gastrointestinal: Yes: Normal Bowel Sounds, Soft Renal/: Yes: WNL Musculoskeletal: Yes: WNL Extremities: Yes: WNL Edema: No Peripheral Pulses WNL: Yes Neurological: Yes: Alert, Oriented Psychiatric: Yes: Alert, Oriented Labs: CBC, BMP 03/19/19 08:40 03/19/19 08:40 Discharge Summary Problems reviewed: Yes Reason For Visit: INTRACTABLE EPIGASTRIC ABDOMINAL PAIN/ABDOMINAL Current Active Problems Abdominal pain (Acute) Diarrhea (Acute) HTN (hypertension) (Acute) Partial small bowel obstruction (Acute) Condition: Stable - Instructions Referrals: Mansoor Marques MD [Primary Care Provider] - Disposition: HOME - Home Medications Comprehensive Discharge Medication List: Ambulatory Orders Albuterol 0.083% Nebulizer Mary [Ventolin 0.083% Nebulizer Soln -] 1 neb NEB Q4H PRN 01/21/17 Albuterol Sulfate Inhaler - [Ventolin HFA Inhaler -] 1 puff IH PRN PRN 01/21/17 Fluticasone Propionate [Flovent Diskus] 250 mcg IH DAILY 01/21/17 Acetaminophen [Tylenol .Regular Strength -] 650 mg PO Q6H PRN tablet 01/30/17 Fluticasone Prop 0.05% Nasal [Flonase -] 2 spray NS DAILY #1 spray 01/30/17 Loratadine [Claritin -] 10 mg PO DAILY #30 tablet 01/30/17 Montelukast Na [Singulair -] 10 mg PO HS #30 tablet 01/30/17 Ondansetron [Zofran *Odt*] 8 mg SL Q6H PRN #30 tab.rapdis MDD 4 01/30/17 Sodium Chloride Nasal [place] [[place] Nasal [place] -] 2 spray NS TID PRN #1 spray 01/30/17 Tiotropium [place] [Spiriva] 1 puff IH DAILY #1 inh 01/30/17 Amlodipine Besylate [Norvasc -] 5 mg PO DAILY #30 tablet 03/19/19 Losartan Potassium [Cozaar -] 25 mg PO DAILY #30 tab 03/19/19 Losartan Potassium [Cozaar -] 25 mg PO DAILY #30 tablet 03/19/19 Pantoprazole Sodium [Protonix -] 40 mg PO DAILY #30 tablet.ec 03/19/19 Prescription Drug Monitoring Program (I-STOP) results: I-STOP reviewed and no issues identified
== END 2019-03-19 14:32 | disposition home or self-care (01) | DRG 390 ==
LOC: JER 18:30 → SUPCPDRO 18:30 → JERBED 03-14 00:07 → J5S 03-14 15:31
PROVIDERS: ADMIT Internal Medicine; ATTEND Family Medicine
DX: K56.600 Partial intestinal obstruction, unspecified as to cause (principal); R19.7 Diarrhea, unspecified; R10.13 Epigastric pain; E87.6 Hypokalemia; J45.909 Unspecified asthma, uncomplicated; E86.0 Dehydration; K21.9 Gastro-esophageal reflux disease without esophagitis; E66.9 Obesity, unspecified; Z68.37 Body mass index [BMI] 37.0-37.9, adult
CPT/HCPCS: 36415; 74018-TC-FY; 74019-TC-FY; 74177-TC; 80048; 80053; 81003; 82550; 83605; 83690; 83735; 84484; 85025; 85027; 93005; 93010; 99285-25; J0131; J1644; Q9967

== ENCOUNTER 2019-04-04 02:01 | Inpatient (IN) | payer OTHER ==
[2019-04-04] MEDS ORDERED: SODIUM CHLORIDE 0.9% 500 ML INFUS.BAG IV ONE (02:23)
--- NOTE | 2019-04-04 02:27 | PDOC ---
History of Present Illness - General Chief Complaint: Pain, Acute Stated Complaint: ABDOMINAL PAIN Time Seen by Provider: 04/04/19 02:26 History Source: Patient - History of Present Illness Initial Comments: 04/04/19 06:43 Ms. Masterson is a 58 y/o woman with history of hypertension, asthma, Gerd, status post sleeve gastrectomy in 2015, prior SBO presenting today with acute onset abdominal pain, nausea, vomiting this morning. She was recently admitted from 03/14/2019 to 03/19/2019 for intractable abdominal pain/nausea found to have partial obstruction at that time. She reports sitting in [employer] at approx 1800 when she began having sharp diffuse abdominal pain and nausea. She reports approx 9x nbnb vomiting before presenting to the ED. She denies any diarrhea, and reports one normal formed bowel movement this morning. PCP: Dr. Marques GI: Dr. Aviles Past History - Past Medical History Allergies/Adverse Reactions: Allergies Allergy/AdvReac Type Severity Reaction Status Date / Time spironolactone Allergy Mild Rash Verified 04/04/19 02:15 [From Aldactone] Home Medications: Ambulatory Orders Albuterol 0.083% Nebulizer Mary [Ventolin 0.083% Nebulizer Soln -] 1 neb NEB Q4H PRN 01/21/17 Albuterol Sulfate Inhaler - [Ventolin HFA Inhaler -] 1 puff IH PRN PRN 01/21/17 Fluticasone Propionate [Flovent Diskus] 250 mcg IH DAILY 01/21/17 Acetaminophen [Tylenol .Regular Strength -] 650 mg PO Q6H PRN tablet 01/30/17 Fluticasone Prop 0.05% Nasal [Flonase -] 2 spray NS DAILY #1 spray 01/30/17 Loratadine [Claritin -] 10 mg PO DAILY #30 tablet 01/30/17 Montelukast Na [Singulair -] 10 mg PO HS #30 tablet 01/30/17 Ondansetron [Zofran *Odt*] 8 mg SL Q6H PRN #30 tab.rapdis MDD 4 01/30/17 Sodium Chloride Nasal [place] [[place] Nasal [place] -] 2 spray NS TID PRN #1 spray 01/30/17 Tiotropium [place] [Spiriva] 1 puff IH DAILY #1 inh 01/30/17 Pantoprazole Sodium [Protonix -] 40 mg PO DAILY #30 tablet.ec 03/19/19 Pantoprazole Sodium [Protonix -] 40 mg PO DAILY #30 tablet.ec 03/19/19 Losartan Potassium [Cozaar -] 50 mg PO DAILY 04/05/19 Anemia: No Asthma: Yes Cancer: No Cardiac Disorders: No CVA: No COPD: Yes CHF: No Dementia: No Diabetes: No GI Disorders: Yes (gerd) Disorders: No HTN: Yes (hx (resolved post gastric bypass sx)) Hypercholesterolemia: No Liver Disease: No Seizures: No Thyroid Disease: No - Surgical History Abdominal Surgery: Yes (sleeve 10/2014;hernia sx) Appendectomy: No Cardiac Surgery: No Cholecystectomy: Yes (04/2010) Lung Surgery: No Neurologic Surgery: No Orthopedic Surgery: No - Immunization History Immunization Up to Date: No - Psycho Social/Smoking Cessation Hx Smoking Status: No Smoking History: Never smoked Have you smoked in the past 12 months: No Number of Cigarettes Smoked Daily: 0 If you are a former smoker, when did you quit?: 30 yrs ago Hx Alcohol Use: No Drug/Substance Use Hx: No Substance Use Type: None Hx Substance Use Treatment: No Review of Systems - Review of Systems Able to Perform ROS?: Yes Comments:: 04/04/19 06:56 ROS: GENERAL/CONSTITUTIONAL: No fever or chills. No weakness. HEAD, EYES, EARS, NOSE AND THROAT: No change in vision. No ear pain or discharge. No sore throat. CARDIOVASCULAR: No chest pain or shortness of breath RESPIRATORY: No cough, wheezing, or hemoptysis. GASTROINTESTINAL: Nausea, vomiting, abdominal pain. No diarrhea or constipation. GENITOURINARY: No dysuria, frequency, or change in urination. MUSCULOSKELETAL: No joint or muscle swelling or pain. No neck or back pain. SKIN: No rash NEUROLOGIC: No headache, vertigo, loss of consciousness, or change in strength/ sensation. ENDOCRINE: No increased thirst. No abnormal weight change HEMATOLOGIC/LYMPHATIC: No anemia, easy bleeding, or history of blood clots. ALLERGIC/IMMUNOLOGIC: No hives or skin allergy. *Physical Exam - Vital Signs Last Vital Signs Temp Pulse Resp BP Pulse Ox 117 H 18 140/96 100 04/04/19 02:16 04/04/19 02:16 04/04/19 02:16 04/04/19 02:16 - Physical Exam 04/04/19 06:56 PE: GENERAL: Awake, alert, and fully oriented, groaning clutching abdomen HEAD: No signs of trauma, normocephalic, atraumatic EYES: PERRLA, EOMI, sclera anicteric, conjunctiva clear ENT: Auricles normal inspection, hearing grossly normal, nares patent, oropharynx clear without exudates. Moist mucosa NECK: Normal ROM, supple, no lymphadenopathy, JVD, or masses LUNGS: No distress, speaks full sentences, clear to auscultation bilaterally HEART: Regular rate and rhythm, normal S1 and S2, no murmurs, rubs or gallops, peripheral pulses normal and equal bilaterally. ABDOMEN: Diffusely tender. Soft, diminished bowel sounds. EXTREMITIES : Normal inspection, Normal range of motion, no edema. No clubbing or cyanosis NEUROLOGICAL: Cranial nerves II through XII grossly intact. Normal speech, no focal sensorimotor deficits SKIN: Warm, Dry, normal turgor, no rashes or lesions noted ED Treatment Course - LABORATORY CBC & Chemistry Diagram: 04/06/19 06:00 04/07/19 08:35 Medical Decision Making - Medical Decision Making 04/04/19 06:57 58F w/hx sleeve gastrectomy in 2015, HTN, HLD, SBO, recent admission for intractable abdominal pain p/w acute onset severe abdominal pain with multiple episodes vomiting. Ddx includes SBO given prior surgery, prior SBO. Plan: CBC CMP EKG CXR Type and screen x2 PT/INR, APTT Lipase Lactate CT abdomen/pelvis w/po contrast Acetaminophen Maalox Reglan Morphine Dispo: Likely admit Discharge - Discharge Information Problems reviewed: Yes Clinical Impression/Diagnosis: SBO (small bowel obstruction) Condition: Stable Disposition: HOME - Follow up/Referral - Patient Discharge Instructions - Post Discharge Activity
[2019-04-04] MEDS ORDERED: MAG HYDROX/AL HYDROX/SIMETH -MYLANTA- ORAL SUSPENSION PO ONE (02:36)
[2019-04-04] MEDS ORDERED: METOCLOPRAMIDE HCL INJECTION 10 MG/2 ML VIAL IVPUSH ONE (02:36)
[2019-04-04] MEDS ORDERED: ACETAMINOPHEN 1000 MG/100 ML VIAL (NON FORMULARY) IVPB ONE (02:38)
[2019-04-04] MEDS ORDERED: METOCLOPRAMIDE HCL INJECTION 10 MG/2 ML VIAL ONE (02:55)
[2019-04-04] MEDS ORDERED: ACETAMINOPHEN INJECTION 100 ML IVPB ONE (02:56)
[2019-04-04] MEDS ORDERED: MAG HYDROX/AL HYDROX/SIMETH 30 ML UNIT-DOSE CUP ONE (02:56)
--- NOTE | 2019-04-04 03:17 | PDOC ---
Attending Attestation - Resident Resident Name: Nghia Galdamez - ED Attending Attestation I have performed the following: I have examined & evaluated the patient, The case was reviewed & discussed with the resident, I agree w/resident's findings & plan - HPI HPI: 04/04/19 06:56 Pt returns to the ER with abdominal pain. She was in [place] yesterday for a long time, and ate very little; however comes now with abdominal pain. status post sleeve gastrectomy in 2014. 04/04/19 06:57 She was recently admitted from 03/14/2019 to 03/19/2019 for intractable abdominal pain/nausea found to have partial obstruction at that time. She reports sitting in [place] at approx 1800 when she began having sharp diffuse abdominal pain and nausea. She reports approx 9x nbnb vomiting before presenting to the ED. She denies any diarrhea, and reports one normal formed bowel movement this morning. Pt is concerned because she had an SBO in the past. - Physicial Exam PE: 04/08/19 22:24 Agree with resident exam; pt has diffuse abd pain - Medical Decision Making 04/08/19 22:24 Pt will get labs and imaging studies and she will be signed out to the day ER team for disposition and likely admission
[2019-04-04] MEDS ORDERED: morphine CARPU-JECT 4 MG/1 ML DISP.SYRIN IVPUSH ONE ×3 (04:17→12:16)
[2019-04-04] MEDS ORDERED: morphine SULFATE 4 MG/ML VIAL ONE ×5 (04:28→22:06)
[2019-04-04 04:36] LABS: BASO % 0.4 % (0-2.0); EOS % 0.4 % (0-4.5); HEMATOCRIT 38.2 % (32.4-45.2); HEMOGLOBIN 12.4 GM/dL (10.7-15.3); LYMPH % 12.4 % (8-40); MCH 26.3 pg (25.7-33.7); MCHC 32.5 g/dl (32.0-36.0); MEAN CELL VOLUME 81.1 fl (80-96); MEAN PLT VOLUME 9.7 fl (7.5-11.1); MONO % 5.4 % (3.8-10.2); NEUT % 81.4 % (42.8-82.8); PLATELET COUNT 236 K/MM3 (134-434); RBC 4.71 M/mm3 (3.60-5.2); RDW 15.4 % (11.6-15.6); WHITE BLOOD COUNT 7.4 K/mm3 (4.0-10.0)
[2019-04-04 05:26] LABS: ALBUMIN 3.5 g/dl (3.4-5.0); ALK PHOS 106 U/L (45-117); ANION GAP 7 MMOL/L (8-16); BILIRUBIN,TOTAL 0.5 mg/dL (0.2-1); BLOOD UREA NITROGEN 10.6 mg/dL (7-18); CALCIUM 9.4 mg/dL (8.5-10.1); CHLORIDE 108 mmol/L (98-107); CO2 26 mmol/L (21-32); CREATININE 0.7 mg/dL (0.55-1.3); GLUCOSE,RANDOM 111 mg/dL (74-106); POTASSIUM 3.9 mmol/L (3.5-5.1); SGOT/AST 15 U/L (15-37); SGPT/ALT 15 U/L (13-61); SODIUM 142 mmol/L (136-145); TOT PROT 7.3 g/dl (6.4-8.2)
--- NOTE | 2019-04-04 07:09 | PDOC ---
*Physical Exam - Vital Signs Last Vital Signs Temp Pulse Resp BP Pulse Ox 90 17 135/84 95 04/04/19 06:33 04/04/19 06:33 04/04/19 06:33 04/04/19 06:33 ED Treatment Course - LABORATORY CBC & Chemistry Diagram: 04/04/19 04:00 04/04/19 04:00 - ADDITIONAL ORDERS Additional order review: Laboratory Results 04/04/19 04/04/19 04/04/19 04:00 04:00 04:00 Sodium 142 Potassium 3.9 Chloride 108 H Carbon Dioxide 26 Anion Gap 7 L BUN 10.6 Creatinine 0.7 Est GFR (CKD-EPI)AfAm 109.15 Est GFR (CKD-EPI)NonAf 94.17 Random Glucose 111 H Lactic Acid 1.0 Calcium 9.4 Total Bilirubin 0.5 AST 15 ALT 15 Alkaline Phosphatase 106 Creatine Kinase 41 Troponin I < 0.02 Total Protein 7.3 Albumin 3.5 Lipase 57 L 04/04/19 04:00 RBC 4.71 MCV 81.1 MCHC 32.5 RDW 15.4 MPV 9.7 Neutrophils % 81.4 Lymphocytes % 12.4 D Monocytes % 5.4 Eosinophils % 0.4 Basophils % 0.4 - Medications Given in the ED: ED Medications Discontinued Medications Generic Name Dose Route Start Last Admin Trade Name Freq PRN Reason Stop Dose Admin Acetaminophen 1,000 mg 04/04/19 02:38 04/04/19 04:05 Ofirmev Injection - IVPB 04/04/19 02:39 1,000 mg ONCE ONE Administration Al Hydroxide/Mg Hydroxide 30 ml 04/04/19 02:36 04/04/19 04:04 Mylanta Suspension - PO 04/04/19 02:37 Not Given ONCE ONE Metoclopramide HCl 10 mg 04/04/19 02:36 04/04/19 04:04 Reglan Injection - IVPUSH 04/04/19 02:37 10 mg ONCE ONE Administration Morphine Sulfate 4 mg 04/04/19 04:17 04/04/19 04:30 Morphine Injection - IVPUSH 04/04/19 04:18 4 mg ONCE ONE Administration Sodium Chloride 1,000 ml 04/04/19 02:23 04/04/19 04:04 Normal Saline - IV 04/04/19 02:24 1,000 ml ONCE ONE Administration Medical Decision Making - Medical Decision Making 04/04/19 07:09 Received sign out from Dr Galdamez. Pt seen and assessed at bedside. 58yo F hx sleeve gastrectomy (2014), HTN, HLD, SBO, recent admission for intractable abdominal pain p/w acute onset severe abdominal pain with emesis xmultiple. Labs reviewed. No concerning findings. Meds including morphine given, some improvement. []reads CTAP []continue pain management Dispo pending CT 04/04/19 08:22 CTAP read - notable for SBO Called Dr Marques for admission Discussed NG tube with pt - states does not work in past and would not like one at this time. -Consult surgery 04/04/19 08:[address] Enrique for surgery consult - aware and will see pt today. Pt signed out to admitting team. Discharge - Discharge Information Problems reviewed: Yes Clinical Impression/Diagnosis: SBO (small bowel obstruction) Condition: Stable - Admission Yes - Follow up/Referral - Patient Discharge Instructions - Post Discharge Activity
--- NOTE | 2019-04-04 09:11 | EKG ---
Test Reason : Blood Pressure : / mmHG Vent. Rate : 086 BPM Atrial Rate : 086 BPM P-R Int : 128 ms QRS Dur : 076 ms QT Int : 390 ms P-R-T Axes : 060 038 048 degrees QTc Int : 466 ms NORMAL SINUS RHYTHM POSSIBLE LEFT ATRIAL ENLARGEMENT BORDERLINE ECG WHEN COMPARED WITH ECG OF 14-MAR-2019 12:42, NO SIGNIFICANT CHANGE WAS FOUND Confirmed by Ashly Cantor ([id number]) on 04/04/2019 9:11:22 AM Referred By: Confirmed By:Ashly Cantor
[2019-04-04] MEDS ORDERED: ALBUTEROL SO4 0.083% IH SOL 2.5 MG/3 ML VIAL.NEB. NEB PRN (15:30)
[2019-04-04] MEDS ORDERED: ONDANSETRON 4 MG/2 ML VIAL IVPUSH PRN (15:31)
[2019-04-04] MEDS ORDERED: morphine SULFATE 4 MG/ML VIAL IVPUSH PRN (15:32)
[2019-04-04] MEDS ORDERED: MORPHINE SULFATE 2 MG/ML VIAL IVPUSH PRN (15:32)
--- NOTE | 2019-04-04 15:40 | HP ---
Admitting History and Physical - Primary Care Physician PCP: Mansoor Marques - Admission Chief Complaint: abd pain History of Present Illness: 58 year old female with PMH SBO (03/14-03/19/2019), HTN, GERD, asthma, presents to the ED with abdominal pain. she states the pain started last night at [employer]. her last meal was thursday morning, her last bowel movement was thursday, normal & small, no diarrhea. she was sitting in [employer] when she felt epigastric pains, she went home and took medication for gas pain. the pain was unresolved so she presented to the ED. she reports +nausea, +vomiting mucous, passing small amounts of flatus. she denies chest pains, pressure, diarrhea. she is very concerned her mouth is so dry. she lives alone. is an employee here. 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: Alzheimer's, CVA, Dementia, Migraine, Multiple Sclerosis, Parkinson's, Seizure, Syncope, TIA, Vertigo Cardiovascular: Yes: HTN Pulmonary: Yes: Asthma, Pneumonia Gastrointestinal: Yes: Gastritis, GERD, Hiatal Hernia Hepatobiliary: Yes: Cholelithiasis (post cholecystectomy) ...LMP: 07/27/99 Musculoskeletal: Yes: Other (fx ankle june 2012- fell [place] ditch) ENT: Yes: Allergic Rhinitis Endocrine: Yes: Other (had dexa in past and told ok) - Past Surgical History Past Surgical History: Yes: Bariatric Surgery (s/p Lap Band, Removal Gastric Sleeve), Cataract Removal, Cholecystectomy (,s/p lap band), Hernia Repair, Vein Stripping/Ligation - Smoking History Smoking history: Former smoker Have you smoked in the past 12 months: No Aproximately how many cigarettes per day: 0 If you are a former smoker, when did you quit?: 30 yrs ago - Alcohol/Substance Use Hx Alcohol Use: No Number of Drinks Daily: 0 History of Substance Use: reports: None - Social History ADL: Independent 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 Travel: No Home Medications - Allergies Allergies/Adverse Reactions: Allergies Allergy/AdvReac Type Severity Reaction Status Date / Time spironolactone Allergy Mild Rash Verified 04/04/19 02:15 [From Aldactone] - Home Medications Home Medications: Ambulatory Orders Albuterol 0.083% Nebulizer Mary [Ventolin 0.083% Nebulizer Soln -] 1 neb NEB Q4H PRN 01/21/17 Albuterol Sulfate Inhaler - [Ventolin HFA Inhaler -] 1 puff IH PRN PRN 01/21/17 Fluticasone Propionate [Flovent Diskus] 250 mcg IH DAILY 01/21/17 Acetaminophen [Tylenol .Regular Strength -] 650 mg PO Q6H PRN tablet 01/30/17 Fluticasone Prop 0.05% Nasal [Flonase -] 2 spray NS DAILY #1 spray 01/30/17 Loratadine [Claritin -] 10 mg PO DAILY #30 tablet 01/30/17 Montelukast Na [Singulair -] 10 mg PO HS #30 tablet 01/30/17 Ondansetron [Zofran *Odt*] 8 mg SL Q6H PRN #30 tab.rapdis MDD 4 01/30/17 Sodium Chloride Nasal [place] [[place] Nasal [place] -] 2 spray NS TID PRN #1 spray 01/30/17 Tiotropium [place] [Spiriva] 1 puff IH DAILY #1 inh 01/30/17 Amlodipine Besylate [Norvasc -] 5 mg PO DAILY #30 tablet 03/19/19 Losartan Potassium [Cozaar -] 25 mg PO DAILY #30 tab 03/19/19 Losartan Potassium [Cozaar -] 25 mg PO DAILY #30 tablet 03/19/19 Pantoprazole Sodium [Protonix -] 40 mg PO DAILY #30 tablet.ec 03/19/19 Pantoprazole Sodium [Protonix -] 40 mg PO DAILY #30 tablet.ec 03/19/19 Review of Systems - Review of Systems Constitutional: reports: Loss of Appetite Gastrointestinal: reports: Abdominal Pain, Nausea, Vomiting Genitourinary: reports: No Symptoms Musculoskeletal: reports: No Symptoms Integumentary: reports: No Symptoms Neurological: reports: No Symptoms Endocrine: reports: No Symptoms Physical Examination Vital Signs: Vital Signs Temperature 98.3 F 04/04/19 12:35 Pulse Rate 71 04/04/19 12:35 Respiratory Rate 18 04/04/19 12:35 Blood Pressure 150/90 04/04/19 12:35 O2 Sat by Pulse Oximetry (%) 99 04/04/19 12:35 Constitutional: Yes: Well Nourished, No Distress HENT: Yes: Atraumatic, Normocephalic Neck: Yes: Supple Cardiovascular: Yes: Regular Rate and Rhythm Respiratory: Yes: Regular, CTA Bilaterally Gastrointestinal: Yes: Hypoactive Bowel Sounds, Tenderness, Epigastrium Renal/: Yes: WNL Musculoskeletal: Yes: WNL Extremities: Yes: WNL Integumentary: Yes: WNL Neurological: Yes: Alert, Oriented Labs: CBC, BMP 04/04/19 04:00 04/04/19 04:00 Imaging - Results Chest X-ray: Report Reviewed X-ray: Report Reviewed Cat Scan: Report Reviewed Problem List - Problems (1) SBO (small bowel obstruction) Assessment/Plan: Surgery consult GI consult Bariatric surgery in the past recent sbo 03/14-03/19/2019 NPO, IVF IV antiemetic IV pain control, caution with SBO ct abd/xray noted Code(s): K56.609 - UNSP INTESTNL OBST, UNSP TO PARTIAL VERSUS COMPLETE OBST (2) Asthma Assessment/Plan: cont home nebs Code(s): J45.909 - UNSPECIFIED ASTHMA, UNCOMPLICATED (3) GERD (gastroesophageal reflux disease) Assessment/Plan: change PPI to IV while npo Code(s): K21.9 - GASTRO-ESOPHAGEAL REFLUX DISEASE WITHOUT ESOPHAGITIS (4) HTN (hypertension) Assessment/Plan: hold home losartan/amlodipine while NPO monitor BP Code(s): I10 - ESSENTIAL (PRIMARY) HYPERTENSION
[2019-04-04] MEDS: SODIUM CHLORIDE 1,000 ML IV SCH (16:36)
--- NOTE | 2019-04-04 18:57 | CONSULT ---
Consult - text type - Consultation Consultation Note: Askrd to see this 58 y.o. woman well-known to me. Pt with severe abdominal pain 04/03 and came to ER. Pt with small BM yesterday, no BM today. Does have flatus. Had vomiting yesterday, no vomiting today PMH-Asthma, GERD,HTN Pshx- Gastric sleeve, cholecystectomy, umbilical hernia repair with mesh BP-132/89 P- 101, was 80 P/E- Gen- awake, alert, NAD Abd- non-distended; soft , tender on palpation in epigastrium (similar to previous admission) No rebound, no referred pain. Ext- no swelling or edema WBC-7.4 H/H-12.4/38.2 BUN/CR-10.6/0.7 CT scan- dilated small bowel loops partial vs complete obstruction I- Partial small bowel obstruction (recurrent) Abdominal pain Rec- Keep NPO Abd x-rays (flat/upright) in AM Check labs If no improvement, may need exploratory laparotomy (discussed with patient)
[2019-04-04] MEDS: MONTELUKAST NA 10 MG TABLET PO SCH (22:00)
[2019-04-04] MEDS ORDERED: HEPARIN NA (PORCINE) 5,000 UNITS/ML 1ML VIAL ONE (22:07)
[2019-04-04] MEDS: HEPARIN NA (PORCINE) 5,000 UNITS/ML 1ML VIAL SQ SCH (22:12)
[2019-04-05 06:32] LABS: BASO % 0.9 % (0-2.0); EOS % 3.1 % (0-4.5); HEMATOCRIT 34.6 % (32.4-45.2); HEMOGLOBIN 11.6 GM/dL (10.7-15.3); LYMPH % 35.1 % (8-40); MCH 27.4 pg (25.7-33.7); MCHC 33.5 g/dl (32.0-36.0); MEAN CELL VOLUME 81.6 fl (80-96); MEAN PLT VOLUME 9.3 fl (7.5-11.1); MONO % 8.3 % (3.8-10.2); NEUT % 52.6 % (42.8-82.8); PLATELET COUNT 184 K/MM3 (134-434); RBC 4.24 M/mm3 (3.60-5.2); RDW 15.3 % (11.6-15.6); WHITE BLOOD COUNT 4.9 K/mm3 (4.0-10.0)
[2019-04-05 06:53] LABS: INR 0.99 (0.83-1.09); PROTHROMBIN TIME (PATIENT) 11.7 SEC (9.7-13.0)
[2019-04-05 06:58] LABS: ALBUMIN 2.8 g/dl (3.4-5.0); BILIRUBIN,TOTAL 0.8 mg/dL (0.2-1); BLOOD UREA NITROGEN 5.3 mg/dL (7-18); CALCIUM 8.8 mg/dL (8.5-10.1); CREATININE 0.5 mg/dL (0.55-1.3); MAGNESIUM 2.1 mg/dL (1.8-2.4); PHOSPHOROUS 4.2 mg/dL (2.5-4.9); POTASSIUM 3.7 mmol/L (3.5-5.1)
--- NOTE | 2019-04-05 09:01 | CON.GI ---
Consult Consult Specialty:: GI Referred by:: Nimisha Boogie NP Reason for Consultation:: partial SBO - History of Present Illness History of Present Illness: Patient is a 58 y/o female with past medical history of HTN, DM, GERD, Asthma, and SBO. Consult was placed for partial SBO. She was recently admitted to [facility] from 03/14-03/19 for same chief complaint. Patient states on Thursday she developed stabbing mid abdominal pain accompanied with nausea and non-bloody vomitus. She took medication at home to relieve pain but it was unsuccessful and she came to ER. She states experiencing 2 episodes of non-bloody diarrhea this morning. She denies rectal bleeding or melena. CTAP shows fndings consistent with partial SBO. 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 mild L ear pain with chewing. h/o hosp with low K+ and MG++ o diuretic at that time. hosp with pneum 2010 - Past Surgical History Past Surgical History: Yes: Bariatric Surgery (s/p Lap Band, Removal Gastric Sleeve), Cataract Removal, Cholecystectomy (,s/p lap band), Hernia Repair, Vein Stripping/Ligation - Alcohol/Substance Use Hx Alcohol Use: No Number of Drinks Daily: 0 History of Substance Use: reports: None - Smoking History Smoking history: Former smoker Have you smoked in the past 12 months: No Aproximately how many cigarettes per day: 0 If you are a former smoker, when did you quit?: 30 yrs ago - Social History Usual Living Arrangement: Alone (no pet exposure) ADL: Independent 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 Home Medications - Allergies Allergies/Adverse Reactions: Allergies Allergy/AdvReac Type Severity Reaction Status Date / Time spironolactone Allergy Mild Rash Verified 04/04/19 02:15 [From Aldactone] - Home Medications Home Medications: Ambulatory Orders Albuterol 0.083% Nebulizer Mary [Ventolin 0.083% Nebulizer Soln -] 1 neb NEB Q4H PRN 01/21/17 Albuterol Sulfate Inhaler - [Ventolin HFA Inhaler -] 1 puff IH PRN PRN 01/21/17 Fluticasone Propionate [Flovent Diskus] 250 mcg IH DAILY 01/21/17 Acetaminophen [Tylenol .Regular Strength -] 650 mg PO Q6H PRN tablet 01/30/17 Fluticasone Prop 0.05% Nasal [Flonase -] 2 spray NS DAILY #1 spray 01/30/17 Loratadine [Claritin -] 10 mg PO DAILY #30 tablet 01/30/17 Montelukast Na [Singulair -] 10 mg PO HS #30 tablet 01/30/17 Ondansetron [Zofran *Odt*] 8 mg SL Q6H PRN #30 tab.rapdis MDD 4 01/30/17 Sodium Chloride Nasal [place] [[place] Nasal [place] -] 2 spray NS TID PRN #1 spray 01/30/17 Tiotropium [place] [Spiriva] 1 puff IH DAILY #1 inh 01/30/17 Amlodipine Besylate [Norvasc -] 5 mg PO DAILY #30 tablet 03/19/19 Losartan Potassium [Cozaar -] 25 mg PO DAILY #30 tab 03/19/19 Losartan Potassium [Cozaar -] 25 mg PO DAILY #30 tablet 03/19/19 Pantoprazole Sodium [Protonix -] 40 mg PO DAILY #30 tablet.ec 03/19/19 Pantoprazole Sodium [Protonix -] 40 mg PO DAILY #30 tablet.ec 03/19/19 Review of Systems - Review of Systems Constitutional: reports: No Symptoms Eyes: reports: No Symptoms HENT: reports: No Symptoms Neck: reports: No Symptoms Cardiovascular: reports: No Symptoms Respiratory: reports: No Symptoms Gastrointestinal: reports: Abdominal Pain, Diarrhea, Nausea, Vomiting Genitourinary: reports: No Symptoms Breasts: reports: No Symptoms Reported Musculoskeletal: reports: No Symptoms Integumentary: reports: No Symptoms Neurological: reports: No Symptoms Endocrine: reports: No Symptoms Hematology/Lymphatic: reports: No Symptoms Psychiatric: reports: No Symptoms Physical Exam-GI Vital Signs: Vital Signs Temperature 97.9 F 04/05/19 06:00 Pulse Rate 93 H 04/05/19 06:00 Respiratory Rate 18 04/05/19 06:00 Blood Pressure 138/75 04/05/19 06:00 O2 Sat by Pulse Oximetry (%) 99 04/04/19 20:49 Constitutional: Yes: No Distress, Calm Eyes: Yes: Conjunctiva Clear HENT: Yes: Atraumatic Cardiovascular: Yes: Regular Rate and Rhythm Respiratory: Yes: Regular, CTA Bilaterally Gastrointestinal Inspection: Yes: WNL. No: Ascites, Distention, Hernia, Scars, Other ...Auscultate: Yes: Normoactive Bowel Sounds. No: Hyperactive Bowel Sounds, Hypoactive Bowel Sounds, No Bowel Sounds, Other ...Palpate: Yes: Soft, Tenderness, Epigastium. No: Firm/Rigid, Guarding, Hepatomegaly, Mass, Pulsatile Mass, Splenomegaly, Tenderness, Tenderness, Rebound, Other ...Percussion: Yes: Tympanitic Neurological: Yes: Alert, Oriented Psychiatric: Yes: Alert, Oriented Labs: CBC, BMP 04/05/19 06:00 04/05/19 06:00 INR, PTT INR 0.99 (0.83-1.09) 04/05/19 06:00 Active Medications Generic Name Dose Route Start Last Admin Trade Name Freq PRN Reason Stop Dose Admin Albuterol Sulfate 1 amp 04/04/19 15:30 Ventolin 0.083% Nebulizer Soln - NEB Q4H PRN SHORT OF BREATH/WHEEZING Heparin Sodium (Porcine) 5,000 unit 04/04/19 22:00 04/04/19 22:12 Heparin - SQ Not Given BID NANCY Sodium Chloride 1,000 mls @ 75 mls/hr 04/04/19 15:45 04/04/19 16:36 Normal Saline - IV 75 mls/hr ASDIR NANCY Administration Montelukast Sodium 10 mg 04/04/19 22:00 04/04/19 22:00 Singulair - PO 10 mg HS NANCY Administration Morphine Sulfate 2 mg 04/04/19 15:32 Morphine Sulfate IVPUSH Q4H PRN PAIN LEVEL 4 - 6 Morphine Sulfate 4 mg 04/04/19 15:32 04/04/19 22:12 Morphine Sulfate IVPUSH 4 mg Q4H PRN Administration PAIN LEVEL 7 - 10 Ondansetron HCl 4 mg 04/04/19 15:31 Zofran Injection IVPUSH Q6H PRN NAUSEA Pantoprazole Sodium 40 mg 04/05/19 10:00 Protonix Iv IVPUSH DAILY NANCY Tiotropium [place] 2 puff 04/05/19 10:00 Spiriva Respimat IH DAILY NANCY Imaging - Results Cat Scan: Report Reviewed Problem List - Problems (1) SBO (small bowel obstruction) Assessment/Plan: Recurrent SBO IV hydration NPO Surgical Consult was placed and recommendations reviewed Serial FUA may need surgical intervention to release scar tissue Code(s): K56.609 - UNSP INTESTNL OBST, UNSP TO PARTIAL VERSUS COMPLETE OBST
--- NOTE | 2019-04-05 09:47 | PN ---
Progress Note, Physician - Current Medication List Current Medications: Active Medications Albuterol Sulfate (Ventolin 0.083% Nebulizer Soln -) 1 amp NEB Q4H PRN PRN Reason: SHORT OF BREATH/WHEEZING Heparin Sodium (Porcine) (Heparin -) 5,000 unit SQ BID [facility] Last Admin: 04/04/19 22:12 Dose: Not Given Sodium Chloride (Normal Saline -) 1,000 mls @ 75 mls/hr IV ASDIR [facility] Last Admin: 04/04/19 16:36 Dose: 75 mls/hr Montelukast Sodium (Singulair -) 10 mg PO HS [facility] Last Admin: 04/04/19 22:00 Dose: 10 mg Morphine Sulfate (Morphine Sulfate) 2 mg IVPUSH Q4H PRN PRN Reason: PAIN LEVEL 4 - 6 Morphine Sulfate (Morphine Sulfate) 4 mg IVPUSH Q4H PRN PRN Reason: PAIN LEVEL 7 - 10 Last Admin: 04/04/19 22:12 Dose: 4 mg Ondansetron HCl (Zofran Injection) 4 mg IVPUSH Q6H PRN PRN Reason: NAUSEA Pantoprazole Sodium (Protonix Iv) 40 mg IVPUSH DAILY [facility] Tiotropium [place] (Spiriva Respimat) 2 puff IH DAILY [facility] - Objective Vital Signs: Vital Signs Temperature 97.9 F 04/05/19 06:00 Pulse Rate 93 H 04/05/19 06:00 Respiratory Rate 18 04/05/19 06:00 Blood Pressure 138/75 04/05/19 06:00 O2 Sat by Pulse Oximetry (%) 99 04/04/19 20:49 Cardiovascular: Yes: Regular Rate and Rhythm Respiratory: Yes: Regular, CTA Bilaterally Gastrointestinal: Yes: Normal Bowel Sounds, Soft, Tenderness (MILD) Labs: CBC, BMP 04/05/19 06:00 04/05/19 06:00 INR, PTT INR 0.99 (0.83-1.09) 04/05/19 06:00 Assessment/Plan Problems (1) SBO (small bowel obstruction) Assessment/Plan: Surgery consult APPRECIATED--FUA GI consult Bariatric surgery in the past recent sbo 3-03/19/2019 NPO, IVF IV antiemetic IV pain control, caution with SBO ct abd/xray noted Code(s): K56.609 - UNSP INTESTNL OBST, UNSP TO PARTIAL VERSUS COMPLETE OBST (2) Asthma Assessment/Plan: cont home nebs Code(s): J45.909 - UNSPECIFIED ASTHMA, UNCOMPLICATED (3) GERD (gastroesophageal reflux disease) Assessment/Plan: change PPI to IV while npo Code(s): K21.9 - GASTRO-ESOPHAGEAL REFLUX DISEASE WITHOUT ESOPHAGITIS (4) HTN (hypertension) Assessment/Plan: hold home losartan/amlodipine while NPO monitor BP Code(s): I10 - ESSENTIAL (PRIMARY) HYPERTENSION
[2019-04-05] MEDS: HEPARIN NA (PORCINE) 5,000 UNITS/ML 1ML VIAL SQ SCH ×2 (10:41→21:13)
[2019-04-05] MEDS: PANTOPRAZOLE SODIUM 40 MG VIAL IVPUSH SCH (10:41)
[2019-04-05] MEDS: TIOTROPIUM BROMIDE 2.5 MCG (SPIRIVA) RESPIMAT INHALER IH SCH (11:36)
[2019-04-05] MEDS: SODIUM CHLORIDE 1,000 ML IV SCH ×2 (16:46→20:14)
--- NOTE | 2019-04-05 18:15 | PN ---
Progress Note (short form) - Note Progress Note: Afebrile; VSS Pt feels better Tolerating PO clear liquids States pain is less than previously States she is hungry No vomiting, nausea X1 episode + diarrhea (?? secondary to CT contrast) P/E- Abd- well-healed midline incision (from previous umbilical hernia repair with mesh) soft, tender on palpation in epigastrium (but less than previously) epigastric pain has been chronic no rebound, no guarding WBC-4.9 H/H-11.6/34.6 Abd x-ray- Decresed abdominal distention; contrast passed into colon Rec- Repeat FUA PO clears as tolerated If pt worsens or fails advancing diet, exploration may be warranted
[2019-04-05] MEDS: MONTELUKAST NA 10 MG TABLET PO SCH (21:13)
[2019-04-05] MEDS: LOSARTAN POTASSIUM 50 MG TABLET (FP) PO SCH (21:30)
[2019-04-06 07:07] LABS: HEMATOCRIT 34.3 % (32.4-45.2); HEMOGLOBIN 11.1 GM/dL (10.7-15.3); MCH 26.2 pg (25.7-33.7); MCHC 32.4 g/dl (32.0-36.0); MEAN CELL VOLUME 80.9 fl (80-96); MEAN PLT VOLUME 9.8 fl (7.5-11.1); PLATELET COUNT 184 K/MM3 (134-434); RBC 4.23 M/mm3 (3.60-5.2); RDW 15.2 % (11.6-15.6); WHITE BLOOD COUNT 4.7 K/mm3 (4.0-10.0)
[2019-04-06 07:42] LABS: ALBUMIN 2.7 g/dl (3.4-5.0); BILIRUBIN,TOTAL 0.7 mg/dL (0.2-1); BLOOD UREA NITROGEN 3.5 mg/dL (7-18); CALCIUM 7.9 mg/dL (8.5-10.1); CREATININE 0.5 mg/dL (0.55-1.3); MAGNESIUM 1.8 mg/dL (1.8-2.4); POTASSIUM 3.4 mmol/L (3.5-5.1); TOT PROT 5.9 g/dl (6.4-8.2)
--- NOTE | 2019-04-06 08:49 | PN.GI ---
GI Progress Note Subjective: Patient is tolerating clear liquid diet. She complains of nausea but denies vomiting. She says her abdominal pain is improving and she had 2 regular BM and is passing flatus. - Objective Vital Signs: Vital Signs Temperature 97.8 F 04/06/19 06:00 Pulse Rate 82 04/06/19 06:00 Respiratory Rate 18 04/06/19 06:00 Blood Pressure 152/89 04/06/19 06:00 O2 Sat by Pulse Oximetry (%) 98 04/05/19 21:00 Constitutional: No Distress, Calm Eyes: Yes: Conjunctiva Clear HENT: Yes: Atraumatic Cardiovascular: Yes: Regular Rate and Rhythm Respiratory: Yes: Regular, CTA Bilaterally Gastrointestinal Inspection: Yes: WNL. No: Ascites, Distention, Hernia, Scars, Other ...Auscultate: Yes: Normoactive Bowel Sounds. No: Hyperactive Bowel Sounds, Hypoactive Bowel Sounds, No Bowel Sounds, Other ...Palpate: Yes: Soft, Tenderness, Epigastium. No: Firm/Rigid, Guarding, Hepatomegaly, Mass, Pulsatile Mass, Splenomegaly, Tenderness, Tenderness, Rebound, Other ...Percussion: Yes: Tympanitic. No: Dullness, Fluid Wave, Other Neurological: Yes: Alert, Oriented Psychiatric: Yes: Alert, Oriented Labs: CBC, BMP 04/06/19 06:00 04/06/19 06:00 INR, PTT INR 0.99 (0.83-1.09) 04/05/19 06:00 Home Medication List Medication Instructions Recorded Confirmed Type Albuterol 0.083% Nebulizer Mary 1 neb NEB Q4H PRN 01/21/17 04/05/19 History [Ventolin 0.083% Nebulizer Soln -] Albuterol Sulfate Inhaler - 1 puff IH PRN PRN 01/21/17 04/05/19 History [Ventolin HFA Inhaler -] Fluticasone Propionate [Flovent 250 mcg IH DAILY 01/21/17 04/05/19 History Diskus] Losartan Potassium [Cozaar -] 50 mg PO DAILY 04/05/19 04/05/19 History Active Medications Generic Name Dose Route Start Last Admin Trade Name Freq PRN Reason Stop Dose Admin Albuterol Sulfate 1 amp 04/04/19 15:30 Ventolin 0.083% Nebulizer Soln - NEB Q4H PRN SHORT OF BREATH/WHEEZING Heparin Sodium (Porcine) 5,000 unit 04/04/19 22:00 04/05/19 21:13 Heparin - SQ Not Given BID NANCY Sodium Chloride 1,000 mls @ 30 mls/hr 04/05/19 20:15 04/05/19 20:14 Normal Saline - IV 30 mls/hr ASDIR NANCY Administration Losartan Potassium 50 mg 04/05/19 21:30 04/05/19 21:30 Cozaar - PO 50 mg DAILY NANCY Administration Montelukast Sodium 10 mg 04/04/19 22:00 04/05/19 21:13 Singulair - PO 10 mg HS NANCY Administration Morphine Sulfate 2 mg 04/04/19 15:32 04/06/19 00:04 Morphine Sulfate IVPUSH 2 mg Q4H PRN Administration PAIN LEVEL 4 - 6 Morphine Sulfate 4 mg 04/04/19 15:32 04/04/19 22:12 Morphine Sulfate IVPUSH 4 mg Q4H PRN Administration PAIN LEVEL 7 - 10 Ondansetron HCl 4 mg 04/04/19 15:31 04/05/19 16:47 Zofran Injection IVPUSH 4 mg Q6H PRN Administration NAUSEA Pantoprazole Sodium 40 mg 04/05/19 10:00 04/05/19 10:41 Protonix Iv IVPUSH 40 mg DAILY NANCY Administration Tiotropium [place] 2 puff 04/05/19 10:00 04/05/19 11:36 Spiriva Respimat IH 2 puff DAILY NANCY Administration Problem List - Problems (1) SBO (small bowel obstruction) Assessment/Plan: Recurrent SBO IV hydration clear liquid diet Surgical Consult was placed and recommendations reviewed Serial FUA FUA from 04/05/19 shows minimalair distention of small bowel, this indicates the partial SBO is undergoing element of resolution may need surgical intervention to release scar tissue Code(s): K56.609 - UNSP INTESTNL OBST, UNSP TO PARTIAL VERSUS COMPLETE OBST
[2019-04-06] MEDS: HEPARIN NA (PORCINE) 5,000 UNITS/ML 1ML VIAL SQ SCH ×2 (10:45→22:02)
--- NOTE | 2019-04-06 10:55 | PN ---
Progress Note, Physician Chief Complaint: Recurrent SBO History of Present Illness: NAD sitting in chair denies any N/V/D or abd pain tolerating clear liquids - Current Medication List Current Medications: Active Medications Albuterol Sulfate (Ventolin 0.083% Nebulizer Soln -) 1 amp NEB Q4H PRN PRN Reason: SHORT OF BREATH/WHEEZING Heparin Sodium (Porcine) (Heparin -) 5,000 unit SQ BID [facility] Last Admin: 04/05/19 21:13 Dose: Not Given Sodium Chloride (Normal Saline -) 1,000 mls @ 30 mls/hr IV ASDIR [facility] Last Admin: 04/05/19 20:14 Dose: 30 mls/hr Losartan Potassium (Cozaar -) 50 mg PO DAILY [facility] Last Admin: 04/05/19 21:30 Dose: 50 mg Montelukast Sodium (Singulair -) 10 mg PO HS [facility] Last Admin: 04/05/19 21:13 Dose: 10 mg Morphine Sulfate (Morphine Sulfate) 2 mg IVPUSH Q4H PRN PRN Reason: PAIN LEVEL 4 - 6 Last Admin: 04/06/19 00:04 Dose: 2 mg Morphine Sulfate (Morphine Sulfate) 4 mg IVPUSH Q4H PRN PRN Reason: PAIN LEVEL 7 - 10 Last Admin: 04/04/19 22:12 Dose: 4 mg Ondansetron HCl (Zofran Injection) 4 mg IVPUSH Q6H PRN PRN Reason: NAUSEA Last Admin: 04/05/19 16:47 Dose: 4 mg Pantoprazole Sodium (Protonix Iv) 40 mg IVPUSH DAILY [facility] Last Admin: 04/05/19 10:41 Dose: 40 mg Tiotropium [place] (Spiriva Respimat) 2 puff IH DAILY [facility] Last Admin: 04/05/19 11:36 Dose: 2 puff - Objective Vital Signs: Vital Signs Temperature 97.8 F 04/06/19 06:00 Pulse Rate 82 04/06/19 06:00 Respiratory Rate 18 04/06/19 06:00 Blood Pressure 152/89 04/06/19 06:00 O2 Sat by Pulse Oximetry (%) 98 04/05/19 21:00 Constitutional: Yes: Well Nourished, No Distress, Calm Cardiovascular: Yes: Regular Rate and Rhythm Respiratory: Yes: Regular, CTA Bilaterally Gastrointestinal: Yes: Normal Bowel Sounds, Soft, Abdomen, Obese Genitourinary: Yes: WNL Musculoskeletal: Yes: WNL Extremities: Yes: WNL Edema: No Peripheral Pulses WNL: Yes Integumentary: Yes: WNL Neurological: Yes: Alert, Oriented Psychiatric: Yes: Alert, Oriented Labs: CBC, BMP 04/06/19 06:00 04/06/19 06:00 INR, PTT INR 0.99 (0.83-1.09) 04/05/19 06:00 Problem List - Problems (1) SBO (small bowel obstruction) Assessment/Plan: -Recurrent SBO -D/C IVF, encouraged pO fluids -Tolerating clear liquids, advance to soft diet -AXR this am showed diminished distention and contrast in colon without any SBO -Surgery on board -Encouraged ambulation Problems reviewed: Yes Code(s): K56.609 - UNSP INTESTNL OBST, UNSP TO PARTIAL VERSUS COMPLETE OBST (2) Abdominal pain Assessment/Plan: resolved Problems reviewed: Yes Code(s): R10.9 - UNSPECIFIED ABDOMINAL PAIN Qualifiers: Abdominal location: epigastric Qualified Code(s): R10.13 - Epigastric pain Assessment/Plan see problem list If tolerating PO intake, can be discharged in AM if surgery agrees.
[2019-04-06] MEDS: LOSARTAN POTASSIUM 50 MG TABLET (FP) PO SCH (11:00)
[2019-04-06] MEDS: PANTOPRAZOLE SODIUM 40 MG VIAL IVPUSH SCH (11:13)
[2019-04-06] MEDS: TIOTROPIUM BROMIDE 2.5 MCG (SPIRIVA) RESPIMAT INHALER IH SCH (11:14)
[2019-04-06 16:52] VITALS: BMI 35.9
[2019-04-06] MEDS: SODIUM CHLORIDE 1,000 ML IV SCH (21:50)
[2019-04-06] MEDS: MONTELUKAST NA 10 MG TABLET PO SCH (21:50)
--- NOTE | 2019-04-07 08:27 | DS ---
Physical Examination Vital Signs: Vital Signs Temperature 97.5 F L 04/07/19 06:00 Pulse Rate 84 04/07/19 06:00 Respiratory Rate 18 04/07/19 06:00 Blood Pressure 142/80 04/07/19 06:00 O2 Sat by Pulse Oximetry (%) 99 04/06/19 21:00 Cardiovascular: Yes: Regular Rate and Rhythm Respiratory: Yes: Regular, CTA Bilaterally Gastrointestinal: Yes: Normal Bowel Sounds, Soft. No: Tenderness Labs: CBC, BMP 04/06/19 06:00 04/06/19 06:00 Discharge Summary Problems reviewed: Yes Reason For Visit: PARTIAL SMALL BOWEL OBSTRUCTION Current Active Problems SBO (small bowel obstruction) (Acute) Hospital Course: Problems (1) SBO (small bowel obstruction) Assessment/Plan: -Resolved -Recurrent SBO -D/C IVF, encouraged pO fluids -Tolerating clear liquids, advance to soft diet -AXR this am showed diminished distention and contrast in colon without any SBO -Surgery on board -Encouraged ambulation Problems reviewed: Yes Code(s): K56.609 - UNSP INTESTNL OBST, UNSP TO PARTIAL VERSUS COMPLETE OBST (2) Abdominal pain Assessment/Plan: resolved Problems reviewed: Yes Code(s): R10.9 - UNSPECIFIED ABDOMINAL PAIN Qualifiers: Abdominal location: epigastric Qualified Code(s): R10.13 - Epigastric pain Condition: Stable - Instructions Referrals: Mansoor Marques MD [Primary Care Provider] - 1 Week - Home Medications Comprehensive Discharge Medication List: Ambulatory Orders Albuterol 0.083% Nebulizer Mary [Ventolin 0.083% Nebulizer Soln -] 1 neb NEB Q4H PRN 01/21/17 Albuterol Sulfate Inhaler - [Ventolin HFA Inhaler -] 1 puff IH PRN PRN 01/21/17 Fluticasone Propionate [Flovent Diskus] 250 mcg IH DAILY 01/21/17 Acetaminophen [Tylenol .Regular Strength -] 650 mg PO Q6H PRN tablet 01/30/17 Fluticasone Prop 0.05% Nasal [Flonase -] 2 spray NS DAILY #1 spray 01/30/17 Loratadine [Claritin -] 10 mg PO DAILY #30 tablet 01/30/17 Montelukast Na [Singulair -] 10 mg PO HS #30 tablet 01/30/17 Ondansetron [Zofran *Odt*] 8 mg SL Q6H PRN #30 tab.rapdis MDD 4 01/30/17 Sodium Chloride Nasal [place] [[place] Nasal [place] -] 2 spray NS TID PRN #1 spray 01/30/17 Tiotropium [place] [Spiriva] 1 puff IH DAILY #1 inh 01/30/17 Pantoprazole Sodium [Protonix -] 40 mg PO DAILY #30 tablet.ec 03/19/19 Pantoprazole Sodium [Protonix -] 40 mg PO DAILY #30 tablet.ec 03/19/19 Losartan Potassium [Cozaar -] 50 mg PO DAILY 04/05/19
--- NOTE | 2019-04-07 08:32 | PN.GI ---
GI Progress Note Subjective: Patient denies nausea, vomiting, diarrhea, constipation, rectal bleeding, melena , abdominal pain. She is tolerating her diet. - Objective Vital Signs: Vital Signs Temperature 97.5 F L 04/07/19 06:00 Pulse Rate 84 04/07/19 06:00 Respiratory Rate 18 04/07/19 06:00 Blood Pressure 142/80 04/07/19 06:00 O2 Sat by Pulse Oximetry (%) 99 04/06/19 21:00 Constitutional: No Distress, Calm Eyes: Yes: Conjunctiva Clear HENT: Yes: Atraumatic Cardiovascular: Yes: Regular Rate and Rhythm Respiratory: Yes: Regular, CTA Bilaterally Gastrointestinal Inspection: Yes: WNL. No: Ascites, Distention, Hernia, Scars, Other ...Auscultate: Yes: Normoactive Bowel Sounds. No: Hyperactive Bowel Sounds, Hypoactive Bowel Sounds, No Bowel Sounds, Other ...Palpate: Yes: Soft. No: Firm/Rigid, Guarding, Hepatomegaly, Mass, Pulsatile Mass, Splenomegaly, Tenderness, Tenderness, Epigastium, Tenderness, Rebound, Other ...Percussion: Yes: Tympanitic. No: Dullness, Fluid Wave, Other Neurological: Yes: Alert, Oriented Psychiatric: Yes: Alert, Oriented Labs: CBC, BMP 04/06/19 06:00 04/06/19 06:00 INR, PTT INR 0.99 (0.83-1.09) 04/05/19 06:00 Active Medications Generic Name Dose Route Start Last Admin Trade Name Freq PRN Reason Stop Dose Admin Albuterol Sulfate 1 amp 04/04/19 15:30 Ventolin 0.083% Nebulizer Soln - NEB Q4H PRN SHORT OF BREATH/WHEEZING Heparin Sodium (Porcine) 5,000 unit 04/04/19 22:00 04/06/19 22:02 Heparin - SQ Not Given BID NANCY Sodium Chloride 1,000 mls @ 30 mls/hr 04/05/19 20:15 04/06/19 21:50 Normal Saline - IV Not Given ASDIR NANCY Losartan Potassium 50 mg 04/05/19 21:30 04/06/19 11:00 Cozaar - PO 50 mg DAILY NANCY Administration Montelukast Sodium 10 mg 04/04/19 22:00 04/06/19 21:50 Singulair - PO 10 mg HS NANCY Administration Morphine Sulfate 2 mg 04/04/19 15:32 04/06/19 00:04 Morphine Sulfate IVPUSH 2 mg Q4H PRN Administration PAIN LEVEL 4 - 6 Morphine Sulfate 4 mg 04/04/19 15:32 04/04/19 22:12 Morphine Sulfate IVPUSH 4 mg Q4H PRN Administration PAIN LEVEL 7 - 10 Ondansetron HCl 4 mg 04/04/19 15:31 04/05/19 16:47 Zofran Injection IVPUSH 4 mg Q6H PRN Administration NAUSEA Pantoprazole Sodium 40 mg 04/05/19 10:00 04/06/19 11:13 Protonix Iv IVPUSH 40 mg DAILY NANCY Administration Tiotropium [place] 2 puff 04/05/19 10:00 04/06/19 11:14 Spiriva Respimat IH 2 puff DAILY NANCY Administration Problem List - Problems (1) SBO (small bowel obstruction) Assessment/Plan: Recurrent SBO tolerating diet Surgical Consult was placed and recommendations reviewed Serial FUA FUA from 04/05/19 shows minimalair distention of small bowel, this indicates the partial SBO is undergoing element of resolution may need surgical intervention to release scar tissue repeat FUA on 04/05 shows abdominal distention has diminished and colonic contrast has diminished, no sign of gross obstruction at this time Code(s): K56.609 - UNSP INTESTNL OBST, UNSP TO PARTIAL VERSUS COMPLETE OBST
[2019-04-07 09:40] LABS: BLOOD UREA NITROGEN 4.4 mg/dL (7-18); CALCIUM 9.2 mg/dL (8.5-10.1); CREATININE 0.6 mg/dL (0.55-1.3); MAGNESIUM 1.9 mg/dL (1.8-2.4); POTASSIUM 3.6 mmol/L (3.5-5.1)
[2019-04-07] MEDS: LOSARTAN POTASSIUM 50 MG TABLET (FP) PO SCH (10:26)
[2019-04-07] MEDS: PANTOPRAZOLE SODIUM 40 MG VIAL IVPUSH SCH (10:27)
[2019-04-07] MEDS: HEPARIN NA (PORCINE) 5,000 UNITS/ML 1ML VIAL SQ SCH (10:27)
[2019-04-07] MEDS: TIOTROPIUM BROMIDE 2.5 MCG (SPIRIVA) RESPIMAT INHALER IH SCH (12:22)
[2019-04-07 13:43] VITALS: BP 159/106; PULSE 81; TEMP 98
== END 2019-04-07 14:11 | disposition home or self-care (01) | DRG 390 ==
LOC: JER 02:01 → JERBED 07:33 → J7W 04-05 19:53
PROVIDERS: ADMIT Family Medicine; ATTEND Family Medicine
DX: K56.609 Unspecified intestinal obstruction, unspecified as to partial versus complete obstruction (principal); J45.909 Unspecified asthma, uncomplicated; K21.9 Gastro-esophageal reflux disease without esophagitis; I10 Essential (primary) hypertension; E66.9 Obesity, unspecified; Z68.36 Body mass index [BMI] 36.0-36.9, adult
CPT/HCPCS: 36415; 71045-TC-FY; 74019-TC-FY; 74177-TC; 80048; 80053; 82550; 83605; 83690; 83735; 84100; 84484; 85025; 85027; 85610; 93005; 93010; 99285-25; J0131; J1644; J7030; Q9967

== ENCOUNTER 2020-01-11 08:26 | Emergency (ER) | payer OTHER ==
[2020-01-11 08:44] VITALS: BP 147/90; PULSE 91; TEMP 98.7; BMI 32.8
== END 2020-01-11 08:55 | disposition home or self-care (01) ==
LOC: JER 08:26
DX: H10.31 Unspecified acute conjunctivitis, right eye (principal)
CPT/HCPCS: 99283-25

== ENCOUNTER 2020-03-21 23:03 | Inpatient (IN) | payer OTHER ==
[2020-03-21] MEDS ORDERED: morphine CARPU-JECT 4 MG/1 ML DISP.SYRIN IVPUSH ONE (23:54)
[2020-03-21] MEDS ORDERED: ONDANSETRON 4 MG/2 ML VIAL IVPUSH ONE (23:54)
[2020-03-21] MEDS ORDERED: morphine SULFATE 4 MG/ML VIAL ONE (23:58)
[2020-03-21] MEDS ORDERED: ONDANSETRON 4 MG/2 ML VIAL ONE (23:58)
[2020-03-22] MEDS ORDERED: SODIUM CHLORIDE 1,000 ML IV STA
[2020-03-22 00:42] LABS: BASO % 0.7 % (0-2.0); EOS % 0.8 % (0-4.5); HEMATOCRIT 42.7 % (32.4-45.2); HEMOGLOBIN 13.7 GM/dL (10.7-15.3); LYMPH % 13.6 % (8-40); MCH 27.1 pg (25.7-33.7); MCHC 32.1 g/dl (32.0-36.0); MEAN CELL VOLUME 84.6 fl (80-96); MEAN PLT VOLUME 9.7 fl (7.5-11.1); MONO % 8.6 % (3.8-10.2); NEUT % 76.3 % (42.8-82.8); PLATELET COUNT 228 K/MM3 (134-434); RBC 5.05 M/mm3 (3.60-5.2); RDW 15.7 % (11.6-15.6); WHITE BLOOD COUNT 6.7 K/mm3 (4.0-10.0)
[2020-03-22 01:08] LABS: POTASSIUM 3.6 mmol/L (3.5-5.1)
[2020-03-22 01:10] LABS: CALCIUM 9.5 mg/dL (8.5-10.1)
[2020-03-22 01:11] LABS: ALBUMIN 3.9 g/dl (3.4-5.0); BLOOD UREA NITROGEN 8.4 mg/dL (7-18)
[2020-03-22 01:14] LABS: CREATININE 0.6 mg/dL (0.55-1.3)
[2020-03-22 01:15] LABS: BILIRUBIN,TOTAL 0.5 mg/dL (0.2-1); TOT PROT 8.8 g/dl (6.4-8.2)
[2020-03-22] MEDS ORDERED: morphine CARPU-JECT 4 MG/1 ML DISP.SYRIN IVPUSH ONE (02:32)
[2020-03-22] MEDS ORDERED: morphine SULFATE 4 MG/ML VIAL ONE ×2 (02:33→07:24)
[2020-03-22] MEDS ORDERED: morphine SULFATE 4 MG/ML VIAL IVPUSH PRN (04:53)
[2020-03-22] MEDS ORDERED: ACETAMINOPHEN 1000 MG/100 ML VIAL (NON FORMULARY) IVPB PRN (04:53)
[2020-03-22] MEDS ORDERED: SODIUM CHLORIDE 1,000 ML IV SCH ×2 (05:00→11:45)
[2020-03-22] MEDS ORDERED: ALBUTEROL SO4 HFA INHALER IH PRN (05:04)
[2020-03-22] MEDS ORDERED: ACETAMINOPHEN INJECTION 100 ML IVPB ONE (05:05)
[2020-03-22] MEDS ORDERED: ONDANSETRON 4 MG/2 ML VIAL ONE (05:12)
[2020-03-22] MEDS: ONDANSETRON 4 MG/2 ML VIAL IVPUSH PRN (05:20)
[2020-03-22] MEDS ORDERED: SUCCINYLCHOLINE CHLORIDE 200 MG/10 ML SYRINGE ONE (07:30)
[2020-03-22] MEDS ORDERED: fentaNYL CITRATE 250 MCG/5 ML VIAL ONE (07:30)
[2020-03-22] MEDS ORDERED: PROPOFOL 20 ML ONE (07:30)
[2020-03-22] MEDS ORDERED: ROCURONIUM BROMIDE 50 MG/5 ML SYRINGE ONE (07:31)
[2020-03-22] MEDS ORDERED: EPHEDRINE SULFATE/0.9% NACL/PF 50 MG/10 ML SYRINGE NR ONE (07:31)
[2020-03-22] MEDS ORDERED: MIDAZOLAM HCL 2 MG/2 ML SINGLE DOSE VIAL ONE (07:31)
[2020-03-22] MEDS ORDERED: KETAMINE HCL 200 MG/20 ML VIAL ONE (08:03)
[2020-03-22 08:23] LABS: BASO % 0.6 % (0-2.0); EOS % 0.4 % (0-4.5); HEMATOCRIT 43.3 % (32.4-45.2); MCH 27.2 pg (25.7-33.7); MCHC 32.3 g/dl (32.0-36.0); MEAN CELL VOLUME 84.2 fl (80-96); MEAN PLT VOLUME 10.1 fl (7.5-11.1); MONO % 9.5 % (3.8-10.2); NEUT % 72.5 % (42.8-82.8); PLATELET COUNT 240 K/MM3 (134-434); RBC 5.14 M/mm3 (3.60-5.2); RDW 15.6 % (11.6-15.6); WHITE BLOOD COUNT 7.6 K/mm3 (4.0-10.0)
[2020-03-22] MEDS ORDERED: ceFAZolin 2 GRAM PREMIX BAG IVPB ONE (08:25)
[2020-03-22 08:37] LABS: POTASSIUM 3.9 mmol/L (3.5-5.1)
[2020-03-22 08:39] LABS: BLOOD UREA NITROGEN 6.6 mg/dL (7-18); CALCIUM 9.6 mg/dL (8.5-10.1)
[2020-03-22 08:40] LABS: ALBUMIN 3.9 g/dl (3.4-5.0); MAGNESIUM 1.9 mg/dL (1.8-2.4)
[2020-03-22 08:43] LABS: CREATININE 0.6 mg/dL (0.55-1.3); PHOSPHOROUS 3.8 mg/dL (2.5-4.9)
[2020-03-22 08:44] LABS: BILIRUBIN,TOTAL 0.7 mg/dL (0.2-1)
[2020-03-22 08:45] LABS: TOT PROT 8.6 g/dl (6.4-8.2)
[2020-03-22] MEDS ORDERED: HYDROmorphone HCl 2 MG/ML VIAL ONE (08:59)
[2020-03-22] MEDS ORDERED: ENOXAPARIN NA (PORCINE) 40 MG/0.4 ML DISP.SYRIN SQ SCH (10:00)
[2020-03-22] MEDS ORDERED: GLYCOPYRROLATE 0.2 MG/1 ML VIAL ONE (10:45)
[2020-03-22] MEDS ORDERED: DEXAMETHASONE SOD PHOSPHATE 4 MG/1 ML VIAL ONE (10:45)
[2020-03-22] MEDS ORDERED: NEOSTIGMINE METHYLSULFATE 0.5 MG/ML - 10 ML MDV ONE (10:45)
[2020-03-22] MEDS ORDERED: ceFAZolin SODIUM 1 GM VIAL ONE (10:45)
[2020-03-22] MEDS ORDERED: ONDANSETRON 4 MG/2 ML VIAL IVPUSH PRN (12:20)
[2020-03-22] MEDS ORDERED: HYDROmorphone *PCA* 6MG/30ML DISP.SYRIN PCA SCH ×2 (12:30→12:45)
[2020-03-22] MEDS: HYDROmorphone *PCA* 10MG/50ML DISP.SYRIN PCA SCH (12:51)
[2020-03-22] MEDS ORDERED: HYDROmorphone *PCA* 10MG/50ML DISP.SYRIN ONE (13:04)
[2020-03-22] MEDS ORDERED: HYDROmorphone *PCA* 10MG/50ML DISP.SYRIN PCA ONE (13:15)
[2020-03-22 13:58] LABS: HEMATOCRIT 40.7 % (32.4-45.2); MCH 27.2 pg (25.7-33.7); MEAN CELL VOLUME 85.1 fl (80-96); PLATELET COUNT 224 K/MM3 (134-434); RBC 4.79 M/mm3 (3.60-5.2); RDW 15.6 % (11.6-15.6); WHITE BLOOD COUNT 11.4 K/mm3 (4.0-10.0)
[2020-03-22 14:26] LABS: POTASSIUM 3.8 mmol/L (3.5-5.1)
[2020-03-22 14:28] LABS: CALCIUM 8.6 mg/dL (8.5-10.1)
[2020-03-22 14:29] LABS: ALBUMIN 3.2 g/dl (3.4-5.0); BLOOD UREA NITROGEN 7.6 mg/dL (7-18)
[2020-03-22 14:32] LABS: CREATININE 0.6 mg/dL (0.55-1.3)
[2020-03-22 14:33] LABS: BILIRUBIN,TOTAL 0.6 mg/dL (0.2-1)
[2020-03-22] MEDS ORDERED: SODIUM CHLORIDE 500 ML IV STA ×2 (14:33→16:08)
[2020-03-22 14:34] LABS: TOT PROT 7.2 g/dl (6.4-8.2)
[2020-03-22] MEDS ORDERED: PIPERACILLIN/TAZOBACTAM 3.375 GM VIAL IVPB ONE (17:25)
[2020-03-22] MEDS ORDERED: DEXTROSE 5%-WATER - 50 ML IVPB ONE (17:26)
[2020-03-22] MEDS: PIPERACILLIN/TAZOB 3.375 GM 3.375 GM in DEXTROSE 5%-WATER - 50 ML IVPB SCH (17:55)
[2020-03-22] MEDS ORDERED: PCA PUMP NR ONE (19:27)
[2020-03-22] MEDS: FAMOTIDINE 20 MG/50 ML IVPB 20 MG/50 ML MG IVPB SCH (22:55)
[2020-03-23 01:08] VITALS: BMI 31.8
[2020-03-23] MEDS ORDERED: DEXTROSE 5%-WATER - 50 ML IVPB ONE ×3 (01:57→17:45)
[2020-03-23] MEDS ORDERED: PIPERACILLIN/TAZOBACTAM 3.375 GM VIAL IVPB ONE ×3 (01:57→17:44)
[2020-03-23] MEDS: PIPERACILLIN/TAZOB 3.375 GM 3.375 GM in DEXTROSE 5%-WATER - 50 ML IVPB SCH ×3 (02:38→17:53)
[2020-03-23 08:57] LABS: HEMATOCRIT 35.9 % (32.4-45.2); HEMOGLOBIN 11.5 GM/dL (10.7-15.3); MCH 27.5 pg (25.7-33.7); MCHC 32.1 g/dl (32.0-36.0); MEAN CELL VOLUME 85.8 fl (80-96); PLATELET COUNT 186 K/MM3 (134-434); RBC 4.18 M/mm3 (3.60-5.2); RDW 15.9 % (11.6-15.6); WHITE BLOOD COUNT 13.8 K/mm3 (4.0-10.0)
[2020-03-23 09:20] LABS: POTASSIUM 3.8 mmol/L (3.5-5.1)
[2020-03-23 09:32] LABS: CALCIUM 8.2 mg/dL (8.5-10.1)
[2020-03-23 09:33] LABS: ALBUMIN 2.7 g/dl (3.4-5.0); BLOOD UREA NITROGEN 9.5 mg/dL (7-18)
[2020-03-23 09:36] LABS: CREATININE 0.6 mg/dL (0.55-1.3)
[2020-03-23 09:38] LABS: BILIRUBIN,TOTAL 0.8 mg/dL (0.2-1); TOT PROT 6.4 g/dl (6.4-8.2)
[2020-03-23] MEDS ORDERED: PIPERACILLIN/TAZOB 3.375 GM 3.375 GM in DEXTROSE 5%-WATER - 50 ML IVPB SCH (10:00)
[2020-03-23] MEDS: LACTATED RINGERS SOLUTION 1,000 ML IV SCH ×3 (11:20→14:13)
[2020-03-23] MEDS: FAMOTIDINE 20 MG/50 ML IVPB 20 MG/50 ML MG IVPB SCH ×2 (11:20→21:34)
[2020-03-23] MEDS ORDERED: TETRACAINE/BENZOCAINE/BUTAMBEN 20 GM SPR TP PRN (12:39)
[2020-03-23] MEDS: HYDROmorphone *PCA* 10MG/50ML DISP.SYRIN PCA SCH (14:14)
[2020-03-23] MEDS: BENZOCAINE/MENTH/CETYLPYRD CL 1 EACH LOZENGE MM PRN (17:54)
[2020-03-24] MEDS ORDERED: DEXTROSE 5%-WATER - 50 ML IVPB ONE ×3 (02:03→17:58)
[2020-03-24] MEDS ORDERED: PIPERACILLIN/TAZOBACTAM 3.375 GM VIAL IVPB ONE ×3 (02:03→17:58)
[2020-03-24] MEDS: PIPERACILLIN/TAZOB 3.375 GM 3.375 GM in DEXTROSE 5%-WATER - 50 ML IVPB SCH ×3 (02:05→18:04)
[2020-03-24] MEDS: BENZOCAINE/MENTH/CETYLPYRD CL 1 EACH LOZENGE MM PRN (02:05)
[2020-03-24] MEDS: LACTATED RINGERS SOLUTION 1,000 ML IV SCH ×2 (06:21→21:17)
[2020-03-24 10:07] LABS: BASO % 0.2 % (0-2.0); EOS % 0.7 % (0-4.5); HEMATOCRIT 33.6 % (32.4-45.2); LYMPH % 8.7 % (8-40); MCH 27.7 pg (25.7-33.7); MCHC 32.6 g/dl (32.0-36.0); MEAN CELL VOLUME 84.8 fl (80-96); MEAN PLT VOLUME 10.4 fl (7.5-11.1); MONO % 11.3 % (3.8-10.2); NEUT % 79.1 % (42.8-82.8); PLATELET COUNT 179 K/MM3 (134-434); RBC 3.96 M/mm3 (3.60-5.2); RDW 15.4 % (11.6-15.6); WHITE BLOOD COUNT 12.3 K/mm3 (4.0-10.0)
[2020-03-24 10:40] LABS: CALCIUM 8.6 mg/dL (8.5-10.1)
[2020-03-24 10:41] LABS: ALBUMIN 2.4 g/dl (3.4-5.0)
[2020-03-24 10:43] LABS: CREATININE 0.5 mg/dL (0.55-1.3)
[2020-03-24 10:45] LABS: BILIRUBIN,TOTAL 1.1 mg/dL (0.2-1)
[2020-03-24 10:59] LABS: POTASSIUM 3.7 mmol/L (3.5-5.1)
[2020-03-24] MEDS: FAMOTIDINE 20 MG/50 ML IVPB 20 MG/50 ML MG IVPB SCH ×2 (12:09→21:33)
[2020-03-24] MEDS: ONDANSETRON 4 MG/2 ML VIAL IVPUSH PRN (17:20)
[2020-03-25] MEDS: PIPERACILLIN/TAZOB 3.375 GM 3.375 GM in DEXTROSE 5%-WATER - 50 ML IVPB SCH ×3 (02:05→19:34)
[2020-03-25] MEDS ORDERED: PIPERACILLIN/TAZOBACTAM 3.375 GM VIAL IVPB ONE ×2 (09:17→19:29)
[2020-03-25] MEDS ORDERED: DEXTROSE 5%-WATER - 50 ML IVPB ONE ×2 (09:18→19:30)
[2020-03-25] MEDS: FAMOTIDINE 20 MG/50 ML IVPB 20 MG/50 ML MG IVPB SCH ×2 (09:34→22:52)
[2020-03-25 09:55] LABS: BASO % 0.2 % (0-2.0); EOS % 1.3 % (0-4.5); HEMOGLOBIN 11.4 GM/dL (10.7-15.3); LYMPH % 6.9 % (8-40); MCH 27.4 pg (25.7-33.7); MCHC 32.6 g/dl (32.0-36.0); MEAN CELL VOLUME 84.2 fl (80-96); MEAN PLT VOLUME 9.8 fl (7.5-11.1); MONO % 9.2 % (3.8-10.2); NEUT % 82.4 % (42.8-82.8); PLATELET COUNT 236 K/MM3 (134-434); RBC 4.15 M/mm3 (3.60-5.2); WHITE BLOOD COUNT 12.5 K/mm3 (4.0-10.0)
[2020-03-25 10:23] LABS: POTASSIUM 3.4 mmol/L (3.5-5.1)
[2020-03-25 10:31] LABS: ALBUMIN 2.5 g/dl (3.4-5.0); CALCIUM 8.5 mg/dL (8.5-10.1)
[2020-03-25 10:34] LABS: CREATININE 0.4 mg/dL (0.55-1.3)
[2020-03-25 10:36] LABS: TOT PROT 6.6 g/dl (6.4-8.2)
[2020-03-25 10:41] LABS: BLOOD UREA NITROGEN 4.4 mg/dL (7-18)
[2020-03-25 10:42] LABS: BILIRUBIN,TOTAL 0.8 mg/dL (0.2-1)
[2020-03-25] MEDS: HYDROmorphone *PCA* 10MG/50ML DISP.SYRIN PCA SCH (12:55)
[2020-03-25] MEDS: LACTATED RINGERS SOLUTION 1,000 ML IV SCH (14:38)
[2020-03-26] MEDS ORDERED: PIPERACILLIN/TAZOBACTAM 3.375 GM VIAL IVPB ONE ×2 (07:04→17:02)
[2020-03-26] MEDS: PIPERACILLIN/TAZOB 3.375 GM 3.375 GM in DEXTROSE 5%-WATER - 50 ML IVPB SCH ×3 (07:07→17:19)
[2020-03-26] MEDS: HYDROmorphone *PCA* 10MG/50ML DISP.SYRIN PCA SCH ×2 (08:00→18:41)
[2020-03-26] MEDS: FAMOTIDINE 20 MG/50 ML IVPB 20 MG/50 ML MG IVPB SCH ×2 (09:57→21:36)
[2020-03-26] MEDS ORDERED: ACETAMINOPHEN 325 MG TABLET (FP) PO PRN (09:58)
[2020-03-26 10:45] LABS: BASO % 0.4 % (0-2.0); EOS % 5.2 % (0-4.5); HEMATOCRIT 39.6 % (32.4-45.2); HEMOGLOBIN 12.9 GM/dL (10.7-15.3); LYMPH % 13.3 % (8-40); MCH 27.4 pg (25.7-33.7); MCHC 32.6 g/dl (32.0-36.0); MEAN PLT VOLUME 9.8 fl (7.5-11.1); MONO % 11.7 % (3.8-10.2); NEUT % 69.4 % (42.8-82.8); PLATELET COUNT 191 K/MM3 (134-434); RBC 4.71 M/mm3 (3.60-5.2); RDW 15.7 % (11.6-15.6); WHITE BLOOD COUNT 6.8 K/mm3 (4.0-10.0)
[2020-03-26 10:52] LABS: POTASSIUM 4.3 mmol/L (3.5-5.1)
[2020-03-26 10:56] LABS: ALBUMIN 2.5 g/dl (3.4-5.0); BLOOD UREA NITROGEN 4.8 mg/dL (7-18); CALCIUM 8.9 mg/dL (8.5-10.1)
[2020-03-26 11:00] LABS: CREATININE 0.5 mg/dL (0.55-1.3)
[2020-03-26 11:01] LABS: BILIRUBIN,TOTAL 0.5 mg/dL (0.2-1); TOT PROT 6.7 g/dl (6.4-8.2)
[2020-03-26] MEDS: LOSARTAN POTASSIUM 50 MG TABLET PO SCH (11:59)
[2020-03-26] MEDS ORDERED: DEXTROSE 5%-WATER - 50 ML IVPB ONE (17:02)
[2020-03-27] MEDS: oxyCODONE HCL 5 MG TABLET PO PRN ×3 (00:03→12:55)
[2020-03-27] MEDS ORDERED: PIPERACILLIN/TAZOBACTAM 3.375 GM VIAL IVPB ONE ×3 (01:19→17:31)
[2020-03-27] MEDS ORDERED: DEXTROSE 5%-WATER - 50 ML IVPB ONE ×3 (01:20→17:31)
[2020-03-27] MEDS: PIPERACILLIN/TAZOB 3.375 GM 3.375 GM in DEXTROSE 5%-WATER - 50 ML IVPB SCH ×3 (02:17→17:34)
[2020-03-27 08:44] LABS: HEMATOCRIT 33.1 % (32.4-45.2); HEMOGLOBIN 10.8 GM/dL (10.7-15.3); MCH 27.4 pg (25.7-33.7); MCHC 32.5 g/dl (32.0-36.0); MEAN CELL VOLUME 84.3 fl (80-96); MEAN PLT VOLUME 9.7 fl (7.5-11.1); PLATELET COUNT 257 K/MM3 (134-434); RBC 3.92 M/mm3 (3.60-5.2); RDW 14.7 % (11.6-15.6); WHITE BLOOD COUNT 6.6 K/mm3 (4.0-10.0)
[2020-03-27] MEDS ORDERED: ALBUTEROL SO4 2.5/IPRATROPIUM 0.5 INH SOL 3 ML VIAL.NEB. NEB PRN (08:46)
[2020-03-27 09:17] LABS: CHLORIDE 102 mmol/L (98-107); POTASSIUM 3.3 mmol/L (3.5-5.1); SODIUM 142 mmol/L (136-145)
[2020-03-27 09:34] LABS: CALCIUM 8.8 mg/dL (8.5-10.1)
[2020-03-27 09:35] LABS: ANION GAP 8 MMOL/L (8-16); CO2 33 mmol/L (21-32); CREATININE 0.4 mg/dL (0.55-1.3); GLUCOSE,RANDOM 89 mg/dL (74-106)
[2020-03-27 09:37] LABS: ALBUMIN 2.3 g/dl (3.4-5.0)
[2020-03-27 09:38] LABS: SGPT/ALT 19 U/L (13-61)
[2020-03-27 09:39] LABS: BILIRUBIN,TOTAL 0.4 mg/dL (0.2-1); TOT PROT 5.8 g/dl (6.4-8.2)
[2020-03-27 09:40] LABS: ALK PHOS 61 U/L (45-117); BLOOD UREA NITROGEN 4.6 mg/dL (7-18); SGOT/AST 20 U/L (15-37)
[2020-03-27] MEDS ORDERED: POTASSIUM CHLORIDE TABS 10 MEQ TABLET.ER (FP) PO ONE (10:15)
[2020-03-27] MEDS: FAMOTIDINE 20 MG/50 ML IVPB 20 MG/50 ML MG IVPB SCH ×2 (10:22→22:03)
[2020-03-27] MEDS: LOSARTAN POTASSIUM 50 MG TABLET PO SCH (10:22)
[2020-03-28] MEDS: oxyCODONE HCL 5 MG TABLET PO PRN (00:30)
[2020-03-28] MEDS ORDERED: PIPERACILLIN/TAZOBACTAM 3.375 GM VIAL IVPB ONE ×2 (01:10→09:25)
[2020-03-28] MEDS ORDERED: DEXTROSE 5%-WATER - 50 ML IVPB ONE ×2 (01:10→09:25)
[2020-03-28] MEDS: PIPERACILLIN/TAZOB 3.375 GM 3.375 GM in DEXTROSE 5%-WATER - 50 ML IVPB SCH ×2 (01:24→09:32)
[2020-03-28] MEDS: LOSARTAN POTASSIUM 50 MG TABLET PO SCH (09:32)
[2020-03-28] MEDS: FAMOTIDINE 20 MG/50 ML IVPB 20 MG/50 ML MG IVPB SCH ×2 (09:32→22:05)
[2020-03-28 13:23] LABS: HEMOGLOBIN 11.5 GM/dL (10.7-15.3); MCH 27.7 pg (25.7-33.7); MCHC 32.8 g/dl (32.0-36.0); MEAN CELL VOLUME 84.5 fl (80-96); MEAN PLT VOLUME 9.3 fl (7.5-11.1); PLATELET COUNT 316 K/MM3 (134-434); RBC 4.15 M/mm3 (3.60-5.2); RDW 14.7 % (11.6-15.6); WHITE BLOOD COUNT 7.4 K/mm3 (4.0-10.0)
[2020-03-28 13:50] LABS: POTASSIUM 3.4 mmol/L (3.5-5.1)
[2020-03-28 14:05] LABS: BLOOD UREA NITROGEN 5.1 mg/dL (7-18); CALCIUM 8.8 mg/dL (8.5-10.1); MAGNESIUM 1.8 mg/dL (1.8-2.4)
[2020-03-28 14:08] LABS: CREATININE 0.6 mg/dL (0.55-1.3)
[2020-03-29] MEDS: traMADol HCL 50 MG TABLET PO PRN (00:16)
[2020-03-29] MEDS: LOSARTAN POTASSIUM 50 MG TABLET PO SCH (10:03)
[2020-03-29] MEDS: FAMOTIDINE 20 MG/50 ML IVPB 20 MG/50 ML MG IVPB SCH (10:04)
[2020-03-29] MEDS: FAMOTIDINE 20 MG TABLET PO SCH (21:28)
[2020-03-30] MEDS: traMADol HCL 50 MG TABLET PO PRN (01:18)
[2020-03-30 05:42] VITALS: PULSE 100
[2020-03-30] MEDS ORDERED: PT OWN MED DRAWER 7, Y5N ONE (09:36)
[2020-03-30] MEDS: FAMOTIDINE 20 MG TABLET PO SCH (09:39)
[2020-03-30] MEDS: LOSARTAN POTASSIUM 50 MG TABLET PO SCH (09:39)
[2020-03-30 12:15] VITALS: BP 147/93; TEMP 98.5
== END 2020-03-30 14:37 | disposition home or self-care (01) | DRG 329 ==
LOC: JER 23:03 → JERBED 03-22 02:40 → J6S 03-22 17:20
PROVIDERS: ADMIT Hospitalist; ATTEND Family Medicine
PROC: 0DT80ZZ Resection of Small Intestine, Open Approach (ICD-10-PCS; principal; 2020-03-22 08:00)
PROC: 0DNW0ZZ Release Peritoneum, Open Approach (ICD-10-PCS; 2020-03-22 08:00)
PROC: 0WPF0JZ Removal of Synthetic Substitute from Abdominal Wall, Open Approach (ICD-10-PCS; 2020-03-22 08:00)
DX: K56.50 Intestinal adhesions [bands], unspecified as to partial versus complete obstruction (principal); J18.9 Pneumonia, unspecified organism; J98.11 Atelectasis; J95.89 Other postprocedural complications and disorders of respiratory system, not elsewhere classified; J45.901 Unspecified asthma with (acute) exacerbation; K21.9 Gastro-esophageal reflux disease without esophagitis; I10 Essential (primary) hypertension; Y83.8 Other surgical procedures as the cause of abnormal reaction of the patient, or of later complication, without mention of misadventure at the time of the procedure; Y95 Nosocomial condition
CPT/HCPCS: 36415; 71045-TC-FY; 74177-TC; 80048; 80053; 82550; 82553; 83605; 83690; 83735; 84100; 84484; 85025; 85027; 87040; 88307-TC; 93005; 93010; 94760; 97116-GP; 97162-GP; 99285-25; C9803; J0131; U0003

== ENCOUNTER 2020-05-11 12:25 | Emergency (ER) | payer OTHER ==
[2020-05-11 12:35] VITALS: BP 126/79; PULSE 91; TEMP 97.9; BMI 32.4
== END 2020-05-11 15:18 | disposition home or self-care (01) ==
LOC: JER 12:25
DX: R22.42 Localized swelling, mass and lump, left lower limb (principal)
CPT/HCPCS: 93971-TC; 99284-25

== ENCOUNTER 2020-07-12 13:54 | Emergency (ER) | payer OTHER ==
[2020-07-12 14:15] VITALS: BP 114/70; PULSE 85; TEMP 97.7; BMI 30.9
== END 2020-07-12 15:01 | disposition home or self-care (01) ==
LOC: JERFT 13:54
DX: R53.83 Other fatigue (principal)
CPT/HCPCS: 99283-25

== ENCOUNTER 2021-01-16 12:41 | Emergency (ER) | payer OTHER ==
[2021-01-16] MEDS ORDERED: DEXAMETHASONE LIQUID 0.5 MG/5 ML PO ONE (13:02)
[2021-01-16 13:04] VITALS: BP 137/87; PULSE 83; TEMP 98; BMI 30.1
[2021-01-16] MEDS ORDERED: DEXAMETHASONE SOD PHOSPHATE 10 MG/1 ML VIAL ONE (13:08)
[2021-01-16] MEDS ORDERED: ALBUTEROL SO4 2.5/IPRATROPIUM 0.5 INH SOL 3 ML VIAL.NEB. NEB ONE (13:11)
[2021-01-16] MEDS ORDERED: ALBUTEROL SO4 2.5/IPRATROPIUM 0.5 INH SOL 3 ML VIAL.NEB. NEB SCH (13:15)
== END 2021-01-16 14:10 | disposition home or self-care (01) ==
LOC: JER 12:41 → JERFT 12:41
PROC: 3E0F7GC Introduction of Other Therapeutic Substance into Respiratory Tract, Via Natural or Artificial Opening (ICD-10-PCS; principal; 2021-01-16)
DX: J45.41 Moderate persistent asthma with (acute) exacerbation (principal)
CPT/HCPCS: 71046-TC-FY; 87804; 99284-25; C9803; U0003; U0005

== ENCOUNTER 2021-06-11 09:48 | Emergency (ER) | payer OTHER ==
[2021-06-11 10:14] VITALS: BP 119/79; PULSE 95; TEMP 97.8; BMI 30.1
[2021-06-11] MEDS ORDERED: LIDOCAINE 5% TOPICAL PATCH TP ONE (10:47)
[2021-06-11] MEDS ORDERED: KETOROLAC TROMETHAMINE 15 MG/ML VIAL IM ONE (10:48)
[2021-06-11] MEDS ORDERED: ACETAMINOPHEN 500 MG TABLET (FP) PO ONE (10:59)
[2021-06-11] MEDS ORDERED: LIDOCAINE 5% TOPICAL PATCH ONE (11:00)
[2021-06-11] MEDS ORDERED: KETOROLAC TROMETHAMINE 30 MG/1 ML VIAL ONE (11:00)
[2021-06-11] MEDS ORDERED: ACETAMINOPHEN 325 MG TABLET (FP) ONE (11:16)
[2021-06-11] MEDS ORDERED: LIDOCAINE PATCH REMOVAL MC SCH (22:00)
== END 2021-06-11 11:37 | disposition home or self-care (01) ==
LOC: JERFT 09:48 → JER 09:48 → JERFT 11:37
PROC: 3E023GC Introduction of Other Therapeutic Substance into Muscle, Percutaneous Approach (ICD-10-PCS; principal; 2021-06-11)
DX: S39.012A Strain of muscle, fascia and tendon of lower back, initial encounter (principal); X50.0XXA Overexertion from strenuous movement or load, initial encounter
CPT/HCPCS: 99284-25

== ENCOUNTER 2021-12-24 12:20 | Emergency (ER) | payer OTHER ==
[2021-12-24] MEDS ORDERED: ALBUTEROL SO4 2.5/IPRATROPIUM 0.5 INH SOL 3 ML VIAL.NEB. NEB ONE ×2 (12:30→13:11)
[2021-12-24 12:38] VITALS: BP 126/83; PULSE 91; RESP 22; TEMP 98.1; BMI 31.5
== END 2021-12-24 14:35 | disposition home or self-care (01) ==
LOC: JER 12:20
PROC: 3E0F7GC Introduction of Other Therapeutic Substance into Respiratory Tract, Via Natural or Artificial Opening (ICD-10-PCS; principal; 2021-12-24)
DX: J45.909 Unspecified asthma, uncomplicated (principal)
CPT/HCPCS: 99283-25

== ENCOUNTER 2022-01-06 11:15 | Emergency (ER) | payer OTHER ==
[2022-01-06 11:43] VITALS: BP 133/85; PULSE 89; RESP 19; TEMP 97.8; BMI 31.5
[2022-01-06 13:30] LABS: BASO % 0.4 % (0-2.0); EOS % 1.3 % (0-4.5); HEMATOCRIT 42.1 % (32.4-45.2); HEMOGLOBIN 13.3 GM/dL (10.7-15.3); LYMPH % 16.3 % (8-40); MCH 26.5 pg (25.7-33.7); MCHC 31.6 g/dl (32.0-36.0); MEAN CELL VOLUME 83.8 fl (80-96); MEAN PLT VOLUME 9.7 fl (7.5-11.1); MONO % 9.9 % (3.8-10.2); NEUT % 72.1 % (42.8-82.8); PLATELET COUNT 252 10^3/uL (134-434); RBC 5.03 M/mm3 (3.60-5.2); RDW 14.2 % (11.6-15.6); WHITE BLOOD COUNT 9.4 K/mm3 (4.0-10.0)
[2022-01-06 13:48] LABS: ALBUMIN 3.5 g/dl (3.4-5.0); BLOOD UREA NITROGEN 9.8 mg/dL (7-18); CALCIUM 9.9 mg/dL (8.5-10.1)
[2022-01-06 13:52] LABS: CREATININE 0.6 mg/dL (0.55-1.3)
[2022-01-06 13:54] LABS: BILIRUBIN,TOTAL 0.6 mg/dL (0.2-1); TOT PROT 7.9 g/dl (6.4-8.2)
[2022-01-06 13:57] LABS: N-TERMINAL BNP 331.5 pg/ml (5-125)
[2022-01-06] MEDS ORDERED: NAPROXEN 500 MG TABLET PO ONE (15:55)
[2022-01-06] MEDS ORDERED: NAPROXEN 500 MG TABLET ONE (16:50)
== END 2022-01-06 16:56 | disposition home or self-care (01) ==
LOC: JER 11:15
DX: R07.9 Chest pain, unspecified (principal)
CPT/HCPCS: 0241U-QW; 36415; 71046-TC-FY; 80053; 83880; 84484; 85025; 85379; 93005; 93010; 99285-25

== ENCOUNTER 2022-02-16 12:40 | Inpatient (IN) | payer OTHER ==
[2022-02-16] MEDS ORDERED: ONDANSETRON 4 MG TABLET PO ONE (13:03)
[2022-02-16] MEDS ORDERED: SODIUM CHLORIDE 0.9% 500 ML INFUS.BAG IV ONE (13:03)
[2022-02-16] MEDS ORDERED: ACETAMINOPHEN 1000 MG/100 ML BAG IVPB ONE (13:03)
[2022-02-16] MEDS ORDERED: morphine SULFATE 4 MG/ML VIAL IVPUSH ONE ×2 (13:06→17:13)
[2022-02-16] MEDS ORDERED: FAMOTIDINE 20 MG/50 ML IVPB 20 MG/50 ML MG IVPB ONE (13:11)
[2022-02-16] MEDS ORDERED: ACETAMINOPHEN INJECTION 100 ML IVPB ONE (13:52)
[2022-02-16] MEDS ORDERED: morphine SULFATE 4 MG/ML VIAL ONE ×2 (13:52→18:26)
[2022-02-16] MEDS ORDERED: FAMOTIDINE 10 MG/ML VIAL IVPB ONE (13:52)
[2022-02-16] MEDS ORDERED: ONDANSETRON 4 MG/2 ML VIAL ONE (13:52)
[2022-02-16 14:19] LABS: BASO % 0.4 % (0-2.0); EOS % 0.1 % (0-4.5); HEMATOCRIT 40.9 % (32.4-45.2); HEMOGLOBIN 13.2 GM/dL (10.7-15.3); LYMPH % 9.6 % (8-40); MCH 26.3 pg (25.7-33.7); MCHC 32.1 g/dl (32.0-36.0); MEAN CELL VOLUME 81.9 fl (80-96); MEAN PLT VOLUME 8.9 fl (7.5-11.1); MONO % 9.1 % (3.8-10.2); NEUT % 80.8 % (42.8-82.8); PLATELET COUNT 252 10^3/uL (134-434); RDW 15.1 % (11.6-15.6); WHITE BLOOD COUNT 5.8 K/mm3 (4.0-10.0)
[2022-02-16 14:50] LABS: CALCIUM 8.7 mg/dL (8.5-10.1)
[2022-02-16 14:51] LABS: ALBUMIN 3.5 g/dl (3.4-5.0); MAGNESIUM 1.9 mg/dL (1.8-2.4)
[2022-02-16 14:53] LABS: CREATININE 0.7 mg/dL (0.55-1.3)
[2022-02-16 14:55] LABS: BILIRUBIN,TOTAL 0.7 mg/dL (0.2-1)
[2022-02-16] MEDS ORDERED: ACETAMINOPHEN 1000 MG/100 ML BAG IVPB PRN (20:04)
[2022-02-16] MEDS ORDERED: D5-NS + 20 MEQ KCL - 20 MEQ/1,000 ML INFUS.BAG IV SCH (20:15)
[2022-02-16] MEDS ORDERED: MAGNESIUM 1GM/D5W - 1 GM/100 ML IVPB IVPB ONE (20:55)
[2022-02-16 21:48] LABS: PH,URINE 6.5 (5.0-8.0); URINE APPEARANCE CLEAR; URINE BILIRUBIN NEGATIVE (NEGATIVE); URINE COLOR YELLOW; URINE GLUCOSE (UA) NEGATIVE (NEGATIVE); URINE KETONE NEGATIVE (NEGATIVE); URINE LEUK ESTERASE NEGATIVE (NEGATIVE); URINE NITRITE NEGATIVE (NEGATIVE); URINE PROTEIN TRACE (NEGATIVE)
[2022-02-17] MEDS ORDERED: ACETAMINOPHEN INJECTION 100 ML IVPB ONE ×2 (01:01→07:55)
[2022-02-17 09:09] LABS: BASO % 0.5 % (0-2.0); EOS % 1.7 % (0-4.5); HEMATOCRIT 38.9 % (32.4-45.2); HEMOGLOBIN 12.3 GM/dL (10.7-15.3); LYMPH % 22.6 % (8-40); MCH 26.2 pg (25.7-33.7); MCHC 31.6 g/dl (32.0-36.0); MEAN PLT VOLUME 8.9 fl (7.5-11.1); MONO % 14.9 % (3.8-10.2); NEUT % 60.3 % (42.8-82.8); PLATELET COUNT 194 10^3/uL (134-434); RBC 4.68 M/mm3 (3.60-5.2); RDW 16.2 % (11.6-15.6)
[2022-02-17 09:17] LABS: INR 1.03 (0.83-1.09); PROTHROMBIN TIME (PATIENT) 11.8 SEC (9.7-13.0)
[2022-02-17 09:18] LABS: ACTIVATED PTT 32.1 SECONDS (25.2-36.5)
[2022-02-17 09:44] LABS: CALCIUM 8.3 mg/dL (8.5-10.1)
[2022-02-17 09:46] LABS: BLOOD UREA NITROGEN 7.2 mg/dL (7-18)
[2022-02-17 09:51] LABS: CREATININE 0.5 mg/dL (0.55-1.3); PHOSPHOROUS 3.6 mg/dL (2.5-4.9)
[2022-02-17] MEDS ORDERED: FAMOTIDINE 20 MG/50 ML IVPB 20 MG/50 ML MG IVPB SCH (10:00)
[2022-02-17] MEDS ORDERED: FAMOTIDINE 10 MG TABLET PO SCH ×2 (10:00)
[2022-02-17] MEDS ORDERED: FAMOTIDINE 20 MG/50 ML IVPB 20 MG/50 ML MG IVPB ONE (10:02)
[2022-02-17] MEDS ORDERED: PROPOFOL 20 ML ONE (13:06)
[2022-02-17] MEDS ORDERED: ROCURONIUM BROMIDE 50 MG/5 ML SYRINGE ONE ×2 (13:07→14:16)
[2022-02-17] MEDS ORDERED: LIDOCAINE HCL/PF 2% SDV 5ML VIAL ONE ×2 (13:07→18:28)
[2022-02-17] MEDS ORDERED: DEXAMETHASONE SOD PHOSPHATE 4 MG/1 ML VIAL ONE (13:07)
[2022-02-17] MEDS ORDERED: ONDANSETRON 4 MG/2 ML VIAL ONE (13:07)
[2022-02-17] MEDS ORDERED: SEVOFLURANE 250 ML BTL ONE ×2 (13:28→13:29)
[2022-02-17] MEDS ORDERED: HYDROmorphone HCl 2 MG/ML VIAL ONE (13:40)
[2022-02-17] MEDS ORDERED: KETAMINE HCL 500 MG/10 ML VIAL ONE (13:40)
[2022-02-17] MEDS ORDERED: CEFOXITIN SODIUM 1 GM IVPB ONE (13:44)
[2022-02-17] MEDS ORDERED: MIDAZOLAM HCL 2 MG/2 ML SINGLE DOSE VIAL ONE (13:45)
[2022-02-17] MEDS ORDERED: cefOXitin SODIUM 2 GM VIAL (RESTRICTED TO ID) IVPB ONE ×2 (13:47→17:40)
[2022-02-17] MEDS ORDERED: CEFOXITIN SODIUM 2 GM in DEXTROSE 5%-WATER 100 ML IVPB ONE (14:15)
[2022-02-17] MEDS ORDERED: LACTATED RINGERS SOLUTION 1,000 ML IV SCH (16:30)
[2022-02-17] MEDS ORDERED: ONDANSETRON 4 MG/2 ML VIAL IVPUSH PRN ×2 (16:30→18:40)
[2022-02-17] MEDS ORDERED: PROMETHAZINE HCL 25 MG/1 ML VIAL IVPB PRN (16:31)
[2022-02-17] MEDS ORDERED: METHYLENE BLUE 50 MG/10 ML AMPUL ONE (17:06)
[2022-02-17] MEDS ORDERED: GLYCOPYRROLATE 0.2 MG/1 ML VIAL ONE (18:16)
[2022-02-17] MEDS ORDERED: NEOSTIGMINE METHYLSULFATE 0.5 MG/ML - 10 ML MDV ONE (18:16)
[2022-02-17] MEDS ORDERED: HYDROmorphone HCl 2 MG/ML VIAL IVPB PRN ×2 (18:44→18:45)
[2022-02-17] MEDS ORDERED: HYDROmorphone *PCA* 10MG/50ML DISP.SYRIN ONE (19:07)
[2022-02-17] MEDS: HYDROmorphone *PCA* 10MG/50ML DISP.SYRIN PCA SCH (19:15)
[2022-02-17] MEDS ORDERED: ACETAMINOPHEN 1000 MG/100 ML BAG IVPB PRN (19:23)
[2022-02-17] MEDS ORDERED: D5-NS + 20 MEQ KCL - 20 MEQ/1,000 ML INFUS.BAG IV SCH (19:23)
[2022-02-17] MEDS: SODIUM CHLORIDE 1,000 ML IV SCH (21:47)
[2022-02-17] MEDS: FAMOTIDINE 20 MG/50 ML IVPB 20 MG/50 ML MG IVPB SCH (23:27)
[2022-02-17] MEDS: ENOXAPARIN NA (PORCINE) 30 MG/0.3 ML DISP.SYRIN SQ SCH (23:27)
[2022-02-18] MEDS: SODIUM CHLORIDE 1,000 ML IV SCH ×3 (06:50→21:49)
[2022-02-18 09:34] LABS: HEMATOCRIT 38.1 % (32.4-45.2); HEMOGLOBIN 11.8 GM/dL (10.7-15.3); MCH 26.4 pg (25.7-33.7); MCHC 31.1 g/dl (32.0-36.0); MEAN CELL VOLUME 84.7 fl (80-96); MEAN PLT VOLUME 9.9 fl (7.5-11.1); PLATELET COUNT 213 10^3/uL (134-434); RBC 4.49 M/mm3 (3.60-5.2); RDW 15.8 % (11.6-15.6); WHITE BLOOD COUNT 12.7 K/mm3 (4.0-10.0)
[2022-02-18] MEDS: ENOXAPARIN NA (PORCINE) 30 MG/0.3 ML DISP.SYRIN SQ SCH ×2 (09:51→21:48)
[2022-02-18 09:52] LABS: CALCIUM 7.4 mg/dL (8.5-10.1)
[2022-02-18] MEDS: FAMOTIDINE 20 MG/50 ML IVPB 20 MG/50 ML MG IVPB SCH ×2 (09:52→21:48)
[2022-02-18 09:53] LABS: BLOOD UREA NITROGEN 12.4 mg/dL (7-18)
[2022-02-18 09:56] LABS: CREATININE 1.2 mg/dL (0.55-1.3)
[2022-02-18 09:57] LABS: BILIRUBIN,TOTAL 0.6 mg/dL (0.2-1); TOT PROT 6.2 g/dl (6.4-8.2)
[2022-02-18 10:22] LABS: ALBUMIN 2.6 g/dl (3.4-5.0)
[2022-02-18] MEDS ORDERED: ALBUTEROL SO4 HFA INHALER IH PRN (11:03)
[2022-02-18] MEDS: ALBUTEROL SO4 0.083% IH SOL 2.5 MG/3 ML VIAL.NEB. NEB SCH ×2 (14:46→19:35)
[2022-02-18] MEDS: HYDROmorphone *PCA* 10MG/50ML DISP.SYRIN PCA SCH (16:45)
[2022-02-19] MEDS: ALBUTEROL SO4 0.083% IH SOL 2.5 MG/3 ML VIAL.NEB. NEB SCH ×3 (07:40→20:25)
[2022-02-19] MEDS ORDERED: amLODIPine BESYLATE 10 MG TABLET (FP) PO SCH (10:00)
[2022-02-19] MEDS ORDERED: LOSARTAN POTASSIUM 50 MG TABLET PO SCH (10:00)
[2022-02-19] MEDS: FAMOTIDINE 20 MG/50 ML IVPB 20 MG/50 ML MG IVPB SCH ×2 (11:00→22:46)
[2022-02-19] MEDS: SODIUM CHLORIDE 1,000 ML IV SCH (11:00)
[2022-02-19] MEDS: ENOXAPARIN NA (PORCINE) 30 MG/0.3 ML DISP.SYRIN SQ SCH ×2 (11:01→22:46)
[2022-02-19] MEDS: amLODIPine BESYLATE 10 MG TABLET (FP) PO SCH (11:01)
[2022-02-19] MEDS: LOSARTAN POTASSIUM 50 MG TABLET PO SCH (11:01)
[2022-02-19] MEDS ORDERED: ACETAMINOPHEN 1000 MG/100 ML BAG IVPB PRN (12:35)
[2022-02-19 12:44] LABS: BASO % 0.1 % (0-2.0); EOS % 0.1 % (0-4.5); HEMATOCRIT 34.5 % (32.4-45.2); HEMOGLOBIN 10.8 GM/dL (10.7-15.3); MCH 26.4 pg (25.7-33.7); MCHC 31.2 g/dl (32.0-36.0); MEAN CELL VOLUME 84.5 fl (80-96); MEAN PLT VOLUME 9.7 fl (7.5-11.1); MONO % 12.4 % (3.8-10.2); NEUT % 81.4 % (42.8-82.8); PLATELET COUNT 205 10^3/uL (134-434); RBC 4.08 M/mm3 (3.60-5.2); RDW 15.6 % (11.6-15.6); WHITE BLOOD COUNT 12.5 K/mm3 (4.0-10.0)
[2022-02-19 13:03] LABS: CALCIUM 7.6 mg/dL (8.5-10.1)
[2022-02-19 13:04] LABS: ALBUMIN 2.3 g/dl (3.4-5.0); BLOOD UREA NITROGEN 11.1 mg/dL (7-18); MAGNESIUM 2.2 mg/dL (1.8-2.4)
[2022-02-19 13:07] LABS: CREATININE 0.6 mg/dL (0.55-1.3)
[2022-02-19 13:09] LABS: BILIRUBIN,TOTAL 0.8 mg/dL (0.2-1)
[2022-02-19] MEDS: HYDROmorphone *PCA* 10MG/50ML DISP.SYRIN PCA SCH (16:39)
[2022-02-19] MEDS ORDERED: DEXTROSE 5%-LACTATED RINGERS 1,000 ML IV SCH (16:45)
[2022-02-19] MEDS: KCL 10 MEQ IVPB 10 MEQ/100 ML INFUS.BAG IVPB SCH ×2 (17:25→18:31)
[2022-02-19] MEDS: ACETAMINOPHEN 1000 MG/100 ML BAG IVPB SCH (22:45)
[2022-02-20] MEDS: ACETAMINOPHEN 1000 MG/100 ML BAG IVPB SCH ×3 (05:10→17:00)
[2022-02-20] MEDS: ALBUTEROL SO4 0.083% IH SOL 2.5 MG/3 ML VIAL.NEB. NEB SCH ×3 (08:17→22:17)
[2022-02-20] MEDS: LOSARTAN POTASSIUM 50 MG TABLET PO SCH (09:06)
[2022-02-20] MEDS: amLODIPine BESYLATE 10 MG TABLET (FP) PO SCH (09:06)
[2022-02-20] MEDS: ENOXAPARIN NA (PORCINE) 30 MG/0.3 ML DISP.SYRIN SQ SCH ×2 (09:06→22:10)
[2022-02-20] MEDS: FAMOTIDINE 20 MG/50 ML IVPB 20 MG/50 ML MG IVPB SCH ×2 (09:29→22:10)
[2022-02-20 11:13] LABS: BASO % 0.2 % (0-2.0); EOS % 1.2 % (0-4.5); HEMATOCRIT 33.5 % (32.4-45.2); HEMOGLOBIN 10.7 GM/dL (10.7-15.3); LYMPH % 5.6 % (8-40); MCH 26.8 pg (25.7-33.7); MCHC 31.8 g/dl (32.0-36.0); MEAN CELL VOLUME 84.1 fl (80-96); MEAN PLT VOLUME 9.6 fl (7.5-11.1); MONO % 12.9 % (3.8-10.2); NEUT % 80.1 % (42.8-82.8); PLATELET COUNT 215 10^3/uL (134-434); RBC 3.99 M/mm3 (3.60-5.2); RDW 15.7 % (11.6-15.6); WHITE BLOOD COUNT 11.1 K/mm3 (4.0-10.0)
[2022-02-20 11:31] LABS: ALBUMIN 2.4 g/dl (3.4-5.0); BLOOD UREA NITROGEN 6.4 mg/dL (7-18); CALCIUM 8.1 mg/dL (8.5-10.1)
[2022-02-20 11:34] LABS: CREATININE 0.5 mg/dL (0.55-1.3)
[2022-02-20 11:36] LABS: BILIRUBIN,TOTAL 0.7 mg/dL (0.2-1); TOT PROT 6.1 g/dl (6.4-8.2)
[2022-02-20] MEDS ORDERED: oxyCODONE HCL 5 MG TABLET PO PRN (16:47)
[2022-02-20] MEDS ORDERED: ACETAMINOPHEN 1000 MG/100 ML BAG IVPB SCH (17:00)
[2022-02-20] MEDS: DEXTROSE 5%-LACTATED RINGERS 1,000 ML IV SCH (17:00)
[2022-02-20] MEDS: ACETAMINOPHEN 500 MG TABLET (FP) PO SCH ×2 (17:02→22:10)
[2022-02-20] MEDS: HYDROmorphone *PCA* 10MG/50ML DISP.SYRIN PCA SCH (17:43)
[2022-02-21] MEDS: ACETAMINOPHEN 500 MG TABLET (FP) PO SCH ×4 (06:00→23:03)
[2022-02-21] MEDS: ALBUTEROL SO4 0.083% IH SOL 2.5 MG/3 ML VIAL.NEB. NEB SCH ×3 (07:40→20:14)
[2022-02-21] MEDS: FAMOTIDINE 20 MG/50 ML IVPB 20 MG/50 ML MG IVPB SCH ×2 (09:11→23:04)
[2022-02-21] MEDS: ENOXAPARIN NA (PORCINE) 30 MG/0.3 ML DISP.SYRIN SQ SCH ×2 (09:11→23:04)
[2022-02-21] MEDS: amLODIPine BESYLATE 10 MG TABLET (FP) PO SCH (09:11)
[2022-02-21] MEDS: LOSARTAN POTASSIUM 50 MG TABLET PO SCH (09:11)
[2022-02-21 10:42] LABS: BASO % 0.3 % (0-2.0); EOS % 2.8 % (0-4.5); HEMATOCRIT 36.4 % (32.4-45.2); HEMOGLOBIN 11.6 GM/dL (10.7-15.3); LYMPH % 13.9 % (8-40); MCH 26.5 pg (25.7-33.7); MCHC 31.7 g/dl (32.0-36.0); MEAN CELL VOLUME 83.3 fl (80-96); MEAN PLT VOLUME 9.7 fl (7.5-11.1); MONO % 12.3 % (3.8-10.2); NEUT % 70.7 % (42.8-82.8); PLATELET COUNT 277 10^3/uL (134-434); RBC 4.37 M/mm3 (3.60-5.2); RDW 15.2 % (11.6-15.6); WHITE BLOOD COUNT 9.3 K/mm3 (4.0-10.0)
[2022-02-21 11:11] LABS: BLOOD UREA NITROGEN 5.2 mg/dL (7-18); CALCIUM 8.7 mg/dL (8.5-10.1)
[2022-02-21 11:12] LABS: ALBUMIN 2.8 g/dl (3.4-5.0)
[2022-02-21 11:15] LABS: CREATININE 0.5 mg/dL (0.55-1.3)
[2022-02-21 11:16] LABS: TOT PROT 6.9 g/dl (6.4-8.2)
[2022-02-21] MEDS ORDERED: POTASSIUM CHLORIDE TABS 10 MEQ TABLET.ER (FP) PO ONE (15:57)
[2022-02-21] MEDS: DEXTROSE 5%-LACTATED RINGERS 1,000 ML IV SCH (16:35)
[2022-02-21] MEDS ORDERED: DEXTROSE 5%-LACTATED RINGERS 1,000 ML IV SCH (17:47)
[2022-02-21] MEDS ORDERED: POTASSIUM CHLORIDE TABS 20 MEQ TABLET.ER (FP) PO ONE (22:00)
[2022-02-22] MEDS: ACETAMINOPHEN 500 MG TABLET (FP) PO SCH ×4 (07:09→23:47)
[2022-02-22] MEDS: ALBUTEROL SO4 0.083% IH SOL 2.5 MG/3 ML VIAL.NEB. NEB SCH ×3 (07:40→21:12)
[2022-02-22] MEDS: FAMOTIDINE 20 MG/50 ML IVPB 20 MG/50 ML MG IVPB SCH (10:28)
[2022-02-22] MEDS: amLODIPine BESYLATE 10 MG TABLET (FP) PO SCH (10:28)
[2022-02-22] MEDS: LOSARTAN POTASSIUM 50 MG TABLET PO SCH (10:28)
[2022-02-22] MEDS: ENOXAPARIN NA (PORCINE) 30 MG/0.3 ML DISP.SYRIN SQ SCH ×2 (10:28→21:20)
[2022-02-22] MEDS: FAMOTIDINE 20 MG TABLET PO SCH (21:20)
[2022-02-23] MEDS: ACETAMINOPHEN 500 MG TABLET (FP) PO SCH ×4 (04:58→22:10)
[2022-02-23] MEDS: ALBUTEROL SO4 0.083% IH SOL 2.5 MG/3 ML VIAL.NEB. NEB SCH ×3 (07:28→20:31)
[2022-02-23] MEDS: FAMOTIDINE 20 MG TABLET PO SCH ×2 (09:41→21:37)
[2022-02-23] MEDS: LOSARTAN POTASSIUM 50 MG TABLET PO SCH (09:41)
[2022-02-23] MEDS: amLODIPine BESYLATE 10 MG TABLET (FP) PO SCH (09:41)
[2022-02-23] MEDS: ENOXAPARIN NA (PORCINE) 30 MG/0.3 ML DISP.SYRIN SQ SCH ×2 (09:42→21:37)
[2022-02-23 09:51] LABS: HEMATOCRIT 33.8 % (32.4-45.2); HEMOGLOBIN 10.9 GM/dL (10.7-15.3); MCH 26.9 pg (25.7-33.7); MCHC 32.3 g/dl (32.0-36.0); MEAN CELL VOLUME 83.3 fl (80-96); MEAN PLT VOLUME 9.4 fl (7.5-11.1); PLATELET COUNT 353 10^3/uL (134-434); RBC 4.06 M/mm3 (3.60-5.2); WHITE BLOOD COUNT 10.6 K/mm3 (4.0-10.0)
[2022-02-23] MEDS ORDERED: POTASSIUM CHLORIDE TABS 20 MEQ TABLET.ER (FP) PO ONE (10:18)
[2022-02-23 10:30] LABS: BLOOD UREA NITROGEN 6.9 mg/dL (7-18); CALCIUM 8.8 mg/dL (8.5-10.1)
[2022-02-23 10:31] LABS: ALBUMIN 2.5 g/dl (3.4-5.0)
[2022-02-23 10:32] LABS: CREATININE 0.4 mg/dL (0.55-1.3)
[2022-02-23 10:34] LABS: BILIRUBIN,TOTAL 0.4 mg/dL (0.2-1); TOT PROT 6.4 g/dl (6.4-8.2)
[2022-02-23 11:17] VITALS: BMI 36.1
[2022-02-24] MEDS: ACETAMINOPHEN 500 MG TABLET (FP) PO SCH ×4 (05:59→23:37)
[2022-02-24] MEDS: ALBUTEROL SO4 0.083% IH SOL 2.5 MG/3 ML VIAL.NEB. NEB SCH ×3 (07:25→20:31)
[2022-02-24] MEDS ORDERED: LOPERAMIDE HCL 2 MG CAPSULE PO PRN (08:55)
[2022-02-24] MEDS: FAMOTIDINE 20 MG TABLET PO SCH ×2 (09:42→21:58)
[2022-02-24] MEDS: LACTOBACILLUS ACIDOPHILUS 1 TABLET PO SCH (09:42)
[2022-02-24] MEDS: amLODIPine BESYLATE 10 MG TABLET (FP) PO SCH (09:42)
[2022-02-24] MEDS: LOSARTAN POTASSIUM 50 MG TABLET PO SCH (09:42)
[2022-02-24] MEDS: ENOXAPARIN NA (PORCINE) 30 MG/0.3 ML DISP.SYRIN SQ SCH ×2 (09:43→21:58)
[2022-02-24] MEDS: MINERAL OIL/PET HY-PHL TOPICAL OINTMENT 454 GM JAR TP SCH ×2 (10:16→21:58)
[2022-02-24] MEDS: CLOTRIMAZOLE/BETAMET DIPROP 15 GM TUBE TP SCH ×2 (10:16→21:58)
[2022-02-24] MEDS ORDERED: ONDANSETRON *ODT* 4 MG TABLET SL PRN (18:14)
[2022-02-25] MEDS: ACETAMINOPHEN 500 MG TABLET (FP) PO SCH ×4 (06:05→22:09)
[2022-02-25 09:57] LABS: HEMATOCRIT 33.8 % (32.4-45.2); HEMOGLOBIN 10.9 GM/dL (10.7-15.3); MCH 26.6 pg (25.7-33.7); MCHC 32.1 g/dl (32.0-36.0); MEAN CELL VOLUME 82.6 fl (80-96); MEAN PLT VOLUME 9.2 fl (7.5-11.1); PLATELET COUNT 556 10^3/uL (134-434); RBC 4.09 M/mm3 (3.60-5.2); RDW 15.3 % (11.6-15.6); WHITE BLOOD COUNT 9.2 K/mm3 (4.0-10.0)
[2022-02-25] MEDS: amLODIPine BESYLATE 10 MG TABLET (FP) PO SCH (10:04)
[2022-02-25] MEDS: FAMOTIDINE 20 MG TABLET PO SCH ×2 (10:04→22:09)
[2022-02-25] MEDS: ENOXAPARIN NA (PORCINE) 30 MG/0.3 ML DISP.SYRIN SQ SCH ×2 (10:04→22:08)
[2022-02-25] MEDS: LACTOBACILLUS ACIDOPHILUS 1 TABLET PO SCH (10:04)
[2022-02-25] MEDS: CLOTRIMAZOLE/BETAMET DIPROP 15 GM TUBE TP SCH ×2 (10:04→22:08)
[2022-02-25] MEDS: LOSARTAN POTASSIUM 50 MG TABLET PO SCH (10:04)
[2022-02-25] MEDS: MINERAL OIL/PET HY-PHL TOPICAL OINTMENT 454 GM JAR TP SCH ×2 (10:05→22:08)
[2022-02-25 10:30] LABS: ALBUMIN 2.6 g/dl (3.4-5.0); BLOOD UREA NITROGEN 7.1 mg/dL (7-18); CALCIUM 8.6 mg/dL (8.5-10.1); MAGNESIUM 1.6 mg/dL (1.8-2.4)
[2022-02-25 10:33] LABS: CREATININE 0.5 mg/dL (0.55-1.3); PHOSPHOROUS 3.9 mg/dL (2.5-4.9)
[2022-02-25 10:35] LABS: BILIRUBIN,TOTAL 0.3 mg/dL (0.2-1); TOT PROT 6.7 g/dl (6.4-8.2)
[2022-02-25] MEDS: ALBUTEROL SO4 0.083% IH SOL 2.5 MG/3 ML VIAL.NEB. NEB SCH ×3 (11:16→20:10)
[2022-02-25] MEDS: BUDESONIDE/FORMETEROL FUMARATE 160/4.5 mcg INHALER IH SCH ×2 (16:25→23:46)
[2022-02-25] MEDS ORDERED: POTASSIUM CHLORIDE TABS 20 MEQ TABLET.ER (FP) PO ONE (16:29)
[2022-02-26] MEDS: ACETAMINOPHEN 500 MG TABLET (FP) PO SCH ×3 (05:32→17:57)
[2022-02-26] MEDS: ALBUTEROL SO4 0.083% IH SOL 2.5 MG/3 ML VIAL.NEB. NEB SCH ×3 (07:21→20:15)
[2022-02-26] MEDS: amLODIPine BESYLATE 10 MG TABLET (FP) PO SCH (09:44)
[2022-02-26] MEDS: FAMOTIDINE 20 MG TABLET PO SCH ×2 (09:44→21:37)
[2022-02-26] MEDS: MINERAL OIL/PET HY-PHL TOPICAL OINTMENT 454 GM JAR TP SCH ×2 (09:44→21:37)
[2022-02-26] MEDS: LACTOBACILLUS ACIDOPHILUS 1 TABLET PO SCH (09:44)
[2022-02-26] MEDS: CLOTRIMAZOLE/BETAMET DIPROP 15 GM TUBE TP SCH ×2 (09:44→21:38)
[2022-02-26] MEDS: ENOXAPARIN NA (PORCINE) 30 MG/0.3 ML DISP.SYRIN SQ SCH ×2 (09:44→21:36)
[2022-02-26] MEDS: LOSARTAN POTASSIUM 50 MG TABLET PO SCH (09:44)
[2022-02-26] MEDS: BUDESONIDE/FORMETEROL FUMARATE 160/4.5 mcg INHALER IH SCH ×2 (09:46→21:47)
[2022-02-26] MEDS ORDERED: MAGNESIUM SULF 50% (8.12 MEQ/2 ML-1 GM VIAL) IVPB ONE (12:38)
[2022-02-27] MEDS: ACETAMINOPHEN 500 MG TABLET (FP) PO SCH ×5 (05:30→23:30)
[2022-02-27] MEDS: ALBUTEROL SO4 0.083% IH SOL 2.5 MG/3 ML VIAL.NEB. NEB SCH ×3 (07:25→20:10)
[2022-02-27] MEDS: ENOXAPARIN NA (PORCINE) 30 MG/0.3 ML DISP.SYRIN SQ SCH ×2 (09:09→21:48)
[2022-02-27] MEDS: FAMOTIDINE 20 MG TABLET PO SCH ×2 (09:10→21:49)
[2022-02-27] MEDS: MINERAL OIL/PET HY-PHL TOPICAL OINTMENT 454 GM JAR TP SCH ×2 (09:10→21:49)
[2022-02-27] MEDS: amLODIPine BESYLATE 10 MG TABLET (FP) PO SCH (09:10)
[2022-02-27] MEDS: LOSARTAN POTASSIUM 50 MG TABLET PO SCH (09:10)
[2022-02-27] MEDS: BUDESONIDE/FORMETEROL FUMARATE 160/4.5 mcg INHALER IH SCH ×2 (09:10→21:49)
[2022-02-27] MEDS: CLOTRIMAZOLE/BETAMET DIPROP 15 GM TUBE TP SCH ×2 (09:10→21:50)
[2022-02-27] MEDS: LACTOBACILLUS ACIDOPHILUS 1 TABLET PO SCH (09:10)
[2022-02-27 13:23] LABS: HEMATOCRIT 33.5 % (32.4-45.2); HEMOGLOBIN 10.7 GM/dL (10.7-15.3); MCH 26.3 pg (25.7-33.7); MCHC 31.8 g/dl (32.0-36.0); MEAN CELL VOLUME 82.7 fl (80-96); PLATELET COUNT 728 10^3/uL (134-434); RBC 4.05 M/mm3 (3.60-5.2); RDW 15.1 % (11.6-15.6); WHITE BLOOD COUNT 9.9 K/mm3 (4.0-10.0)
[2022-02-27 14:27] LABS: ALBUMIN 2.8 g/dl (3.4-5.0)
[2022-02-27 14:28] LABS: BLOOD UREA NITROGEN 6.7 mg/dL (7-18); MAGNESIUM 1.5 mg/dL (1.8-2.4)
[2022-02-27 14:30] LABS: CREATININE 0.5 mg/dL (0.55-1.3); PHOSPHOROUS 3.3 mg/dL (2.5-4.9)
[2022-02-27 14:31] LABS: BILIRUBIN,TOTAL 0.4 mg/dL (0.2-1); TOT PROT 7.1 g/dl (6.4-8.2)
[2022-02-27] MEDS ORDERED: MAGNESIUM OXIDE 400 MG TABLET (FP) PO ONE (16:01)
[2022-02-27] MEDS ORDERED: POTASSIUM CHLORIDE TABS 20 MEQ TABLET.ER (FP) PO ONE (16:01)
[2022-02-28] MEDS: ACETAMINOPHEN 500 MG TABLET (FP) PO SCH ×4 (05:09→22:18)
[2022-02-28] MEDS: ENOXAPARIN NA (PORCINE) 30 MG/0.3 ML DISP.SYRIN SQ SCH ×2 (09:52→22:16)
[2022-02-28] MEDS: amLODIPine BESYLATE 10 MG TABLET (FP) PO SCH (09:52)
[2022-02-28] MEDS: LACTOBACILLUS ACIDOPHILUS 1 TABLET PO SCH (09:52)
[2022-02-28] MEDS: FAMOTIDINE 20 MG TABLET PO SCH ×2 (09:52→22:14)
[2022-02-28] MEDS: LOSARTAN POTASSIUM 50 MG TABLET PO SCH (09:52)
[2022-02-28] MEDS: MINERAL OIL/PET HY-PHL TOPICAL OINTMENT 454 GM JAR TP SCH ×2 (09:53→22:17)
[2022-02-28] MEDS: CLOTRIMAZOLE/BETAMET DIPROP 15 GM TUBE TP SCH ×2 (09:53→22:18)
[2022-02-28] MEDS: BUDESONIDE/FORMETEROL FUMARATE 160/4.5 mcg INHALER IH SCH ×2 (09:53→22:18)
[2022-02-28 11:36] LABS: BASO % 0.4 % (0-2.0); EOS % 2.9 % (0-4.5); HEMATOCRIT 33.3 % (32.4-45.2); HEMOGLOBIN 10.7 GM/dL (10.7-15.3); LYMPH % 12.3 % (8-40); MCH 26.7 pg (25.7-33.7); MCHC 32.1 g/dl (32.0-36.0); MEAN CELL VOLUME 83.1 fl (80-96); MEAN PLT VOLUME 8.6 fl (7.5-11.1); MONO % 10.8 % (3.8-10.2); NEUT % 73.6 % (42.8-82.8); PLATELET COUNT 752 10^3/uL (134-434); RBC 4.01 M/mm3 (3.60-5.2); RDW 15.1 % (11.6-15.6); WHITE BLOOD COUNT 8.3 K/mm3 (4.0-10.0)
[2022-02-28 12:29] LABS: ALBUMIN 2.7 g/dl (3.4-5.0); BLOOD UREA NITROGEN 5.6 mg/dL (7-18); CALCIUM 8.9 mg/dL (8.5-10.1); MAGNESIUM 1.7 mg/dL (1.8-2.4)
[2022-02-28 12:33] LABS: BILIRUBIN,TOTAL 0.2 mg/dL (0.2-1); CREATININE 0.5 mg/dL (0.55-1.3)
[2022-02-28 12:34] LABS: TOT PROT 6.9 g/dl (6.4-8.2)
[2022-02-28] MEDS: MAGNESIUM OXIDE 400 MG TABLET (FP) PO SCH (22:26)
[2022-02-28] MEDS: ALBUTEROL SO4 0.083% IH SOL 2.5 MG/3 ML VIAL.NEB. NEB PRN (22:30)
[2022-03-01] MEDS: ACETAMINOPHEN 500 MG TABLET (FP) PO SCH ×5 (05:36→23:37)
[2022-03-01] MEDS: ALBUTEROL SO4 0.083% IH SOL 2.5 MG/3 ML VIAL.NEB. NEB PRN (06:12)
[2022-03-01] MEDS: LOSARTAN POTASSIUM 50 MG TABLET PO SCH (09:30)
[2022-03-01] MEDS: FAMOTIDINE 20 MG TABLET PO SCH ×2 (09:30→21:27)
[2022-03-01] MEDS: LACTOBACILLUS ACIDOPHILUS 1 TABLET PO SCH (09:31)
[2022-03-01] MEDS: amLODIPine BESYLATE 10 MG TABLET (FP) PO SCH (09:31)
[2022-03-01] MEDS: MAGNESIUM OXIDE 400 MG TABLET (FP) PO SCH ×2 (09:31→21:27)
[2022-03-01] MEDS: ENOXAPARIN NA (PORCINE) 30 MG/0.3 ML DISP.SYRIN SQ SCH ×2 (09:31→21:27)
[2022-03-01] MEDS: CLOTRIMAZOLE/BETAMET DIPROP 15 GM TUBE TP SCH ×2 (09:34→21:28)
[2022-03-01] MEDS: BUDESONIDE/FORMETEROL FUMARATE 160/4.5 mcg INHALER IH SCH ×2 (09:34→21:28)
[2022-03-01] MEDS: MINERAL OIL/PET HY-PHL TOPICAL OINTMENT 454 GM JAR TP SCH ×2 (09:34→21:28)
[2022-03-02] MEDS: ACETAMINOPHEN 500 MG TABLET (FP) PO SCH ×4 (06:48→22:50)
[2022-03-02] MEDS: LACTOBACILLUS ACIDOPHILUS 1 TABLET PO SCH (10:02)
[2022-03-02] MEDS: FAMOTIDINE 20 MG TABLET PO SCH ×2 (10:02→22:49)
[2022-03-02] MEDS: amLODIPine BESYLATE 10 MG TABLET (FP) PO SCH (10:02)
[2022-03-02] MEDS: BUDESONIDE/FORMETEROL FUMARATE 160/4.5 mcg INHALER IH SCH ×2 (10:03→22:53)
[2022-03-02] MEDS: MAGNESIUM OXIDE 400 MG TABLET (FP) PO SCH ×2 (10:03→22:51)
[2022-03-02] MEDS: LOSARTAN POTASSIUM 50 MG TABLET PO SCH (10:03)
[2022-03-02] MEDS: CLOTRIMAZOLE/BETAMET DIPROP 15 GM TUBE TP SCH ×2 (10:04→22:51)
[2022-03-02] MEDS: MINERAL OIL/PET HY-PHL TOPICAL OINTMENT 454 GM JAR TP SCH ×2 (10:05→22:49)
[2022-03-02] MEDS: PIPERACILLIN/TAZOB 4.5 GM 4.5 GM in DEXTROSE 5%-WATER 100 ML IVPB SCH ×2 (12:41→17:16)
[2022-03-02] MEDS ORDERED: HYDROmorphone HCl 2 MG/ML VIAL IVPB ONE (14:31)
[2022-03-03] MEDS: PIPERACILLIN/TAZOB 4.5 GM 4.5 GM in DEXTROSE 5%-WATER 100 ML IVPB SCH ×3 (01:22→17:36)
[2022-03-03] MEDS: ACETAMINOPHEN 500 MG TABLET (FP) PO SCH ×4 (05:53→22:00)
[2022-03-03] MEDS: FAMOTIDINE 20 MG TABLET PO SCH ×2 (09:02→21:48)
[2022-03-03] MEDS: amLODIPine BESYLATE 10 MG TABLET (FP) PO SCH (09:02)
[2022-03-03] MEDS: LACTOBACILLUS ACIDOPHILUS 1 TABLET PO SCH (09:02)
[2022-03-03] MEDS: LOSARTAN POTASSIUM 50 MG TABLET PO SCH (09:02)
[2022-03-03] MEDS: MINERAL OIL/PET HY-PHL TOPICAL OINTMENT 454 GM JAR TP SCH ×2 (09:09→21:49)
[2022-03-03] MEDS: CLOTRIMAZOLE/BETAMET DIPROP 15 GM TUBE TP SCH ×2 (09:09→21:49)
[2022-03-03] MEDS: BUDESONIDE/FORMETEROL FUMARATE 160/4.5 mcg INHALER IH SCH ×2 (09:10→21:49)
[2022-03-03 12:46] LABS: HEMATOCRIT 32.6 % (32.4-45.2); HEMOGLOBIN 10.6 GM/dL (10.7-15.3); MCH 26.9 pg (25.7-33.7); MCHC 32.5 g/dl (32.0-36.0); MEAN CELL VOLUME 82.7 fl (80-96); MEAN PLT VOLUME 8.6 fl (7.5-11.1); PLATELET COUNT 813 10^3/uL (134-434); RBC 3.94 M/mm3 (3.60-5.2); RDW 14.9 % (11.6-15.6); WHITE BLOOD COUNT 8.1 K/mm3 (4.0-10.0)
[2022-03-03 13:14] LABS: ALBUMIN 2.6 g/dl (3.4-5.0)
[2022-03-03 13:17] LABS: CREATININE 0.5 mg/dL (0.55-1.3)
[2022-03-03 13:19] LABS: BILIRUBIN,TOTAL 0.2 mg/dL (0.2-1); TOT PROT 6.9 g/dl (6.4-8.2)
[2022-03-04] MEDS: PIPERACILLIN/TAZOB 4.5 GM 4.5 GM in DEXTROSE 5%-WATER 100 ML IVPB SCH ×3 (01:57→17:45)
[2022-03-04] MEDS: ACETAMINOPHEN 500 MG TABLET (FP) PO SCH ×4 (06:25→22:03)
[2022-03-04] MEDS: LOSARTAN POTASSIUM 50 MG TABLET PO SCH (10:06)
[2022-03-04] MEDS: FAMOTIDINE 20 MG TABLET PO SCH ×2 (10:06→22:03)
[2022-03-04] MEDS: amLODIPine BESYLATE 10 MG TABLET (FP) PO SCH (10:06)
[2022-03-04] MEDS: LACTOBACILLUS ACIDOPHILUS 1 TABLET PO SCH (10:06)
[2022-03-04] MEDS: CLOTRIMAZOLE/BETAMET DIPROP 15 GM TUBE TP SCH ×2 (10:07→22:04)
[2022-03-04] MEDS: BUDESONIDE/FORMETEROL FUMARATE 160/4.5 mcg INHALER IH SCH ×2 (10:07→22:04)
[2022-03-04] MEDS: MINERAL OIL/PET HY-PHL TOPICAL OINTMENT 454 GM JAR TP SCH ×2 (10:07→22:04)
[2022-03-04 12:18] LABS: BASO % 1.5 % (0-2.0); EOS % 4.3 % (0-4.5); HEMATOCRIT 34.5 % (32.4-45.2); HEMOGLOBIN 11.1 GM/dL (10.7-15.3); LYMPH % 17.3 % (8-40); MCH 26.6 pg (25.7-33.7); MCHC 32.2 g/dl (32.0-36.0); MEAN CELL VOLUME 82.7 fl (80-96); MEAN PLT VOLUME 8.2 fl (7.5-11.1); MONO % 9.4 % (3.8-10.2); NEUT % 67.5 % (42.8-82.8); PLATELET COUNT 886 10^3/uL (134-434); RBC 4.17 M/mm3 (3.60-5.2); RDW 14.9 % (11.6-15.6); WHITE BLOOD COUNT 7.8 K/mm3 (4.0-10.0)
[2022-03-04 12:52] LABS: CALCIUM 9.2 mg/dL (8.5-10.1)
[2022-03-04 12:53] LABS: ALBUMIN 2.7 g/dl (3.4-5.0); BLOOD UREA NITROGEN 5.7 mg/dL (7-18)
[2022-03-04 12:56] LABS: CREATININE 0.6 mg/dL (0.55-1.3)
[2022-03-04 12:57] LABS: TOT PROT 7.2 g/dl (6.4-8.2)
[2022-03-04 12:58] LABS: BILIRUBIN,TOTAL 0.3 mg/dL (0.2-1)
[2022-03-05] MEDS: PIPERACILLIN/TAZOB 4.5 GM 4.5 GM in DEXTROSE 5%-WATER 100 ML IVPB SCH ×3 (02:15→17:07)
[2022-03-05] MEDS: ACETAMINOPHEN 500 MG TABLET (FP) PO SCH ×4 (06:31→23:08)
[2022-03-05] MEDS: LOSARTAN POTASSIUM 50 MG TABLET PO SCH (10:00)
[2022-03-05] MEDS: LACTOBACILLUS ACIDOPHILUS 1 TABLET PO SCH (10:00)
[2022-03-05] MEDS: FAMOTIDINE 20 MG TABLET PO SCH ×2 (10:00→21:08)
[2022-03-05] MEDS: amLODIPine BESYLATE 10 MG TABLET (FP) PO SCH (10:00)
[2022-03-05] MEDS: MINERAL OIL/PET HY-PHL TOPICAL OINTMENT 454 GM JAR TP SCH ×2 (10:02→21:11)
[2022-03-05] MEDS: CLOTRIMAZOLE/BETAMET DIPROP 15 GM TUBE TP SCH ×2 (10:02→21:11)
[2022-03-05] MEDS: BUDESONIDE/FORMETEROL FUMARATE 160/4.5 mcg INHALER IH SCH ×2 (10:05→21:11)
[2022-03-06] MEDS: PIPERACILLIN/TAZOB 4.5 GM 4.5 GM in DEXTROSE 5%-WATER 100 ML IVPB SCH ×3 (01:48→17:04)
[2022-03-06] MEDS: ACETAMINOPHEN 500 MG TABLET (FP) PO SCH ×4 (06:16→22:45)
[2022-03-06] MEDS: amLODIPine BESYLATE 10 MG TABLET (FP) PO SCH (09:22)
[2022-03-06] MEDS: LACTOBACILLUS ACIDOPHILUS 1 TABLET PO SCH (09:22)
[2022-03-06] MEDS: FAMOTIDINE 20 MG TABLET PO SCH ×2 (09:22→21:21)
[2022-03-06] MEDS: LOSARTAN POTASSIUM 50 MG TABLET PO SCH (09:22)
[2022-03-06] MEDS: BUDESONIDE/FORMETEROL FUMARATE 160/4.5 mcg INHALER IH SCH ×2 (09:23→21:21)
[2022-03-06] MEDS: CLOTRIMAZOLE/BETAMET DIPROP 15 GM TUBE TP SCH ×2 (09:23→21:21)
[2022-03-06] MEDS: MINERAL OIL/PET HY-PHL TOPICAL OINTMENT 454 GM JAR TP SCH ×2 (09:23→21:21)
[2022-03-06 10:25] VITALS: RESP 18
[2022-03-07] MEDS: PIPERACILLIN/TAZOB 4.5 GM 4.5 GM in DEXTROSE 5%-WATER 100 ML IVPB SCH ×3 (01:38→17:24)
[2022-03-07] MEDS: ACETAMINOPHEN 500 MG TABLET (FP) PO SCH ×3 (06:23→16:05)
[2022-03-07] MEDS: LACTOBACILLUS ACIDOPHILUS 1 TABLET PO SCH (09:07)
[2022-03-07] MEDS: LOSARTAN POTASSIUM 50 MG TABLET PO SCH (09:07)
[2022-03-07] MEDS: FAMOTIDINE 20 MG TABLET PO SCH (09:07)
[2022-03-07] MEDS: amLODIPine BESYLATE 10 MG TABLET (FP) PO SCH (09:07)
[2022-03-07] MEDS: BUDESONIDE/FORMETEROL FUMARATE 160/4.5 mcg INHALER IH SCH (09:08)
[2022-03-07] MEDS: CLOTRIMAZOLE/BETAMET DIPROP 15 GM TUBE TP SCH (09:09)
[2022-03-07] MEDS: MINERAL OIL/PET HY-PHL TOPICAL OINTMENT 454 GM JAR TP SCH (09:16)
[2022-03-07 09:22] LABS: HEMATOCRIT 31.7 % (32.4-45.2); HEMOGLOBIN 10.1 GM/dL (10.7-15.3); MCH 26.5 pg (25.7-33.7); MCHC 31.9 g/dl (32.0-36.0); MEAN CELL VOLUME 83.1 fl (80-96); MEAN PLT VOLUME 8.3 fl (7.5-11.1); PLATELET COUNT 648 10^3/uL (134-434); RBC 3.81 M/mm3 (3.60-5.2); RDW 14.9 % (11.6-15.6); WHITE BLOOD COUNT 5.5 K/mm3 (4.0-10.0)
[2022-03-07 09:31] LABS: CALCIUM 9.2 mg/dL (8.5-10.1)
[2022-03-07 09:33] LABS: ALBUMIN 2.6 g/dl (3.4-5.0); BLOOD UREA NITROGEN 6.1 mg/dL (7-18)
[2022-03-07 09:36] LABS: CREATININE 0.5 mg/dL (0.55-1.3)
[2022-03-07 09:38] LABS: BILIRUBIN,TOTAL 0.2 mg/dL (0.2-1); TOT PROT 6.7 g/dl (6.4-8.2)
[2022-03-07 09:50] VITALS: PULSE 86
[2022-03-07 15:22] VITALS: BP 125/64; TEMP 98
== END 2022-03-07 17:31 | disposition home or self-care (01) | DRG 330 ==
LOC: JER 12:40 → JERBED 18:33 → J6S 02-17 22:02
PROVIDERS: ADMIT Internal Medicine; ATTEND Family Medicine
PROC: 0DN80ZZ Release Small Intestine, Open Approach (ICD-10-PCS; 2022-02-17)
PROC: 0DQ80ZZ Repair Small Intestine, Open Approach (ICD-10-PCS; 2022-02-17)
PROC: 0DB80ZZ Excision of Small Intestine, Open Approach (ICD-10-PCS; principal; 2022-02-17 12:45)
PROC: 0WQF0ZZ Repair Abdominal Wall, Open Approach (ICD-10-PCS; 2022-02-17 12:45)
PROC: 0H97XZX Drainage of Abdomen Skin, External Approach, Diagnostic (ICD-10-PCS; 2022-03-03)
DX: K56.50 Intestinal adhesions [bands], unspecified as to partial versus complete obstruction (principal); J98.11 Atelectasis; K43.6 Other and unspecified ventral hernia with obstruction, without gangrene; K55.9 Vascular disorder of intestine, unspecified; T81.49XA Infection following a procedure, other surgical site, initial encounter; N17.9 Acute kidney failure, unspecified; K91.71 Accidental puncture and laceration of a digestive system organ or structure during a digestive system procedure; I10 Essential (primary) hypertension; J44.9 Chronic obstructive pulmonary disease, unspecified; K21.9 Gastro-esophageal reflux disease without esophagitis; E87.6 Hypokalemia; R19.7 Diarrhea, unspecified; D75.839 Thrombocytosis, unspecified; E83.42 Hypomagnesemia; R91.1 Solitary pulmonary nodule; Y83.8 Other surgical procedures as the cause of abnormal reaction of the patient, or of later complication, without mention of misadventure at the time of the procedure
CPT/HCPCS: 0241U-QW; 36415; 71045-TC-FY; 71046-TC-FY; 74019-TC-FY; 74176-TC; 74177-TC; 80048; 80053; 81003; 82436; 82570; 82728; 83540; 83550; 83605; 83690; 83735; 84100; 84133; 84300; 84484; 85025; 85027; 85610; 85730; 86850; 86900; 86901; 87045; 87046; 87070; 87076; 87086; 87186; 87205; 87324; 87449; 88307-TC; 93005; 93010; 94010; 94640; 94760; 97116-GP; 97162-GP; 99285-25; Q9967; Q9968

== ENCOUNTER → 2022-03-26 | Day surgery (SDC) | payer OTHER | END | disposition home or self-care (01) | LOC: JRADUS-SUR 11:43 | PROVIDERS: ATTEND Family Medicine | PROC: 0H9U3ZX Drainage of Left Breast, Percutaneous Approach, Diagnostic (ICD-10-PCS; principal; 2022-03-26) | DX: N60.02 Solitary cyst of left breast (principal) | CPT/HCPCS: 19000; 76942-TC; 87899; 88173; 88305-TC ==

== ENCOUNTER 2022-05-05 17:04 | Inpatient (IN) | payer OTHER ==
[2022-05-05] MEDS ORDERED: morphine CARPU-JECT 4 MG/1 ML DISP.SYRIN IVPUSH ONE (17:44)
[2022-05-05] MEDS ORDERED: ONDANSETRON 4 MG/2 ML VIAL IVPUSH ONE (17:44)
[2022-05-05] MEDS ORDERED: ONDANSETRON 4 MG/2 ML VIAL ONE ×2 (17:45→18:27)
[2022-05-05] MEDS ORDERED: morphine SULFATE 4 MG/ML VIAL ONE (17:45)
[2022-05-05] MEDS ORDERED: HYDROmorphone HCl 2 MG/ML VIAL IVPUSH ONE (18:26)
[2022-05-05] MEDS ORDERED: HYDROmorphone HCl 2 MG/ML VIAL ONE ×2 (18:27→22:12)
[2022-05-05 19:08] LABS: INR 0.94 (0.83-1.09); PROTHROMBIN TIME (PATIENT) 10.9 SEC (9.7-13.0)
[2022-05-05 19:11] LABS: ACTIVATED PTT 21.1 SECONDS (25.2-36.5)
[2022-05-05 19:19] LABS: ALBUMIN 3.8 g/dl (3.4-5.0); CALCIUM 9.3 mg/dL (8.5-10.1)
[2022-05-05 19:20] LABS: BLOOD UREA NITROGEN 10.2 mg/dL (7-18); MAGNESIUM 2.1 mg/dL (1.8-2.4)
[2022-05-05 19:22] LABS: CREATININE 0.6 mg/dL (0.55-1.3)
[2022-05-05 19:24] LABS: BILIRUBIN,TOTAL 0.6 mg/dL (0.2-1); TOT PROT 8.6 g/dl (6.4-8.2)
[2022-05-05] MEDS ORDERED: ACETAMINOPHEN 1000 MG/100 ML BAG IVPB ONE (20:22)
[2022-05-05] MEDS ORDERED: ACETAMINOPHEN INJECTION 100 ML IVPB ONE (21:28)
[2022-05-05] MEDS ORDERED: HYDROmorphone HCl 2 MG/ML VIAL IVPB STA ×2 (22:11→22:14)
[2022-05-05 22:47] LABS: BASO % 0.4 % (0-2.0); EOS % 0.1 % (0-4.5); HEMATOCRIT 40.4 % (32.4-45.2); LYMPH % 16.1 % (8-40); MCH 27.5 pg (25.7-33.7); MCHC 32.3 g/dl (32.0-36.0); MEAN CELL VOLUME 85.1 fl (80-96); MONO % 5.3 % (3.8-10.2); NEUT % 78.1 % (42.8-82.8); PLATELET COUNT 124 10^3/uL (134-434); RBC 4.75 M/mm3 (3.60-5.2); RDW 17.4 % (11.6-15.6)
[2022-05-06] MEDS ORDERED: ONDANSETRON 4 MG/2 ML VIAL IVPUSH ONE (02:21)
[2022-05-06] MEDS ORDERED: HYDROmorphone HCl 2 MG/ML VIAL IVPB ONE (02:22)
[2022-05-06] MEDS ORDERED: HYDROmorphone HCl 2 MG/ML VIAL ONE ×2 (02:35→18:22)
[2022-05-06] MEDS ORDERED: ONDANSETRON 4 MG/2 ML VIAL ONE ×2 (02:35→14:24)
[2022-05-06] MEDS ORDERED: ACETAMINOPHEN 1000 MG/100 ML BAG IVPB PRN (05:37)
[2022-05-06] MEDS ORDERED: DEXTROSE 5%-0.45% SALINE 1,000 ML IV SCH (05:45)
[2022-05-06] MEDS: KCL 10 MEQ IVPB 10 MEQ/100 ML INFUS.BAG IVPB SCH ×2 (06:21→09:48)
[2022-05-06 08:24] LABS: PH,URINE 6.5 (5.0-8.0); URINE APPEARANCE CLEAR; URINE BILIRUBIN NEGATIVE (NEGATIVE); URINE COLOR YELLOW; URINE GLUCOSE (UA) NEGATIVE (NEGATIVE); URINE KETONE NEGATIVE (NEGATIVE); URINE LEUK ESTERASE NEGATIVE (NEGATIVE); URINE NITRITE NEGATIVE (NEGATIVE); URINE PROTEIN TRACE (NEGATIVE); URINE UROBILINOGEN 0.2 mg/dL (0.2-1.0)
[2022-05-06] MEDS ORDERED: KETOROLAC TROMETHAMINE 30 MG/1 ML VIAL IVPUSH ONE (08:45)
[2022-05-06] MEDS ORDERED: KETOROLAC TROMETHAMINE 60 MG/2 ML VIAL IVPUSH ONE (08:45)
[2022-05-06 08:48] LABS: ALBUMIN 3.3 g/dl (3.4-5.0); BLOOD UREA NITROGEN 8.3 mg/dL (7-18); CALCIUM 9.1 mg/dL (8.5-10.1)
[2022-05-06 08:51] LABS: CREATININE 0.6 mg/dL (0.55-1.3)
[2022-05-06 08:53] LABS: TOT PROT 7.8 g/dl (6.4-8.2)
[2022-05-06] MEDS ORDERED: KETOROLAC TROMETHAMINE 30 MG/1 ML VIAL IVPB ONE (09:00)
[2022-05-06] MEDS ORDERED: KETOROLAC TROMETHAMINE 30 MG/1 ML VIAL IVPUSH PRN (09:15)
[2022-05-06] MEDS ORDERED: HYDROmorphone HCl 2 MG/ML VIAL IVPB PRN (09:16)
[2022-05-06 10:59] LABS: HEMATOCRIT 37.6 % (32.4-45.2); HEMOGLOBIN 12.1 GM/dL (10.7-15.3); MCH 26.6 pg (25.7-33.7); MCHC 32.1 g/dl (32.0-36.0); MEAN CELL VOLUME 82.8 fl (80-96); MEAN PLT VOLUME 9.5 fl (7.5-11.1); MONO % 7.3 % (3.8-10.2); NEUT % 90.7 % (42.8-82.8); PLATELET COUNT 304 10^3/uL (134-434); RBC 4.54 M/mm3 (3.60-5.2); RDW 16.8 % (11.6-15.6); WHITE BLOOD COUNT 19.5 K/mm3 (4.0-10.0)
[2022-05-06] MEDS ORDERED: PROPOFOL 20 ML ONE ×7 (12:28→17:04)
[2022-05-06] MEDS ORDERED: MIDAZOLAM HCL 2 MG/2 ML SINGLE DOSE VIAL ONE (12:28)
[2022-05-06] MEDS ORDERED: SUCCINYLCHOLINE CHLORIDE 200 MG/10 ML SYRINGE ONE (12:28)
[2022-05-06] MEDS ORDERED: ROCURONIUM BROMIDE 50 MG/5 ML SYRINGE ONE (12:28)
[2022-05-06] MEDS ORDERED: ceFAZolin SODIUM 1 GM VIAL IVPB ONE (13:22)
[2022-05-06] MEDS ORDERED: KETAMINE HCL 500 MG/10 ML VIAL ONE (14:26)
[2022-05-06] MEDS ORDERED: ALBUMIN HUMAN 5% 500 ML IV SOLUTION IV ONE ×3 (16:26→23:30)
[2022-05-06] MEDS ORDERED: PHENYLEPHRINE HCL 10 MG/1 ML SINGLE DOSE VIAL ONE (19:00)
[2022-05-06] MEDS ORDERED: ONDANSETRON 4 MG/2 ML VIAL IVPUSH PRN (19:38)
[2022-05-06] MEDS ORDERED: ACETAMINOPHEN 1000 MG/100 ML BAG IVPB ONE (19:38)
[2022-05-06] MEDS ORDERED: PROMETHAZINE HCL 25 MG/1 ML VIAL IVPB PRN (19:38)
[2022-05-06] MEDS ORDERED: ACETAMINOPHEN INJECTION 100 ML IVPB ONE (19:39)
[2022-05-06] MEDS ORDERED: HYDROmorphone *PCA* 10MG/50ML DISP.SYRIN PCA SCH (19:45)
[2022-05-06] MEDS ORDERED: LACTATED RINGERS SOLUTION 1,000 ML IV SCH (19:45)
[2022-05-06] MEDS ORDERED: SODIUM CHLORIDE 500 ML IV STA (20:04)
[2022-05-06] MEDS: ACETAMINOPHEN 1000 MG/100 ML BAG IVPB PRN (20:57)
[2022-05-06 20:59] LABS: HEMATOCRIT 33.7 % (32.4-45.2); HEMOGLOBIN 10.7 GM/dL (10.7-15.3); MCH 26.8 pg (25.7-33.7); MCHC 31.7 g/dl (32.0-36.0); MEAN CELL VOLUME 84.3 fl (80-96); MEAN PLT VOLUME 9.6 fl (7.5-11.1); PLATELET COUNT 205 10^3/uL (134-434); RDW 16.9 % (11.6-15.6); WHITE BLOOD COUNT 5.3 K/mm3 (4.0-10.0)
[2022-05-06] MEDS: HYDROmorphone *PCA* 10MG/50ML DISP.SYRIN PCA SCH (21:00)
[2022-05-06 21:22] LABS: CALCIUM 7.9 mg/dL (8.5-10.1)
[2022-05-06 21:23] LABS: MAGNESIUM 1.4 mg/dL (1.8-2.4)
[2022-05-06 21:27] LABS: CREATININE 1.3 mg/dL (0.55-1.3); PHOSPHOROUS 3.4 mg/dL (2.5-4.9)
[2022-05-06 21:28] LABS: BILIRUBIN,TOTAL 0.6 mg/dL (0.2-1)
[2022-05-06 21:29] LABS: ALBUMIN 2.4 g/dl (3.4-5.0); TOT PROT 5.2 g/dl (6.4-8.2)
[2022-05-06] MEDS ORDERED: CHLORHEXIDINE GLUCONATE 4% CLEANSER FOR DECOLONIZATION TP SCH (22:00)
[2022-05-06] MEDS ORDERED: MUPIROCIN 2% TOPICAL OINTMENT FOR DECOLONIZATION NS SCH (22:00)
[2022-05-06] MEDS: SODIUM CHLORIDE 1,000 ML IV SCH (22:00)
[2022-05-06 22:37] LABS: ANISOCYTOSIS 1+; MACROCYTOSIS 0
[2022-05-06 22:40] LABS: TOXIC GRANULATION 1+
[2022-05-06] MEDS ORDERED: ALBUMIN HUMAN 5% 250 ML IV SOLUTION IV ONE (23:15)
[2022-05-06] MEDS: PIPERACILLIN/TAZOB 4.5 GM 4.5 GM in DEXTROSE 5%-WATER 100 ML IVPB SCH (23:27)
[2022-05-07] MEDS ORDERED: ALBUTEROL SO4 HFA INHALER IH PRN (00:50)
[2022-05-07] MEDS ORDERED: LACTATED RINGERS SOLUTION 1000 ML INFUS.BAG IV ONE ×3 (01:03→22:14)
[2022-05-07] MEDS: MUPIROCIN 2% TOPICAL OINTMENT FOR DECOLONIZATION NS SCH ×3 (01:08→21:52)
[2022-05-07 01:46] LABS: LACTIC ACID 4.1 mmol/L (0.4-2.0)
[2022-05-07] MEDS ORDERED: HEPARIN NA (PORCINE) 5,000 UNITS/ML 1ML VIAL SQ SCH (06:00)
[2022-05-07] MEDS: HEPARIN NA (PORCINE) 5,000 UNITS/ML 1ML VIAL SQ SCH ×3 (06:18→21:51)
[2022-05-07] MEDS: PIPERACILLIN/TAZOB 4.5 GM 4.5 GM in DEXTROSE 5%-WATER 100 ML IVPB SCH ×3 (06:18→20:21)
[2022-05-07] MEDS: PHENYLEPHRINE NS PREMIX 50,000 MCG/500 ML BAG CVP SCH ×2 (06:54→22:00)
[2022-05-07] MEDS ORDERED: ALBUMIN HUMAN 5% 500 ML IV SOLUTION IV ONE (07:04)
[2022-05-07] MEDS ORDERED: MAGNESIUM SULF 50% (8.12 MEQ/2 ML-1 GM VIAL) IVPB ONE (08:10)
[2022-05-07] MEDS ORDERED: MIDAZOLAM HCL 2 MG/2 ML SINGLE DOSE VIAL IVPUSH ONE (08:28)
[2022-05-07] MEDS: PANTOPRAZOLE SODIUM 40 MG VIAL IVPUSH SCH (09:56)
[2022-05-07 10:13] LABS: HEMATOCRIT 30.5 % (32.4-45.2); HEMOGLOBIN 9.7 GM/dL (10.7-15.3); MCH 27.2 pg (25.7-33.7); MCHC 31.7 g/dl (32.0-36.0); MEAN CELL VOLUME 85.7 fl (80-96); MEAN PLT VOLUME 9.8 fl (7.5-11.1); PLATELET COUNT 215 10^3/uL (134-434); RBC 3.56 M/mm3 (3.60-5.2); RDW 16.6 % (11.6-15.6); WHITE BLOOD COUNT 11.1 K/mm3 (4.0-10.0)
[2022-05-07 10:44] LABS: LACTIC ACID 3.9 mmol/L (0.4-2.0)
[2022-05-07 10:54] LABS: ALBUMIN 2.6 g/dl (3.4-5.0); CALCIUM 7.6 mg/dL (8.5-10.1); MAGNESIUM 1.4 mg/dL (1.8-2.4)
[2022-05-07 10:55] LABS: BLOOD UREA NITROGEN 30.8 mg/dL (7-18)
[2022-05-07 10:57] LABS: PHOSPHOROUS 4.3 mg/dL (2.5-4.9)
[2022-05-07 10:59] LABS: BILIRUBIN,TOTAL 0.7 mg/dL (0.2-1); TOT PROT 5.4 g/dl (6.4-8.2)
[2022-05-07 11:14] LABS: ANISOCYTOSIS 0; HELMET CELLS 0; HOWELL-JOLLY BODIES 0; MACROCYTOSIS 0; OVALOCYTE 0; ROULEAU 0; SICKELED CELLS 0; TARGET CELLS 0; TEAR DROP CELLS 0; TOXIC GRANULATION 0
[2022-05-07] MEDS ORDERED: MAGNESIUM 1GM/D5W 100ML - 100 ML IVPB IVPB ONE (12:06)
[2022-05-07] MEDS: ACETAMINOPHEN 1000 MG/100 ML BAG IVPB PRN ×2 (16:37→21:50)
[2022-05-07] MEDS: FLUCONAZOLE 200 MG/NS 100 ML IVPB SCH (17:56)
[2022-05-07] MEDS: HYDROmorphone *PCA* 10MG/50ML DISP.SYRIN PCA SCH ×2 (20:23→20:25)
[2022-05-07] MEDS: SODIUM CHLORIDE 1,000 ML IV SCH (21:51)
[2022-05-07] MEDS: CHLORHEXIDINE GLUCONATE 4% CLEANSER FOR DECOLONIZATION TP SCH (21:52)
[2022-05-07 23:42] LABS: CALCIUM 7.4 mg/dL (8.5-10.1)
[2022-05-07 23:43] LABS: ALBUMIN 2.4 g/dl (3.4-5.0); BLOOD UREA NITROGEN 31.5 mg/dL (7-18)
[2022-05-07 23:46] LABS: CREATININE 1.8 mg/dL (0.55-1.3); PHOSPHOROUS 4.7 mg/dL (2.5-4.9)
[2022-05-07 23:47] LABS: BILIRUBIN,TOTAL 0.3 mg/dL (0.2-1); TOT PROT 5.3 g/dl (6.4-8.2)
[2022-05-08] MEDS: PIPERACILLIN/TAZOB 3.375 GM 3.375 GM in DEXTROSE 5%-WATER - 50 ML IVPB SCH ×4 (00:22→22:04)
[2022-05-08 00:41] LABS: VENOUS BASE EXCESS -9.6 mmol/L (-2-2); VENOUS O2 SATURATION 88.3 % (70-80); VENOUS PCO2 50.4 mmHg (38-52)
[2022-05-08 00:45] LABS: VENOUS PH 7.182 (7.310-7.410)
[2022-05-08] MEDS: HEPARIN NA (PORCINE) 5,000 UNITS/ML 1ML VIAL SQ SCH ×3 (06:28→21:13)
[2022-05-08] MEDS: SODIUM CHLORIDE 1,000 ML IV SCH (06:29)
[2022-05-08 07:27] LABS: VENOUS BASE EXCESS -8.2 mmol/L (-2-2); VENOUS O2 SATURATION 79.4 % (70-80); VENOUS PCO2 53.5 mmHg (38-52)
[2022-05-08 07:29] LABS: BASO % 0.3 % (0-2.0); EOS % 0.2 % (0-4.5); HEMATOCRIT 28.5 % (32.4-45.2); MCHC 31.7 g/dl (32.0-36.0); MEAN PLT VOLUME 10.4 fl (7.5-11.1); MONO % 9.9 % (3.8-10.2); NEUT % 83.6 % (42.8-82.8); PLATELET COUNT 201 10^3/uL (134-434); RBC 3.35 M/mm3 (3.60-5.2); RDW 16.7 % (11.6-15.6); WHITE BLOOD COUNT 12.4 K/mm3 (4.0-10.0)
[2022-05-08 07:46] LABS: VENOUS PH 7.188 (7.310-7.410)
[2022-05-08 08:23] LABS: CALCIUM 7.5 mg/dL (8.5-10.1)
[2022-05-08 08:24] LABS: ALBUMIN 2.5 g/dl (3.4-5.0); BLOOD UREA NITROGEN 30.8 mg/dL (7-18)
[2022-05-08 08:27] LABS: CREATININE 1.7 mg/dL (0.55-1.3); PHOSPHOROUS 4.7 mg/dL (2.5-4.9)
[2022-05-08 08:28] LABS: TOT PROT 5.3 g/dl (6.4-8.2)
[2022-05-08 08:29] LABS: BILIRUBIN,TOTAL 0.3 mg/dL (0.2-1)
[2022-05-08] MEDS: ACETAMINOPHEN 1000 MG/100 ML BAG IVPB PRN (09:54)
[2022-05-08] MEDS: PANTOPRAZOLE SODIUM 40 MG VIAL IVPUSH SCH (09:54)
[2022-05-08] MEDS: MUPIROCIN 2% TOPICAL OINTMENT FOR DECOLONIZATION NS SCH ×2 (09:55→21:13)
[2022-05-08] MEDS ORDERED: DEXTROSE 5%-LACTATED RINGERS 1,000 ML IV SCH ×2 (11:00)
[2022-05-08] MEDS: FLUCONAZOLE 200 MG/NS 100 ML IVPB SCH (11:07)
[2022-05-08] MEDS ORDERED: ALBUTEROL SO4 HFA INHALER IH PRN (13:58)
[2022-05-08] MEDS: D5-1/2NS+10 MEQ KCL - 10 MEQ/1,000 ML INFUS.BAG IV SCH (18:14)
[2022-05-08] MEDS: HYDROmorphone *PCA* 10MG/50ML DISP.SYRIN PCA SCH (20:11)
[2022-05-08] MEDS: CHLORHEXIDINE GLUCONATE 4% CLEANSER FOR DECOLONIZATION TP SCH (21:13)
[2022-05-08] MEDS: BUDESONIDE/FORMETEROL FUMARATE 160/4.5 mcg INHALER IH SCH (21:18)
[2022-05-09] MEDS: PHENYLEPHRINE NS PREMIX 50,000 MCG/500 ML BAG CVP SCH (06:54)
[2022-05-09] MEDS: PIPERACILLIN/TAZOB 3.375 GM 3.375 GM in DEXTROSE 5%-WATER - 50 ML IVPB SCH ×3 (06:54→22:40)
[2022-05-09] MEDS: HEPARIN NA (PORCINE) 5,000 UNITS/ML 1ML VIAL SQ SCH ×3 (06:54→22:40)
[2022-05-09 07:33] LABS: BLOOD UREA NITROGEN 21.1 mg/dL (7-18); CALCIUM 8.2 mg/dL (8.5-10.1); MAGNESIUM 2.3 mg/dL (1.8-2.4)
[2022-05-09 07:34] LABS: ALBUMIN 2.4 g/dl (3.4-5.0)
[2022-05-09 07:35] LABS: CREATININE 1.2 mg/dL (0.55-1.3)
[2022-05-09 07:36] LABS: BILIRUBIN,TOTAL 0.3 mg/dL (0.2-1); TOT PROT 5.5 g/dl (6.4-8.2)
[2022-05-09 07:42] LABS: HEMATOCRIT 27.3 % (32.4-45.2); HEMOGLOBIN 8.8 GM/dL (10.7-15.3); MCH 27.2 pg (25.7-33.7); MCHC 32.3 g/dl (32.0-36.0); MEAN CELL VOLUME 84.2 fl (80-96); MEAN PLT VOLUME 10.1 fl (7.5-11.1); PLATELET COUNT 152 10^3/uL (134-434); RBC 3.24 M/mm3 (3.60-5.2); RDW 16.5 % (11.6-15.6); WHITE BLOOD COUNT 12.2 K/mm3 (4.0-10.0)
[2022-05-09] MEDS: FLUCONAZOLE 200 MG/NS 100 ML IVPB SCH (10:43)
[2022-05-09] MEDS: MUPIROCIN 2% TOPICAL OINTMENT FOR DECOLONIZATION NS SCH ×2 (10:43→22:41)
[2022-05-09] MEDS: PANTOPRAZOLE SODIUM 40 MG VIAL IVPUSH SCH (10:44)
[2022-05-09] MEDS: BUDESONIDE/FORMETEROL FUMARATE 160/4.5 mcg INHALER IH SCH ×2 (10:44→23:06)
[2022-05-09 10:48] LABS: ANISOCYTOSIS 0; MACROCYTOSIS 0
[2022-05-09] MEDS: D5-1/2NS+10 MEQ KCL - 10 MEQ/1,000 ML INFUS.BAG IV SCH ×2 (12:03→17:07)
[2022-05-09] MEDS ORDERED: D5-1/3NS+20 MEQ KCL - 20 MEQ/1,000 ML INFUS.BAG IV SCH (13:00)
[2022-05-09 15:58] VITALS: BMI 39.3
[2022-05-09] MEDS: HYDROmorphone *PCA* 10MG/50ML DISP.SYRIN PCA SCH (20:00)
[2022-05-09] MEDS: CHLORHEXIDINE GLUCONATE 4% CLEANSER FOR DECOLONIZATION TP SCH (22:41)
[2022-05-10] MEDS: D5-1/2NS+10 MEQ KCL - 10 MEQ/1,000 ML INFUS.BAG IV SCH (03:30)
[2022-05-10] MEDS: HEPARIN NA (PORCINE) 5,000 UNITS/ML 1ML VIAL SQ SCH ×3 (05:01→21:19)
[2022-05-10] MEDS: PIPERACILLIN/TAZOB 3.375 GM 3.375 GM in DEXTROSE 5%-WATER - 50 ML IVPB SCH ×3 (06:31→22:05)
[2022-05-10 07:44] LABS: HEMATOCRIT 25.9 % (32.4-45.2); HEMOGLOBIN 8.5 GM/dL (10.7-15.3); MCH 27.4 pg (25.7-33.7); MCHC 32.7 g/dl (32.0-36.0); MEAN CELL VOLUME 83.7 fl (80-96); MEAN PLT VOLUME 9.9 fl (7.5-11.1); PLATELET COUNT 195 10^3/uL (134-434); RBC 3.09 M/mm3 (3.60-5.2); RDW 16.4 % (11.6-15.6); WHITE BLOOD COUNT 8.1 K/mm3 (4.0-10.0)
[2022-05-10 07:55] LABS: CALCIUM 8.4 mg/dL (8.5-10.1)
[2022-05-10 07:56] LABS: ALBUMIN 2.2 g/dl (3.4-5.0); BLOOD UREA NITROGEN 13.4 mg/dL (7-18); MAGNESIUM 2.1 mg/dL (1.8-2.4)
[2022-05-10 07:59] LABS: CREATININE 0.9 mg/dL (0.55-1.3); PHOSPHOROUS 2.4 mg/dL (2.5-4.9)
[2022-05-10 08:00] LABS: BILIRUBIN,TOTAL 0.3 mg/dL (0.2-1); TOT PROT 5.2 g/dl (6.4-8.2)
[2022-05-10 09:52] LABS: ANISOCYTOSIS 0; MACROCYTOSIS 0
[2022-05-10] MEDS: MUPIROCIN 2% TOPICAL OINTMENT FOR DECOLONIZATION NS SCH ×2 (10:25→21:19)
[2022-05-10] MEDS: BUDESONIDE/FORMETEROL FUMARATE 160/4.5 mcg INHALER IH SCH ×2 (10:26→21:20)
[2022-05-10] MEDS: FLUCONAZOLE 200 MG/NS 100 ML IVPB SCH (10:26)
[2022-05-10] MEDS: PANTOPRAZOLE SODIUM 40 MG VIAL IVPUSH SCH (10:26)
[2022-05-10] MEDS ORDERED: DEXTROSE 5%-WATER - 1,000 ML with POTASSIUM CHLORIDE 20 MEQ IV SCH (14:00)
[2022-05-10] MEDS ORDERED: POTASSIUM PHOSPHATE 15 MM in DEXTROSE 5%-WATER - 250 ML IVPB ONE (15:00)
[2022-05-10] MEDS: HYDROmorphone *PCA* 10MG/50ML DISP.SYRIN PCA SCH (19:36)
[2022-05-10] MEDS: CHLORHEXIDINE GLUCONATE 4% CLEANSER FOR DECOLONIZATION TP SCH (21:20)
[2022-05-11] MEDS: D5-1/2NS+10 MEQ KCL - 10 MEQ/1,000 ML INFUS.BAG IV SCH (02:54)
[2022-05-11] MEDS: HEPARIN NA (PORCINE) 5,000 UNITS/ML 1ML VIAL SQ SCH ×3 (05:28→21:44)
[2022-05-11] MEDS: PIPERACILLIN/TAZOB 3.375 GM 3.375 GM in DEXTROSE 5%-WATER - 50 ML IVPB SCH ×3 (06:03→23:19)
[2022-05-11 07:27] LABS: HEMOGLOBIN 9.1 GM/dL (10.7-15.3); MCHC 32.6 g/dl (32.0-36.0); MEAN CELL VOLUME 82.8 fl (80-96); MEAN PLT VOLUME 10.4 fl (7.5-11.1); PLATELET COUNT 212 10^3/uL (134-434); RBC 3.38 M/mm3 (3.60-5.2); RDW 16.6 % (11.6-15.6); WHITE BLOOD COUNT 8.5 K/mm3 (4.0-10.0)
[2022-05-11 08:45] LABS: ALBUMIN 2.2 g/dl (3.4-5.0); BLOOD UREA NITROGEN 7.8 mg/dL (7-18); CALCIUM 8.5 mg/dL (8.5-10.1)
[2022-05-11 08:48] LABS: CREATININE 0.7 mg/dL (0.55-1.3)
[2022-05-11 08:50] LABS: BILIRUBIN,TOTAL 0.5 mg/dL (0.2-1); TOT PROT 5.5 g/dl (6.4-8.2)
[2022-05-11] MEDS: FLUCONAZOLE 200 MG/NS 100 ML IVPB SCH (10:30)
[2022-05-11] MEDS: BUDESONIDE/FORMETEROL FUMARATE 160/4.5 mcg INHALER IH SCH ×2 (10:31→21:45)
[2022-05-11] MEDS: PANTOPRAZOLE SODIUM 40 MG VIAL IVPUSH SCH (10:31)
[2022-05-11] MEDS: MUPIROCIN 2% TOPICAL OINTMENT FOR DECOLONIZATION NS SCH ×2 (10:31→21:45)
[2022-05-11] MEDS: CHLORHEXIDINE GLUCONATE 4% CLEANSER FOR DECOLONIZATION TP SCH (21:45)
[2022-05-12] MEDS: HEPARIN NA (PORCINE) 5,000 UNITS/ML 1ML VIAL SQ SCH ×3 (06:24→21:26)
[2022-05-12] MEDS: D5-1/2NS+10 MEQ KCL - 10 MEQ/1,000 ML INFUS.BAG IV SCH (06:24)
[2022-05-12] MEDS: PIPERACILLIN/TAZOB 3.375 GM 3.375 GM in DEXTROSE 5%-WATER - 50 ML IVPB SCH ×3 (06:25→23:28)
[2022-05-12] MEDS: FLUCONAZOLE 200 MG/NS 100 ML IVPB SCH (10:43)
[2022-05-12] MEDS: PANTOPRAZOLE SODIUM 40 MG VIAL IVPUSH SCH (10:44)
[2022-05-12] MEDS: BUDESONIDE/FORMETEROL FUMARATE 160/4.5 mcg INHALER IH SCH ×2 (10:45→21:26)
[2022-05-12] MEDS ORDERED: D5-1/2NS+10 MEQ KCL - 10 MEQ/1,000 ML INFUS.BAG IV SCH (10:50)
[2022-05-12 11:49] LABS: HEMATOCRIT 25.2 % (32.4-45.2); HEMOGLOBIN 8.4 GM/dL (10.7-15.3); MCHC 33.2 g/dl (32.0-36.0); MEAN CELL VOLUME 81.2 fl (80-96); PLATELET COUNT 295 10^3/uL (134-434); WHITE BLOOD COUNT 10.3 K/mm3 (4.0-10.0)
[2022-05-12 12:15] LABS: CALCIUM 8.4 mg/dL (8.5-10.1)
[2022-05-12 12:17] LABS: CREATININE 0.5 mg/dL (0.55-1.3)
[2022-05-12 12:18] LABS: BLOOD UREA NITROGEN 5.5 mg/dL (7-18); MAGNESIUM 1.5 mg/dL (1.8-2.4)
[2022-05-12 12:21] LABS: PHOSPHOROUS 3.6 mg/dL (2.5-4.9)
[2022-05-12] MEDS ORDERED: ALBUMIN HUMAN 5% 500 ML IV SOLUTION IV ONE ×2 (16:50→18:30)
[2022-05-12] MEDS: KCL 10 MEQ IVPB 10 MEQ/100 ML INFUS.BAG IVPB SCH ×2 (17:11→17:40)
[2022-05-12] MEDS: LACTATED RINGERS SOLUTION 1,000 ML/1,000 ML INFUS.BAG IV SCH (21:25)
[2022-05-12] MEDS: CHLORHEXIDINE GLUCONATE 4% CLEANSER FOR DECOLONIZATION TP SCH (21:26)
[2022-05-12] MEDS: HYDROmorphone HCl 2 MG/ML VIAL IVPUSH PRN (21:27)
[2022-05-12 21:59] LABS: ARTERIAL BLD GAS O2 SATURATION 95.1 % (95-98); ARTERIAL BLOOD GAS BASE EXCESS -0.8 mmol/L (-2-2); ARTERIAL BLOOD GAS PO2 82.6 mmHg (80-100); ARTERIAL BLOOD GAS pH 7.309 (7.350-7.450)
[2022-05-12 22:02] LABS: ALLENS TEST POSITIVE; VENT RATE 8
[2022-05-12] MEDS: ACETAMINOPHEN 1000 MG/100 ML BAG IVPB PRN (23:27)
[2022-05-12 23:31] LABS: HEMOGLOBIN 12.5 GM/dL (10.7-15.3); MCH 26.2 pg (25.7-33.7); MEAN CELL VOLUME 81.8 fl (80-96); MEAN PLT VOLUME 8.9 fl (7.5-11.1); PLATELET COUNT 354 10^3/uL (134-434); RBC 4.76 M/mm3 (3.60-5.2); RDW 16.8 % (11.6-15.6); WHITE BLOOD COUNT 20.4 K/mm3 (4.0-10.0)
[2022-05-12 23:57] LABS: CALCIUM 8.4 mg/dL (8.5-10.1)
[2022-05-12 23:58] LABS: BLOOD UREA NITROGEN 5.8 mg/dL (7-18)
[2022-05-13 00:01] LABS: CREATININE 0.6 mg/dL (0.55-1.3)
[2022-05-13] MEDS: HYDROmorphone HCl 2 MG/ML VIAL IVPUSH PRN ×2 (02:14→10:06)
[2022-05-13 06:16] LABS: ARTERIAL BLD GAS O2 SATURATION 94.1 % (95-98); ARTERIAL BLOOD GAS BASE EXCESS -0.8 mmol/L (-2-2); ARTERIAL BLOOD GAS PO2 77.7 mmHg (80-100); ARTERIAL BLOOD GAS pH 7.304 (7.350-7.450)
[2022-05-13 06:26] LABS: ALLENS TEST POSITIVE
[2022-05-13] MEDS: PIPERACILLIN/TAZOB 3.375 GM 3.375 GM in DEXTROSE 5%-WATER - 50 ML IVPB SCH ×3 (06:26→23:43)
[2022-05-13] MEDS: ACETAMINOPHEN 1000 MG/100 ML BAG IVPB PRN ×2 (06:27→17:59)
[2022-05-13] MEDS: HEPARIN NA (PORCINE) 5,000 UNITS/ML 1ML VIAL SQ SCH ×2 (07:04→13:07)
[2022-05-13] MEDS: HYDROmorphone *PCA* 10MG/50ML DISP.SYRIN PCA SCH (07:28)
[2022-05-13 07:39] LABS: HEMATOCRIT 35.4 % (32.4-45.2); HEMOGLOBIN 11.8 GM/dL (10.7-15.3); MCH 26.9 pg (25.7-33.7); MCHC 33.5 g/dl (32.0-36.0); MEAN CELL VOLUME 80.3 fl (80-96); MEAN PLT VOLUME 9.5 fl (7.5-11.1); PLATELET COUNT 400 10^3/uL (134-434); RBC 4.41 M/mm3 (3.60-5.2); RDW 16.4 % (11.6-15.6)
[2022-05-13 07:46] LABS: WHITE BLOOD COUNT 34.7 K/mm3 (4.0-10.0)
[2022-05-13 07:47] LABS: INR 1.4 (0.83-1.09); PROTHROMBIN TIME (PATIENT) 16.2 SEC (9.7-13.0)
[2022-05-13 07:50] LABS: ACTIVATED PTT 29.7 SECONDS (25.2-36.5)
[2022-05-13 08:46] LABS: CHLORIDE 111 mmol/L (98-107); SODIUM 149 mmol/L (136-145)
[2022-05-13 08:52] LABS: CALCIUM 8.1 mg/dL (8.5-10.1); GLUCOSE,RANDOM 83 mg/dL (74-106); MAGNESIUM 1.4 mg/dL (1.8-2.4)
[2022-05-13 08:53] LABS: CO2 26 mmol/L (21-32)
[2022-05-13 08:55] LABS: CREATININE 0.6 mg/dL (0.55-1.3); PHOSPHOROUS 3.8 mg/dL (2.5-4.9); SGOT/AST 9 U/L (15-37); SGPT/ALT 8 U/L (13-61)
[2022-05-13 08:57] LABS: BILIRUBIN,TOTAL 0.5 mg/dL (0.2-1); TOT PROT 4.8 g/dl (6.4-8.2)
[2022-05-13 08:58] LABS: ALK PHOS 48 U/L (45-117)
[2022-05-13 08:59] LABS: ANION GAP 11 MMOL/L (8-16)
[2022-05-13] MEDS: PANTOPRAZOLE SODIUM 40 MG VIAL IVPUSH SCH (09:53)
[2022-05-13] MEDS: BUDESONIDE/FORMETEROL FUMARATE 160/4.5 mcg INHALER IH SCH ×2 (09:54→21:47)
[2022-05-13] MEDS ORDERED: LACTATED RINGERS SOLUTION 1000 ML INFUS.BAG IV ONE ×2 (11:03→13:19)
[2022-05-13] MEDS: FLUCONAZOLE 200 MG/NS 100 ML IVPB SCH (11:42)
[2022-05-13] MEDS: KCL 10 MEQ IVPB 10 MEQ/100 ML INFUS.BAG IVPB SCH ×2 (13:04→15:39)
[2022-05-13 13:54] LABS: CHOLESTEROL 75 mg/dL (50-200)
[2022-05-13 13:55] LABS: LDL CHOLESTEROL (ONLY SJRH) 33 mg/dL (5-100)
[2022-05-13 13:58] LABS: HDL CHOLESTEROL 16 mg/dL (40-60)
[2022-05-13] MEDS ORDERED: MAGNESIUM SULF 50% (8.12 MEQ/2 ML-1 GM VIAL) IVPB ONE ×2 (14:28→19:00)
[2022-05-13] MEDS ORDERED: HEPARIN NA (PORCINE) 5,000 UNITS/ML 1ML VIAL IVPUSH PRN ×2 (14:47)
[2022-05-13] MEDS: HEPARIN SOD,PORK IN 0.45% NACL 25,000 UNITS/500 ML INFUS.BAG IVPB SCH (16:49)
[2022-05-13] MEDS: THIAMINE HCL 200 MG/2 ML VIAL IVPB SCH (16:51)
[2022-05-13] MEDS: LACTATED RINGERS SOLUTION 1,000 ML/1,000 ML INFUS.BAG IV SCH (20:01)
[2022-05-13] MEDS: ONDANSETRON 4 MG/2 ML VIAL IVPUSH PRN (21:45)
[2022-05-13] MEDS: CHLORHEXIDINE GLUCONATE 4% CLEANSER FOR DECOLONIZATION TP SCH (21:48)
[2022-05-14] MEDS: PIPERACILLIN/TAZOB 3.375 GM 3.375 GM in DEXTROSE 5%-WATER - 50 ML IVPB SCH ×3 (06:08→22:35)
[2022-05-14 08:19] LABS: CHLORIDE 112 mmol/L (98-107); SODIUM 146 mmol/L (136-145)
[2022-05-14 08:24] LABS: ALBUMIN 1.8 g/dl (3.4-5.0); BLOOD UREA NITROGEN 11.1 mg/dL (7-18); CALCIUM 8.1 mg/dL (8.5-10.1); CO2 27 mmol/L (21-32); GLUCOSE,RANDOM 100 mg/dL (74-106); MAGNESIUM 2.5 mg/dL (1.8-2.4)
[2022-05-14 08:27] LABS: CREATININE 0.7 mg/dL (0.55-1.3); PHOSPHOROUS 2.5 mg/dL (2.5-4.9); SGOT/AST 13 U/L (15-37); SGPT/ALT 10 U/L (13-61)
[2022-05-14 08:29] LABS: BILIRUBIN,TOTAL 0.4 mg/dL (0.2-1); TOT PROT 4.7 g/dl (6.4-8.2)
[2022-05-14 08:30] LABS: ALK PHOS 51 U/L (45-117)
[2022-05-14 08:31] LABS: ANION GAP 7 MMOL/L (8-16)
[2022-05-14] MEDS ORDERED: POTASSIUM CHLORIDE TABS 20 MEQ TABLET.ER (FP) PO ONE (08:53)
[2022-05-14] MEDS ORDERED: KCL 10 MEQ IVPB 10 MEQ/100 ML INFUS.BAG IVPB SCH (09:30)
[2022-05-14] MEDS: PANTOPRAZOLE SODIUM 40 MG VIAL IVPUSH SCH (10:29)
[2022-05-14] MEDS: THIAMINE HCL 200 MG/2 ML VIAL IVPB SCH (10:29)
[2022-05-14] MEDS: FLUCONAZOLE 200 MG/NS 100 ML IVPB SCH (10:29)
[2022-05-14] MEDS: BUDESONIDE/FORMETEROL FUMARATE 160/4.5 mcg INHALER IH SCH ×2 (10:29→22:36)
[2022-05-14] MEDS ORDERED: POTASSIUM CHLORIDE IV SCH (16:00)
[2022-05-14] MEDS ORDERED: [UNRECOGNIZED DRUG - OTHER] IV SCH (16:00)
[2022-05-14] MEDS ORDERED: SODIUM PHOSPHATE IV SCH (16:00)
[2022-05-14] MEDS ORDERED: MAGNESIUM SULFATE IV SCH (16:00)
[2022-05-14] MEDS: HEPARIN SOD,PORK IN 0.45% NACL 25,000 UNITS/500 ML INFUS.BAG IVPB SCH ×2 (16:41→23:48)
[2022-05-14 17:07] LABS: HEMATOCRIT 27.5 % (32.4-45.2); HEMOGLOBIN 8.9 GM/dL (10.7-15.3); MCH 25.8 pg (25.7-33.7); MCHC 32.3 g/dl (32.0-36.0); MEAN CELL VOLUME 80.1 fl (80-96); MEAN PLT VOLUME 9.1 fl (7.5-11.1); PLATELET COUNT 446 10^3/uL (134-434); RBC 3.44 M/mm3 (3.60-5.2); RDW 16.3 % (11.6-15.6)
[2022-05-14 17:17] LABS: WHITE BLOOD COUNT 31.6 K/mm3 (4.0-10.0)
[2022-05-14 17:39] LABS: CHLORIDE 115 mmol/L (98-107); SODIUM 152 mmol/L (136-145)
[2022-05-14 17:41] LABS: CALCIUM 7.9 mg/dL (8.5-10.1); CO2 28 mmol/L (21-32); GLUCOSE,RANDOM 85 mg/dL (74-106)
[2022-05-14 17:45] LABS: CREATININE 0.5 mg/dL (0.55-1.3)
[2022-05-14 17:46] LABS: ANION GAP 10 MMOL/L (8-16)
[2022-05-14 18:47] LABS: ANISOCYTOSIS 0; MACROCYTOSIS 0
[2022-05-14] MEDS: KCL 20 MEQ PREMIX BAG 100 ML IVPB SCH ×3 (19:30→21:15)
[2022-05-14] MEDS: CHLORHEXIDINE GLUCONATE 4% CLEANSER FOR DECOLONIZATION TP SCH (21:36)
[2022-05-14] MEDS: FAT EMUL/SOY/MCT/OLIV/FISH OIL 250 ML IV SCH (21:36)
[2022-05-14 23:56] LABS: CALCIUM 7.7 mg/dL (8.5-10.1)
[2022-05-14 23:57] LABS: BLOOD UREA NITROGEN 13.8 mg/dL (7-18)
[2022-05-15] LABS: CREATININE 0.6 mg/dL (0.55-1.3)
[2022-05-15] MEDS: PIPERACILLIN/TAZOB 3.375 GM 3.375 GM in DEXTROSE 5%-WATER - 50 ML IVPB SCH ×3 (06:05→22:01)
[2022-05-15] MEDS ORDERED: POTASSIUM CHLORIDE TABS 20 MEQ TABLET.ER (FP) PO ONE ×2 (06:30→18:50)
[2022-05-15 06:47] LABS: HEMATOCRIT 26.9 % (32.4-45.2); HEMOGLOBIN 8.8 GM/dL (10.7-15.3); MCH 26.2 pg (25.7-33.7); MCHC 32.7 g/dl (32.0-36.0); MEAN CELL VOLUME 80.3 fl (80-96); MEAN PLT VOLUME 8.7 fl (7.5-11.1); PLATELET COUNT 449 10^3/uL (134-434); RBC 3.35 M/mm3 (3.60-5.2); RDW 16.5 % (11.6-15.6); WHITE BLOOD COUNT 25.8 K/mm3 (4.0-10.0)
[2022-05-15 07:32] LABS: CHLORIDE 116 mmol/L (98-107); SODIUM 150 mmol/L (136-145)
[2022-05-15 07:36] LABS: GLUCOSE,RANDOM 146 mg/dL (74-106)
[2022-05-15 07:37] LABS: ALBUMIN 1.8 g/dl (3.4-5.0); BLOOD UREA NITROGEN 17.6 mg/dL (7-18); CALCIUM 7.8 mg/dL (8.5-10.1); CO2 31 mmol/L (21-32); MAGNESIUM 2.2 mg/dL (1.8-2.4)
[2022-05-15 07:40] LABS: SGPT/ALT 6 U/L (13-61)
[2022-05-15 07:41] LABS: CREATININE 0.5 mg/dL (0.55-1.3); PHOSPHOROUS 1.4 mg/dL (2.5-4.9); SGOT/AST 8 U/L (15-37)
[2022-05-15 07:42] LABS: BILIRUBIN,TOTAL 0.2 mg/dL (0.2-1); TOT PROT 4.9 g/dl (6.4-8.2)
[2022-05-15 07:43] LABS: ALK PHOS 53 U/L (45-117)
[2022-05-15 07:44] LABS: ANION GAP 4 MMOL/L (8-16)
[2022-05-15] MEDS ORDERED: KCL 20 MEQ PREMIX BAG 100 ML IVPB ONE (08:00)
[2022-05-15] MEDS ORDERED: POTASSIUM PHOSPHATE 30 MM in DEXTROSE 5%-WATER - 250 ML IVPB ONE (09:00)
[2022-05-15 09:22] LABS: ANISOCYTOSIS 2+; MACROCYTOSIS 1+
[2022-05-15] MEDS: KCL 20 MEQ PREMIX BAG 100 ML IVPB SCH ×3 (09:33→23:23)
[2022-05-15] MEDS: THIAMINE HCL 200 MG/2 ML VIAL IVPB SCH (09:47)
[2022-05-15] MEDS: PANTOPRAZOLE SODIUM 40 MG VIAL IVPUSH SCH (09:47)
[2022-05-15] MEDS: BUDESONIDE/FORMETEROL FUMARATE 160/4.5 mcg INHALER IH SCH ×2 (09:49→21:58)
[2022-05-15] MEDS: FLUCONAZOLE 200 MG/NS 100 ML IVPB SCH (09:51)
[2022-05-15] MEDS: HEPARIN SOD,PORK IN 0.45% NACL 25,000 UNITS/500 ML INFUS.BAG IVPB SCH ×2 (11:09→19:25)
[2022-05-15] MEDS: HYDROmorphone HCl 2 MG/ML VIAL IVPUSH PRN (13:06)
[2022-05-15] MEDS ORDERED: MAGNESIUM SULFATE IVPB SCH (16:00)
[2022-05-15] MEDS ORDERED: [UNRECOGNIZED DRUG - OTHER] IVPB SCH (16:00)
[2022-05-15] MEDS ORDERED: POTASSIUM PHOSPHATE IVPB SCH (16:00)
[2022-05-15] MEDS ORDERED: INSULIN REGULAR IVPB SCH (16:00)
[2022-05-15 19:40] LABS: CHLORIDE 109 mmol/L (98-107); SODIUM 140 mmol/L (136-145)
[2022-05-15 19:43] LABS: BLOOD UREA NITROGEN 17.2 mg/dL (7-18); CO2 26 mmol/L (21-32); GLUCOSE,RANDOM 114 mg/dL (74-106)
[2022-05-15 19:46] LABS: CREATININE 0.3 mg/dL (0.55-1.3)
[2022-05-15 20:00] LABS: ANION GAP 5 MMOL/L (8-16)
[2022-05-15] MEDS: CHLORHEXIDINE GLUCONATE 4% CLEANSER FOR DECOLONIZATION TP SCH (21:58)
[2022-05-15] MEDS: FAT EMUL/SOY/MCT/OLIV/FISH OIL 250 ML IV SCH (22:01)
[2022-05-16] MEDS: HYDROmorphone HCl 2 MG/ML VIAL IVPUSH PRN (00:16)
[2022-05-16] MEDS: KCL 20 MEQ PREMIX BAG 100 ML IVPB SCH ×2 (00:17→01:23)
[2022-05-16] MEDS: ONDANSETRON 4 MG/2 ML VIAL IVPUSH PRN (00:17)
[2022-05-16] MEDS: HEPARIN SOD,PORK IN 0.45% NACL 25,000 UNITS/500 ML INFUS.BAG IVPB SCH (05:21)
[2022-05-16] MEDS: PIPERACILLIN/TAZOB 3.375 GM 3.375 GM in DEXTROSE 5%-WATER - 50 ML IVPB SCH ×3 (06:05→22:37)
[2022-05-16 07:03] LABS: BASO % 0.3 % (0-2.0); EOS % 2.6 % (0-4.5); HEMATOCRIT 27.2 % (32.4-45.2); HEMOGLOBIN 8.9 GM/dL (10.7-15.3); LYMPH % 6.9 % (8-40); MCH 26.4 pg (25.7-33.7); MCHC 32.7 g/dl (32.0-36.0); MEAN CELL VOLUME 80.6 fl (80-96); MEAN PLT VOLUME 9.4 fl (7.5-11.1); MONO % 5.6 % (3.8-10.2); NEUT % 84.6 % (42.8-82.8); PLATELET COUNT 483 10^3/uL (134-434); RBC 3.37 M/mm3 (3.60-5.2); RDW 16.2 % (11.6-15.6); WHITE BLOOD COUNT 18.1 K/mm3 (4.0-10.0)
[2022-05-16 07:26] LABS: CALCIUM 7.9 mg/dL (8.5-10.1)
[2022-05-16 07:27] LABS: MAGNESIUM 1.8 mg/dL (1.8-2.4)
[2022-05-16 07:28] LABS: ALBUMIN 1.8 g/dl (3.4-5.0); BLOOD UREA NITROGEN 21.7 mg/dL (7-18)
[2022-05-16 07:30] LABS: CREATININE 0.4 mg/dL (0.55-1.3); PHOSPHOROUS 2.1 mg/dL (2.5-4.9)
[2022-05-16 07:31] LABS: BILIRUBIN,TOTAL 0.3 mg/dL (0.2-1); TOT PROT 5.1 g/dl (6.4-8.2)
[2022-05-16] MEDS: PANTOPRAZOLE SODIUM 40 MG VIAL IVPUSH SCH (09:40)
[2022-05-16] MEDS: BUDESONIDE/FORMETEROL FUMARATE 160/4.5 mcg INHALER IH SCH ×2 (09:43→21:23)
[2022-05-16] MEDS: ENOXAPARIN NA (PORCINE) 100 MG/1 ML DISP.SYRIN SQ SCH ×2 (12:59→21:22)
[2022-05-16] MEDS: FLUCONAZOLE 200 MG/NS 100 ML IVPB SCH (12:59)
[2022-05-16] MEDS ORDERED: MAGNESIUM SULFATE IVPB SCH (16:00)
[2022-05-16] MEDS ORDERED: [UNRECOGNIZED DRUG - OTHER] IVPB SCH (16:00)
[2022-05-16] MEDS ORDERED: POTASSIUM PHOSPHATE IVPB SCH (16:00)
[2022-05-16] MEDS ORDERED: INSULIN REGULAR IVPB SCH (16:00)
[2022-05-16] MEDS: FAT EMUL/SOY/MCT/OLIV/FISH OIL 250 ML IV SCH (21:22)
[2022-05-16] MEDS: CHLORHEXIDINE GLUCONATE 4% CLEANSER FOR DECOLONIZATION TP SCH (21:23)
[2022-05-17] MEDS: HYDROmorphone HCl 2 MG/ML VIAL IVPUSH PRN (02:09)
[2022-05-17] MEDS: PIPERACILLIN/TAZOB 3.375 GM 3.375 GM in DEXTROSE 5%-WATER - 50 ML IVPB SCH ×3 (06:00→22:52)
[2022-05-17 08:19] LABS: BASO % 0.4 % (0-2.0); EOS % 2.9 % (0-4.5); HEMATOCRIT 26.7 % (32.4-45.2); HEMOGLOBIN 8.8 GM/dL (10.7-15.3); LYMPH % 8.3 % (8-40); MCH 26.9 pg (25.7-33.7); MCHC 33.1 g/dl (32.0-36.0); MEAN CELL VOLUME 81.4 fl (80-96); MEAN PLT VOLUME 9.8 fl (7.5-11.1); MONO % 5.9 % (3.8-10.2); NEUT % 82.5 % (42.8-82.8); PLATELET COUNT 458 10^3/uL (134-434); RBC 3.28 M/mm3 (3.60-5.2); RDW 16.5 % (11.6-15.6); WHITE BLOOD COUNT 14.1 K/mm3 (4.0-10.0)
[2022-05-17 08:23] LABS: ALBUMIN 1.8 g/dl (3.4-5.0); BLOOD UREA NITROGEN 20.3 mg/dL (7-18); MAGNESIUM 1.9 mg/dL (1.8-2.4)
[2022-05-17 08:26] LABS: CREATININE 0.4 mg/dL (0.55-1.3); PHOSPHOROUS 2.6 mg/dL (2.5-4.9)
[2022-05-17 08:27] LABS: BILIRUBIN,TOTAL 0.3 mg/dL (0.2-1); TOT PROT 5.2 g/dl (6.4-8.2)
[2022-05-17] MEDS: FLUCONAZOLE 200 MG/NS 100 ML IVPB SCH (09:33)
[2022-05-17] MEDS: BUDESONIDE/FORMETEROL FUMARATE 160/4.5 mcg INHALER IH SCH ×2 (09:34→21:44)
[2022-05-17] MEDS: PANTOPRAZOLE SODIUM 40 MG VIAL IVPUSH SCH (09:34)
[2022-05-17] MEDS: ENOXAPARIN NA (PORCINE) 100 MG/1 ML DISP.SYRIN SQ SCH ×2 (09:35→21:35)
[2022-05-17] MEDS ORDERED: KCL 20 MEQ PREMIX BAG 20 MEQ in KCL 20 MEQ PREMIX BAG 100 ML IVPB ONE (11:30)
[2022-05-17] MEDS ORDERED: KCL 10 MEQ IVPB 10 MEQ/100 ML INFUS.BAG IVPB SCH (13:45)
[2022-05-17] MEDS: ACETAMINOPHEN 1000 MG/100 ML BAG IVPB PRN (14:47)
[2022-05-17] MEDS: INSULIN REGULAR IVPB SCH (18:11)
[2022-05-17] MEDS: MAGNESIUM SULFATE IVPB SCH (18:11)
[2022-05-17] MEDS: [UNRECOGNIZED DRUG - OTHER] IVPB SCH (18:11)
[2022-05-17] MEDS: POTASSIUM PHOSPHATE IVPB SCH (18:11)
[2022-05-17] MEDS: FAT EMUL/SOY/MCT/OLIV/FISH OIL 250 ML IV SCH (21:36)
[2022-05-17] MEDS: CHLORHEXIDINE GLUCONATE 4% CLEANSER FOR DECOLONIZATION TP SCH (21:36)
[2022-05-18] MEDS: PIPERACILLIN/TAZOB 3.375 GM 3.375 GM in DEXTROSE 5%-WATER - 50 ML IVPB SCH ×3 (06:18→22:15)
[2022-05-18 07:16] LABS: BASO % 0.5 % (0-2.0); EOS % 2.2 % (0-4.5); HEMATOCRIT 27.7 % (32.4-45.2); LYMPH % 6.7 % (8-40); MCH 26.2 pg (25.7-33.7); MCHC 32.5 g/dl (32.0-36.0); MEAN CELL VOLUME 80.7 fl (80-96); MEAN PLT VOLUME 9.7 fl (7.5-11.1); MONO % 7.5 % (3.8-10.2); NEUT % 83.1 % (42.8-82.8); PLATELET COUNT 486 10^3/uL (134-434); RBC 3.43 M/mm3 (3.60-5.2); RDW 16.1 % (11.6-15.6)
[2022-05-18 07:38] LABS: ALBUMIN 1.8 g/dl (3.4-5.0); MAGNESIUM 1.6 mg/dL (1.8-2.4)
[2022-05-18 07:42] LABS: CREATININE 0.4 mg/dL (0.55-1.3); PHOSPHOROUS 2.6 mg/dL (2.5-4.9)
[2022-05-18 07:43] LABS: BILIRUBIN,TOTAL 0.3 mg/dL (0.2-1); TOT PROT 5.3 g/dl (6.4-8.2)
[2022-05-18] MEDS: FLUCONAZOLE 200 MG/NS 100 ML IVPB SCH (10:48)
[2022-05-18] MEDS: ACETAMINOPHEN 1000 MG/100 ML BAG IVPB PRN (10:49)
[2022-05-18] MEDS: ENOXAPARIN NA (PORCINE) 100 MG/1 ML DISP.SYRIN SQ SCH ×2 (10:50→21:31)
[2022-05-18] MEDS: PANTOPRAZOLE SODIUM 40 MG VIAL IVPUSH SCH (10:50)
[2022-05-18] MEDS: BUDESONIDE/FORMETEROL FUMARATE 160/4.5 mcg INHALER IH SCH ×2 (10:51→21:30)
[2022-05-18] MEDS: MAGNESIUM SULFATE IVPB SCH (15:56)
[2022-05-18] MEDS: POTASSIUM PHOSPHATE IVPB SCH (15:56)
[2022-05-18] MEDS: [UNRECOGNIZED DRUG - OTHER] IVPB SCH (15:56)
[2022-05-18] MEDS: INSULIN REGULAR IVPB SCH (15:56)
[2022-05-18] MEDS: CHLORHEXIDINE GLUCONATE 4% CLEANSER FOR DECOLONIZATION TP SCH (21:31)
[2022-05-18] MEDS: FAT EMUL/SOY/MCT/OLIV/FISH OIL 250 ML IV SCH (21:31)
[2022-05-19] MEDS: ACETAMINOPHEN 1000 MG/100 ML BAG IVPB PRN ×2 (01:09→13:35)
[2022-05-19] MEDS: PIPERACILLIN/TAZOB 3.375 GM 3.375 GM in DEXTROSE 5%-WATER - 50 ML IVPB SCH ×3 (06:20→23:35)
[2022-05-19 07:31] LABS: ALBUMIN 1.9 g/dl (3.4-5.0); CALCIUM 8.3 mg/dL (8.5-10.1)
[2022-05-19 07:32] LABS: BLOOD UREA NITROGEN 18.2 mg/dL (7-18); MAGNESIUM 1.7 mg/dL (1.8-2.4)
[2022-05-19 07:35] LABS: CREATININE 0.3 mg/dL (0.55-1.3); PHOSPHOROUS 3.1 mg/dL (2.5-4.9)
[2022-05-19 07:36] LABS: BILIRUBIN,TOTAL 0.2 mg/dL (0.2-1); TOT PROT 5.3 g/dl (6.4-8.2)
[2022-05-19 07:41] LABS: BASO % 0.8 % (0-2.0); EOS % 2.7 % (0-4.5); HEMATOCRIT 26.7 % (32.4-45.2); HEMOGLOBIN 8.8 GM/dL (10.7-15.3); LYMPH % 9.4 % (8-40); MCH 26.5 pg (25.7-33.7); MCHC 33.1 g/dl (32.0-36.0); MEAN CELL VOLUME 80.2 fl (80-96); NEUT % 78.1 % (42.8-82.8); PLATELET COUNT 476 10^3/uL (134-434); RBC 3.32 M/mm3 (3.60-5.2); RDW 15.7 % (11.6-15.6); WHITE BLOOD COUNT 11.9 K/mm3 (4.0-10.0)
[2022-05-19] MEDS: FLUCONAZOLE 200 MG/NS 100 ML IVPB SCH (09:35)
[2022-05-19] MEDS: PANTOPRAZOLE SODIUM 40 MG VIAL IVPUSH SCH (09:36)
[2022-05-19] MEDS: ENOXAPARIN NA (PORCINE) 100 MG/1 ML DISP.SYRIN SQ SCH ×2 (09:36→21:30)
[2022-05-19] MEDS: BUDESONIDE/FORMETEROL FUMARATE 160/4.5 mcg INHALER IH SCH ×2 (09:37→21:31)
[2022-05-19] MEDS: KCL 10 MEQ IVPB 10 MEQ/100 ML INFUS.BAG IVPB SCH ×2 (10:24→11:30)
[2022-05-19] MEDS ORDERED: POTASSIUM PHOSPHATE IVPB SCH (16:00)
[2022-05-19] MEDS ORDERED: INSULIN REGULAR IVPB SCH (16:00)
[2022-05-19] MEDS ORDERED: MAGNESIUM SULFATE IVPB SCH (16:00)
[2022-05-19] MEDS ORDERED: [UNRECOGNIZED DRUG - OTHER] IVPB SCH (16:00)
[2022-05-19] MEDS: FAT EMUL/SOY/MCT/OLIV/FISH OIL 250 ML IV SCH (21:30)
[2022-05-19] MEDS: CHLORHEXIDINE GLUCONATE 4% CLEANSER FOR DECOLONIZATION TP SCH (21:31)
[2022-05-20] MEDS: PIPERACILLIN/TAZOB 3.375 GM 3.375 GM in DEXTROSE 5%-WATER - 50 ML IVPB SCH ×3 (06:46→22:14)
[2022-05-20 07:01] LABS: BASO % 1.1 % (0-2.0); HEMATOCRIT 26.9 % (32.4-45.2); HEMOGLOBIN 9.1 GM/dL (10.7-15.3); LYMPH % 13.1 % (8-40); MCH 27.1 pg (25.7-33.7); MCHC 33.7 g/dl (32.0-36.0); MEAN CELL VOLUME 80.4 fl (80-96); MEAN PLT VOLUME 10.8 fl (7.5-11.1); MONO % 11.3 % (3.8-10.2); NEUT % 71.5 % (42.8-82.8); PLATELET COUNT 499 10^3/uL (134-434); RBC 3.34 M/mm3 (3.60-5.2); RDW 15.8 % (11.6-15.6); WHITE BLOOD COUNT 9.9 K/mm3 (4.0-10.0)
[2022-05-20 07:31] LABS: BLOOD UREA NITROGEN 18.8 mg/dL (7-18)
[2022-05-20 07:32] LABS: MAGNESIUM 1.6 mg/dL (1.8-2.4)
[2022-05-20 07:34] LABS: CREATININE 0.4 mg/dL (0.55-1.3); PHOSPHOROUS 3.1 mg/dL (2.5-4.9)
[2022-05-20 07:36] LABS: BILIRUBIN,TOTAL 0.2 mg/dL (0.2-1); TOT PROT 5.5 g/dl (6.4-8.2)
[2022-05-20] MEDS ORDERED: MAGNESIUM SULF 50% (8.12 MEQ/2 ML-1 GM VIAL) IVPB ONE (08:52)
[2022-05-20] MEDS ORDERED: CALCIUM GLUCONATE 10% - 1,000 MG/10 ML VIAL IVPUSH ONE (08:53)
[2022-05-20] MEDS ORDERED: KCL 20 MEQ PREMIX BAG 100 ML IVPB ONE (09:15)
[2022-05-20] MEDS: FLUCONAZOLE 200 MG/NS 100 ML IVPB SCH (10:36)
[2022-05-20] MEDS: ENOXAPARIN NA (PORCINE) 100 MG/1 ML DISP.SYRIN SQ SCH (10:50)
[2022-05-20] MEDS: PANTOPRAZOLE SODIUM 40 MG VIAL IVPUSH SCH (10:55)
[2022-05-20] MEDS: BUDESONIDE/FORMETEROL FUMARATE 160/4.5 mcg INHALER IH SCH ×2 (11:19→22:13)
[2022-05-20] MEDS ORDERED: ALBUTEROL SO4 HFA INHALER IH PRN (15:34)
[2022-05-20] MEDS ORDERED: ONDANSETRON 4 MG/2 ML VIAL IVPUSH PRN (15:34)
[2022-05-20] MEDS ORDERED: ACETAMINOPHEN 1000 MG/100 ML BAG IVPB PRN (15:34)
[2022-05-20] MEDS ORDERED: INSULIN REGULAR IVPB SCH ×2 (16:00)
[2022-05-20] MEDS ORDERED: [UNRECOGNIZED DRUG - OTHER] IVPB SCH ×2 (16:00)
[2022-05-20] MEDS ORDERED: MAGNESIUM SULFATE IVPB SCH ×2 (16:00)
[2022-05-20] MEDS ORDERED: POTASSIUM PHOSPHATE IVPB SCH ×2 (16:00)
[2022-05-20] MEDS: VANCOMYCIN 250 MG/5 ML ORAL SOLUTION PO SCH (18:05)
[2022-05-20] MEDS ORDERED: CHLORHEXIDINE GLUCONATE 4% CLEANSER FOR DECOLONIZATION TP SCH (22:00)
[2022-05-20] MEDS ORDERED: ENOXAPARIN NA (PORCINE) 100 MG/1 ML DISP.SYRIN SQ SCH (22:00)
[2022-05-20] MEDS: FAT EMUL/SOY/MCT/OLIV/FISH OIL 250 ML IV SCH (22:12)
[2022-05-21] MEDS: VANCOMYCIN 250 MG/5 ML ORAL SOLUTION PO SCH ×4 (00:05→17:12)
[2022-05-21] MEDS: PIPERACILLIN/TAZOB 3.375 GM 3.375 GM in DEXTROSE 5%-WATER - 50 ML IVPB SCH ×3 (06:08→22:46)
[2022-05-21 08:58] LABS: HEMATOCRIT 28.4 % (32.4-45.2); HEMOGLOBIN 9.4 GM/dL (10.7-15.3); MCH 26.7 pg (25.7-33.7); MCHC 33.2 g/dl (32.0-36.0); MEAN CELL VOLUME 80.4 fl (80-96); MEAN PLT VOLUME 10.4 fl (7.5-11.1); PLATELET COUNT 567 10^3/uL (134-434); RBC 3.54 M/mm3 (3.60-5.2); RDW 16.3 % (11.6-15.6); WHITE BLOOD COUNT 10.2 K/mm3 (4.0-10.0)
[2022-05-21 09:25] LABS: ALBUMIN 2.3 g/dl (3.4-5.0)
[2022-05-21 09:27] LABS: MAGNESIUM 1.9 mg/dL (1.8-2.4)
[2022-05-21 09:28] LABS: BILIRUBIN,DIRECT 0.1 mg/dL (0.0-0.2)
[2022-05-21 09:29] LABS: ALBUMIN 2.3 g/dl (3.4-5.0); BILIRUBIN,TOTAL 0.5 mg/dL (0.2-1); BLOOD UREA NITROGEN 15.3 mg/dL (7-18); CALCIUM 8.9 mg/dL (8.5-10.1); CREATININE 0.4 mg/dL (0.55-1.3)
[2022-05-21 09:30] LABS: TOT PROT 6.1 g/dl (6.4-8.2); TOT PROT 6.2 g/dl (6.4-8.2)
[2022-05-21 09:32] LABS: PHOSPHOROUS 3.6 mg/dL (2.5-4.9)
[2022-05-21 09:33] LABS: BILIRUBIN,TOTAL 0.2 mg/dL (0.2-1)
[2022-05-21] MEDS: APIXABAN 5 MG TABLET PO SCH ×2 (09:34→22:28)
[2022-05-21] MEDS: PANTOPRAZOLE SODIUM 40 MG VIAL IVPUSH SCH (09:34)
[2022-05-21] MEDS: dilTIAZem HCL 30 MG TABLET PO SCH ×3 (09:35→22:29)
[2022-05-21] MEDS: BUDESONIDE/FORMETEROL FUMARATE 160/4.5 mcg INHALER IH SCH ×2 (09:46→22:29)
[2022-05-21] MEDS ORDERED: amLODIPine BESYLATE 5 MG TABLET (FP) PO SCH (10:00)
[2022-05-21] MEDS ORDERED: FLUCONAZOLE 200 MG/NS 100 ML IVPB SCH (10:00)
[2022-05-21] MEDS ORDERED: LOSARTAN POTASSIUM 50 MG TABLET PO SCH (10:00)
[2022-05-21] MEDS ORDERED: KCL 10 MEQ IVPB 10 MEQ/100 ML INFUS.BAG IVPB SCH (12:00)
[2022-05-21] MEDS ORDERED: POTASSIUM CHLORIDE ORAL LIQUID 20 MEQ/15 ML PO ONE (13:09)
[2022-05-21] MEDS: KCL 10 MEQ IVPB 10 MEQ/100 ML INFUS.BAG IVPB SCH ×2 (14:07→14:58)
[2022-05-21] MEDS ORDERED: [UNRECOGNIZED DRUG - OTHER] IVPB SCH (16:00)
[2022-05-21] MEDS ORDERED: POTASSIUM PHOSPHATE IVPB SCH (16:00)
[2022-05-21] MEDS ORDERED: INSULIN REGULAR IVPB SCH (16:00)
[2022-05-21] MEDS ORDERED: MAGNESIUM SULFATE IVPB SCH (16:00)
[2022-05-21] MEDS: FAT EMUL/SOY/MCT/OLIV/FISH OIL 250 ML IV SCH (22:28)
[2022-05-22] MEDS: VANCOMYCIN 250 MG/5 ML ORAL SOLUTION PO SCH ×5 (00:10→23:05)
[2022-05-22] MEDS: dilTIAZem HCL 30 MG TABLET PO SCH ×3 (06:00→21:37)
[2022-05-22] MEDS: PIPERACILLIN/TAZOB 3.375 GM 3.375 GM in DEXTROSE 5%-WATER - 50 ML IVPB SCH (06:51)
[2022-05-22 09:05] LABS: HEMATOCRIT 29.3 % (32.4-45.2); HEMOGLOBIN 9.4 GM/dL (10.7-15.3); MCH 25.9 pg (25.7-33.7); MCHC 32.1 g/dl (32.0-36.0); MEAN CELL VOLUME 80.8 fl (80-96); MEAN PLT VOLUME 10.8 fl (7.5-11.1); PLATELET COUNT 589 10^3/uL (134-434); RBC 3.62 M/mm3 (3.60-5.2); RDW 16.1 % (11.6-15.6)
[2022-05-22 10:03] LABS: ALBUMIN 2.4 g/dl (3.4-5.0); BLOOD UREA NITROGEN 17.4 mg/dL (7-18); CALCIUM 8.9 mg/dL (8.5-10.1)
[2022-05-22 10:06] LABS: PHOSPHOROUS 3.4 mg/dL (2.5-4.9)
[2022-05-22 10:07] LABS: BILIRUBIN,TOTAL 0.1 mg/dL (0.2-1); CREATININE 0.3 mg/dL (0.55-1.3); TOT PROT 6.4 g/dl (6.4-8.2)
[2022-05-22] MEDS: PANTOPRAZOLE SODIUM 40 MG VIAL IVPUSH SCH (10:35)
[2022-05-22] MEDS: LACTOBACILLUS ACIDOPHILUS 1 TABLET PO SCH (10:35)
[2022-05-22] MEDS: APIXABAN 5 MG TABLET PO SCH ×2 (10:35→21:37)
[2022-05-22] MEDS: BUDESONIDE/FORMETEROL FUMARATE 160/4.5 mcg INHALER IH SCH ×2 (10:36→21:38)
[2022-05-22] MEDS ORDERED: POTASSIUM PHOSPHATE IVPB SCH (16:00)
[2022-05-22] MEDS ORDERED: [UNRECOGNIZED DRUG - OTHER] IVPB SCH (16:00)
[2022-05-22] MEDS ORDERED: INSULIN REGULAR IVPB SCH (16:00)
[2022-05-22] MEDS ORDERED: MAGNESIUM SULFATE IVPB SCH (16:00)
[2022-05-22] MEDS: FAT EMUL/SOY/MCT/OLIV/FISH OIL 250 ML IV SCH (21:37)
[2022-05-23] MEDS: VANCOMYCIN 250 MG/5 ML ORAL SOLUTION PO SCH ×4 (05:13→23:56)
[2022-05-23] MEDS: dilTIAZem HCL 30 MG TABLET PO SCH ×3 (05:13→22:46)
[2022-05-23] MEDS ORDERED: LIDOCAINE HCL 5% TOP OINTMENT 50 GM TUBE TP PRN (09:11)
[2022-05-23] MEDS: APIXABAN 5 MG TABLET PO SCH ×2 (10:12→22:46)
[2022-05-23] MEDS: PANTOPRAZOLE SODIUM 40 MG VIAL IVPUSH SCH (10:13)
[2022-05-23] MEDS: LACTOBACILLUS ACIDOPHILUS 1 TABLET PO SCH (10:13)
[2022-05-23 10:14] LABS: ALBUMIN 2.4 g/dl (3.4-5.0); BLOOD UREA NITROGEN 16.9 mg/dL (7-18); MAGNESIUM 1.9 mg/dL (1.8-2.4)
[2022-05-23 10:16] LABS: CREATININE 0.4 mg/dL (0.55-1.3); PHOSPHOROUS 3.9 mg/dL (2.5-4.9)
[2022-05-23 10:19] LABS: BILIRUBIN,TOTAL 0.1 mg/dL (0.2-1); TOT PROT 6.6 g/dl (6.4-8.2)
[2022-05-23] MEDS: BUDESONIDE/FORMETEROL FUMARATE 160/4.5 mcg INHALER IH SCH ×2 (11:08→22:52)
[2022-05-23 12:47] LABS: BASO % 1.1 % (0-2.0); EOS % 3.1 % (0-4.5); HEMATOCRIT 31.2 % (32.4-45.2); LYMPH % 16.9 % (8-40); MCHC 32.2 g/dl (32.0-36.0); MEAN CELL VOLUME 80.7 fl (80-96); MEAN PLT VOLUME 9.8 fl (7.5-11.1); MONO % 10.6 % (3.8-10.2); NEUT % 68.3 % (42.8-82.8); PLATELET COUNT 683 10^3/uL (134-434); RBC 3.87 M/mm3 (3.60-5.2); RDW 16.3 % (11.6-15.6); WHITE BLOOD COUNT 13.1 K/mm3 (4.0-10.0)
[2022-05-23] MEDS ORDERED: MAGNESIUM SULFATE IVPB SCH (16:00)
[2022-05-23] MEDS ORDERED: POTASSIUM PHOSPHATE IVPB SCH (16:00)
[2022-05-23] MEDS ORDERED: INSULIN REGULAR IVPB SCH (16:00)
[2022-05-23] MEDS ORDERED: [UNRECOGNIZED DRUG - OTHER] IVPB SCH (16:00)
[2022-05-23] MEDS ORDERED: TRIPLE LUMEN FLUSH 4 ML ML IVPUSH PRN (19:09)
[2022-05-23] MEDS: FAT EMUL/SOY/MCT/OLIV/FISH OIL 250 ML IV SCH (22:45)
[2022-05-24] MEDS: dilTIAZem HCL 30 MG TABLET PO SCH ×3 (06:53→23:04)
[2022-05-24] MEDS: VANCOMYCIN 250 MG/5 ML ORAL SOLUTION PO SCH ×4 (06:54→23:05)
[2022-05-24 09:19] LABS: HEMATOCRIT 29.1 % (32.4-45.2); HEMOGLOBIN 9.7 GM/dL (10.7-15.3); MCH 26.7 pg (25.7-33.7); MCHC 33.3 g/dl (32.0-36.0); MEAN CELL VOLUME 80.1 fl (80-96); MEAN PLT VOLUME 9.6 fl (7.5-11.1); PLATELET COUNT 637 10^3/uL (134-434); RBC 3.64 M/mm3 (3.60-5.2); RDW 15.9 % (11.6-15.6); WHITE BLOOD COUNT 13.1 K/mm3 (4.0-10.0)
[2022-05-24 10:39] LABS: ALBUMIN 2.4 g/dl (3.4-5.0); BLOOD UREA NITROGEN 17.7 mg/dL (7-18); CALCIUM 8.9 mg/dL (8.5-10.1); MAGNESIUM 1.8 mg/dL (1.8-2.4)
[2022-05-24 10:42] LABS: CREATININE 0.4 mg/dL (0.55-1.3); PHOSPHOROUS 4.2 mg/dL (2.5-4.9)
[2022-05-24 10:44] LABS: BILIRUBIN,TOTAL 0.2 mg/dL (0.2-1); TOT PROT 6.8 g/dl (6.4-8.2)
[2022-05-24] MEDS: PANTOPRAZOLE SODIUM 40 MG VIAL IVPUSH SCH (12:06)
[2022-05-24] MEDS: ACETAMINOPHEN 500 MG TABLET (FP) PO PRN ×2 (12:06→23:50)
[2022-05-24] MEDS: APIXABAN 5 MG TABLET PO SCH ×2 (12:09→23:04)
[2022-05-24] MEDS: LACTOBACILLUS ACIDOPHILUS 1 TABLET PO SCH (12:09)
[2022-05-24] MEDS: BUDESONIDE/FORMETEROL FUMARATE 160/4.5 mcg INHALER IH SCH ×2 (13:04→23:05)
[2022-05-25] MEDS: FAT EMUL/SOY/MCT/OLIV/FISH OIL 250 ML IV SCH (01:36)
[2022-05-25] MEDS: dilTIAZem HCL 30 MG TABLET PO SCH ×3 (05:37→21:34)
[2022-05-25] MEDS: ACETAMINOPHEN 500 MG TABLET (FP) PO PRN (05:40)
[2022-05-25] MEDS: VANCOMYCIN 250 MG/5 ML ORAL SOLUTION PO SCH ×4 (12:04→23:22)
[2022-05-25] MEDS: PANTOPRAZOLE SODIUM 40 MG VIAL IVPUSH SCH (12:39)
[2022-05-25] MEDS: LACTOBACILLUS ACIDOPHILUS 1 TABLET PO SCH (12:39)
[2022-05-25] MEDS: APIXABAN 5 MG TABLET PO SCH ×2 (12:40→21:34)
[2022-05-25] MEDS: BUDESONIDE/FORMETEROL FUMARATE 160/4.5 mcg INHALER IH SCH ×2 (12:41→21:34)
[2022-05-26] MEDS: dilTIAZem HCL 30 MG TABLET PO SCH ×3 (05:28→22:38)
[2022-05-26] MEDS: VANCOMYCIN 250 MG/5 ML ORAL SOLUTION PO SCH ×4 (05:29→23:52)
[2022-05-26 07:43] LABS: BASO % 1.4 % (0-2.0); EOS % 4.9 % (0-4.5); HEMATOCRIT 28.8 % (32.4-45.2); HEMOGLOBIN 9.9 GM/dL (10.7-15.3); LYMPH % 15.7 % (8-40); MCH 27.6 pg (25.7-33.7); MCHC 34.5 g/dl (32.0-36.0); MEAN CELL VOLUME 80.1 fl (80-96); MEAN PLT VOLUME 9.7 fl (7.5-11.1); PLATELET COUNT 532 10^3/uL (134-434); RDW 15.3 % (11.6-15.6); WHITE BLOOD COUNT 10.3 K/mm3 (4.0-10.0)
[2022-05-26 08:04] LABS: CALCIUM 9.1 mg/dL (8.5-10.1); MAGNESIUM 1.4 mg/dL (1.8-2.4)
[2022-05-26 08:05] LABS: ALBUMIN 2.5 g/dl (3.4-5.0); BLOOD UREA NITROGEN 11.8 mg/dL (7-18)
[2022-05-26 08:08] LABS: CREATININE 0.4 mg/dL (0.55-1.3); PHOSPHOROUS 4.7 mg/dL (2.5-4.9)
[2022-05-26 08:09] LABS: BILIRUBIN,TOTAL 0.3 mg/dL (0.2-1); TOT PROT 6.7 g/dl (6.4-8.2)
[2022-05-26] MEDS: PANTOPRAZOLE SODIUM 40 MG VIAL IVPUSH SCH (10:17)
[2022-05-26] MEDS: APIXABAN 5 MG TABLET PO SCH ×2 (10:17→22:38)
[2022-05-26] MEDS: LACTOBACILLUS ACIDOPHILUS 1 TABLET PO SCH (10:17)
[2022-05-26] MEDS: BUDESONIDE/FORMETEROL FUMARATE 160/4.5 mcg INHALER IH SCH ×2 (10:24→22:41)
[2022-05-26] MEDS ORDERED: POTASSIUM CHLORIDE TABS 10 MEQ TABLET.ER (FP) PO ONE (10:48)
[2022-05-26] MEDS ORDERED: POTASSIUM CHLORIDE ORAL LIQUID 20 MEQ/15 ML PO ONE (17:17)
[2022-05-26] MEDS ORDERED: MAGNESIUM 2GM/50ML STERILE WATER IVPB IVPB ONE (17:17)
[2022-05-26] MEDS ORDERED: MINERAL OIL/PET HY-PHL TOPICAL OINTMENT 454 GM JAR TP PRN (19:08)
[2022-05-26] MEDS: MAGNESIUM OXIDE 400 MG TABLET (FP) PO SCH (22:39)
[2022-05-27] MEDS: VANCOMYCIN 250 MG/5 ML ORAL SOLUTION PO SCH ×3 (06:43→18:49)
[2022-05-27] MEDS: dilTIAZem HCL 30 MG TABLET PO SCH ×3 (06:43→21:58)
[2022-05-27] MEDS: ACETAMINOPHEN 500 MG TABLET (FP) PO PRN (11:10)
[2022-05-27] MEDS: MAGNESIUM OXIDE 400 MG TABLET (FP) PO SCH ×2 (11:10→21:58)
[2022-05-27] MEDS: ASCORBIC ACID 250 MG TABLET (FP) PO SCH (11:10)
[2022-05-27] MEDS: APIXABAN 5 MG TABLET PO SCH ×2 (11:11→21:58)
[2022-05-27] MEDS: CYANOCOBALAMIN (VITAMIN B-12) 1000 MCG/1 ML VIAL IM SCH (11:11)
[2022-05-27] MEDS: LACTOBACILLUS ACIDOPHILUS 1 TABLET PO SCH (11:11)
[2022-05-27] MEDS: AMINO ACIDS/PROTEIN HYDROLYS 30 ML LIQUID.PKT PO SCH ×2 (11:11→16:42)
[2022-05-27] MEDS: BUDESONIDE/FORMETEROL FUMARATE 160/4.5 mcg INHALER IH SCH ×2 (11:11→22:07)
[2022-05-27] MEDS: CHOLECALCIFEROL (VIT D3) 5000 UNITS (125 MCG) CAP PO SCH (11:12)
[2022-05-27] MEDS: PANTOPRAZOLE SODIUM 40 MG VIAL IVPUSH SCH (11:52)
[2022-05-27 12:36] LABS: HEMATOCRIT 30.7 % (32.4-45.2); HEMOGLOBIN 10.2 GM/dL (10.7-15.3); MCH 26.7 pg (25.7-33.7); MCHC 33.2 g/dl (32.0-36.0); MEAN CELL VOLUME 80.3 fl (80-96); MEAN PLT VOLUME 10.1 fl (7.5-11.1); PLATELET COUNT 527 10^3/uL (134-434); RBC 3.82 M/mm3 (3.60-5.2); RDW 15.5 % (11.6-15.6); WHITE BLOOD COUNT 10.4 K/mm3 (4.0-10.0)
[2022-05-27 13:11] LABS: CHLORIDE 107 mmol/L (98-107); SODIUM 139 mmol/L (136-145)
[2022-05-27 13:14] LABS: CALCIUM 8.8 mg/dL (8.5-10.1); GLUCOSE,RANDOM 118 mg/dL (74-106)
[2022-05-27 13:15] LABS: ALBUMIN 2.6 g/dl (3.4-5.0); BLOOD UREA NITROGEN 10.5 mg/dL (7-18); CO2 26 mmol/L (21-32); MAGNESIUM 1.6 mg/dL (1.8-2.4)
[2022-05-27 13:16] LABS: SGPT/ALT 17 U/L (13-61)
[2022-05-27 13:17] LABS: SGOT/AST 11 U/L (15-37)
[2022-05-27 13:18] LABS: BILIRUBIN,TOTAL 0.2 mg/dL (0.2-1); CREATININE 0.5 mg/dL (0.55-1.3); PHOSPHOROUS 3.5 mg/dL (2.5-4.9); TOT PROT 7.1 g/dl (6.4-8.2)
[2022-05-27 13:19] LABS: ALK PHOS 87 U/L (45-117)
[2022-05-27 13:25] LABS: ANION GAP 7 MMOL/L (8-16)
[2022-05-27] MEDS ORDERED: MAGNESIUM 2GM/50ML STERILE WATER IVPB IVPB ONE (14:00)
[2022-05-27] MEDS ORDERED: POTASSIUM CHLORIDE ORAL LIQUID 20 MEQ/15 ML PO ONE (14:00)
[2022-05-27] MEDS: KCL 10 MEQ IVPB 10 MEQ/100 ML INFUS.BAG IVPB SCH ×3 (14:07→18:43)
[2022-05-28] MEDS: VANCOMYCIN 250 MG/5 ML ORAL SOLUTION PO SCH ×4 (00:13→18:31)
[2022-05-28] MEDS: ASCORBIC ACID 250 MG TABLET (FP) PO SCH (10:16)
[2022-05-28] MEDS: MAGNESIUM OXIDE 400 MG TABLET (FP) PO SCH ×2 (10:16→23:36)
[2022-05-28] MEDS: PANTOPRAZOLE 40 MG TABLET PO SCH (10:16)
[2022-05-28] MEDS: APIXABAN 5 MG TABLET PO SCH ×2 (10:16→23:37)
[2022-05-28] MEDS: CHOLECALCIFEROL (VIT D3) 5000 UNITS (125 MCG) CAP PO SCH (10:16)
[2022-05-28] MEDS: LACTOBACILLUS ACIDOPHILUS 1 TABLET PO SCH (10:16)
[2022-05-28] MEDS: AMINO ACIDS/PROTEIN HYDROLYS 30 ML LIQUID.PKT PO SCH ×2 (10:16→18:31)
[2022-05-28] MEDS: BUDESONIDE/FORMETEROL FUMARATE 160/4.5 mcg INHALER IH SCH ×2 (10:17→23:38)
[2022-05-28] MEDS: CYANOCOBALAMIN (VITAMIN B-12) 1000 MCG/1 ML VIAL IM SCH (10:18)
[2022-05-28 11:41] LABS: ALBUMIN 2.7 g/dl (3.4-5.0); MAGNESIUM 1.7 mg/dL (1.8-2.4)
[2022-05-28 11:44] LABS: CREATININE 0.5 mg/dL (0.55-1.3)
[2022-05-28 11:45] LABS: BILIRUBIN,TOTAL 0.2 mg/dL (0.2-1); TOT PROT 7.2 g/dl (6.4-8.2)
[2022-05-28] MEDS ORDERED: POTASSIUM CHLORIDE ORAL LIQUID 20 MEQ/15 ML PO ONE (13:15)
[2022-05-28] MEDS: VITAMINS A AND D TOPICAL OINTMENT 60 GM TUBE TP PRN (15:20)
[2022-05-28] MEDS: ACETAMINOPHEN 500 MG TABLET (FP) PO PRN (15:21)
[2022-05-28] MEDS: MAGNESIUM 2GM/50ML STERILE WATER IVPB IVPB SCH ×2 (15:22→18:37)
[2022-05-28] MEDS: KCL 10 MEQ IVPB 10 MEQ/100 ML INFUS.BAG IVPB SCH ×3 (15:22→18:36)
[2022-05-28] MEDS ORDERED: ACETAMINOPHEN 1000 MG/100 ML BAG IVPB ONE ×2 (16:04→23:44)
[2022-05-28] MEDS: COLLAGENASE CLOSTRIDIUM HIST. 30 GRAMS TUBE TP SCH (16:09)
[2022-05-28] MEDS ORDERED: KCL 10 MEQ IVPB 10 MEQ/100 ML INFUS.BAG IVPB SCH (18:45)
[2022-05-28] MEDS: LACTATED RINGERS SOLUTION 1,000 ML/1,000 ML INFUS.BAG IV SCH (20:37)
[2022-05-29] MEDS ORDERED: LORazepam 2 MG/ML SDV VIAL IVPUSH ONE (00:16)
[2022-05-29] MEDS: VANCOMYCIN 250 MG/5 ML ORAL SOLUTION PO SCH ×4 (00:27→18:01)
[2022-05-29] MEDS ORDERED: ALTEPLASE (CATHFLO) 2 MG/2 ML VIAL IA ONE (10:11)
[2022-05-29] MEDS: MAGNESIUM OXIDE 400 MG TABLET (FP) PO SCH ×2 (10:52→22:26)
[2022-05-29] MEDS: LACTOBACILLUS ACIDOPHILUS 1 TABLET PO SCH (10:52)
[2022-05-29] MEDS: APIXABAN 5 MG TABLET PO SCH ×2 (10:52→22:26)
[2022-05-29] MEDS: ASCORBIC ACID 250 MG TABLET (FP) PO SCH (10:52)
[2022-05-29] MEDS: AMINO ACIDS/PROTEIN HYDROLYS 30 ML LIQUID.PKT PO SCH ×2 (10:52→18:01)
[2022-05-29] MEDS: CYANOCOBALAMIN (VITAMIN B-12) 1000 MCG/1 ML VIAL IM SCH (10:53)
[2022-05-29] MEDS: CHOLECALCIFEROL (VIT D3) 5000 UNITS (125 MCG) CAP PO SCH (10:53)
[2022-05-29] MEDS: COLLAGENASE CLOSTRIDIUM HIST. 30 GRAMS TUBE TP SCH (10:53)
[2022-05-29] MEDS: PANTOPRAZOLE 40 MG TABLET PO SCH (10:53)
[2022-05-29] MEDS: BUDESONIDE/FORMETEROL FUMARATE 160/4.5 mcg INHALER IH SCH ×2 (10:59→22:27)
[2022-05-29 14:51] LABS: HEMATOCRIT 23.7 % (32.4-45.2); HEMOGLOBIN 7.9 GM/dL (10.7-15.3); MCH 27.3 pg (25.7-33.7); MCHC 33.4 g/dl (32.0-36.0); MEAN CELL VOLUME 81.6 fl (80-96); MEAN PLT VOLUME 9.6 fl (7.5-11.1); PLATELET COUNT 329 10^3/uL (134-434); RBC 2.91 M/mm3 (3.60-5.2); RDW 15.7 % (11.6-15.6); WHITE BLOOD COUNT 25.4 K/mm3 (4.0-10.0)
[2022-05-29 15:14] LABS: CALCIUM 8.5 mg/dL (8.5-10.1)
[2022-05-29 15:15] LABS: ALBUMIN 2.3 g/dl (3.4-5.0); BLOOD UREA NITROGEN 10.1 mg/dL (7-18)
[2022-05-29 15:18] LABS: CREATININE 0.6 mg/dL (0.55-1.3)
[2022-05-29 15:20] LABS: BILIRUBIN,TOTAL 0.4 mg/dL (0.2-1); TOT PROT 6.4 g/dl (6.4-8.2)
[2022-05-29 15:21] LABS: ANISOCYTOSIS 2+; MACROCYTOSIS 0
[2022-05-29] MEDS ORDERED: MAGNESIUM 2GM/50ML STERILE WATER IVPB IVPB ONE (15:30)
[2022-05-29] MEDS: POTASSIUM CHLORIDE ORAL LIQUID 20 MEQ/15 ML PO SCH ×2 (15:57→22:27)
[2022-05-30] MEDS: VANCOMYCIN 250 MG/5 ML ORAL SOLUTION PO SCH ×5 (06:07→23:39)
[2022-05-30 06:29] LABS: HEMATOCRIT 24.6 % (32.4-45.2); HEMOGLOBIN 8.1 GM/dL (10.7-15.3); MCH 26.7 pg (25.7-33.7); MCHC 33.1 g/dl (32.0-36.0); MEAN CELL VOLUME 80.7 fl (80-96); MEAN PLT VOLUME 9.5 fl (7.5-11.1); PLATELET COUNT 329 10^3/uL (134-434); RBC 3.05 M/mm3 (3.60-5.2); RDW 15.7 % (11.6-15.6); WHITE BLOOD COUNT 23.5 K/mm3 (4.0-10.0)
[2022-05-30 06:52] LABS: ALBUMIN 2.1 g/dl (3.4-5.0); BLOOD UREA NITROGEN 6.9 mg/dL (7-18); CALCIUM 8.5 mg/dL (8.5-10.1)
[2022-05-30 06:55] LABS: CREATININE 0.4 mg/dL (0.55-1.3)
[2022-05-30 06:57] LABS: BILIRUBIN,TOTAL 0.8 mg/dL (0.2-1); TOT PROT 5.7 g/dl (6.4-8.2)
[2022-05-30] MEDS: KCL 10 MEQ IVPB 10 MEQ/100 ML INFUS.BAG IVPB SCH ×3 (07:23→10:56)
[2022-05-30 09:13] LABS: MAGNESIUM 1.7 mg/dL (1.8-2.4)
[2022-05-30 09:13] LABS: MAGNESIUM 1.8 mg/dL (1.8-2.4)
[2022-05-30 09:16] LABS: PHOSPHOROUS 3.5 mg/dL (2.5-4.9)
[2022-05-30 09:16] LABS: PHOSPHOROUS 3.7 mg/dL (2.5-4.9)
[2022-05-30] MEDS: MAGNESIUM OXIDE 400 MG TABLET (FP) PO SCH ×2 (09:20→22:14)
[2022-05-30] MEDS: LACTATED RINGERS SOLUTION 1,000 ML/1,000 ML INFUS.BAG IV SCH ×2 (09:20)
[2022-05-30] MEDS: APIXABAN 5 MG TABLET PO SCH ×2 (09:20→22:15)
[2022-05-30] MEDS: ASCORBIC ACID 250 MG TABLET (FP) PO SCH (09:20)
[2022-05-30] MEDS: LACTOBACILLUS ACIDOPHILUS 1 TABLET PO SCH (09:20)
[2022-05-30] MEDS: PANTOPRAZOLE 40 MG TABLET PO SCH (09:21)
[2022-05-30] MEDS: COLLAGENASE CLOSTRIDIUM HIST. 30 GRAMS TUBE TP SCH (09:21)
[2022-05-30] MEDS: CHOLECALCIFEROL (VIT D3) 5000 UNITS (125 MCG) CAP PO SCH (09:21)
[2022-05-30] MEDS: CYANOCOBALAMIN (VITAMIN B-12) 1000 MCG/1 ML VIAL IM SCH (09:21)
[2022-05-30] MEDS: AMINO ACIDS/PROTEIN HYDROLYS 30 ML LIQUID.PKT PO SCH (09:22)
[2022-05-30] MEDS: BUDESONIDE/FORMETEROL FUMARATE 160/4.5 mcg INHALER IH SCH ×2 (09:22→22:19)
[2022-05-30 09:51] LABS: ANISOCYTOSIS 1+; MACROCYTOSIS 0
[2022-05-30] MEDS ORDERED: POTASSIUM CHLORIDE ORAL LIQUID 20 MEQ/15 ML PO SCH (10:00)
[2022-05-30] MEDS: POTASSIUM CHLORIDE TABS 10 MEQ TABLET.ER (FP) PO SCH ×2 (14:52→22:15)
[2022-05-30] MEDS: SODIUM CHLORIDE 0.45%/POT 20 MEQ/1,000 ML INFUS.BAG IV SCH (14:52)
[2022-05-30] MEDS: PIPERACILLIN/TAZOB 4.5 GM 4.5 GM in DEXTROSE 5%-WATER 100 ML IVPB SCH (18:56)
[2022-05-30 21:13] LABS: EPI CELLS >36 /uL (0-25.1); HYALINE CASTS 3 /uL (0-3.1); URINE APPEARANCE CLOUDY; URINE BACTERIA >9,000 /uL (0-1359); URINE BILIRUBIN NEGATIVE (NEGATIVE); URINE COLOR YELLOW; URINE GLUCOSE (UA) NEGATIVE (NEGATIVE); URINE KETONE NEGATIVE (NEGATIVE); URINE LEUK ESTERASE TRACE (NEGATIVE); URINE NITRITE POSITIVE (NEGATIVE); URINE PROTEIN 1+ (NEGATIVE); URINE UROBILINOGEN 0.2 mg/dL (0.2-1.0); URINE WBC 71 /uL (0-25.8)
[2022-05-30 21:35] LABS: URINE RBC 173.6 /uL (0-23.9)
[2022-05-31] MEDS: PIPERACILLIN/TAZOB 4.5 GM 4.5 GM in DEXTROSE 5%-WATER 100 ML IVPB SCH ×3 (02:49→17:02)
[2022-05-31] MEDS: VANCOMYCIN 250 MG/5 ML ORAL SOLUTION PO SCH ×4 (07:09→23:39)
[2022-05-31 08:37] LABS: HEMOGLOBIN 8.6 GM/dL (10.7-15.3); MCH 26.8 pg (25.7-33.7); MCHC 33.1 g/dl (32.0-36.0); MEAN CELL VOLUME 81.1 fl (80-96); MEAN PLT VOLUME 9.8 fl (7.5-11.1); PLATELET COUNT 337 10^3/uL (134-434); RBC 3.21 M/mm3 (3.60-5.2); RDW 15.3 % (11.6-15.6); WHITE BLOOD COUNT 14.6 K/mm3 (4.0-10.0)
[2022-05-31] MEDS: AMINO ACIDS/PROTEIN HYDROLYS 30 ML LIQUID.PKT PO SCH (08:49)
[2022-05-31 08:51] LABS: ALBUMIN 2.2 g/dl (3.4-5.0); CALCIUM 8.9 mg/dL (8.5-10.1)
[2022-05-31 08:52] LABS: BLOOD UREA NITROGEN 4.9 mg/dL (7-18); CREATININE 0.4 mg/dL (0.55-1.3); MAGNESIUM 1.6 mg/dL (1.8-2.4)
[2022-05-31 08:54] LABS: BILIRUBIN,TOTAL 0.3 mg/dL (0.2-1)
[2022-05-31] MEDS: PANTOPRAZOLE 40 MG TABLET PO SCH (09:58)
[2022-05-31] MEDS: LACTOBACILLUS ACIDOPHILUS 1 TABLET PO SCH (09:58)
[2022-05-31] MEDS: ASCORBIC ACID 250 MG TABLET (FP) PO SCH (09:58)
[2022-05-31] MEDS: MULTIVITAMINS (DAILY MVI) TABLET (FP) PO SCH (09:58)
[2022-05-31] MEDS: MAGNESIUM OXIDE 400 MG TABLET (FP) PO SCH ×2 (09:58→22:01)
[2022-05-31] MEDS: APIXABAN 5 MG TABLET PO SCH ×2 (09:58→22:02)
[2022-05-31] MEDS: CHOLECALCIFEROL (VIT D3) 5000 UNITS (125 MCG) CAP PO SCH (09:59)
[2022-05-31] MEDS: BUDESONIDE/FORMETEROL FUMARATE 160/4.5 mcg INHALER IH SCH ×2 (10:01→22:03)
[2022-05-31] MEDS: COLLAGENASE CLOSTRIDIUM HIST. 30 GRAMS TUBE TP SCH (10:04)
[2022-05-31] MEDS: CYANOCOBALAMIN (VITAMIN B-12) 1000 MCG/1 ML VIAL IM SCH (10:04)
[2022-05-31] MEDS ORDERED: POTASSIUM CHLORIDE TABS 20 MEQ TABLET.ER (FP) PO ONE (12:32)
[2022-05-31] MEDS: VITAMINS A AND D TOPICAL OINTMENT 60 GM TUBE TP PRN (12:32)
[2022-05-31] MEDS ORDERED: MAGNESIUM SULF 50% (8.12 MEQ/2 ML-1 GM VIAL) IVPB ONE (12:32)
[2022-05-31] MEDS: SODIUM CHLORIDE 0.45%/POT 20 MEQ/1,000 ML INFUS.BAG IV SCH (16:21)
[2022-05-31] MEDS: ACETAMINOPHEN 500 MG TABLET (FP) PO PRN (23:47)
[2022-06-01] MEDS: PIPERACILLIN/TAZOB 4.5 GM 4.5 GM in DEXTROSE 5%-WATER 100 ML IVPB SCH ×3 (01:33→17:12)
[2022-06-01] MEDS: VANCOMYCIN 250 MG/5 ML ORAL SOLUTION PO SCH ×4 (07:13→23:28)
[2022-06-01 08:55] LABS: BASO % 0.9 % (0-2.0); EOS % 3.4 % (0-4.5); HEMATOCRIT 25.4 % (32.4-45.2); HEMOGLOBIN 8.4 GM/dL (10.7-15.3); LYMPH % 11.9 % (8-40); MCH 26.9 pg (25.7-33.7); MCHC 33.3 g/dl (32.0-36.0); MEAN CELL VOLUME 80.9 fl (80-96); MEAN PLT VOLUME 9.7 fl (7.5-11.1); MONO % 7.2 % (3.8-10.2); NEUT % 76.6 % (42.8-82.8); PLATELET COUNT 343 10^3/uL (134-434); RBC 3.13 M/mm3 (3.60-5.2); RDW 15.4 % (11.6-15.6); WHITE BLOOD COUNT 10.2 K/mm3 (4.0-10.0)
[2022-06-01 09:12] LABS: CHLORIDE 110 mmol/L (98-107); SODIUM 141 mmol/L (136-145)
[2022-06-01 09:14] LABS: CALCIUM 8.3 mg/dL (8.5-10.1)
[2022-06-01 09:15] LABS: ALBUMIN 2.1 g/dl (3.4-5.0); ANION GAP 8 MMOL/L (8-16); CO2 24 mmol/L (21-32); GLUCOSE,RANDOM 88 mg/dL (74-106)
[2022-06-01 09:18] LABS: CREATININE 0.4 mg/dL (0.55-1.3); SGOT/AST 7 U/L (15-37); SGPT/ALT 11 U/L (13-61)
[2022-06-01 09:19] LABS: BILIRUBIN,TOTAL 0.2 mg/dL (0.2-1)
[2022-06-01 09:22] LABS: ALK PHOS 68 U/L (45-117)
[2022-06-01 10:33] LABS: BLOOD UREA NITROGEN 2.8 mg/dL (7-18)
[2022-06-01] MEDS: AMINO ACIDS/PROTEIN HYDROLYS 30 ML LIQUID.PKT PO SCH (11:06)
[2022-06-01] MEDS: PANTOPRAZOLE 40 MG TABLET PO SCH (11:07)
[2022-06-01] MEDS: CHOLECALCIFEROL (VIT D3) 5000 UNITS (125 MCG) CAP PO SCH (11:07)
[2022-06-01] MEDS: LACTOBACILLUS ACIDOPHILUS 1 TABLET PO SCH (11:07)
[2022-06-01] MEDS: MULTIVITAMINS (DAILY MVI) TABLET (FP) PO SCH (11:08)
[2022-06-01] MEDS: APIXABAN 5 MG TABLET PO SCH ×2 (11:08→23:14)
[2022-06-01] MEDS: MAGNESIUM OXIDE 400 MG TABLET (FP) PO SCH ×2 (11:08→23:15)
[2022-06-01] MEDS: ASCORBIC ACID 250 MG TABLET (FP) PO SCH (11:08)
[2022-06-01] MEDS: CYANOCOBALAMIN (VITAMIN B-12) 1000 MCG/1 ML VIAL IM SCH (11:20)
[2022-06-01] MEDS: BUDESONIDE/FORMETEROL FUMARATE 160/4.5 mcg INHALER IH SCH ×2 (11:20→23:18)
[2022-06-01] MEDS ORDERED: POTASSIUM CHLORIDE TABS 20 MEQ TABLET.ER (FP) PO ONE (16:57)
[2022-06-01] MEDS: SODIUM CHLORIDE 0.45%/POT 20 MEQ/1,000 ML INFUS.BAG IV SCH ×2 (17:15→23:14)
[2022-06-01] MEDS: COLLAGENASE CLOSTRIDIUM HIST. 30 GRAMS TUBE TP SCH (17:17)
[2022-06-02] MEDS: PIPERACILLIN/TAZOB 4.5 GM 4.5 GM in DEXTROSE 5%-WATER 100 ML IVPB SCH ×2 (02:43→09:50)
[2022-06-02] MEDS: VANCOMYCIN 250 MG/5 ML ORAL SOLUTION PO SCH ×3 (07:11→17:26)
[2022-06-02] MEDS: AMINO ACIDS/PROTEIN HYDROLYS 30 ML LIQUID.PKT PO SCH (09:47)
[2022-06-02] MEDS: LACTOBACILLUS ACIDOPHILUS 1 TABLET PO SCH (09:49)
[2022-06-02] MEDS: APIXABAN 5 MG TABLET PO SCH ×2 (09:49→21:32)
[2022-06-02] MEDS: ASCORBIC ACID 250 MG TABLET (FP) PO SCH (09:49)
[2022-06-02] MEDS: CHOLECALCIFEROL (VIT D3) 5000 UNITS (125 MCG) CAP PO SCH (09:49)
[2022-06-02] MEDS: PANTOPRAZOLE 40 MG TABLET PO SCH (09:49)
[2022-06-02] MEDS: CYANOCOBALAMIN (VITAMIN B-12) 1000 MCG/1 ML VIAL IM SCH (09:50)
[2022-06-02] MEDS: MULTIVITAMINS (DAILY MVI) TABLET (FP) PO SCH (09:50)
[2022-06-02] MEDS: MAGNESIUM OXIDE 400 MG TABLET (FP) PO SCH ×2 (09:50→21:32)
[2022-06-02] MEDS: COLLAGENASE CLOSTRIDIUM HIST. 30 GRAMS TUBE TP SCH (09:50)
[2022-06-02] MEDS: BUDESONIDE/FORMETEROL FUMARATE 160/4.5 mcg INHALER IH SCH ×2 (09:54→21:39)
[2022-06-02] MEDS ORDERED: POTASSIUM CHLORIDE TABS 20 MEQ TABLET.ER (FP) PO ONE (12:31)
[2022-06-02 21:32] VITALS: RESP 20
[2022-06-02] MEDS: metroNIDAZOLE 250 MG TABLET PO SCH (21:32)
[2022-06-03] MEDS: VANCOMYCIN 250 MG/5 ML ORAL SOLUTION PO SCH ×3 (00:54→13:13)
[2022-06-03 06:03] VITALS: BP 126/75; PULSE 84; TEMP 98.1
[2022-06-03] MEDS: metroNIDAZOLE 250 MG TABLET PO SCH ×2 (06:05→13:13)
[2022-06-03] MEDS: AMINO ACIDS/PROTEIN HYDROLYS 30 ML LIQUID.PKT PO SCH (08:57)
[2022-06-03] MEDS: LACTOBACILLUS ACIDOPHILUS 1 TABLET PO SCH (09:19)
[2022-06-03] MEDS: APIXABAN 5 MG TABLET PO SCH (09:19)
[2022-06-03] MEDS: CHOLECALCIFEROL (VIT D3) 5000 UNITS (125 MCG) CAP PO SCH (09:19)
[2022-06-03] MEDS: PANTOPRAZOLE 40 MG TABLET PO SCH (09:20)
[2022-06-03] MEDS: MAGNESIUM OXIDE 400 MG TABLET (FP) PO SCH (09:20)
[2022-06-03] MEDS: BUDESONIDE/FORMETEROL FUMARATE 160/4.5 mcg INHALER IH SCH (09:20)
[2022-06-03] MEDS: MULTIVITAMINS (DAILY MVI) TABLET (FP) PO SCH (09:20)
[2022-06-03] MEDS: CYANOCOBALAMIN (VITAMIN B-12) 1000 MCG/1 ML VIAL IM SCH (09:20)
[2022-06-03] MEDS: ASCORBIC ACID 250 MG TABLET (FP) PO SCH (09:20)
[2022-06-03] MEDS: COLLAGENASE CLOSTRIDIUM HIST. 30 GRAMS TUBE TP SCH (09:21)
[2022-06-03 12:08] LABS: CALCIUM 9.4 mg/dL (8.5-10.1)
[2022-06-03 12:09] LABS: BLOOD UREA NITROGEN 3.2 mg/dL (7-18)
[2022-06-03 12:12] LABS: CREATININE 0.5 mg/dL (0.55-1.3)
[2022-06-03] MEDS ORDERED: POTASSIUM CHLORIDE TABS 10 MEQ TABLET.ER (FP) PO ONE (13:17)
[2022-06-03] MEDS ORDERED: POTASSIUM CHLORIDE TABS 20 MEQ TABLET.ER (FP) PO ONE (20:00)
== END 2022-06-03 17:02 | DRG 329 ==
LOC: JER 17:04 → JERBED 22:05 → J7W 05-06 06:03 → JICU 05-06 21:36 → J8W 05-20 15:27
PROVIDERS: ADMIT Internal Medicine; ATTEND Family Medicine
PROC: 0DB80ZZ Excision of Small Intestine, Open Approach (ICD-10-PCS; principal; 2022-05-05)
PROC: 0WPF0JZ Removal of Synthetic Substitute from Abdominal Wall, Open Approach (ICD-10-PCS; 2022-05-05)
PROC: 0W9F00Z Drainage of Abdominal Wall with Drainage Device, Open Approach (ICD-10-PCS; 2022-05-05)
PROC: 0W9G0ZX Drainage of Peritoneal Cavity, Open Approach, Diagnostic (ICD-10-PCS; 2022-05-05)
PROC: 0DNW0ZZ Release Peritoneum, Open Approach (ICD-10-PCS; 2022-05-08)
PROC: 05HF33Z Insertion of Infusion Device into Left Cephalic Vein, Percutaneous Approach (ICD-10-PCS; 2022-05-08)
PROC: B54NZZA Ultrasonography of Left Upper Extremity Veins, Guidance (ICD-10-PCS; 2022-05-08)
PROC: 0D180Z4 Bypass Small Intestine to Cutaneous, Open Approach (ICD-10-PCS; 2022-05-12)
PROC: 0DNW0ZZ Release Peritoneum, Open Approach (ICD-10-PCS; 2022-05-12)
PROC: 3E1M38Z Irrigation of Peritoneal Cavity using Irrigating Substance, Percutaneous Approach (ICD-10-PCS; 2022-05-12)
PROC: 05HM33Z Insertion of Infusion Device into Right Internal Jugular Vein, Percutaneous Approach (ICD-10-PCS; 2022-05-14)
PROC: B543ZZA Ultrasonography of Right Jugular Veins, Guidance (ICD-10-PCS; 2022-05-14)
PROC: 05PYX3Z Removal of Infusion Device from Upper Vein, External Approach (ICD-10-PCS; 2022-06-03)
DX: K56.699 Other intestinal obstruction unspecified as to partial versus complete obstruction (principal); K55.029 Acute infarction of small intestine, extent unspecified; R57.8 Other shock; K65.8 Other peritonitis; K63.1 Perforation of intestine (nontraumatic); T85.79XA Infection and inflammatory reaction due to other internal prosthetic devices, implants and grafts, initial encounter; K55.9 Vascular disorder of intestine, unspecified; N17.9 Acute kidney failure, unspecified; E87.0 Hyperosmolality and hypernatremia; E87.20 Acidosis, unspecified; N39.0 Urinary tract infection, site not specified; J90 Pleural effusion, not elsewhere classified; K21.9 Gastro-esophageal reflux disease without esophagitis; J44.9 Chronic obstructive pulmonary disease, unspecified; I10 Essential (primary) hypertension; R11.2 Nausea with vomiting, unspecified; K44.9 Diaphragmatic hernia without obstruction or gangrene; E87.6 Hypokalemia; E83.42 Hypomagnesemia; E86.0 Dehydration; K66.0 Peritoneal adhesions (postprocedural) (postinfection); Y83.8 Other surgical procedures as the cause of abnormal reaction of the patient, or of later complication, without mention of misadventure at the time of the procedure; I95.9 Hypotension, unspecified; R00.0 Tachycardia, unspecified; D75.838 Other thrombocytosis; D64.9 Anemia, unspecified; I48.91 Unspecified atrial fibrillation; E88.09 Other disorders of plasma-protein metabolism, not elsewhere classified; E86.1 Hypovolemia; D72.829 Elevated white blood cell count, unspecified; B96.1 Klebsiella pneumoniae [K. pneumoniae] as the cause of diseases classified elsewhere; B95.2 Enterococcus as the cause of diseases classified elsewhere; B96.4 Proteus (mirabilis) (morganii) as the cause of diseases classified elsewhere; B96.20 Unspecified Escherichia coli [E. coli] as the cause of diseases classified elsewhere; Z90.49 Acquired absence of other specified parts of digestive tract; Z98.84 Bariatric surgery status
CPT/HCPCS: 0241U-QW; 36415; 36430; 36600; 49424; 71045-TC-FY; 74019-TC-FY; 74176-TC; 74177-TC; 80048; 80053; 80061; 80076; 81003; 82272; 82746; 82803; 83605; 83690; 83735; 84100; 84478; 84630; 85025; 85027; 85610; 85730; 86140; 86850; 86900; 86901; 86922; 87040; 87070; 87076; 87086; 87186; 87205; 87324; 87449; 88304-TC; 88307-TC; 93005; 93010; 93306-TC; 94660; 94760; 97116-GP; 97162-GP; 99285-25; C9803-CS; J1644; J3480; P9058; Q9967; U0003; U0005

== ENCOUNTER 2022-06-11 12:12 | Observation (INO) | payer OTHER ==
[2022-06-11 13:45] LABS: BASO % 0.7 % (0-2.0); HEMATOCRIT 34.2 % (32.4-45.2); HEMOGLOBIN 11.4 GM/dL (10.7-15.3); LYMPH % 20.9 % (8-40); MCH 26.6 pg (25.7-33.7); MCHC 33.5 g/dl (32.0-36.0); MEAN CELL VOLUME 79.4 fl (80-96); MEAN PLT VOLUME 8.6 fl (7.5-11.1); MONO % 9.7 % (3.8-10.2); NEUT % 67.7 % (42.8-82.8); PLATELET COUNT 397 10^3/uL (134-434); RBC 4.31 M/mm3 (3.60-5.2); WHITE BLOOD COUNT 9.2 K/mm3 (4.0-10.0)
[2022-06-11 14:05] LABS: CHLORIDE 98 mmol/L (98-107); SODIUM 135 mmol/L (136-145)
[2022-06-11 14:07] LABS: BLOOD UREA NITROGEN 3.3 mg/dL (7-18); CALCIUM 8.6 mg/dL (8.5-10.1); CO2 29 mmol/L (21-32); GLUCOSE,RANDOM 116 mg/dL (74-106); MAGNESIUM 1.6 mg/dL (1.8-2.4)
[2022-06-11 14:09] LABS: PHOSPHOROUS 2.6 mg/dL (2.5-4.9)
[2022-06-11 14:10] LABS: CREATININE 0.5 mg/dL (0.55-1.3); SGOT/AST 19 U/L (15-37)
[2022-06-11 14:11] LABS: BILIRUBIN,TOTAL 0.3 mg/dL (0.2-1); TOT PROT 7.4 g/dl (6.4-8.2)
[2022-06-11 14:13] LABS: ALBUMIN 2.9 g/dl (3.4-5.0); ALK PHOS 80 U/L (45-117); ANION GAP 8 MMOL/L (8-16); POTASSIUM 2.4 mmol/L (3.5-5.1); SGPT/ALT 16 U/L (13-61)
[2022-06-11] MEDS ORDERED: MAGNESIUM SULF 50% (8.12 MEQ/2 ML-1 GM VIAL) IVPB ONE (14:26)
[2022-06-11] MEDS ORDERED: LACTATED RINGERS SOLUTION 1,000 ML/1,000 ML INFUS.BAG IV SCH (14:30)
[2022-06-11] MEDS ORDERED: MAGNESIUM SULFATE IN WATER 2 GM/50 ML IVPB IVPB ONE (14:42)
[2022-06-11] MEDS: KCL 10 MEQ IVPB 10 MEQ/100 ML INFUS.BAG IVPB SCH ×3 (14:53→18:06)
[2022-06-11] MEDS ORDERED: ACETAMINOPHEN 325 MG TABLET (FP) PO PRN (15:01)
[2022-06-11] MEDS: ALBUTEROL SO4 0.083% IH SOL 2.5 MG/3 ML VIAL.NEB. NEB SCH ×2 (16:35→20:18)
[2022-06-11] MEDS: metroNIDAZOLE 250 MG TABLET PO SCH (22:05)
[2022-06-11] MEDS: APIXABAN 5 MG TABLET PO SCH (22:05)
[2022-06-11 22:14] LABS: CHLORIDE 105 mmol/L (98-107); SODIUM 140 mmol/L (136-145)
[2022-06-11 22:16] LABS: CALCIUM 8.6 mg/dL (8.5-10.1); CO2 28 mmol/L (21-32); GLUCOSE,RANDOM 114 mg/dL (74-106); MAGNESIUM 1.9 mg/dL (1.8-2.4)
[2022-06-11 22:20] LABS: CREATININE 0.5 mg/dL (0.55-1.3)
[2022-06-11 22:28] LABS: ANION GAP 7 MMOL/L (8-16); POTASSIUM 2.6 mmol/L (3.5-5.1)
[2022-06-11 22:39] VITALS: BMI 33.0
[2022-06-11] MEDS: BUDESONIDE/FORMETEROL FUMARATE 160/4.5 mcg INHALER IH SCH (23:04)
[2022-06-12] MEDS ORDERED: POTASSIUM CHLORIDE ORAL LIQUID 20 MEQ/15 ML PO ONE (00:30)
[2022-06-12] MEDS ORDERED: MAGNESIUM OXIDE 400 MG TABLET (FP) PO ONE (00:30)
[2022-06-12] MEDS: ALBUTEROL SO4 0.083% IH SOL 2.5 MG/3 ML VIAL.NEB. NEB SCH ×6 (00:33→20:36)
[2022-06-12] MEDS: metroNIDAZOLE 250 MG TABLET PO SCH ×3 (06:37→22:13)
[2022-06-12] MEDS: LOSARTAN POTASSIUM 50 MG TABLET PO SCH (09:27)
[2022-06-12] MEDS: APIXABAN 5 MG TABLET PO SCH ×2 (09:27→22:13)
[2022-06-12] MEDS: BUDESONIDE/FORMETEROL FUMARATE 160/4.5 mcg INHALER IH SCH ×2 (09:28→22:28)
[2022-06-12 09:43] LABS: HEMATOCRIT 28.5 % (32.4-45.2); HEMOGLOBIN 9.6 GM/dL (10.7-15.3); MCH 26.8 pg (25.7-33.7); MCHC 33.7 g/dl (32.0-36.0); MEAN CELL VOLUME 79.5 fl (80-96); PLATELET COUNT 338 10^3/uL (134-434); RBC 3.59 M/mm3 (3.60-5.2); RDW 15.1 % (11.6-15.6); WHITE BLOOD COUNT 7.1 K/mm3 (4.0-10.0)
[2022-06-12 13:05] LABS: BLOOD UREA NITROGEN 3.2 mg/dL (7-18); CALCIUM 8.4 mg/dL (8.5-10.1); CREATININE 0.4 mg/dL (0.55-1.3); POTASSIUM 3.2 mmol/L (3.5-5.1)
[2022-06-12] MEDS: COLLAGENASE CLOSTRIDIUM HIST. 30 GRAMS TUBE TP SCH (13:17)
[2022-06-12] MEDS: POTASSIUM CHLORIDE ORAL LIQUID 20 MEQ/15 ML PO SCH ×2 (16:05→22:13)
[2022-06-12] MEDS: MAGNESIUM OXIDE 400 MG TABLET (FP) PO SCH (22:13)
[2022-06-13] MEDS: ALBUTEROL SO4 0.083% IH SOL 2.5 MG/3 ML VIAL.NEB. NEB SCH ×4 (00:11→11:23)
[2022-06-13] MEDS: metroNIDAZOLE 250 MG TABLET PO SCH (06:26)
[2022-06-13 07:33] LABS: POTASSIUM 4.4 mmol/L (3.5-5.1)
[2022-06-13 07:44] LABS: ALBUMIN 2.5 g/dl (3.4-5.0); BLOOD UREA NITROGEN 3.1 mg/dL (7-18); CALCIUM 8.6 mg/dL (8.5-10.1)
[2022-06-13 07:46] LABS: MAGNESIUM 1.6 mg/dL (1.8-2.4)
[2022-06-13 07:48] LABS: CREATININE 0.4 mg/dL (0.55-1.3)
[2022-06-13 07:49] LABS: BILIRUBIN,TOTAL 0.2 mg/dL (0.2-1); TOT PROT 5.9 g/dl (6.4-8.2)
[2022-06-13 08:27] LABS: BASO % 1.3 % (0-2.0); EOS % 4.6 % (0-4.5); HEMATOCRIT 29.8 % (32.4-45.2); HEMOGLOBIN 9.6 GM/dL (10.7-15.3); MCH 26.2 pg (25.7-33.7); MCHC 32.1 g/dl (32.0-36.0); MEAN CELL VOLUME 81.5 fl (80-96); MEAN PLT VOLUME 8.4 fl (7.5-11.1); MONO % 12.2 % (3.8-10.2); NEUT % 52.9 % (42.8-82.8); PLATELET COUNT 294 10^3/uL (134-434); RBC 3.65 M/mm3 (3.60-5.2); RDW 15.7 % (11.6-15.6)
[2022-06-13] MEDS ORDERED: MAGNESIUM SULF 50% (8.12 MEQ/2 ML-1 GM VIAL) IVPB ONE (08:48)
[2022-06-13] MEDS: APIXABAN 5 MG TABLET PO SCH (10:57)
[2022-06-13] MEDS: POTASSIUM CHLORIDE ORAL LIQUID 20 MEQ/15 ML PO SCH (10:57)
[2022-06-13] MEDS: LOSARTAN POTASSIUM 50 MG TABLET PO SCH (10:57)
[2022-06-13] MEDS: MAGNESIUM OXIDE 400 MG TABLET (FP) PO SCH (10:57)
[2022-06-13] MEDS: BUDESONIDE/FORMETEROL FUMARATE 160/4.5 mcg INHALER IH SCH (10:58)
[2022-06-13] MEDS: COLLAGENASE CLOSTRIDIUM HIST. 30 GRAMS TUBE TP SCH (10:59)
[2022-06-13 12:03] VITALS: BP 115/86; PULSE 80; RESP 18; TEMP 98.4
== END 2022-06-13 12:16 | disposition home or self-care (01) ==
LOC: JER 12:12 → JERBED 15:03 → J4W 18:27
PROVIDERS: ADMIT Family Medicine; ATTEND Family Medicine
PROC: 3E033GC Introduction of Other Therapeutic Substance into Peripheral Vein, Percutaneous Approach (ICD-10-PCS; principal; 2022-06-11)
PROC: 3E0F7SF Introduction of Other Gas into Respiratory Tract, Via Natural or Artificial Opening (ICD-10-PCS; 2022-06-11)
DX: E87.6 Hypokalemia (principal); E83.42 Hypomagnesemia; N17.9 Acute kidney failure, unspecified; R94.31 Abnormal electrocardiogram [ECG] [EKG]; J44.9 Chronic obstructive pulmonary disease, unspecified; K21.9 Gastro-esophageal reflux disease without esophagitis; Z88.3 Allergy status to other anti-infective agents; Z98.84 Bariatric surgery status
CPT/HCPCS: 36415; 80048; 80053; 83735; 84100; 85025; 85027; 93005; 93010; 94640; 99285-25; C9803-CS; G0378; U0003; U0005

== ENCOUNTER 2022-08-22 11:49 | Emergency (ER) | payer OTHER ==
[2022-08-22 11:58] VITALS: TEMP 98; BMI 31.3
[2022-08-22] MEDS ORDERED: LACTATED RINGERS SOLUTION 1000 ML INFUS.BAG IV ONE ×2 (12:17→17:49)
[2022-08-22 15:42] LABS: EPI CELLS 13 /uL (0-25.1); HYALINE CASTS 2 /uL (0-3.1); PH,URINE 5.5 (5.0-8.0); URINE APPEARANCE CLEAR; URINE BACTERIA 22 /uL (0-1359); URINE BILIRUBIN NEGATIVE (NEGATIVE); URINE COLOR YELLOW; URINE GLUCOSE (UA) NEGATIVE (NEGATIVE); URINE KETONE NEGATIVE (NEGATIVE); URINE LEUK ESTERASE TRACE (NEGATIVE); URINE NITRITE NEGATIVE (NEGATIVE); URINE PROTEIN NEGATIVE (NEGATIVE); URINE RBC 39 /uL (0-23.9); URINE UROBILINOGEN 0.2 mg/dL (0.2-1.0); URINE WBC 21 /uL (0-25.8)
[2022-08-22 16:28] LABS: VENOUS BASE EXCESS 0.7 mmol/L (-2-2); VENOUS O2 SATURATION 52.4 % (70-80); VENOUS PCO2 45.2 mmHg (38-52); VENOUS PH 7.38 (7.310-7.410)
[2022-08-22 16:35] LABS: BASO % 0.9 % (0-2.0); EOS % 2.1 % (0-4.5); LYMPH % 34.5 % (8-40); MCH 25.2 pg (25.7-33.7); MCHC 31.3 g/dl (32.0-36.0); MEAN CELL VOLUME 80.4 fl (80-96); MEAN PLT VOLUME 9.6 fl (7.5-11.1); NEUT % 50.5 % (42.8-82.8); PLATELET COUNT 242 10^3/uL (134-434); RBC 3.99 M/mm3 (3.60-5.2); RDW 18.3 % (11.6-15.6); WHITE BLOOD COUNT 4.7 K/mm3 (4.0-10.0)
[2022-08-22 16:55] LABS: POTASSIUM 3.5 mmol/L (3.5-5.1)
[2022-08-22 16:58] LABS: ALBUMIN 2.3 g/dl (3.4-5.0); BLOOD UREA NITROGEN 8.7 mg/dL (7-18); CALCIUM 8.2 mg/dL (8.5-10.1); MAGNESIUM 1.5 mg/dL (1.8-2.4)
[2022-08-22 17:00] LABS: PHOSPHOROUS 3.3 mg/dL (2.5-4.9)
[2022-08-22 17:01] LABS: CREATININE 0.5 mg/dL (0.55-1.3)
[2022-08-22 17:02] LABS: BILIRUBIN,TOTAL 0.2 mg/dL (0.2-1); TOT PROT 5.9 g/dl (6.4-8.2)
[2022-08-22 17:04] LABS: N-TERMINAL BNP 714.3 pg/ml (5-125)
[2022-08-22 18:02] VITALS: BP 136/72; PULSE 86; RESP 16
== END 2022-08-22 18:16 | disposition home or self-care (01) ==
LOC: JER 11:49
DX: E87.0 Hyperosmolality and hypernatremia (principal); E86.0 Dehydration
CPT/HCPCS: 71045-TC-FY; 80053; 81003; 82010; 82436; 82803; 83036; 83605; 83690; 83735; 83880; 84100; 84133; 84300; 84484; 85025; 87086; 87186; 99284-25

== ENCOUNTER 2022-08-31 14:34 | Emergency (ER) | payer OTHER ==
[2022-08-31 14:42] VITALS: BP 138/86; PULSE 105; RESP 20; TEMP 98.1; BMI 30.9
[2022-08-31 16:33] LABS: BASO % 0.7 % (0-2.0); HEMATOCRIT 32.8 % (32.4-45.2); HEMOGLOBIN 10.5 GM/dL (10.7-15.3); LYMPH % 23.9 % (8-40); MCH 25.8 pg (25.7-33.7); MCHC 32.1 g/dl (32.0-36.0); MEAN CELL VOLUME 80.5 fl (80-96); MEAN PLT VOLUME 9.4 fl (7.5-11.1); MONO % 12.5 % (3.8-10.2); NEUT % 61.9 % (42.8-82.8); PLATELET COUNT 241 10^3/uL (134-434); RBC 4.08 M/mm3 (3.60-5.2); RDW 17.7 % (11.6-15.6); WHITE BLOOD COUNT 5.6 K/mm3 (4.0-10.0)
[2022-08-31 16:49] LABS: POTASSIUM 3.8 mmol/L (3.5-5.1)
[2022-08-31 16:52] LABS: CALCIUM 8.3 mg/dL (8.5-10.1)
[2022-08-31 16:53] LABS: ALBUMIN 2.6 g/dl (3.4-5.0); BLOOD UREA NITROGEN 8.3 mg/dL (7-18); MAGNESIUM 1.6 mg/dL (1.8-2.4)
[2022-08-31 16:55] LABS: CREATININE 0.5 mg/dL (0.55-1.3)
[2022-08-31 16:57] LABS: BILIRUBIN,TOTAL 0.4 mg/dL (0.2-1); TOT PROT 6.5 g/dl (6.4-8.2)
[2022-08-31 17:01] LABS: N-TERMINAL BNP 472.8 pg/ml (5-125)
== END 2022-08-31 18:05 | disposition home or self-care (01) ==
LOC: JER 14:34
DX: R60.0 Localized edema (principal); R19.7 Diarrhea, unspecified; E87.8 Other disorders of electrolyte and fluid balance, not elsewhere classified; R00.2 Palpitations
CPT/HCPCS: 36415; 80053; 83735; 83880; 84484; 85025; 93005; 93010; 93970-TC; 99285-25

== ENCOUNTER 2022-10-18 17:01 | Observation (INO) | payer OTHER ==
[2022-10-18] MEDS ORDERED: ACETAMINOPHEN 500 MG TABLET (FP) PO ONE (18:58)
[2022-10-18] MEDS ORDERED: ACETAMINOPHEN 500 MG TABLET (FP) ONE (19:04)
[2022-10-18 19:15] LABS: BASO % 0.1 % (0-2.0); EOS % 0.2 % (0-4.5); HEMATOCRIT 34.1 % (32.4-45.2); HEMOGLOBIN 11.2 GM/dL (10.7-15.3); LYMPH % 11.4 % (8-40); MCH 25.7 pg (25.7-33.7); MCHC 32.7 g/dl (32.0-36.0); MEAN CELL VOLUME 78.7 fl (80-96); MEAN PLT VOLUME 9.1 fl (7.5-11.1); NEUT % 80.3 % (42.8-82.8); PLATELET COUNT 274 10^3/uL (134-434); RBC 4.33 M/mm3 (3.60-5.2); RDW 17.9 % (11.6-15.6); WHITE BLOOD COUNT 10.4 K/mm3 (4.0-10.0)
[2022-10-18 19:39] LABS: CHLORIDE 105 mmol/L (98-107); POTASSIUM 3.1 mmol/L (3.5-5.1); SODIUM 147 mmol/L (136-145)
[2022-10-18 19:41] LABS: ALBUMIN 2.6 g/dl (3.4-5.0); ANION GAP 8 MMOL/L (8-16); BLOOD UREA NITROGEN 4.5 mg/dL (7-18); CO2 33 mmol/L (21-32); GLUCOSE,RANDOM 112 mg/dL (74-106)
[2022-10-18] MEDS ORDERED: MAGNESIUM SULFATE IN WATER 2 GM/50 ML IVPB IVPB ONE ×2 (19:42→19:54)
[2022-10-18 19:44] LABS: CREATININE 0.5 mg/dL (0.55-1.3); PHOSPHOROUS 2.8 mg/dL (2.5-4.9); SGOT/AST 21 U/L (15-37)
[2022-10-18] MEDS ORDERED: SODIUM CHLORIDE 0.9% 500 ML INFUS.BAG IV ONE (19:45)
[2022-10-18 19:46] LABS: BILIRUBIN,TOTAL 0.6 mg/dL (0.2-1); TOT PROT 6.5 g/dl (6.4-8.2)
[2022-10-18 19:47] LABS: ALK PHOS 145 U/L (45-117)
[2022-10-18 19:53] LABS: SGPT/ALT 17 U/L (13-61)
[2022-10-18 19:54] LABS: CALCIUM 6.7 mg/dL (8.5-10.1)
[2022-10-18] MEDS ORDERED: KCL 10 MEQ IVPB 20 MEQ/200 ML INFUS.BAG IVPB ONE (19:55)
[2022-10-18] MEDS ORDERED: CALCIUM GLUCONATE 10% - 1,000 MG/10 ML VIAL IVPB ONE (19:58)
[2022-10-18] MEDS ORDERED: CALCIUM GLUC IN NACL, ISO-OSM 1 GM/50 ML BAG IVPB ONE (20:00)
[2022-10-18] MEDS ORDERED: POTASSIUM CHLORIDE ORAL LIQUID 20 MEQ/15 ML ONE (20:10)
[2022-10-18] MEDS ORDERED: POTASSIUM CHLORIDE ORAL LIQUID 20 MEQ/15 ML PO ONE (20:13)
[2022-10-18] MEDS ORDERED: morphine CARPU-JECT 4 MG/1 ML DISP.SYRIN IVPUSH ONE (20:34)
[2022-10-18] MEDS: KCL 10 MEQ IVPB 10 MEQ/100 ML INFUS.BAG IVPB SCH ×3 (20:53→23:53)
[2022-10-18] MEDS ORDERED: DICYCLOMINE HCL 10 MG CAPSULE PO ONE (22:03)
[2022-10-18] MEDS ORDERED: DICYCLOMINE HCL 10 MG CAPSULE ONE (22:08)
[2022-10-18] MEDS ORDERED: KCL 10 MEQ IVPB 10 MEQ/100 ML INFUS.BAG IVPB ONE (23:57)
[2022-10-19] MEDS ORDERED: ACETAMINOPHEN 1000 MG/100 ML BAG IVPB PRN (01:00)
[2022-10-19 01:09] LABS: LACTIC ACID 2.4 mmol/L (0.4-2.0)
[2022-10-19] MEDS ORDERED: SODIUM CHLORIDE 500 ML IV STA (02:30)
[2022-10-19] MEDS ORDERED: ACETAMINOPHEN INJECTION 100 ML IVPB ONE ×2 (03:59→08:15)
[2022-10-19 04:37] LABS: EPI CELLS 27 /uL (0-25.1); HYALINE CASTS 2 /uL (0-3.1); URINE APPEARANCE CLEAR; URINE BACTERIA 7952 /uL (0-1359); URINE BILIRUBIN NEGATIVE (NEGATIVE); URINE COLOR YELLOW; URINE GLUCOSE (UA) NEGATIVE (NEGATIVE); URINE KETONE NEGATIVE (NEGATIVE); URINE LEUK ESTERASE 2+ (NEGATIVE); URINE NITRITE NEGATIVE (NEGATIVE); URINE PROTEIN NEGATIVE (NEGATIVE); URINE UROBILINOGEN 0.2 mg/dL (0.2-1.0); URINE WBC 67 /uL (0-25.8)
[2022-10-19] MEDS ORDERED: CEFTRIAXONE 1 GM in DEXTROSE 5%-WATER - 50 ML IVPB ONE (06:30)
[2022-10-19 07:15] LABS: HEMATOCRIT 31.5 % (32.4-45.2); HEMOGLOBIN 9.9 GM/dL (10.7-15.3); MCH 25.3 pg (25.7-33.7); MCHC 31.6 g/dl (32.0-36.0); MEAN CELL VOLUME 80.2 fl (80-96); MEAN PLT VOLUME 9.7 fl (7.5-11.1); PLATELET COUNT 259 10^3/uL (134-434); RBC 3.93 M/mm3 (3.60-5.2); RDW 17.6 % (11.6-15.6); WHITE BLOOD COUNT 20.5 K/mm3 (4.0-10.0)
[2022-10-19 07:25] LABS: URINE RBC 79.6 /uL (0-23.9)
[2022-10-19 07:34] LABS: CHLORIDE 112 mmol/L (98-107); SODIUM 147 mmol/L (136-145)
[2022-10-19 07:36] LABS: ALBUMIN 2.2 g/dl (3.4-5.0); BLOOD UREA NITROGEN 3.4 mg/dL (7-18); CO2 29 mmol/L (21-32); GLUCOSE,RANDOM 111 mg/dL (74-106); MAGNESIUM 1.6 mg/dL (1.8-2.4)
[2022-10-19 07:39] LABS: CREATININE 0.5 mg/dL (0.55-1.3); SGOT/AST 18 U/L (15-37); SGPT/ALT 15 U/L (13-61)
[2022-10-19 07:41] LABS: BILIRUBIN,TOTAL 0.8 mg/dL (0.2-1); TOT PROT 5.6 g/dl (6.4-8.2)
[2022-10-19 07:42] LABS: ALK PHOS 124 U/L (45-117)
[2022-10-19] MEDS ORDERED: CEFTRIAXONE 1 GM/50 ML BAG ONE (08:09)
[2022-10-19 08:18] LABS: ANION GAP 6 MMOL/L (8-16); CALCIUM 6.2 mg/dL (8.5-10.1); POTASSIUM 2.7 mmol/L (3.5-5.1)
[2022-10-19] MEDS ORDERED: amLODIPine BESYLATE 5 MG TABLET (FP) ONE (10:01)
[2022-10-19] MEDS: amLODIPine BESYLATE 5 MG TABLET (FP) PO SCH (10:09)
[2022-10-19 10:16] LABS: ANISOCYTOSIS 0; MACROCYTOSIS 0; OVALOCYTE 1+
[2022-10-19] MEDS ORDERED: KCL 10 MEQ IVPB 10 MEQ/100 ML INFUS.BAG IVPB ONE ×3 (10:58→15:19)
[2022-10-19] MEDS: KCL 10 MEQ IVPB 10 MEQ/100 ML INFUS.BAG IVPB SCH ×3 (11:09→15:56)
[2022-10-19] MEDS ORDERED: CALCIUM GLUCONATE 10% - 1,000 MG/10 ML VIAL IVPB ONE (13:30)
[2022-10-19] MEDS: oxyCODONE HCL 5 MG TABLET PO PRN ×2 (13:38→21:57)
[2022-10-19] MEDS ORDERED: MAGNESIUM SULFATE IN WATER 2 GM/50 ML IVPB IVPB ONE ×2 (13:40→15:19)
[2022-10-19 14:52] LABS: CHOLESTEROL 110 mg/dL (50-200); PHOSPHOROUS 3.3 mg/dL (2.5-4.9)
[2022-10-19 14:53] LABS: LDL CHOLESTEROL (ONLY SJRH) 56 mg/dL (5-100)
[2022-10-19 14:54] LABS: HDL CHOLESTEROL 49 mg/dL (40-60)
[2022-10-19] MEDS ORDERED: CALCIUM GLUC IN NACL, ISO-OSM 1 GM/50 ML BAG IVPB ONE (15:19)
[2022-10-19] MEDS: D5-1/2NS+40 MEQ KCL - 40 MEQ/1,000 ML INFUS.BAG IV SCH (17:02)
[2022-10-19] MEDS: CHOLESTYRAMINE/SUCROSE 4 GM PACKET PO SCH (20:31)
[2022-10-19] MEDS: LIPASE/PROTEASE/AMYLASE 6,000 UNIT CAPSULE PO SCH (20:32)
[2022-10-19] MEDS: RIFAXIMIN 550 MG TABLET PO SCH (21:17)
[2022-10-20 02:46] VITALS: BMI 31.3
[2022-10-20] MEDS: D5-1/2NS+40 MEQ KCL - 40 MEQ/1,000 ML INFUS.BAG IV SCH ×3 (03:31→20:40)
[2022-10-20] MEDS: LIPASE/PROTEASE/AMYLASE 6,000 UNIT CAPSULE PO SCH ×3 (08:06→18:54)
[2022-10-20] MEDS: CHOLESTYRAMINE/SUCROSE 4 GM PACKET PO SCH ×2 (08:08→18:55)
[2022-10-20 09:11] LABS: BASO % 0.2 % (0-2.0); EOS % 2.6 % (0-4.5); HEMATOCRIT 33.9 % (32.4-45.2); HEMOGLOBIN 11.1 GM/dL (10.7-15.3); LYMPH % 16.7 % (8-40); MCH 25.8 pg (25.7-33.7); MCHC 32.7 g/dl (32.0-36.0); MEAN PLT VOLUME 9.2 fl (7.5-11.1); MONO % 7.2 % (3.8-10.2); NEUT % 73.3 % (42.8-82.8); PLATELET COUNT 263 10^3/uL (134-434); RBC 4.29 M/mm3 (3.60-5.2); RDW 18.5 % (11.6-15.6); WHITE BLOOD COUNT 10.2 K/mm3 (4.0-10.0)
[2022-10-20 09:23] LABS: CHLORIDE 112 mmol/L (98-107); POTASSIUM 3.1 mmol/L (3.5-5.1); SODIUM 144 mmol/L (136-145)
[2022-10-20 09:25] LABS: ALBUMIN 2.4 g/dl (3.4-5.0); ANION GAP 4 MMOL/L (8-16); CO2 28 mmol/L (21-32); GLUCOSE,RANDOM 113 mg/dL (74-106)
[2022-10-20 09:26] LABS: MAGNESIUM 1.8 mg/dL (1.8-2.4)
[2022-10-20 09:28] LABS: SGPT/ALT 14 U/L (13-61)
[2022-10-20 09:29] LABS: CREATININE 0.5 mg/dL (0.55-1.3); SGOT/AST 20 U/L (15-37)
[2022-10-20 09:30] LABS: BILIRUBIN,TOTAL 0.2 mg/dL (0.2-1); TOT PROT 6.4 g/dl (6.4-8.2)
[2022-10-20 09:31] LABS: ALK PHOS 136 U/L (45-117)
[2022-10-20 09:46] LABS: BLOOD UREA NITROGEN 2.4 mg/dL (7-18); CALCIUM 6.7 mg/dL (8.5-10.1)
[2022-10-20 09:47] LABS: LACTIC ACID 2.7 mmol/L (0.4-2.0)
[2022-10-20] MEDS ORDERED: CEFTRIAXONE 1 GM in DEXTROSE 5%-WATER - 50 ML IVPB SCH (10:00)
[2022-10-20] MEDS: RIFAXIMIN 550 MG TABLET PO SCH ×2 (10:47→22:21)
[2022-10-20] MEDS: amLODIPine BESYLATE 5 MG TABLET (FP) PO SCH (10:47)
[2022-10-20] MEDS ORDERED: POTASSIUM CHLORIDE ORAL LIQUID 20 MEQ/15 ML PO ONE (11:15)
[2022-10-20] MEDS ORDERED: CALCIUM GLUCONATE IN NACL, 1,000 MG/100 ML BAG IVPB ONE (11:30)
[2022-10-20] MEDS ORDERED: KCL 10 MEQ IVPB 10 MEQ/100 ML INFUS.BAG IVPB SCH (11:30)
[2022-10-20] MEDS: oxyCODONE HCL 5 MG TABLET PO PRN ×2 (13:49→23:00)
[2022-10-20 15:46] LABS: IRON SERUM 20 ug/dL (50-175)
[2022-10-20 15:47] LABS: TOTAL IRON BINDING CAPACITY 210 ug/dL (250-450)
[2022-10-20] MEDS: KCL 10 MEQ IVPB 10 MEQ/100 ML INFUS.BAG IVPB SCH ×2 (16:00→18:54)
[2022-10-21] MEDS: RIFAXIMIN 550 MG TABLET PO SCH ×3 (06:54→21:22)
[2022-10-21] MEDS: LIPASE/PROTEASE/AMYLASE 6,000 UNIT CAPSULE PO SCH ×3 (08:42→17:06)
[2022-10-21] MEDS: CHOLESTYRAMINE/ASPARTAME 4 GM PACKET PO SCH ×2 (08:46→17:07)
[2022-10-21] MEDS: CHOLESTYRAMINE/SUCROSE 4 GM PACKET PO SCH (08:47)
[2022-10-21] MEDS: amLODIPine BESYLATE 5 MG TABLET (FP) PO SCH (09:22)
[2022-10-21] MEDS: MULTIVITAMINS (DAILY MVI) TABLET (FP) PO SCH (09:22)
[2022-10-21 09:49] LABS: CHLORIDE 114 mmol/L (98-107); SODIUM 145 mmol/L (136-145)
[2022-10-21 09:58] LABS: CALCIUM 7.3 mg/dL (8.5-10.1)
[2022-10-21 09:59] LABS: GLUCOSE,RANDOM 126 mg/dL (74-106); MAGNESIUM 1.6 mg/dL (1.8-2.4)
[2022-10-21 10:00] LABS: ANION GAP 7 MMOL/L (8-16); CO2 24 mmol/L (21-32)
[2022-10-21 10:02] LABS: CREATININE 0.5 mg/dL (0.55-1.3)
[2022-10-21] MEDS: D5-1/2NS+40 MEQ KCL - 40 MEQ/1,000 ML INFUS.BAG IV SCH (12:10)
[2022-10-21] MEDS ORDERED: MAGNESIUM 2GM/50ML STERILE WATER IVPB IVPB ONE ×2 (14:59→15:49)
[2022-10-21] MEDS ORDERED: D5-1/2NS+40 MEQ KCL - 40 MEQ/1,000 ML INFUS.BAG IV SCH (15:00)
[2022-10-21] MEDS: oxyCODONE HCL 5 MG TABLET PO PRN (21:18)
[2022-10-21] MEDS: PIPERACILLIN/TAZOB 2.25 GM 2.25 GM in DEXTROSE 5%-WATER - 50 ML IVPB SCH (21:29)
[2022-10-22] MEDS: PIPERACILLIN/TAZOB 2.25 GM 2.25 GM in DEXTROSE 5%-WATER - 50 ML IVPB SCH ×3 (03:01→18:30)
[2022-10-22] MEDS: oxyCODONE HCL 5 MG TABLET PO PRN ×2 (03:58→21:30)
[2022-10-22] MEDS: RIFAXIMIN 550 MG TABLET PO SCH ×3 (06:28→21:30)
[2022-10-22] MEDS: LIPASE/PROTEASE/AMYLASE 6,000 UNIT CAPSULE PO SCH ×3 (08:17→17:16)
[2022-10-22] MEDS: CHOLESTYRAMINE/ASPARTAME 4 GM PACKET PO SCH ×2 (08:18→17:16)
[2022-10-22] MEDS ORDERED: DIPHENOXYLATE 2.5/ATROPINE.025 1 COMBO TABLET PO ONE (09:02)
[2022-10-22 09:08] LABS: EOS % 3.9 % (0-4.5); HEMATOCRIT 34.2 % (32.4-45.2); HEMOGLOBIN 10.8 GM/dL (10.7-15.3); LYMPH % 35.1 % (8-40); MCH 25.8 pg (25.7-33.7); MCHC 31.6 g/dl (32.0-36.0); MEAN CELL VOLUME 81.5 fl (80-96); MEAN PLT VOLUME 10.1 fl (7.5-11.1); MONO % 8.8 % (3.8-10.2); NEUT % 51.2 % (42.8-82.8); PLATELET COUNT 310 10^3/uL (134-434); RDW 18.1 % (11.6-15.6); WHITE BLOOD COUNT 5.8 K/mm3 (4.0-10.0)
[2022-10-22] MEDS: MULTIVITAMINS (DAILY MVI) TABLET (FP) PO SCH (09:14)
[2022-10-22] MEDS: amLODIPine BESYLATE 5 MG TABLET (FP) PO SCH (09:14)
[2022-10-22 09:35] LABS: CHLORIDE 113 mmol/L (98-107); POTASSIUM 3.9 mmol/L (3.5-5.1); SODIUM 143 mmol/L (136-145)
[2022-10-22 09:42] LABS: CALCIUM 7.6 mg/dL (8.5-10.1)
[2022-10-22 09:43] LABS: ALBUMIN 2.5 g/dl (3.4-5.0); ANION GAP 5 MMOL/L (8-16); CO2 25 mmol/L (21-32); CREATININE 0.5 mg/dL (0.55-1.3); GLUCOSE,RANDOM 101 mg/dL (74-106); MAGNESIUM 1.9 mg/dL (1.8-2.4); PHOSPHOROUS 2.4 mg/dL (2.5-4.9)
[2022-10-22 09:45] LABS: ALK PHOS 126 U/L (45-117); BILIRUBIN,TOTAL 0.2 mg/dL (0.2-1); SGOT/AST 21 U/L (15-37); SGPT/ALT 17 U/L (13-61); TOT PROT 6.5 g/dl (6.4-8.2)
[2022-10-22 09:48] LABS: BLOOD UREA NITROGEN 2.2 mg/dL (7-18)
[2022-10-22] MEDS ORDERED: MAGNESIUM SULF 50% (8.12 MEQ/2 ML-1 GM VIAL) IVPB ONE (11:02)
[2022-10-22] MEDS ORDERED: POTASSIUM PHOSPHATE 15 MM in SODIUM CHLORIDE 250 ML IVPB ONE (12:00)
[2022-10-22 18:35] VITALS: RESP 18
[2022-10-23] MEDS: RIFAXIMIN 550 MG TABLET PO SCH (06:09)
[2022-10-23] MEDS: LIPASE/PROTEASE/AMYLASE 6,000 UNIT CAPSULE PO SCH (09:12)
[2022-10-23] MEDS: CHOLESTYRAMINE/ASPARTAME 4 GM PACKET PO SCH (09:13)
[2022-10-23] MEDS: MULTIVITAMINS (DAILY MVI) TABLET (FP) PO SCH (09:13)
[2022-10-23] MEDS: amLODIPine BESYLATE 5 MG TABLET (FP) PO SCH (09:15)
[2022-10-23 10:59] VITALS: BP 128/71; PULSE 67; TEMP 98.2
[2022-10-25 01:06] LABS: VITAMIN E (B-GAMMA) 1.2 mg/L (0.5-4.9)
== END 2022-10-23 11:11 | disposition home or self-care (01) ==
LOC: JER 17:01 → JERBED 20:19 → J4S 10-19 18:30
PROVIDERS: ADMIT Internal Medicine; ATTEND Family Medicine
PROC: 3E033NZ Introduction of Analgesics, Hypnotics, Sedatives into Peripheral Vein, Percutaneous Approach (ICD-10-PCS; principal; 2022-10-18)
PROC: 3E033GC Introduction of Other Therapeutic Substance into Peripheral Vein, Percutaneous Approach (ICD-10-PCS; 2022-10-18)
PROC: 3E0337Z Introduction of Electrolytic and Water Balance Substance into Peripheral Vein, Percutaneous Approach (ICD-10-PCS; 2022-10-18)
PROC: 3E03329 Introduction of Other Anti-infective into Peripheral Vein, Percutaneous Approach (ICD-10-PCS; 2022-10-18)
PROC: 3E0337Z Introduction of Electrolytic and Water Balance Substance into Peripheral Vein, Percutaneous Approach (ICD-10-PCS; 2022-10-18)
DX: E87.8 Other disorders of electrolyte and fluid balance, not elsewhere classified (principal); E87.6 Hypokalemia; E83.51 Hypocalcemia; I48.91 Unspecified atrial fibrillation; J45.909 Unspecified asthma, uncomplicated; R19.7 Diarrhea, unspecified; R20.2 Paresthesia of skin; K92.9 Disease of digestive system, unspecified; K21.9 Gastro-esophageal reflux disease without esophagitis; Z98.84 Bariatric surgery status; Z87.891 Personal history of nicotine dependence; I87.9 Disorder of vein, unspecified; Z88.8 Allergy status to other drugs, medicaments and biological substances
CPT/HCPCS: 0241U-QW; 36415; 71045-TC-FY; 74019-TC-FY; 80048; 80053; 80061; 81003; 82306; 82607; 82728; 82746; 83540; 83550; 83605; 83735; 84100; 84439; 84443; 84446; 84590; 84597; 84630; 85025; 87040; 87086; 87324; 87449; 93005; 93010; 97116-GP; 97161-GP; 99285-25; G0378

== ENCOUNTER 2023-02-19 06:49 | Observation (INO) | payer OTHER ==
[2023-02-19] MEDS ORDERED: MECLIZINE HCL 25 MG TABLET (FP) PO ONE (07:41)
[2023-02-19] MEDS ORDERED: MECLIZINE HCL 25 MG TABLET (FP) ONE (07:57)
[2023-02-19 08:52] LABS: BASO % 0.4 % (0-2.0); EOS % 1.4 % (0-4.5); HEMATOCRIT 37.7 % (32.4-45.2); HEMOGLOBIN 12.2 GM/dL (10.7-15.3); LYMPH % 18.1 % (8-40); MCH 25.7 pg (25.7-33.7); MCHC 32.3 g/dl (32.0-36.0); MEAN CELL VOLUME 79.7 fl (80-96); MONO % 7.9 % (3.8-10.2); NEUT % 72.2 % (42.8-82.8); PLATELET COUNT 386 10^3/uL (134-434); RBC 4.74 M/mm3 (3.60-5.2); RDW 17.3 % (11.6-15.6); WHITE BLOOD COUNT 6.7 K/mm3 (4.0-10.0)
[2023-02-19 08:56] LABS: INR 1.09 (0.83-1.09); PROTHROMBIN TIME (PATIENT) 12.6 SEC (9.7-13.0)
[2023-02-19 09:10] LABS: POTASSIUM 4.2 mmol/L (3.5-5.1)
[2023-02-19 09:12] LABS: CALCIUM 8.1 mg/dL (8.5-10.1)
[2023-02-19 09:13] LABS: ALBUMIN 3.2 g/dl (3.4-5.0); MAGNESIUM 1.1 mg/dL (1.8-2.4)
[2023-02-19 09:16] LABS: CREATININE 0.5 mg/dL (0.55-1.3)
[2023-02-19 09:17] LABS: BILIRUBIN,TOTAL 0.7 mg/dL (0.2-1); TOT PROT 7.7 g/dl (6.4-8.2)
[2023-02-19 09:27] LABS: EPI CELLS 5 /uL (0-25.1); HYALINE CASTS 0 /uL (0-3.1); PH,URINE 6.5 (5.0-8.0); URINE APPEARANCE CLEAR; URINE BACTERIA 8 /uL (0-1359); URINE BILIRUBIN NEGATIVE (NEGATIVE); URINE COLOR YELLOW; URINE GLUCOSE (UA) NEGATIVE (NEGATIVE); URINE KETONE NEGATIVE (NEGATIVE); URINE LEUK ESTERASE TRACE (NEGATIVE); URINE NITRITE NEGATIVE (NEGATIVE); URINE PROTEIN NEGATIVE (NEGATIVE); URINE RBC 26 /uL (0-23.9); URINE UROBILINOGEN 0.2 mg/dL (0.2-1.0); URINE WBC 44 /uL (0-25.8)
[2023-02-19] MEDS ORDERED: MAGNESIUM SULF 50% (8.12 MEQ/2 ML-1 GM VIAL) IVPB ONE (10:35)
[2023-02-19] MEDS ORDERED: diazePAM 2 MG TABLET PO ONE (10:47)
[2023-02-19] MEDS ORDERED: diazePAM 2 MG TABLET ONE (10:53)
[2023-02-19] MEDS ORDERED: MAGNESIUM SULFATE IN WATER 2 GM/50 ML IVPB IVPB ONE ×2 (12:49→19:40)
[2023-02-19 14:19] LABS: POTASSIUM 3.8 mmol/L (3.5-5.1)
[2023-02-19 14:21] LABS: CALCIUM 8.4 mg/dL (8.5-10.1)
[2023-02-19 14:22] LABS: ALBUMIN 3.1 g/dl (3.4-5.0)
[2023-02-19 14:25] LABS: CREATININE 0.7 mg/dL (0.55-1.3)
[2023-02-19 14:27] LABS: BILIRUBIN,TOTAL 0.7 mg/dL (0.2-1); TOT PROT 7.4 g/dl (6.4-8.2)
[2023-02-19] MEDS ORDERED: POTASSIUM CHLORIDE ORAL LIQUID 20 MEQ/15 ML PO ONE (16:48)
[2023-02-19] MEDS ORDERED: ALBUTEROL SO4 HFA INHALER IH PRN (16:48)
[2023-02-19 20:03] VITALS: BMI 31.3
[2023-02-19 20:18] LABS: N-TERMINAL BNP 519.1 pg/ml (5-125)
[2023-02-19] MEDS: LIPASE/PROTEASE/AMYLASE 6,000 UNIT CAPSULE PO SCH (21:00)
[2023-02-19] MEDS: MECLIZINE HCL 25 MG TABLET (FP) PO SCH ×2 (21:01→23:10)
[2023-02-19] MEDS: ACETAMINOPHEN 500 MG TABLET (FP) PO PRN (22:10)
[2023-02-19] MEDS: HEPARIN NA (PORCINE) 5,000 UNITS/ML 1ML VIAL SQ SCH (22:11)
[2023-02-19] MEDS: D5-1/2NS+20 MEQ KCL - 20 MEQ/1,000 ML INFUS.BAG IV SCH (22:39)
[2023-02-20] MEDS: MECLIZINE HCL 25 MG TABLET (FP) PO SCH ×4 (05:28→23:31)
[2023-02-20] MEDS: AMINO ACIDS/PROTEIN HYDROLYS 30 ML LIQUID.PKT PO SCH (08:55)
[2023-02-20] MEDS: LIPASE/PROTEASE/AMYLASE 6,000 UNIT CAPSULE PO SCH ×3 (08:55→17:31)
[2023-02-20] MEDS: MULTIVITAMINS (DAILY MVI) TABLET (FP) PO SCH (10:03)
[2023-02-20] MEDS: ASCORBIC ACID 250 MG TABLET (FP) PO SCH (10:03)
[2023-02-20] MEDS: HEPARIN NA (PORCINE) 5,000 UNITS/ML 1ML VIAL SQ SCH ×2 (10:03→21:21)
[2023-02-20] MEDS: amLODIPine BESYLATE 5 MG TABLET (FP) PO SCH (10:03)
[2023-02-20 10:04] LABS: BASO % 0.9 % (0-2.0); EOS % 2.3 % (0-4.5); HEMATOCRIT 35.5 % (32.4-45.2); HEMOGLOBIN 11.4 GM/dL (10.7-15.3); LYMPH % 26.9 % (8-40); MCH 25.9 pg (25.7-33.7); MEAN CELL VOLUME 81.1 fl (80-96); MEAN PLT VOLUME 8.9 fl (7.5-11.1); NEUT % 61.9 % (42.8-82.8); PLATELET COUNT 285 10^3/uL (134-434); RBC 4.38 M/mm3 (3.60-5.2); RDW 16.6 % (11.6-15.6); WHITE BLOOD COUNT 6.5 K/mm3 (4.0-10.0)
[2023-02-20] MEDS: D5-1/2NS+20 MEQ KCL - 20 MEQ/1,000 ML INFUS.BAG IV SCH ×2 (10:08→17:31)
[2023-02-20 10:33] LABS: IRON SERUM 60 ug/dL (50-175); TOTAL IRON BINDING CAPACITY 333 ug/dL (250-450)
[2023-02-20 10:35] LABS: CALCIUM 7.8 mg/dL (8.5-10.1)
[2023-02-20 10:36] LABS: ALBUMIN 2.7 g/dl (3.4-5.0); BLOOD UREA NITROGEN 8.4 mg/dL (7-18); MAGNESIUM 2.3 mg/dL (1.8-2.4)
[2023-02-20 10:39] LABS: CREATININE 0.6 mg/dL (0.55-1.3)
[2023-02-20 10:41] LABS: BILIRUBIN,TOTAL 0.8 mg/dL (0.2-1); TOT PROT 6.7 g/dl (6.4-8.2)
[2023-02-20] MEDS ORDERED: POTASSIUM CHLORIDE ORAL LIQUID 20 MEQ/15 ML PO ONE (13:45)
[2023-02-21] MEDS: MECLIZINE HCL 25 MG TABLET (FP) PO SCH ×4 (05:30→23:45)
[2023-02-21] MEDS: AMINO ACIDS/PROTEIN HYDROLYS 30 ML LIQUID.PKT PO SCH (10:17)
[2023-02-21] MEDS: ASCORBIC ACID 250 MG TABLET (FP) PO SCH (10:17)
[2023-02-21] MEDS: LIPASE/PROTEASE/AMYLASE 6,000 UNIT CAPSULE PO SCH ×3 (10:18→17:40)
[2023-02-21] MEDS: HEPARIN NA (PORCINE) 5,000 UNITS/ML 1ML VIAL SQ SCH ×2 (10:18→21:26)
[2023-02-21] MEDS: amLODIPine BESYLATE 5 MG TABLET (FP) PO SCH (10:18)
[2023-02-21 10:20] LABS: EPI CELLS 12 /uL (0-25.1); HYALINE CASTS 1 /uL (0-3.1); PH,URINE 6.5 (5.0-8.0); URINE APPEARANCE CLOUDY; URINE BACTERIA 76 /uL (0-1359); URINE BILIRUBIN NEGATIVE (NEGATIVE); URINE COLOR YELLOW; URINE GLUCOSE (UA) NEGATIVE (NEGATIVE); URINE KETONE NEGATIVE (NEGATIVE); URINE LEUK ESTERASE TRACE (NEGATIVE); URINE NITRITE NEGATIVE (NEGATIVE); URINE PROTEIN NEGATIVE (NEGATIVE); URINE WBC 12 /uL (0-25.8)
[2023-02-21] MEDS: MULTIVITAMINS (DAILY MVI) TABLET (FP) PO SCH (10:23)
[2023-02-21 11:14] LABS: POTASSIUM 3.5 mmol/L (3.5-5.1)
[2023-02-21 11:20] LABS: CREATININE 0.5 mg/dL (0.55-1.3); PHOSPHOROUS 2.9 mg/dL (2.5-4.9)
[2023-02-21 11:24] LABS: URINE CRYSTALS NEGATIVE /hpf; URINE RBC 22.3 /uL (0-23.9)
[2023-02-21 11:48] LABS: CALCIUM 9.1 mg/dL (8.5-10.1)
[2023-02-22] MEDS: D5-1/2NS+20 MEQ KCL - 20 MEQ/1,000 ML INFUS.BAG IV SCH (05:22)
[2023-02-22] MEDS: MECLIZINE HCL 25 MG TABLET (FP) PO SCH ×3 (05:22→17:24)
[2023-02-22] MEDS: LIPASE/PROTEASE/AMYLASE 6,000 UNIT CAPSULE PO SCH ×3 (08:51→17:23)
[2023-02-22] MEDS: AMINO ACIDS/PROTEIN HYDROLYS 30 ML LIQUID.PKT PO SCH (08:52)
[2023-02-22] MEDS: HEPARIN NA (PORCINE) 5,000 UNITS/ML 1ML VIAL SQ SCH ×3 (09:22→21:06)
[2023-02-22] MEDS: MULTIVITAMINS (DAILY MVI) TABLET (FP) PO SCH (09:23)
[2023-02-22] MEDS: ASCORBIC ACID 250 MG TABLET (FP) PO SCH (09:23)
[2023-02-22] MEDS: amLODIPine BESYLATE 5 MG TABLET (FP) PO SCH (09:23)
[2023-02-22] MEDS: ACETAMINOPHEN 500 MG TABLET (FP) PO PRN (17:28)
[2023-02-23] MEDS: MECLIZINE HCL 25 MG TABLET (FP) PO SCH ×4 (00:22→17:37)
[2023-02-23] MEDS: ACETAMINOPHEN 500 MG TABLET (FP) PO PRN ×2 (02:01→20:11)
[2023-02-23] MEDS: AMINO ACIDS/PROTEIN HYDROLYS 30 ML LIQUID.PKT PO SCH (08:07)
[2023-02-23] MEDS: LIPASE/PROTEASE/AMYLASE 6,000 UNIT CAPSULE PO SCH ×3 (08:07→17:37)
[2023-02-23] MEDS ORDERED: POTASSIUM CHLORIDE ORAL LIQUID 20 MEQ/15 ML PO ONE (09:00)
[2023-02-23] MEDS: HEPARIN NA (PORCINE) 5,000 UNITS/ML 1ML VIAL SQ SCH ×2 (10:09→21:06)
[2023-02-23] MEDS: MULTIVITAMINS (DAILY MVI) TABLET (FP) PO SCH (10:10)
[2023-02-23] MEDS: amLODIPine BESYLATE 5 MG TABLET (FP) PO SCH (10:10)
[2023-02-23] MEDS: ASCORBIC ACID 250 MG TABLET (FP) PO SCH (10:10)
[2023-02-23 14:42] VITALS: RESP 18
[2023-02-24] MEDS: MECLIZINE HCL 25 MG TABLET (FP) PO SCH ×3 (00:21→12:12)
[2023-02-24] MEDS: AMINO ACIDS/PROTEIN HYDROLYS 30 ML LIQUID.PKT PO SCH (10:33)
[2023-02-24] MEDS: MULTIVITAMINS (DAILY MVI) TABLET (FP) PO SCH (10:33)
[2023-02-24] MEDS: ASCORBIC ACID 250 MG TABLET (FP) PO SCH (10:33)
[2023-02-24] MEDS: amLODIPine BESYLATE 5 MG TABLET (FP) PO SCH (10:34)
[2023-02-24] MEDS: LIPASE/PROTEASE/AMYLASE 6,000 UNIT CAPSULE PO SCH ×2 (10:34→12:13)
[2023-02-24] MEDS: HEPARIN NA (PORCINE) 5,000 UNITS/ML 1ML VIAL SQ SCH ×2 (10:34→10:47)
[2023-02-24 12:58] VITALS: BP 148/83; PULSE 78; TEMP 98.2
== END 2023-02-24 13:26 | disposition home or self-care (01) ==
LOC: JER 06:49 → JERBED 15:30 → J4S 19:14
PROVIDERS: ADMIT Family Medicine; ATTEND Family Medicine
PROC: 3E033NZ Introduction of Analgesics, Hypnotics, Sedatives into Peripheral Vein, Percutaneous Approach (ICD-10-PCS; principal; 2023-02-19)
PROC: 3E033GC Introduction of Other Therapeutic Substance into Peripheral Vein, Percutaneous Approach (ICD-10-PCS; 2023-02-19)
PROC: 3E0337Z Introduction of Electrolytic and Water Balance Substance into Peripheral Vein, Percutaneous Approach (ICD-10-PCS; 2023-02-19)
DX: R42 Dizziness and giddiness (principal); E83.42 Hypomagnesemia; J45.909 Unspecified asthma, uncomplicated; K21.9 Gastro-esophageal reflux disease without esophagitis; I48.91 Unspecified atrial fibrillation; I10 Essential (primary) hypertension; Z98.84 Bariatric surgery status; K52.9 Noninfective gastroenteritis and colitis, unspecified; K92.9 Disease of digestive system, unspecified; D64.9 Anemia, unspecified; N17.9 Acute kidney failure, unspecified; Z88.8 Allergy status to other drugs, medicaments and biological substances; Z87.891 Personal history of nicotine dependence
CPT/HCPCS: 0241U-QW; 36415; 70450-TC; 70551-TC; 71045-TC-FY; 80048; 80053; 80061; 81003; 82607; 82962; 83036; 83540; 83550; 83735; 83880; 84100; 84443; 84484; 85025; 85610; 85730; 87086; 93005; 93010; 97116-GP; 99285-25; G0378; J1644

== ENCOUNTER 2023-03-19 10:48 | Emergency (ER) | payer OTHER ==
[2023-03-19 10:55] VITALS: BP 160/102; PULSE 86; RESP 17; TEMP 98.3; BMI 29.7
[2023-03-19 12:37] LABS: HEMATOCRIT 35.9 % (32.4-45.2); HEMOGLOBIN 11.4 G/dL (10.7-15.3); MCH 26.4 pg (25.7-33.7); MCHC 31.8 g/dl (32.0-36.0); MEAN PLT VOLUME 10.2 fl (7.5-11.1); RBC 4.33 10^6/uL (3.60-5.2); RDW 17.6 % (11.6-15.6); WHITE BLOOD COUNT 6.2 10^3/uL (4.0-10.8)
[2023-03-19] MEDS ORDERED: diazePAM 5 MG TABLET ONE (12:39)
[2023-03-19] MEDS: diazePAM 5 MG TABLET PO ONE (12:43)
[2023-03-19 12:46] LABS: ALBUMIN 3.9 g/dl (3.4-5.0); BILIRUBIN,TOTAL 0.4 mg/dl (0.2-1); CALCIUM 9.3 mg/dl (8.5-10.1); CREATININE 0.7 mg/dl (0.6-1.3); POTASSIUM 3.7 mmol/L (3.5-5.1); TOT PROT 6.9 g/dl (6.4-8.2)
[2023-03-19 13:15] LABS: PLATELET ESTIMATE ADEQUATE
== END 2023-03-19 16:38 | disposition home or self-care (01) ==
LOC: FER 10:48
DX: R42 Dizziness and giddiness (principal); R19.7 Diarrhea, unspecified; Z20.822 Contact with and (suspected) exposure to COVID-19
CPT/HCPCS: 0241U-QW; 36415; 70450-TC; 80053; 83735; 84484; 85027; 93005; 99285-25

== ENCOUNTER 2023-05-14 07:17 | Emergency (ER) | payer OTHER ==
[2023-05-14 07:37] VITALS: BP 161/95; PULSE 51; RESP 18; TEMP 98.7; BMI 31.1
[2023-05-14] MEDS ORDERED: MAGNESIUM 1GM/D5W - 1 GM/100 ML IVPB IVPB ONE (08:36)
[2023-05-14] MEDS: MAGNESIUM SULF 50% (8.12 MEQ/2 ML-1 GM VIAL) IVPB ONE (08:40)
[2023-05-14 09:03] LABS: ALBUMIN 3.8 g/dl (3.4-5.0); BILIRUBIN,TOTAL 0.6 mg/dl (0.2-1); CALCIUM 9.6 mg/dl (8.5-10.1); CREATININE 0.5 mg/dl (0.6-1.3); MAGNESIUM 1.9 mg/dL (1.8-2.4); PHOSPHOROUS 4.4 (2.5-4.9); POTASSIUM 4.4 mmol/L (3.5-5.1); TOT PROT 7.1 g/dl (6.4-8.2)
[2023-05-14 09:06] LABS: HEMOGLOBIN 12.3 G/dL (10.7-15.3); MCH 26.7 pg (25.7-33.7); MCHC 32.3 g/dl (32.0-36.0); MEAN CELL VOLUME 82.4 fl (80-96); MEAN PLT VOLUME 9.9 fl (7.5-11.1); PLATELET COUNT 254.2 10^3/uL (134-434); RBC 4.61 10^6/uL (3.60-5.2); RDW 17.5 % (11.6-15.6); WHITE BLOOD COUNT 4.9 10^3/uL (4.0-10.8)
[2023-05-14 09:15] LABS: PLATELET ESTIMATE ADEQUATE
== END 2023-05-14 09:38 | disposition home or self-care (01) ==
LOC: FER 07:17
PROC: 3E030GC Introduction of Other Therapeutic Substance into Peripheral Vein, Open Approach (ICD-10-PCS; principal; 2023-05-14)
DX: E83.42 Hypomagnesemia (principal); K90.829 Short bowel syndrome, unspecified; R19.7 Diarrhea, unspecified
CPT/HCPCS: 36415; 80053; 83735; 84100; 85025; 99284-25

== ENCOUNTER 2023-10-02 03:56 | Inpatient (IN) | payer OTHER ==
[2023-10-02] MEDS ORDERED: morphine SULFATE 4 MG/ML VIAL ONE ×2 (04:36→12:05)
[2023-10-02] MEDS: morphine CARPU-JECT 4 MG/1 ML DISP.SYRIN IVPUSH ONE ×2 (04:37→12:15)
[2023-10-02] MEDS: SODIUM CHLORIDE 1,000 ML IV ONE (04:37)
[2023-10-02 06:10] LABS: HEMOGLOBIN 11.3 GM/dL (10.7-15.3); MCH 26.9 pg (25.7-33.7); MCHC 32.1 g/dl (32.0-36.0); MEAN CELL VOLUME 83.7 fl (80-96); MEAN PLT VOLUME 9.4 fl (7.5-11.1); PLATELET COUNT 207 10^3/uL (134-434); RBC 4.18 M/mm3 (3.60-5.2); RDW 15.2 % (11.6-15.6); WHITE BLOOD COUNT 16.4 K/mm3 (4.0-10.0)
[2023-10-02 07:11] LABS: ALBUMIN 3.3 g/dl (3.4-5.0); BILIRUBIN,TOTAL 1.1 mg/dL (0.2-1); BLOOD UREA NITROGEN 10.8 mg/dL (7-18); CALCIUM 8.7 mg/dL (8.5-10.1); CREATININE 0.7 mg/dL (0.55-1.3); MAGNESIUM 1.6 mg/dL (1.8-2.4); POTASSIUM 3.4 mmol/L (3.5-5.1); TOT PROT 7.4 g/dl (6.4-8.2)
[2023-10-02] MEDS: ONDANSETRON 4 MG/2 ML VIAL IVPUSH ONE (10:14)
[2023-10-02] MEDS: morphine CARPU-JECT 8 MG/1 ML DISP.SYRIN IVPUSH ONE (12:14)
[2023-10-02] MEDS: LACTATED RINGERS SOLUTION 1,000 ML IV SCH (15:10)
[2023-10-02 15:43] VITALS: BMI 36.8
[2023-10-02] MEDS: PANTOPRAZOLE SODIUM 40 MG VIAL IVPUSH SCH (18:25)
[2023-10-02] MEDS: D5-1/2NS+40 MEQ KCL - 40 MEQ/1,000 ML INFUS.BAG IV SCH (18:25)
[2023-10-03 09:00] LABS: HEMATOCRIT 36.9 % (32.4-45.2); HEMOGLOBIN 11.5 G/dL (10.7-15.3); MCH 26.7 pg (25.7-33.7); MCHC 31.2 g/dl (32.0-36.0); MEAN CELL VOLUME 85.6 fl (80-96); MEAN PLT VOLUME 9.9 fl (7.5-11.1); PLATELET COUNT 175.3 10^3/uL (134-434); RBC 4.31 10^6/uL (3.60-5.2); RDW 15.8 % (11.6-15.6); WHITE BLOOD COUNT 12.4 10^3/uL (4.0-10.8)
[2023-10-03] MEDS: ENOXAPARIN NA (PORCINE) 40 MG/0.4 ML DISP.SYRIN SQ SCH (09:14)
[2023-10-03 09:36] LABS: ALBUMIN 3.4 g/dl (3.4-5.0); BILIRUBIN,TOTAL 0.6 mg/dl (0.2-1); CALCIUM 8.3 mg/dl (8.5-10.1); CREATININE 0.6 mg/dl (0.6-1.3); MAGNESIUM 1.7 mg/dL (1.8-2.4); PHOSPHOROUS 3.6 (2.5-4.9); POTASSIUM 3.3 mmol/L (3.5-5.1); TOT PROT 6.8 g/dl (6.4-8.2)
[2023-10-03 12:23] LABS: PLATELET ESTIMATE ADEQUATE
[2023-10-03 12:28] LABS: EPITHELIAL CELLS 0-5 /hpf
[2023-10-04 09:54] VITALS: BP 103/54; PULSE 73; RESP 18; TEMP 98.4
== END 2023-10-04 12:16 | disposition home or self-care (01) | DRG 390 ==
LOC: FER 03:56 → FM/S 13:18
PROVIDERS: ADMIT Internal Medicine; ATTEND Internal Medicine
DX: K56.609 Unspecified intestinal obstruction, unspecified as to partial versus complete obstruction (principal); I10 Essential (primary) hypertension; J44.9 Chronic obstructive pulmonary disease, unspecified; K21.9 Gastro-esophageal reflux disease without esophagitis; K52.9 Noninfective gastroenteritis and colitis, unspecified; Z98.84 Bariatric surgery status
CPT/HCPCS: 36415; 74019-TC-FY; 74176-TC; 80053; 81003; 81015; 83605; 83735; 84100; 84443; 85025; 85027; 87045; 87046; 87186; 87324; 87449; 99285-25